=== PATIENT | male | born 1980 | race Caucasian/White ===

== ENCOUNTER 2021-10-29 09:48 | Inpatient (IN) | payer MEDICAID, SELFPAY ==
[2021-10-29] VITALS (22 sets, daily range): BP systolic 93–129; BP diastolic 68–90; PULSE 103–137; RESP 13–20; TEMP 36.4–36.8; O2SAT 97–100; BMI 23.1; BMI 21.7
--- NOTE | 2021-10-29 10:05 | EKG12_ITS ---
Test Reason : Blood Pressure : / mmHG Vent. Rate : 130 BPM Atrial Rate : 130 BPM P-R Int : 142 ms QRS Dur : 074 ms QT Int : 272 ms P-R-T Axes : 099 047 076 degrees QTc Int : 400 ms Sinus tachycardia Nonspecific ST and T wave abnormality Abnormal ECG Confirmed by TAM JANSEN, ABIODUN ([id number]), editor newspaper JARAD COLUNGA ([id number]) on 11/02/2021 12:31:12 PM Referred By: CARYL Confirmed By:ABIODUN TURCIOS MD
--- NOTE | 2021-10-29 10:09 | EX.ED.DYSGE1 ---
HPI History of Present Illness Chief Complaint: Nausea/Vomiting Narrative Narrative: 40-year-old male with history of diabetes as well as chronic foot wound presenting with nausea and vomiting. Patient went to [facility] clinic this week because he was having a decreased appetite and worsening ulceration/concern for infection on the base of his right foot. At the clinic his A1c was 13.7. Patient was started on Jardiance as well as Levaquin for his foot. Has not been able to keep any of his medications down because he has been having vomiting since yesterday. Patient notes he has had an unintentional 30 pound weight loss over the past few months and attributes it to his diabetes. He notes at one point he weighed 450 pounds but he now weighs 171 pounds. He has had swelling as well of his right lower extremity. He denies any difficulty breathing or shortness of breath. He states his mouth feels very dry his throat is on fire. Denies any history of any abdominal surgeries. Denies any abdominal pain just with nausea and vomiting. Is not had a bowel movement a couple days attributes that to decreased oral intake. [facility] Medical History (Updated 10/29/21 @ 11:[address] Luci Judd DO) Diabetes Diabetes mellitus, type 2 Home Medications empagliflozin [Jardiance] 10 mg PO DAILY 10/29/21 [History Last Taken Unknown] levofloxacin 500 mg PO DAILY 10/29/21 [History Last Taken Unknown] Allergy/AdvReac Type Severity Reaction Status Date / Time Penicillins [PCN] Allergy Other Verified 10/29/21 09:56 Surgical History History of ankle surgery Social History (Updated 10/29/21 @ 11:[address] Willard Abel DO) Smoking Status: Never smoker substance use type: marijuana ROS ROS ED Constitutional Constitutional ED: Denies chills or fever(s) Eyes Eyes: Denies blurry vision or change in vision ENT ENT ED: Reports sore throat; Denies rhinorrhea Cardiovascular Cardiovascular: Denies chest pain Respiratory/Chest Respiratory/Chest: Denies cough or dyspnea Gastrointestinal Gastrointestinal: Reports nausea and vomiting; Denies abdominal pain, constipation or diarrhea Genitourinary Genitourinary ED: Denies dysuria or hematuria Musculoskeletal Musculoskeletal: Reports other Details: right leg swelling ; Denies myalgias Integumentary Reports other Details: chronic wound - right foot with drainage Neurologic Neurologic: Reports weakness; Denies headache(s) Psychiatric Psychiatric: Denies depression EXAM Physical Exam Const Vital Signs: 10/29/21 09:50 10/29/21 09:53 10/29/21 10:45 Temperature 98.1 F 98.1 F 98 F Temperature Source Oral Oral Temporal Pulse Rate 132 H 132 H 137 H Respiratory Rate 18 18 17 Blood Pressure 129/81 H 129/81 H 119/90 H Blood Pressure Mean 97 97 99 Pulse Ox 100 100 99 Oxygen Delivery Method Room Air Room Air Room Air 10/29/21 10:51 Temperature 98 F Temperature Source Temporal Pulse Rate 137 H Respiratory Rate 17 Blood Pressure 119/90 H Blood Pressure Mean 99 Pulse Ox 99 Oxygen Delivery Method Room Air Positive well developed and cachectic General Appearance ED: well developed and cachectic Nutritional Appearance: cachectic HEENT Reports dry mucous membranes Negative for trauma Mouth ED: Yes dry mucous membranes Mouth: dry mucous membranes Eyes PERRL and EOMs intact bilaterally Neck supple Neck Narrative: normal ROM Chest Wall inspection of chest normal Resp clear to auscultation bilaterally Resp Narrative: Increased respiratory rate Cardio regular rhythm and no murmurs Rate: tachycardic and other Other Details: Intact radial and DP pulses GI normal to inspection, nondistended, normoactive bowel sounds and non-tender Palpation: soft Back/Spine no CVA tenderness Extremity Extremity Narrative: Mild nonpitting edema of the right lower extremity. No obvious deformity. Neuro oriented x3 and no sensory deficits noted Sensorium / Orientation: alert Motor Exam: general weakness Psych mental status grossly normal Skin Skin Narrative: 1 cm circumferential wound at the base of the right foot near the fifth MTP. There is odorous and purulent discharge coming from it. No surrounding erythema or induration of the skin. MDM MDM MDM Narrative Medical decision making narrative: Patient evaluated for nausea and vomiting as well as hyperglycemia. He has a history of diabetes mellitus and just got put back on medicines. In addition he was just diagnosed with a foot wound. Patient is tachycardic with tachypnea (borderline [place]maul respirations) upon arrival. He appears dehydrated and cachectic. Work-up remarkable for leukocytosis, hyperglycemia, elevated anion gap acidosis, elevated CPK, elevated acetone and elevated creatinine 1.53. Do not have baseline labs to compare to. I suspect patient is in DKA and will be treated accordingly. He is given 2 L of normal saline and started on an insulin drip. I am concerned that his diabetic foot wound as well as his medication noncompliance with past 2 years are the cause of his DKA. He is started on broad-spectrum antibiotics as he does meet criteria for severe sepsis. Patient be admitted to the ICU. Patient is agreeable this plan of care. He is given Zofran in the ER for his nausea. Lab Data Attestation: I reviewed the patient's lab results. Labs: Laboratory Results - last 24 hr 10/29/21 10/29/21 10/29/21 09:55 09:55 09:55 WBC 26.0 H RBC 5.11 Hgb 16.2 Hct 48.7 MCV 95.3 H MCH 31.7 MCHC 33.3 RDW Std Deviation 44.5 H RDW Coeff of Vanessa 12.6 Plt Count 352 MPV 9.4 Immature Gran % (Auto) 0.800 Neut % (Auto) 83.7 H Lymph % (Auto) 3.9 L [place] % (Auto) 11.1 H Eos % (Auto) 0.0 Baso % (Auto) 0.5 Absolute Neuts (auto) 21.7 H Absolute Lymphs (auto) 1.01 Nucleated RBC % 0 Differential Comment COMMENT Diff Path Review May foll Sodium 131 L Potassium 4.5 Chloride 96 L Carbon Dioxide 7.0 L* Anion Gap 28 H BUN 23 H Creatinine 1.53 H Estim Creat Clear Calc 69.00 Est GFR (MDRD) Af Amer 64 Est GFR (MDRD) Non-Af 53 L BUN/Creatinine Ratio 15.0 Glucose 390 H Lactic Acid Calcium 10.1 Phosphorus 5.2 H Magnesium 2.6 Total Bilirubin 0.80 Direct Bilirubin 0.29 AST 10 L ALT 13 L Alkaline Phosphatase 110 Troponin I High Sens < 3 L C-React Prot Ext Range 400.00 H Total Protein 8.9 H Albumin 3.8 Globulin 5.1 H Lipase 28 L Acetone Level 10/29/21 10/29/21 09:55 10:50 WBC RBC Hgb Hct MCV MCH MCHC RDW Std Deviation RDW Coeff of Vanessa Plt Count MPV Immature Gran % (Auto) Neut % (Auto) Lymph % (Auto) [place] % (Auto) Eos % (Auto) Baso % (Auto) Absolute Neuts (auto) Absolute Lymphs (auto) Nucleated RBC % Differential Comment Diff Path Review Sodium Potassium Chloride Carbon Dioxide Anion Gap BUN Creatinine Estim Creat Clear Calc Est GFR (MDRD) Af Amer Est GFR (MDRD) Non-Af BUN/Creatinine Ratio Glucose Lactic Acid 2.8 H* Calcium Phosphorus Magnesium Total Bilirubin Direct Bilirubin AST ALT Alkaline Phosphatase Troponin I High Sens C-React Prot Ext Range Total Protein Albumin Globulin Lipase Acetone Level LARGE H ABG Data ABG results: ABG 10/29/21 10:29 Specimen Type RUDDY VBG pH 7.06 L* VBG pO2 42 H VBG HCO3 6 L VBG Total CO2 7 L VBG O2 Sat (Calc) 58 VBG Base Excess -24 L POC Mix VBG pCO2 Pt Tmp 22.0 L Crit Call To/Read Back Yes Radiography Chest X-Ray - ED: 1 View, Read by ED Physician, Read by Radiologist and No Acute Disease Diagnostic Testing: Clinical Impression(s) from Imaging Studies Chest X-Ray 10/29/21 10:10 IMPRESSION: Normal x-ray examination of the chest. Electronically Signed: Valentino Buchanan MD at 10:27 EST , Foot X-Ray 10/29/21 10:10 IMPRESSION: Soft tissue swelling and ulceration overlying the fifth metatarsophalangeal joint with findings suggestive of erosive changes in the medial aspect of the head of the fifth metatarsal. Osteomyelitis should be ruled out. Electronically Signed: Valentino Buchanan MD at 10:29 EST , Rhythm Strip Rhythm Strip: Sinus Tach Rate: 130 Ectopy: None EKG Initial EKG: Attestation: I personally reviewed and interpreted this EKG as follows: Interpretation: Sinus Tachycardia Comments: Sinus tachycardia rate of 130 Normal axis Normal intervals Possible strain pattern noted with nonspecific ST/T wave abnormalities No prior available for comparison Critical Care Time Critical Care Time: Yes Critical care time (excluding procedures): 30-74 minutes (34), Discussing w/Patient &/or Family/Visual Merchandising Specialist and Arranging Admission or Transfer Discharge Plan Triage Chief Complaint: Nausea/Vomiting ED Provider: Luci Judd Dx/Rx/DC Orders Clinical Impression: DKA (diabetic ketoacidoses), Cellulitis of right foot, Sepsis Primary Care Provider: Care Physician,No Primary Disposition Disposition: Acute Care [facility]
--- NOTE | 2021-10-29 10:10 | RAD_ITS ---
STUDY: X-RAY CHEST REASON FOR EXAM: Male, 40 years old. Vomiting TECHNIQUE: Single AP portable view of the chest. COMPARISON: None. FINDINGS: EKG electrodes are seen. The lungs are clear and expanded. There is no demonstrated pleural abnormality. Normal size heart. Normal mediastinum and bo. Normal visualized pulmonary arteries. Normal visualized aortic arch and descending thoracic aorta. Normal visualized thoracic spine. Normal visualized ribs, clavicles, and shoulders. There is no demonstrated abnormality of the visualized soft tissue structures of the upper abdomen. RAD/Chest 1 View (Portable) IMPRESSION: Normal x-ray examination of the chest. Electronically Signed: Valentino Buchanan MD at 10:27 EST ,
--- NOTE | 2021-10-29 10:10 | RAD_ITS ---
STUDY: X-RAY - RIGHT FOOT CLINICAL: Male, 40 years old. Wound, diabetic TECHNIQUE: 3 view(s) of the foot. COMPARISON: None. FINDINGS: There is an enthesophyte involving the posterior superior calcaneus at the site of insertion of the Achilles tendon. Small plantar spur. Normal visualized subtalar, talonavicular, calcaneocuboid, tarsal and tarsometatarsal articulations. Focal erosive changes seen along the medial aspect of the head of the fifth metatarsal bone suggestive of possible osteomyelitis. Normal metatarsophalangeal joint of the great toe. Normal tibial and fibular sesamoid bones. Normal interphalangeal joint of the great toe. Normal phalanges of the great toe. Normal second through fifth metatarsophalangeal joints. Normal interphalangeal joints and phalanges of the lesser toes. Diffuse soft tissue swelling. Soft tissue ulceration is seen overlying the fifth metatarsophalangeal joint. Small amount of air is seen at the fifth metatarsal phalangeal joint Soft tissue swelling with a small amount of air is also seen overlying the proximal portion of the fifth metatarsal. RAD/Foot min 3 Views IMPRESSION: Soft tissue swelling and ulceration overlying the fifth metatarsophalangeal joint with findings suggestive of erosive changes in the medial aspect of the head of the fifth metatarsal. Osteomyelitis should be ruled out. Electronically Signed: Valentino Buchanan MD at 10:29 EST ,
[2021-10-29 10:14] LABS: Absolute Lymphocyte Count 1.01 X10^3/uL (0.83-4.51); Absolute Neutrophil Count 21.7 X10^3/uL (2.0-7.7); Basophil# 0.14 X10^3/uL; Basophil% 0.5 % (0-1); Eosinophil# 0.01 X10^3/uL; Hematocrit 48.7 % (40-54); Hemoglobin 16.2 g/dL (13.0-16.5); Lymphocyte # 1.01 X10^3/ul (0.83-4.51); Lymphocyte % 3.9 % (19-41); Mean Corp Hgb Conc 33.3 g/dL (32-36); Mean Corpuscular Hgb 31.7 pg (27.0-32.0); Mean Corpuscular Volume 95.3 fL (80-94); Mean Platelet Vol. 9.4 fl (6.2-12.0); Monocyte# 2.88 X10^3/uL; Monocyte% 11.1 % (0-10); NRBC Flagged by Analyzer 0 % (0-5); Neutrophil # 21.69 X10^3/uL (2.7-7.7); Neutrophil % 83.7 % (47-70); POSITIVE DIFFERENTIAL YES; Platelet Count 352 K/mm3 (150-450); RBC Distribution Width CV 12.6 % (11.6-14.6); RBC Distribution Width SD 44.5 fl (35.1-43.9); Red Blood Count 5.11 M/mm3 (4.6-6.2)
[2021-10-29 10:15] LABS: Differential Indicated SCAN CRITERIA MET
[2021-10-29] MEDS: Ondansetron 4 MG/2 ML Vial IV (10:17)
[2021-10-29] MEDS: 0.9% Normal Saline 1,000 ML 999 ML IV ×2 (10:20→10:33)
[2021-10-29 10:28] LABS: AST(SGOT) 10 U/L (15-37); Alanine Aminotransfer ALT/SGPT 13 U/L (16-61); Albumin, Serum 3.8 g/dL (3.2-5.0); Alkaline Phosphatase 110 U/L (45-117); Bilirubin, Direct 0.29 mg/dL (0.00-0.30); Globulin 5.1 g/dL (2.2-4.2); Protein, Total 8.9 g/dL (6.4-8.2)
--- NOTE | 2021-10-29 10:32 | CPS ---
Critical VBG results handed to Dr. Judd
[2021-10-29 10:34] LABS: Anion Gap 28 (5-15); BUN 23 mg/dL (7-18); Calcium,Total 10.1 mg/dL (8.5-10.1); Chloride 96 mmol/L (98-107); Creatinine, Serum 1.53 mg/dL (0.70-1.30); EST Glomerular Filtration Rate 53 mL/min (>60); Est Glom Filt Rate - Afr Amer 64 mL/min (>60); Glucose 390 mg/dL (74-106); Lipase 28 U/L (73-393); Magnesium 2.6 mg/dL (1.6-2.6); Phosphorus 5.2 mg/dL (2.5-4.9); Potassium 4.5 mmol/L (3.5-5.1); Sodium Level 131 mmol/L (136-145); Troponin-I HS < 3 pg/mL (3.0-78.0)
[2021-10-29 10:36] LABS: Blood Gas Specimen Type VEN; VBG BASE EXCESS -24 mmol/L (-1.0-3.5); VBG Bicarbonate 6 mmol/L (22-26); VBG PO2 42 mmHg (25-40); VBG SO2 58 % (50-70); VBG TCO2 7 mmol/L (23-33); VBG pH 7.06 (7.32-7.42)
--- NOTE | 2021-10-29 10:41 | ED.RN ---
mom called in to notify that patient has depression and pt would not mention that. She did not want it made known that she called.
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
[2021-10-29 11:20] LABS: Bedside Glucose 376 mg/dL (70-110)
[2021-10-29 11:28] LABS: Lactic Acid 2.8 mmol/L (0.4-1.9)
[2021-10-29] MEDS: 0.9% Normal Saline 1,000 ML 500 ML IV (12:24)
[2021-10-29 12:57] LABS: Hemoglobin A1c 11.1 % (3.8-5.6)
[2021-10-29 13:02] LABS: Anion Gap 25 (5-15); BUN 23 mg/dL (7-18); BUN/Creat Ratio 17.2 RATIO (10-20); Calcium,Total 8.8 mg/dL (8.5-10.1); Chloride 104 mmol/L (98-107); Creatinine, Serum 1.34 mg/dL (0.70-1.30); EST Glomerular Filtration Rate 62 mL/min (>60); Est Glom Filt Rate - Afr Amer 75 mL/min (>60); Estimated Creatinine Clearance 73.64 ml/min; Glucose 333 mg/dL (74-106); Potassium 4.2 mmol/L (3.5-5.1); Sodium Level 137 mmol/L (136-145)
[2021-10-29 13:16] LABS: Bedside Glucose 305 mg/dL (70-110)
--- NOTE | 2021-10-29 13:19 | PCM.RX.CS ---
Consult Type of Consult: New start Suspected Infection: Skin/Soft tissue Labs: Sodium 137 mmol/L (136-145) 10/29/21 12:35 Potassium 4.2 mmol/L (3.5-5.1) 10/29/21 12:35 Chloride 104 mmol/L (98-107) 10/29/21 12:35 Carbon Dioxide 8.0 mmol/L (21.0-32.0) L* 10/29/21 12:35 Anion Gap 25 (5-15) H 10/29/21 12:35 BUN 23 mg/dL (7-18) H 10/29/21 12:35 Creatinine 1.34 mg/dL (0.70-1.30) H 10/29/21 12:35 Est GFR (MDRD) Af Amer 75 mL/min (>60) 10/29/21 12:35 Est GFR (MDRD) Non-Af 62 mL/min (>60) 10/29/21 12:35 BUN/Creatinine Ratio 17.2 RATIO (10-20) 10/29/21 12:35 Glucose 333 mg/dL (74-106) H 10/29/21 12:35 Microbiology: Microbiology 10/29/21 10:53 Nasal Secretion SARS-CoV-2 Antigen (Rapid) - Final Goal Trough: 10-15 mcg/mL Pharmacy Plan for Drug Dosing: NEW START IV VANCOMYCIN Consulting Physician: Dr. Bhavani Abel Indication: Cellulitis Right Foot Goal Trough: 10-15 (Moderate) SrCr: 1.34 mg/dL CrCl:73.64 mL/min Comments: 2000mg given x1 dose in ER @ 1225 10/29/21 Vancomcyin Dose: 750mg Q12H to start @ 0000 10/30/21 Pending Level: Vancomycin Trough @ 232910/30/21 Pharmacy Service will continue to monitor and adjust dosing as required. Labs to be done on [date and time ordered]: Vancomycin Trough @ 232910/30/21
[2021-10-29 13:56] LABS: Bedside Glucose 356 mg/dL (70-110)
[2021-10-29 14:16] LABS: Bedside Glucose 225 mg/dL (70-110)
[2021-10-29] MEDS: Dext 5%-0.45% NS 1,000 ML 150 ML IV ×2 (14:38→21:08)
[2021-10-29 14:51] LABS: Reflex Lactate? Y
[2021-10-29 15:11] LABS: Bedside Glucose 204 mg/dL (70-110)
[2021-10-29 16:16] LABS: Anion Gap 16 (5-15); BUN 22 mg/dL (7-18); BUN/Creat Ratio 17.7 RATIO (10-20); Calcium,Total 8.2 mg/dL (8.5-10.1); Chloride 111 mmol/L (98-107); Creatinine, Serum 1.24 mg/dL (0.70-1.30); EST Glomerular Filtration Rate 68 mL/min (>60); Est Glom Filt Rate - Afr Amer 82 mL/min (>60); Estimated Creatinine Clearance 79.58 ml/min; Glucose 248 mg/dL (74-106); Potassium 4.1 mmol/L (3.5-5.1); Sodium Level 139 mmol/L (136-145)
[2021-10-29 16:19] LABS: Lactic Acid 1.2 mmol/L (0.4-1.9)
[2021-10-29 16:20] LABS: Bedside Glucose 236 mg/dL (70-110)
[2021-10-29 17:10] LABS: Bedside Glucose 236 mg/dL (70-110)
[2021-10-29 18:11] LABS: Bedside Glucose 216 mg/dL (70-110)
[2021-10-29 19:06] LABS: Bedside Glucose 222 mg/dL (70-110)
[2021-10-29 20:41] LABS: Anion Gap 10 (5-15); BUN 19 mg/dL (7-18); BUN/Creat Ratio 14.7 RATIO (10-20); Calcium,Total 8.9 mg/dL (8.5-10.1); Chloride 110 mmol/L (98-107); Creatinine, Serum 1.29 mg/dL (0.70-1.30); EST Glomerular Filtration Rate 65 mL/min (>60); Est Glom Filt Rate - Afr Amer 78 mL/min (>60); Glucose 212 mg/dL (74-106); Potassium 3.6 mmol/L (3.5-5.1); Sodium Level 139 mmol/L (136-145)
[2021-10-29 21:11] LABS: Bedside Glucose 192 mg/dL (70-110)
[2021-10-29 21:11] LABS: Bedside Glucose 185 mg/dL (70-110)
[2021-10-29 23:15] LABS: Bedside Glucose 157 mg/dL (70-110)
[2021-10-29 23:35] LABS: Bedside Glucose 177 mg/dL (70-110)
[2021-10-30] VITALS (18 sets, daily range): BP systolic 95–119; BP diastolic 63–84; PULSE 90–115; RESP 15–99; TEMP 36.3–37.2; O2SAT 97–100; BMI 23.0
[2021-10-30 00:06] LABS: Bedside Glucose 141 mg/dL (70-110)
[2021-10-30 00:23] LABS: Anion Gap 8 (5-15); BUN 18 mg/dL (7-18); BUN/Creat Ratio 15.5 RATIO (10-20); Calcium,Total 8.8 mg/dL (8.5-10.1); Chloride 111 mmol/L (98-107); Creatinine, Serum 1.16 mg/dL (0.70-1.30); EST Glomerular Filtration Rate 73 mL/min (>60); Est Glom Filt Rate - Afr Amer 88 mL/min (>60); Estimated Creatinine Clearance 85.07 ml/min; Glucose 156 mg/dL (74-106); Potassium 3.4 mmol/L (3.5-5.1); Sodium Level 140 mmol/L (136-145)
[2021-10-30] MEDS: Potassium Chloride Oral Tablet 20 MEQ 40 MEQ PO (01:04)
[2021-10-30 02:21] LABS: Bedside Glucose 123 mg/dL (70-110)
[2021-10-30 02:21] LABS: Bedside Glucose 146 mg/dL (70-110)
[2021-10-30 04:05] LABS: Bedside Glucose 142 mg/dL (70-110)
[2021-10-30 05:06] LABS: Bedside Glucose 98 mg/dL (70-110)
[2021-10-30 05:35] LABS: Anion Gap 6 (5-15); BUN 14 mg/dL (7-18); BUN/Creat Ratio 14.7 RATIO (10-20); Calcium,Total 8.8 mg/dL (8.5-10.1); Chloride 109 mmol/L (98-107); Creatinine, Serum 0.95 mg/dL (0.70-1.30); EST Glomerular Filtration Rate 92 mL/min (>60); Est Glom Filt Rate - Afr Amer 111 mL/min (>60); Estimated Creatinine Clearance 110.46 ml/min; Glucose 92 mg/dL (74-106); Potassium 3.2 mmol/L (3.5-5.1); Sodium Level 137 mmol/L (136-145)
[2021-10-30] MEDS: 0.9% Saline Lock 10 ML Syringe IV (06:33)
[2021-10-30] MEDS: Insulin Lispro 100 UNIT/ML INSULN.PEN SC ×3 (08:08→23:06)
[2021-10-30] MEDS: Insulin Lispro 100 UNIT/ML INSULN.PEN 6 UNIT SC ×4 (08:08→16:45)
[2021-10-30 08:15] LABS: Bedside Glucose 158 mg/dL (70-110)
--- NOTE | 2021-10-30 09:27 | NURSING ---
pt to MRI at this time via wheelchair
--- NOTE | 2021-10-30 09:30 | MRI_ITS ---
STUDY: MRI RIGHT FOREFOOT WITHOUT CONTRAST REASON FOR EXAM: Right foot infection in a diabetic with chronic ulcer at the lateral plantar aspect of the forefoot. TECHNIQUE: Standardized fat and water weighted pulse sequences were obtained in all 3 orthogonal planes. COMPARISON: Radiographs 10/29/2021. FINDINGS: Normal metatarsophalangeal joint of the hallux. Normal tibial and fibular sesamoids, with normal sesamoids-first metatarsal articulations. Normal interphalangeal joint of the hallux. Normal proximal and distal phalanges of the great toe. Normal medial and lateral heads of the flexor hallucis brevis tendons. Normal flexor and extensor hallucis longus tendons. Normal second through fifth metatarsophalangeal (MTP) joints. Normal interphalangeal joints of the second through fifth toes. Normal proximal, middle and distal phalanges of the second through fourth toes. There is bone edema of the base of the fifth proximal phalanx (inversion recovery sagittal image 25) with corresponding decreased T1 bone marrow signal (T1 sagittal image 25) suggestive of osteomyelitis. There is bone edema of the head of the fifth metatarsal (inversion recovery short axis image 22) with mild decreased T1 bone marrow signal (T1 short axis series 22), suggestive of osteomyelitis. There is mild intermetatarsal bursitis of the third webspace (inversion recovery short axis image 17). Normal flexor and extensor tendons of the second through fifth toes. There is partial fat replacement of the intrinsic muscles of the forefoot (T1 sagittal images 8-17) suggestive of peripheral neuropathy. There is edema in the subcutis adipose space with a fluid collection in the dorsal lateral aspect of the proximal forefoot containing pockets of gas (T2 short axis images 22-30) consistent with abscess measuring approximately 0.6 x 3.1 x 3.9 cm (AP x transverse x length). There is an ulcer at the plantar aspect of the fifth metatarsophalangeal joint and edema in the adjacent subcutis adipose space. 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 MRI/Lower Ext/No Jt/w/o IMPRESSION: Signal alterations of the fifth metatarsal head and fifth proximal phalangeal base, suggestive of osteomyelitis. Fluid collection in the dorsal lateral aspect of the forefoot with pockets of gas consistent with abscess. Partial fat replacement of the intrinsic muscles of the forefoot suggestive of peripheral neuropathy. Mild intermetatarsal bursitis of the third webspace. Electronically Signed: Kingston Fajardo MD at 10:53 EST ,
--- NOTE | 2021-10-30 10:26 | NURSING ---
pt returns from MRI
[2021-10-30] MEDS: Enoxaparin 40 MG/0.4 ML Syringe SC (10:39)
[2021-10-30 11:25] LABS: Bedside Glucose 230 mg/dL (70-110)
--- NOTE | 2021-10-30 12:02 | PN.HOSP_ITS ---
Subjective Subjective Developed blisters on the dorsum of his right foot that were not present initially. Otherwise feels well. Notes that he does have diminished sensation in his feet. Objective Data Objective Data Vital Signs: Vital Signs Temp Pulse Resp BP Pulse Ox 36.4 C L 100 18 119/84 H 98 10/30/21 08:00 10/30/21 08:00 10/30/21 08:00 10/30/21 08:00 10/30/21 08:00 Oxygen Delivery Method Room Air Weight: 77.1 kg Body Mass Index (BMI) 21.7 Intake & Output: Intake and Output for Last 24 Hours 10/28/21 10/29/21 10/30/21 23:59 23:59 23:59 Intake Total 4086.83 / 4086.83 1390.12 / 1390.12 Output Total 1600 / 1600 550 / 550 Balance 2486.83 / 2486.83 840.12 / 840.12 Lab / Micro Data Result Diagrams: 10/29/21 09:55 10/30/21 04:45 Labs: Laboratory Results - last 24 hr 10/29/21 09:55: Hemoglobin A1c 11.1 H 10/29/21 12:06: POC Glucose 356 H 10/29/21 12:35: Sodium 137, Potassium 4.2, Chloride 104, Carbon Dioxide 8.0 L*, Anion Gap 25 H, BUN 23 H, Creatinine 1.34 H, Estim Creat Clear Calc 73.64, Est GFR (MDRD) Af Amer 75, Est GFR (MDRD) Non-Af 62, BUN/Creatinine Ratio 17.2, Glucose 333 H, Calcium 8.8 10/29/21 13:07: POC Glucose 305 H 10/29/21 14:08: POC Glucose 225 H 10/29/21 15:05: POC Glucose 204 H 10/29/21 15:45: Sodium 139, Potassium 4.1, Chloride 111 H, Carbon Dioxide 12.0 L , Anion Gap 16 H, BUN 22 H, Creatinine 1.24, Estim Creat Clear Calc 79.58, Est GFR (MDRD) Af Amer 82, Est GFR (MDRD) Non-Af 68, BUN/Creatinine Ratio 17.7, Glucose 248 H, Calcium 8.2 L 10/29/21 15:45: Lactic Acid 1.2 10/29/21 16:11: POC Glucose 236 H 10/29/21 17:04: POC Glucose 236 H 10/29/21 18:07: POC Glucose 216 H 10/29/21 19:00: POC Glucose 222 H 10/29/21 20:08: POC Glucose 192 H 10/29/21 20:15: Sodium 139, Potassium 3.6, Chloride 110 H, Carbon Dioxide 19.0 L , Anion Gap 10, BUN 19 H, Creatinine 1.29, Estim Creat Clear Calc 76.50, Est GFR (MDRD) Af Amer 78, Est GFR (MDRD) Non-Af 65, BUN/Creatinine Ratio 14.7, Glucose 212 H, Calcium 8.9 10/29/21 21:04: POC Glucose 185 H 10/29/21 22:07: POC Glucose 177 H 10/29/21 23:12: POC Glucose 157 H 10/29/21 23:57: Sodium 140, Potassium 3.4 L, Chloride 111 H, Carbon Dioxide 21.0, Anion Gap 8, BUN 18, Creatinine 1.16, Estim Creat Clear Calc 85.07, Est GFR (MDRD) Af Amer 88, Est GFR (MDRD) Non-Af 73, BUN/Creatinine Ratio 15.5, Glucose 156 H, Calcium 8.8 10/30/21 00:02: POC Glucose 141 H 10/30/21 01:18: POC Glucose 123 H 10/30/21 02:13: POC Glucose 146 H 10/30/21 03:18: POC Glucose 142 H 10/30/21 04:26: POC Glucose 98 10/30/21 04:45: Sodium 137, Potassium 3.2 L, Chloride 109 H, Carbon Dioxide 22.0, Anion Gap 6, BUN 14, Creatinine 0.95, Estim Creat Clear Calc 110.46, Est GFR (MDRD) Af Amer 111, Est GFR (MDRD) Non-Af 92, BUN/Creatinine Ratio 14.7, Glucose 92, Calcium 8.8 10/30/21 08:04: POC Glucose 158 H 10/30/21 11:22: POC Glucose 230 H Micro: Microbiology 10/29/21 10:53 Nasal Secretion SARS-CoV-2 Antigen (Rapid) - Final Radiography Diagnostic Testing: Radiology Impression Lower Extremity MRI 10/30/21 09:30 IMPRESSION: Signal alterations of the fifth metatarsal head and fifth proximal phalangeal base, suggestive of osteomyelitis. Fluid collection in the dorsal lateral aspect of the forefoot with pockets of gas consistent with abscess. Partial fat replacement of the intrinsic muscles of the forefoot suggestive of peripheral neuropathy. Mild intermetatarsal bursitis of the third webspace. Electronically Signed: Kingston Fajardo MD at 10:53 EST , Rhythm Strip Rhythm Strip: Sinus Tach Rate: 130 Ectopy: None Physical Exam Const alert and no apparent distress Neck no lymphadenopathy Resp normal respiratory effort, no retractions, no use of accessory muscles and clear to auscultation bilaterally Cardio regular rate, regular rhythm, S1 normal heart sound and S2 normal heart sound GI normal to inspection, nondistended, normoactive bowel sounds, soft to palpation, non-tender and non-distended Skin Skin Narrative: Still with the defect on the right lateral foot. Also development of a blister appears to be filled with blood between his fourth and fifth toe. This was not present on the third. Neuro Sensorium / Orientation: awake and alert Assessment & Plan Assessment/Plan (1) DKA (diabetic ketoacidoses): QUALIFIERS: Diabetes mellitus type: type 2 Diabetes mellitus c omplication detail: without coma Qualified Code(s): E11.10 - Type 2 diabetes mellitus with ketoacidosis without coma (2) Cellulitis of right foot: (3) Osteomyelitis of right foot: QUALIFIERS: Osteomyelitis type: unspecified type Qualified Code(s): M86.9 - Osteomyelitis, unspecified PLAN: 1. Diabetic ketoacidosis Resolved On basal and prandial insulin May been exacerbated due to a right lower extremity cellulitis A1c 11.1 2. Right foot cellulitis, osteomyelitis and abscess MRI of the foot shows evidence of osteomyelitis in the fifth metatarsal head as well as the fifth proximal phalangeal base, fluid collection in the dorsal later al aspect of the forefoot with pockets of gas consistent with abscess. Vancomycin and aztreonam for now Consult podiatry Did discuss with the patient the likelihood of surgery Patient medically optimized to proceed with surgery. 3 VTE prophylaxis with enoxaparin 4. COVID-19: Patient has been vaccinated and boosted. He thinks he may have contracted it about a month ago but was sick for about 2 days and has since resolved. Rapid COVID-19 ordered in the emergency room and performed. Results pending. Charges/Coding Visit Charges Inpatient E&M: 45074 Subs Hosp L2
--- NOTE | 2021-10-30 12:08 | ART_ITS ---
Reason For Study: Rt Foot Osteomyelitis Procedure A bilateral lower extremity continuous wave Doppler with analog waveform analysis and ankle brachial indexes. Left Segmental Pressures Left posterior tibial artery = 105mmHg. Left dorsalis pedis artery = 103mmHg. Left digit = 85 mmHg. Right Segmental Pressures Right brachial= 100mmHg. Right posterior tibial artery = 113mmHg. Right dorsalis pedis artery = 102mmHg. Right digit = 63 mmHg. Indices The right ankle brachial index by the posterior tibial artery is 1.13. The right ankle brachial index by the dorsalis pedis is 1.02. The right digital-brachial index is 0.63. The left ankle brachial index by the posterior tibial artery is 1.05. The left ankle brachial index by the dorsalis pedis is 1.03. The left digital-brachial index is 0.85. VL/Ankle Brachial Index Interpretation Summary Normal bilateral lower extremity resting ankle brachial indices and triphasic d oppler waveforms Abnormal right digital brachial index of 0.63 suspicous for distal small vessel disease Normal left digital brachial index of 0.85 Ordering Physician: Willard Abel Performed By: Chelsie Lane RDCS/RVT
[2021-10-30 12:30] LABS: Pathologist Review Reviewed
--- NOTE | 2021-10-30 13:44 | CON.PCM_ITS ---
Assessment & Plan Assessment/Plan (1) Osteomyelitis of right foot: QUALIFIERS: Osteomyelitis type: unspecified type Qualified Code(s): M86.9 - Osteomyelitis, unspecified (2) Cellulitis of right foot: (3) Sepsis: (4) DKA (diabetic ketoacidoses): QUALIFIERS: Diabetes mellitus type: type 2 Diabetes mellitus complication detail: without coma Qualified Code(s): E11.10 - Type 2 diabetes mellitus with ketoacidosis without coma PLAN: I reviewed and discussed his case today including his diagnostic data. He has a limb and life-threatening infection and his case is complicated with his uncontrolled diabetes (A1c 11.1%). He had diabetic ketoacidosis upon admission and had a white blood cell count of 26. His x-rays demonstrate soft tissue emphysema adjacent to the ulcer site on the dorsal aspect of the foot and this is consistent with a cast infection. Further MRI demonstrates abscess formation with air and gas collection. Osteomyelitis is also suspected to the fifth metatarsal head and proximal phalanx base of the fifth toe of the right foot. He is currently on IV antibiotics including aztreonam and vancomycin. Verbal consent was obtained to perform small incision and drainage and ulcer debridement to immediately decompress this infection site. At this time deep wound cultures were obtained including aerobic, anaerobic, and MRSA PCR. This was packed with Betadine wet-to-dry gauze. I recommend timely surgery today to further decompress his infection site and save as much of his limb as possible. He is preoperatively optimized and is under hospitalist medical management. The preoperative indications, planned procedure, benefits, risk, anticipated healing time and management were reviewed. The patient understands and elects proceed with surgery at this time. No guarantees were made. The patient understands risk and complications include but are not limited to following: pain, swelling, scarring, need for further surgery, tendon contracture, transfer lesion, arthritis, need for further surgery, delayed or nonhealing, infection, blood clot, allergic reaction, loss of limb, function, or life. He understands a staged procedure is also possible and he is at significant risk for limb loss due to this condition. The informed surgical limb will need to be signed, and consent were signed for right lower extremity debridement of nonviable soft tissue involving a fifth ray resection. He elects to proceed. I also reviewed the case with anesthesiologist and this procedure will occur today. Enoxaparin held. Medical management per hospitalist is appreciated. I answered all the patient's questions. Thank you for the consultation. Please do not hesitate to contact me if you have further questions. Mary Tyson DPM, [facility] [phone] HPI Consult Data Date of Consult: 10/30/21 HPI Narrative Reason for Consultation: right foot infection HPI Narrative: BETI LONG, is a 40 M who was admited for Diabetic ketoacidosis and right foot infection was seen bedside this afternoon. He does have a history of chronic ulceration which she has been treating this on his own for approximately 9 months. He reported he developed severe nausea and vomiting this past Tuesday with increased foot swelling. He then noticed some redness to the he reports he has had odor on and off for the past couple of months. He denies pain because he is neuropathic. He is a known diabetic and denies checking his glucose levels at home. He lost his health insurance and has not been seeking medical care. [facility] Medical History Diabetes Diabetes mellitus, type 2 Home Medications empagliflozin [Jardiance] 10 mg PO DAILY 10/29/21 [History Last Taken Unknown] levofloxacin 500 mg PO DAILY 10/29/21 [History Last Taken Unknown] Allergy/AdvReac Type Severity Reaction Status Date / Time Penicillins [PCN] Allergy Other Verified 10/29/21 09:56 Surgical History History of ankle surgery Social History (Updated 10/29/21 @ 11:[address] Willard Abel, ) Smoking Status: Never smoker substance use type: marijuana Physical Exam Const alert and oriented x3 General Appearance: cooperative HEENT normocephalic Extremity Extremity Narrative: No calf tenderness Edema right foot and leg Compartments remain soft and there is no skin tenting 2/4 PT and DP pulses bilateral Muscle wasting noted; intrinsic minus foot General Extremity: edema and no tenderness to palpation of joints or extremities; Negative for cyanosis Skin Skin Narrative: Skin discontinuity subfifth metatarsal head with necrotic base with positive probe to fifth metatarsal head bone and odor and dishwater mares seropurulent drainage. Plantar predebridement measurement 1.1 x 1.1 x 1.1 cm and post debridement 1.3 x 1.3 x 1.6 cm. There is also dorsal foot lateral erythema and hematogenous bulla to the fourth dorsal distal interspace. Upon drainage there is significant malodor in the plantar lateral forefoot is boggy and fluctuant on palpation. There is no streaking into the leg. There is also ecchymosis to the dorsal lateral forefoot of the right lower extremity. There is healed ankle fracture repair cicatrix to the lateral and anterior medial ankle which does not appear to be involved. The left lower extremity was evaluated without any open lesions or infections. General Skin Exam: Negative for erythema Neuro Neuro Narrative: lack of normal epicritic sensation via light touch is consistent with neuropathy status Psych cooperative and affect normal Lab / Micro Data Result Diagrams: 10/29/21 09:55 10/30/21 04:45 Labs: Laboratory Results - last 24 hr 10/29/21 09:55: Diff Path Review Reviewed 10/29/21 12:06: POC Glucose 356 H 10/29/21 14:08: POC Glucose 225 H 10/29/21 15:05: POC Glucose 204 H 10/29/21 15:45: Sodium 139, Potassium 4.1, Chloride 111 H, Carbon Dioxide 12.0 L , Anion Gap 16 H, BUN 22 H, Creatinine 1.24, Estim Creat Clear Calc 79.58, Est GFR (MDRD) Af Amer 82, Est GFR (MDRD) Non-Af 68, BUN/Creatinine Ratio 17.7, Glucose 248 H, Calcium 8.2 L 10/29/21 15:45: Lactic Acid 1.2 10/29/21 16:11: POC Glucose 236 H 10/29/21 17:04: POC Glucose 236 H 10/29/21 18:07: POC Glucose 216 H 10/29/21 19:00: POC Glucose 222 H 10/29/21 20:08: POC Glucose 192 H 10/29/21 20:15: Sodium 139, Potassium 3.6, Chloride 110 H, Carbon Dioxide 19.0 L , Anion Gap 10, BUN 19 H, Creatinine 1.29, Estim Creat Clear Calc 76.50, Est GFR (MDRD) Af Amer 78, Est GFR (MDRD) Non-Af 65, BUN/Creatinine Ratio 14.7, Glucose 212 H, Calcium 8.9 10/29/21 21:04: POC Glucose 185 H 10/29/21 22:07: POC Glucose 177 H 10/29/21 23:12: POC Glucose 157 H 10/29/21 23:57: Sodium 140, Potassium 3.4 L, Chloride 111 H, Carbon Dioxide 21.0, Anion Gap 8, BUN 18, Creatinine 1.16, Estim Creat Clear Calc 85.07, Est GFR (MDRD) Af Amer 88, Est GFR (MDRD) Non-Af 73, BUN/Creatinine Ratio 15.5, Glucose 156 H, Calcium 8.8 10/30/21 00:02: POC Glucose 141 H 10/30/21 01:18: POC Glucose 123 H 10/30/21 02:13: POC Glucose 146 H 10/30/21 03:18: POC Glucose 142 H 10/30/21 04:26: POC Glucose 98 10/30/21 04:45: Sodium 137, Potassium 3.2 L, Chloride 109 H, Carbon Dioxide 22.0, Anion Gap 6, BUN 14, Creatinine 0.95, Estim Creat Clear Calc 110.46, Est GFR (MDRD) Af Amer 111, Est GFR (MDRD) Non-Af 92, BUN/Creatinine Ratio 14.7, Glucose 92, Calcium 8.8 10/30/21 08:04: POC Glucose 158 H 10/30/21 11:22: POC Glucose 230 H Micro: Microbiology 10/29/21 10:53 Nasal Secretion SARS-CoV-2 Antigen (Rapid) - Final Rhythm Strip Rhythm Strip: Sinus Tach Rate: 130 Ectopy: None Radiology Impression Lower Extremity MRI 10/30/21 09:30 IMPRESSION: Signal alterations of the fifth metatarsal head and fifth proximal phalangeal base, suggestive of osteomyelitis. Fluid collection in the dorsal lateral aspect of the forefoot with pockets of gas consistent with abscess. Partial fat replacement of the intrinsic muscles of the forefoot suggestive of peripheral neuropathy. Mild intermetatarsal bursitis of the third webspace. Electronically Signed: Kingston Fajardo MD at 10:53 EST ,
--- NOTE | 2021-10-30 14:25 | CASEMGMT ---
Addendum entered by Meredith Saez 10/30/21 14:47: STEFANO GARCIA back into room. Provided pt with 's card and patient was provided a list of C providers including quality and resource use data and consistent with the patient?s preferred geographic region, medical needs, and insurance network. STEFANO GARCIA to follow. Original Note: STEFANO GARCIA Assessment: Face to Face with pt for initial transition planning/care coordination assessment. RN RADHA introduced self and role at [facility], pt voices understanding and consents to assessment. Pt is A/O x4 and answers all questions appropriately at this time. Pt sitting up in bed with mother at bedside. Pt in no distress on RA. Care providers, pharmacy, and demographics verified/updated. Admitting Dx: DKA, Diabetic Foot Wound PCP:Trena Magallon Specialists:Pt denies. Preferred [facility]acy: [facility] Insurance: [employer] Prescription Benefit: yes LW/HPOA: Pt denies having a LW/DPOA and denies need for info regarding AD. LNOK: Syl Murphy, mother Living Arrangements: Pt lives in a single story condo with 1 step to enter. Pt reports he is I in ADL's and denies concerns at home. Transportation: Pt drives self and denies concerns with transportation. DME/HHC/SNF: Pt has access to a w/c and walker but does not use AD to ambulate. Pt does not have a BGM. STEFANO GARCIA to obtain script for this. Pt states he does not take insulin at home. He has lost a significant amount of weight and reports he does not check his blood sugars anymore. Pt has a wound to the R foot, states he has had it for about 9 mos. He reports he dresses it himself with silver. Pt denies hx of HHC or SNF stays. Pt states no concerns with going home at time of dc. He is open to having SN to assist with wound care. His mother states she is also willing to learn. Pt is also open to nursing giving DM education in the home. Will provide pt with pamphlet for mine promotor. Pt states no further concerns/needs. CM to follow. Advised pt to ask CM if any further question/concerns/needs arise, voices understanding. Pt Goal: Home with HHC Plan: Home with C
[2021-10-30 16:35] LABS: Bedside Glucose 199 mg/dL (70-110)
--- NOTE | 2021-10-30 17:00 | FOOT_PTH ---
PATIENT: BETI LONG LOC: [facility]3 U#:[id number] AGE/SX: 40/M ROOM: [facility]322 RE10/29/[address]: Dr. Xavi Gordon MD : 1980 BED: 1 DIS: 11/04/2021 SPEC #: [id number] RECD: 11/02/21 07:21 STATUS: FUNMI REQ #: [id number] MARIAJOSE: 10/30/21 17:[address]: Mary Tyson DEPT: SURGICAL PATHOLOGY RECD BY: Purnima Braun ENTERED: 11/02/21 07:56 SP TYPE: FOOT OTHR DR: DO Dr. Wood Contreras, DPM MD Dr. Demetri Knox MD No Primary Care Phys Tissues: A - Foot, NOS B - Foot, NOS Procedures: Decalcification bone/plaque Surgery Specimen Level III Comments: @ Ordering doctor for DEC edited from to DR.JFASCI Moyer by TANO at 11/02/21 1344 @ Ordering doctor for SUIV edited from to DR.JFASCI Moyer by TANO at 11/02/21 1344 @ Ordering doctor for SUV edited from to DR.JFASCI Moyer by TANO at 11/02/21 1344 @ Submitting doctor edited from to DR.JFASCI Comfort FREEDMAN at 11/02/21 1344 HEADER OPERATION: Open fifth ray resection, right foot PRE-OP DIAGNOSIS: Osteomyelitis of right foot, cellulitis, sepsis, DKA TISSUE SUBMITTED: A ? Right foot soft tissue and bone, B ? Right foot clearance fragment MICROSCOPIC DIAGNOSIS A. Right foot soft tissue and bone: Acute inflammation and extensive abscess formation. Bone with acute osteomyelitis. B. Right foot clearance fragment: A piece of bone, negative for acute osteomyelitis. SJ:kelsey 11/05/2021 MICROSCOPIC DESCRIPTION Slides are reviewed. GROSS DESCRIPTION A - Received in fixative is one container labeled with the patient's name and designated right foot soft tissue and bone. The specimen consists of multiple pieces of skin with underlying tissue that in aggregate measure 8 x 7 x 3 cm. The soft tissue shows grayish-white discoloration. The soft tissue underlying the skin shows grayish discoloration. Also present in the container is a piece of bone measuring 4.5 x 2 x 1.5 cm. Lead Refiner sections are submitted in four cassettes as follows: 1 & 2 ? soft tissue, 3 & 4 ? bone after decalcification. B - Received in fixative is one container labeled with the patient's name and designated right foot clearance fragment. The specimen consists of a piece of bone measuring 1.7 x 0.5 x 0.2 cm. The entire specimen is submitted in one cassette after decalcification. / SJ:rg 11/02/2021 TC:2 CPT: 60324 x2, 73214 x2
--- NOTE | 2021-10-30 18:30 | RAD_ITS ---
STUDY: INTRAOPERATIVE FLUOROSCOPY TECHNIQUE: The examination was performed with referring physician in attendance. Under fluoroscopic observation, fluoroscopic images were obtained. Radiologist was not present for the study. Radiologist did not perform the procedure. This dictation is for documentation of the radiation dosage only. There is no interpretation of the images. TOTAL NUMBER OF IMAGES: 1 COMPARISON: None RADIATION DOSE: 0.0819 mGy FLUOROSCOPY TIME: .02 seconds REASON FOR EXAM: OPEN 5TH RAY RESECTION Male, 40 years old. FINDINGS: Images of the foot. Resection and amputation of the fifth digit. RAD/Foot 2 Views IMPRESSION: Fluoroscopic assistance images were obtained. Dictation for documentation purposes only. Electronically Signed: John Caldwell MD at 20:16 EST ,
[2021-10-30] MEDS: Bupivacaine Mpf 0.5% 30 ML VIAL (18:58)
[2021-10-30] MEDS: Lidocaine 1% (30 ml sdv) 30 ML Vial (18:58)
--- NOTE | 2021-10-30 19:35 | OP.PCM_ITS ---
Problems Associated Problem List Diagnoses (1) Osteomyelitis of right foot: (2) Cellulitis of right foot: Report of Operation Date of Procedure: 10/30/21 Pre-Operative Diagnosis: osteomyelitis right fifth toe and metatarsal abscess / infection right foot Post-Operative Diagnosis: osteomyelitis right fifth toe and metatarsal abscess / infection right foot Surgery/Procedure Performed:: open fifth ray resection right foot with widespread debridement and drainage Description of Surgical Findings:: Hemostasis: Well-padded pneumatic high right ankle tourniquet, 250 mmHg, 20 minutes Materials: Gelfoam Specimen sent Complications: None The patient tolerated the procedure and anesthesia well. The patient was transported to the PACU with vital signs stable and vascular status intact to the surgical limb. To ice and elevate for pain and inflammation management. Postoperative x-rays were reviewed prior to leaving the operating room. This demonstrated adequate fifth ray resection without remaining soft tissue emphysema or foreign body. Postoperative orders were entered electronically. Surgeon: Jah,Mary respiratory care technician: None Type of Anesthesia: Local (Preop: 1:1 mix 1% lidocaine plain and 0.5% Marcaine plain typical right ankle block fashion, 20 cc) and MAC Specimen's removed: 1. Right foot soft tissue and bone sent to microbiology for aerobic, anaerobic, acid-fast, fungal 2. Right foot soft tissue and bone sent to pathology 3. Right foot fifth metatarsal bone clearance fragment sent to microbiology for aerobic, anaerobic, acid-fast, fungal 4. Right foot fifth metatarsal bone clearance fragment sent to pathology Drains: None Estimated Blood Loss (mL): < 70 mL Description of Procedure: Indications: This 40-year-old male with uncontrolled diabetes was admitted for diabetic ketoacidosis, sepsis, and right foot infection. The onset of his ulcer to the right foot was approximately 9 months ago and he recently developed some erythema and systemic illness reported earlier this week. He was admitted and placed on IV antibiotics and had some advanced imaging studies performed. He has palpable pulses and normal lower extremity arterial studies. He does have a necrotic devitalized ulcer to the plantar fifth metatarsal head area that has a very strong malodor with adjacent blisters with purulence and hematogenous drainage encompassing the entire dorsal lateral forefoot. X-ray demonstrates some destruction of the fifth metatarsal head and adjacent toe and this is also supported by the MRI findings which suggest osteomyelitis. There is also gas a nd abscess formation around the fifth metatarsal head. Preoperative H&P were reviewed including his diagnostic data. Preoperative indications, planned procedure, benefits, risk, anticipated healing time and management were reviewed. The patient understands and elects proceed with surgery at this time. No guarantees were made. The patient understands risk and complications include but are not limited to following: pain, swelling, scarring, need for further surgery, tendon contracture, transfer lesion,arthritis, need for further surgery, delayed or nonhealing, infection, blood clot, allergic reaction, loss of limb, function, or life. The informed surgical limb and consent were signed. He is at significant risk for continued limb loss and even life loss with this condition. I answered all the patient's questions. Procedure in detail: The patient was transported to the operating room via cart and placed on the operating room table in supine position. Final verification the patient, surgery, limb designation was performed via the timeout procedure. MAC anesthesia was initially by the anesthesia physician. I administered a local anesthetic. He is already on broad spectrum IV antibiotics. The right lower extremity was bumped to allow adequate exposure. The right lower extremity was prepped and draped in the usual aseptic manner. [place] exsanguination was performed and the tourniquet was inflated at this time. Attention was next directed to the infectious abscess and ulcer site of the right foot in which a 15 blade was used to excise the ulcer which preoperatively measured about 1.3 x 1.3 x 1.6 cm. The fifth metatarsal head was soft, huston, and discolored and there was also necrotic devitalized soft tissue that extended to the lateral margins of the fourth ray plantar foot and even extending onto the dorsal midfoot leaving the deeper tendon sheaths and compartments intact. A sagittal saw was used to resect the fifth metatarsal head and diaphysis proximal to the infectious zone. This was sent to microbiology and pathology. An additional MRSA swab was obtained at this time also. Copious saline irrigation was performed. Clean gloves, instruments and drapes were applied at this time. A clearance fragment was obtained from the fifth metatarsal bone. This was additionally sent to microbiology and pathology. The tissue was further curetted and the post debridement measurement was 12 cm x 7 cm x 3.5 cm. The tourniquet was deflated at this time and pressure was applied to maintain hemostasis. Additional electrocauterization was performed to maintain hemostasis. Betadine soaked gauze were applied as a dressing with Gelfoam at the distal most aspect. There was no pulsatile bleeding. There is no additional purulence or odor noted on expression after the saline irrigation and debridement was performed. Additional dressing consisting of 4 x 4 gauze, Kerlix, ABD pad, and Luis wrap were applied. After procedure: The patient tolerated the procedure and anesthesia well. The patient was transported to the PACU with vital signs stable and vascular status intact to the surgical limb. To ice and elevate for pain and inflammation management. Postoperative x-rays were reviewed prior to leaving the operating room. Postoperative orders were entered electronically. To continue with IV antibiotics. I recommend nutritional supplementation and improved glucose management to optimize healing and to prevent further limb loss and diabetic related complications. Medical management per hospitalist is appreciated. The podiatry team will continue to follow this patient closely while in house. Mary Tyson DPM, [facility] Grafts/Implants Used: none Complications none Admit VTE Documentation VTE Present on Admission: No VTE Mechan Device Prophylaxis: SCD's VTE Pharm Prophylaxis ordered?: Yes
[2021-10-30 19:51] LABS: Bedside Glucose 147 mg/dL (70-110)
[2021-10-30 20:50] LABS: Bedside Glucose 158 mg/dL (70-110)
[2021-10-30 21:02] LABS: M R Staph aureus DNA By PCR Negative (Negative); Probe Check PASS; Specimen Processing Control PASS; Staph aureus DNA By PCR NEGATIVE (Negative)
--- NOTE | 2021-10-30 21:25 | RAD_ITS ---
HISTORY: s/p 5th ray resection COMPARISON: None FINDINGS: # of images incl. paperwork: 3 XR Foot Min 3 Views: SOFT TISSUES: Diffuse forefoot edema with left lateral foot surgical soft tissue wound. No radiodense soft tissue foreign body. No abnormal soft tissue mineralization. OSSEOUS: Amputation at the fifth metatarsal proximal metaphysis. Fibular fixation hardware partially seen. No erosion or periostitis. No dislocation. No significant osseous proliferation. Joint spacing is preserved. BONE MINERALIZATION: Unremarkable. RAD/Foot min 3 Views IMPRESSION: Fifth digit amputation at the proximal metatarsal level with diffuse forefoot edema. Cannot exclude underlying soft tissue infection. Correlate with timing of surgery. No other acute osseous finding. at 2350 Reported and signed by: Handy Vicente MD Electronically Signed: Handy Vicente MD at 23:48 EST Reading Location ID and State: [facility] / [place] Tel , Service support ,
[2021-10-30 23:16] LABS: Bedside Glucose 265 mg/dL (70-110)
[2021-10-31 00:07] LABS: Vancomycin, Trough Level 5.1 ug/mL (5.0-15.0)
--- NOTE | 2021-10-31 00:31 | PCM.RX.CS ---
Consult Pharmacy has been consulted to manage selected antiobiotic: Vancomycin Type of Consult: Follow-up Suspected Infection: Skin/Soft tissue Prior Doses of Antibiotics Received/Current Regimen: Medications Vancomycin HCl 1,250 mg/ (Sodium Chloride) 275 mls @ 167 mls/hr IV Q12H DEVON Vancomycin HCl 750 mg/ Sodium (Chloride) 265 mls @ 250 mls/hr IV Q12H DEVON Stop: 10/31/21 01:30 Last Admin: 10/31/21 00:12 Dose: 250 mls/hr Labs: Sodium 137 mmol/L (136-145) 10/30/21 04:45 Potassium 3.2 mmol/L (3.5-5.1) L 10/30/21 04:45 Chloride 109 mmol/L (98-107) H 10/30/21 04:45 Carbon Dioxide 22.0 mmol/L (21.0-32.0) 10/30/21 04:45 Anion Gap 6 (5-15) 10/30/21 04:45 BUN 14 mg/dL (7-18) 10/30/21 04:45 Creatinine 0.95 mg/dL (0.70-1.30) 10/30/21 04:45 Est GFR (MDRD) Af Amer 111 mL/min (>60) 10/30/21 04:45 Est GFR (MDRD) Non-Af 92 mL/min (>60) 10/30/21 04:45 BUN/Creatinine Ratio 14.7 RATIO (10-20) 10/30/21 04:45 Glucose 92 mg/dL (74-106) 10/30/21 04:45 Vancomycin Trough 5.1 ug/mL (5.0-15.0) 10/30/21 23:30 Microbiology: Microbiology 10/29/21 10:53 Nasal Secretion SARS-CoV-2 Antigen (Rapid) - Final Weight used for dosin.1 kg Estimated Creatinine Clearance: 110 Goal Trough: 10-15 mcg/mL Pharmacy Plan for Drug Dosing: Vancomycin trough level was low at 5.1. It was drawn appropriately 11.5hrs post dose. Pt's weight increased, and CrCl also increased from 73 to 110, helping to explain the lower level. The vancomycin dose will be increased to 1250mg q12h, and the next dose will be given 2 hours earlier than previous schedule in an attempt to get to the target range of 10-15mg/L. Another trough will be drawn prior to the 4th dose of new regimen. Pharmacy Service will continue to monitor and adjust dosing as required. Follow-Up Labs: Trough Vancomycin Labs to be done on [date and time ordered]: 11/01/21 @6970
[2021-10-31 02:47] VITALS: BP 101/68; PULSE 91; RESP 16; TEMP 37.6; O2SAT 99
[2021-10-31 05:45] LABS: Absolute Neutrophil Count 5.8 X10^3/uL (2.0-7.7); Basophil# 0.01 X10^3/uL; Basophil% 0.1 % (0-1); Hematocrit 34.1 % (40-54); Hemoglobin 12.3 g/dL (13.0-16.5); Lymphocyte % 5.9 % (19-41); Mean Corp Hgb Conc 36.1 g/dL (32-36); Mean Corpuscular Hgb 33.1 pg (27.0-32.0); Mean Corpuscular Volume 91.7 fL (80-94); Mean Platelet Vol. 9.3 fl (6.2-12.0); Monocyte# 0.57 X10^3/uL; Monocyte% 8.4 % (0-10); NRBC Flagged by Analyzer 0 % (0-5); Neutrophil % 85.2 % (47-70); POSITIVE DIFFERENTIAL YES; Platelet Count 171 K/mm3 (150-450); RBC Distribution Width CV 12.3 % (11.6-14.6); RBC Distribution Width SD 41.3 fl (35.1-43.9); Red Blood Count 3.72 M/mm3 (4.6-6.2); White Blood Count 6.8 K/mm3 (4.4-11.0)
[2021-10-31 05:49] LABS: Differential Indicated SCAN CRITERIA MET
[2021-10-31 06:04] LABS: Anion Gap 10 (5-15); BUN 15 mg/dL (7-18); BUN/Creat Ratio 24.2 RATIO (10-20); Calcium,Total 8.6 mg/dL (8.5-10.1); Chloride 104 mmol/L (98-107); Creatinine, Serum 0.62 mg/dL (0.70-1.30); EST Glomerular Filtration Rate 151 mL/min (>60); Est Glom Filt Rate - Afr Amer 183 mL/min (>60); Estimated Creatinine Clearance 170.36 ml/min; Glucose 286 mg/dL (74-106); Potassium 3.9 mmol/L (3.5-5.1); Sodium Level 133 mmol/L (136-145)
[2021-10-31 06:25] LABS: Differential Comment SCANNED
[2021-10-31 07:40] LABS: Bedside Glucose 264 mg/dL (70-110)
[2021-10-31 08:04] VITALS: BP 102/79; PULSE 73; RESP 16; TEMP 36.6; O2SAT 98
[2021-10-31] MEDS: Insulin Lispro 100 UNIT/ML INSULN.PEN SC ×4 (08:15→21:49)
[2021-10-31] MEDS: Insulin Lispro 100 UNIT/ML INSULN.PEN 6 UNIT SC ×2 (08:15→11:06)
[2021-10-31] MEDS: Juven (unflavored) Packet 1 PACKET PO ×2 (08:18→16:03)
--- NOTE | 2021-10-31 11:04 | PN.HOSP_ITS ---
Subjective Subjective Feels well. Notes that he uses a nicotine powder (doesn't tape nor chew) Objective Data Objective Data Vital Signs: Vital Signs Temp Pulse Resp BP Pulse Ox 36.6 C 73 16 102/79 98 10/31/21 08:04 10/31/21 08:04 10/31/21 08:04 10/31/21 08:04 10/31/21 08:04 Oxygen Delivery Method Room Air Weight: 78.7 kg Body Mass Index (BMI) 23.0 Intake & Output: Intake and Output for Last 24 Hours 10/29/21 10/30/21 10/31/21 23:59 23:59 23:59 Intake Total 4086.83 / 4086.83 1975.12 / 1974.12 1165 / 1165 Output Total 1600 / 1600 550 / 550 Balance 2486.83 / 2486.83 1425.12 / 1425.12 1165 / 1165 Lab / Micro Data Result Diagrams: 10/31/21 05:24 10/31/21 05:24 Labs: Laboratory Results - last 24 hr 10/29/21 09:55: Diff Path Review Reviewed 10/30/21 11:22: POC Glucose 230 H 10/30/21 16:31: POC Glucose 199 H 10/30/21 19:15: S.aureus Protein A PCR NEGATIVE, MRSA (PCR) Negative 10/30/21 19:44: POC Glucose 147 H 10/30/21 20:44: POC Glucose 158 H 10/30/21 23:06: POC Glucose 265 H 10/30/21 23:30: Vancomycin Trough 5.1 10/31/21 05:24: WBC 6.8, RBC 3.72 L, Hgb 12.3 L, Hct 34.1 L, MCV 91.7, MCH 33.1 H, MCHC 36.1 H D, RDW Std Deviation 41.3, RDW Coeff of Vanessa 12.3, Plt Count 171, MPV 9.3, Immature Gran % (Auto) 0.400, Neut % (Auto) 85.2 H, Lymph % (Auto) 5.9 L, [place] % (Auto) 8.4, Eos % (Auto) 0.0, Baso % (Auto) 0.1, Absolute Neuts (auto) 5.8, Absolute Lymphs (auto) 0.40 L, Nucleated RBC % 0, Differential Comment SCANNED 10/31/21 05:24: Sodium 133 L, Potassium 3.9, Chloride 104, Carbon Dioxide 19.0 L , Anion Gap 10, BUN 15, Creatinine 0.62 L, Estim Creat Clear Calc 170.36, Est GFR (MDRD) Af Amer 183, Est GFR (MDRD) Non-Af 151, BUN/Creatinine Ratio 24.2 H, Glucose 286 H, Calcium 8.6 10/31/21 07:35: POC Glucose 264 H Micro: Microbiology 10/30/21 19:17 Wound - Right Foot Gram Stain - Final 10/30/21 19:17 Wound - Right Foot Wound Culture - Preliminary Streptococcus agalactiae (B) Gram positive organism 10/30/21 19:16 Wound - Right Foot Gram Stain - Final 10/30/21 19:16 Wound - Right Foot Wound Culture - Preliminary Streptococcus agalactiae (B) 10/30/21 14:10 Wound Abcess - Aerobic & Anaerobic Swabs Gram Stain - Final 10/30/21 14:10 Wound Abcess - Aerobic & Anaerobic Swabs Wound Culture - Preliminary Streptococcus agalactiae (B) Gram positive organism 10/29/21 10:53 Nasal Secretion SARS-CoV-2 Antigen (Rapid) - Final Radiography Diagnostic Testing: Radiology Impression Ankle Brachial Index 10/30/21 12:08 Interpretation Summary Normal bilateral lower extremity resting ankle brachial indices and triphasic doppler waveforms Abnormal right digital brachial index of 0.63 suspicous for distal small vessel disease Normal left digital brachial index of 0.85 Ordering Physician: Willard Abel Performed By: Chelsie Lane RDNI/RVT Foot X-Ray 10/30/21 18:30 IMPRESSION: Fluoroscopic assistance images were obtained. Dictation for documentation purposes only. Electronically Signed: John Caldwell MD at 20:16 EST , Foot X-Ray 10/30/21 21:25 IMPRESSION: Fifth digit amputation at the proximal metatarsal level with diffuse forefoot edema. Cannot exclude underlying soft tissue infection. Correlate with timing of surgery. No other acute osseous finding. at 2350 Reported and signed by: Handy Vicente MD Electronically Signed: Handy Vicente MD at 23:48 EST , Rhythm Strip Rhythm Strip: Sinus Tach Rate: 130 Ectopy: None Physical Exam Const alert Resp normal respiratory effort, no retractions and no use of accessory muscles Cardio regular rate, regular rhythm, S1 normal heart sound and S2 normal heart sound GI normal to inspection, nondistended, normoactive bowel sounds, soft to palpation and non-tender Extremity Extremity Narrative: right foot casted. Assessment & Plan Assessment/Plan (1) DKA (diabetic ketoacidoses): QUALIFIERS: Diabetes mellitus type: type 2 Diabetes mellitus complication detail: without coma Qualified Code(s): E11.10 - Type 2 diabetes mellitus with ketoacidosis without coma (2) Cellulitis of right foot: (3) Osteomyelitis of right foot: QUALIFIERS: Osteomyelitis type: unspecified type Qualified Code(s): M86.9 - Osteomyelitis, unspecified PLAN: 1. Diabetic ketoacidosis Resolved On basal and prandial insulin May been exacerbated due to a right lower extremity cellulitis A1c 11.1 2. Right foot cellulitis, osteomyelitis and abscess MRI of the foot shows evidence of osteomyelitis in the fifth metatarsal head as well as the fifth proximal phalangeal base, fluid collection in the dorsal lateral aspect of the forefoot with pockets of gas consistent with abscess. Vancomycin and aztreonam for now /: open fifth ray resection right foot with widespread debridement and draina ge consult ID for long-term abx. Cx growing Group B strep and GPO 3 VTE prophylaxis with enoxaparin 4. COVID-19: Patient has been vaccinated and boosted. He thinks he may have contracted it about a month ago but was sick for about 2 days and has since resolved. Rapid COVID-19 ordered in the emergency room and performed. Results pending. 5. Disposition: Waiting on final culture results come infectious disease consultation as well as long-term antibiotics. Dissipate discharge being the [facility] or [facility]. Charges/Coding Visit Charges Inpatient E&M: 03577 Subs Hosp L2
[2021-10-31 11:16] LABS: Bedside Glucose 363 mg/dL (70-110)
[2021-10-31 14:19] VITALS: BP 92/59; PULSE 76; RESP 16; TEMP 36.7; O2SAT 96
[2021-10-31 16:11] LABS: Bedside Glucose 259 mg/dL (70-110)
--- NOTE | 2021-10-31 17:47 | PCM.PROGNOTE ---
Subjective Subjective This 40-year-old diabetic male was seen postoperative day #1 right foot fifth ray resection with widespread debridement for treatment of limb threatening infection. He denies fever, chill, nausea, vomiting. He reports he is starting to get more of his appetite back. He denies foot pain. Objective Data Objective Data Vital Signs: Vital Signs Temp Pulse Resp BP Pulse Ox 98.1 F 76 16 92/59 L 96 10/31/21 14:19 10/31/21 14:19 10/31/21 14:19 10/31/21 14:19 10/31/21 14:19 Oxygen Delivery Method Room Air Weight: 78.7 kg Body Mass Index (BMI) 23.0 Intake & Output: Intake and Output for Last 24 Hours 10/29/21 10/30/21 10/31/21 23:59 23:59 23:59 Intake Total 4086.83 / 4086.83 1975.12 / 1974.12 2390 / 2390 Output Total 1600 / 1600 550 / 550 Balance 2486.83 / 2486.83 1425.12 / 1425.12 2390 / 2390 Lab / Micro Data Result Diagrams: 10/31/21 05:24 10/31/21 05:24 Labs: Laboratory Results - last 24 hr 10/30/21 19:15: S.aureus Protein A PCR NEGATIVE, MRSA (PCR) Negative 10/30/21 19:44: POC Glucose 147 H 10/30/21 20:44: POC Glucose 158 H 10/30/21 23:06: POC Glucose 265 H 10/30/21 23:30: Vancomycin Trough 5.1 10/31/21 05:24: WBC 6.8, RBC 3.72 L, Hgb 12.3 L, Hct 34.1 L, MCV 91.7, MCH 33.1 H, MCHC 36.1 H D, RDW Std Deviation 41.3, RDW Coeff of Vanessa 12.3, Plt Count 171, MPV 9.3, Immature Gran % (Auto) 0.400, Neut % (Auto) 85.2 H, Lymph % (Auto) 5.9 L, [place] % (Auto) 8.4, Eos % (Auto) 0.0, Baso % (Auto) 0.1, Absolute Neuts (auto) 5.8, Absolute Lymphs (auto) 0.40 L, Nucleated RBC % 0, Differential Comment SCANNED 10/31/21 05:24: Sodium 133 L, Potassium 3.9, Chloride 104, Carbon Dioxide 19.0 L, Anion Gap 10, BUN 15, Creatinine 0.62 L, Estim Creat Clear Calc 170.36, Est GFR (MDRD) Af Amer 183, Est GFR (MDRD) Non-Af 151, BUN/Creatinine Ratio 24.2 H, Glucose 286 H, Calcium 8.6 10/31/21 07:35: POC Glucose 264 H 10/31/21 11:05: POC Glucose 363 H 10/31/21 16:01: POC Glucose 259 H Micro: Microbiology 10/29/21 10:15 Blood Culture (Wb) - Anticubital Left Blood Culture - Preliminary No growth in 48 hours. 10/29/21 10:30 Blood Culture (Wb) - Anticubital Right Blood Culture - Preliminary No growth in 48 hours. 10/30/21 19:17 Wound - Right Foot Gram Stain - Final 10/30/21 19:17 Wound - Right Foot Wound Culture - Preliminary Streptococcus agalactiae (B) Gram positive organism 10/30/21 19:16 Wound - Right Foot Gram Stain - Final 10/30/21 19:16 Wound - Right Foot Wound Culture - Preliminary Streptococcus agalactiae (B) 10/30/21 14:10 Wound Abcess - Aerobic & Anaerobic Swabs Gram Stain - Final 10/30/21 14:10 Wound Abcess - Aerobic & Anaerobic Swabs Wound Culture - Preliminary Streptococcus agalactiae (B) Gram positive organism 10/29/21 10:53 Nasal Secretion SARS-CoV-2 Antigen (Rapid) - Final Radiography Diagnostic Testing: Radiology Impression Foot X-Ray 10/30/21 18:30 IMPRESSION: Fluoroscopic assistance images were obtained. Dictation for documentation purposes only. Electronically Signed: John Caldwell MD at 20:16 EST , Foot X-Ray 10/30/21 21:25 IMPRESSION: Fifth digit amputation at the proximal metatarsal level with diffuse forefoot edema. Cannot exclude underlying soft tissue infection. Correlate with timing of surgery. No other acute osseous finding. at 2350 Reported and signed by: Handy Vicente MD Electronically Signed: Handy Vicente MD at 23:48 EST Reading Location ID and State: [facility] / [place] Tel , Service support , Rhythm Strip Rhythm Strip: Sinus Tach Rate: 130 Ectopy: None Physical Exam Const alert and oriented x3 General Appearance: cooperative HEENT normocephalic Extremity Extremity Narrative: No calf tenderness Edema right foot and leg significantly reduced compared to yesterday Compartments remain soft and there is no skin tenting 2/4 PT and DP pulses right Open fifth ray resection without bogginess or fluctuance General Extremity: edema and no tenderness to palpation of joints or extremities; Negative for cyanosis Skin Skin Narrative: Open ray resection right foot with no purulence, necrosis, odor. Erythema has completely resolved. He has exposed muscle tissue and the remaining fifth metatarsal is covered with soft tissue. There is no purulence on expression of the adjacent tissue either. General Skin Exam: Negative for erythema Neuro Neuro Narrative: lack of normal epicritic sensation via light touch is consistent with neuropathy status Psych cooperative and affect normal Assessment & Plan Assessment/Plan (1) Osteomyelitis of right foot: QUALIFIERS: Osteomyelitis type: unspecified type Qualified Code(s): M86.9 - Osteomyelitis, unspecified (2) Cellulitis of right foot: PLAN: I reviewed and discussed his case today including his diagnostic data. His white blood cell count has decreased from 26-6.8. His vital signs are stable and he remains afebrile. Postoperative x-rays were reviewed with adequate fifth ray resection without remaining soft tissue emphysema or foreign body. His dressing was changed today with Betadine and saline wet-to-dry dressing. I recommend considering a wound VAC to be placed on Tuesday; 150 mmHg continuous. To elevate limb. To keep pressure off of his foot by avoiding limb external rotation. This was demonstrated. Strep and gram-positive organisms already identified from the intraoperative microbiology specimen including the clearance fragment. All pathological specimen findings are still pending from surgery. To continue on broad-spectrum antibiotics including vancomycin and aztreonam. Medical management per hospitalist is appreciated. He is uncontrolled diabetes and this was discussed today. He understands his healing prognosis is guarded with elevated glucose levels of this nature. His A1c was 11.1%. To continue with nutritional supplementation, Soren to optimize healing. He is also interested in meeting with a incident response engineer and this consult be ordered for Tuesday. His noninvasive vascular studies were reviewed and it appears that he has adequate perfusion to the limb. I answered all the patient's questions. Please do not hesitate to contact me if you have further questions. Upon medical stabilization likely early next week, discharge will be considered and I recommend he follows up with the wound healing center. Mary Tyson DPM, [facility] [phone]
--- NOTE | 2021-10-31 18:40 | PCM.RX.CS ---
Consult Pharmacy has been consulted to manage selected antiobiotic: Vancomycin Type of Consult: Follow-up Suspected Infection: Skin/Soft tissue Labs: Sodium 133 mmol/L (136-145) L 10/31/21 05:24 Potassium 3.9 mmol/L (3.5-5.1) 10/31/21 05:24 Chloride 104 mmol/L (98-107) 10/31/21 05:24 Carbon Dioxide 19.0 mmol/L (21.0-32.0) L 10/31/21 05:24 Anion Gap 10 (5-15) 10/31/21 05:24 BUN 15 mg/dL (7-18) 10/31/21 05:24 Creatinine 0.62 mg/dL (0.70-1.30) L 10/31/21 05:24 Est GFR (MDRD) Af Amer 183 mL/min (>60) 10/31/21 05:24 Est GFR (MDRD) Non-Af 151 mL/min (>60) 10/31/21 05:24 BUN/Creatinine Ratio 24.2 RATIO (10-20) H 10/31/21 05:24 Glucose 286 mg/dL (74-106) H 10/31/21 05:24 Vancomycin Trough 5.1 ug/mL (5.0-15.0) 10/30/21 23:30 Microbiology: Microbiology 10/29/21 10:15 Blood Culture (Wb) - Anticubital Left Blood Culture - Preliminary No growth in 48 hours. 10/29/21 10:30 Blood Culture (Wb) - Anticubital Right Blood Culture - Preliminary No growth in 48 hours. 10/30/21 19:17 Wound - Right Foot Gram Stain - Final 10/30/21 19:17 Wound - Right Foot Wound Culture - Preliminary Streptococcus agalactiae (B) Gram positive organism 10/30/21 19:16 Wound - Right Foot Gram Stain - Final 10/30/21 19:16 Wound - Right Foot Wound Culture - Preliminary Streptococcus agalactiae (B) 10/30/21 14:10 Wound Abcess - Aerobic & Anaerobic Swabs Gram Stain - Final 10/30/21 14:10 Wound Abcess - Aerobic & Anaerobic Swabs Wound Culture - Preliminary Streptococcus agalactiae (B) Gram positive organism 10/29/21 10:53 Nasal Secretion SARS-CoV-2 Antigen (Rapid) - Final Goal Trough: 10-15 mcg/mL Pharmacy Plan for Drug Dosing: DAILY ASSESSMENT Current Vancomcyin Dose: 1250mg q12h () Number of Doses Received: x1 of current dose Current Renal Function: SrCr 0.62 Renal Function Trend: SrCr improved from 0.95 on 10/30/21 Lab/Micro: Any Change in Vanc Plan: recommend changing from 1250mg q12h to 1250mg q8h due to improved renal function Pending Level: 11/01/21 at 0930 Pharmacy Service will continue to monitor and adjust dosing as required. Follow-Up Labs: Trough Vancomycin - 11/01/21 at 0930
[2021-10-31 21:55] VITALS: BP 105/79; PULSE 88; RESP 16; TEMP 36.6; O2SAT 99
[2021-10-31 22:26] LABS: Bedside Glucose 401 mg/dL (70-110)
[2021-11-01 02:19] VITALS: BP 101/72; PULSE 93; RESP 16; TEMP 36.9; O2SAT 99
[2021-11-01 06:44] LABS: Absolute Lymphocyte Count 1.53 X10^3/uL (0.83-4.51); Absolute Neutrophil Count 2.9 X10^3/uL (2.0-7.7); Basophil# 0.04 X10^3/uL; Basophil% 0.7 % (0-1); Eosinophil# 0.03 X10^3/uL; Eosinophils% 0.5 % (0-5); Hematocrit 32.8 % (40-54); Hemoglobin 11.4 g/dL (13.0-16.5); Lymphocyte # 1.53 X10^3/ul (0.83-4.51); Lymphocyte % 27.9 % (19-41); Mean Corp Hgb Conc 34.8 g/dL (32-36); Mean Corpuscular Hgb 31.8 pg (27.0-32.0); Mean Corpuscular Volume 91.4 fL (80-94); Mean Platelet Vol. 9.2 fl (6.2-12.0); Monocyte# 0.92 X10^3/uL; Monocyte% 16.8 % (0-10); NRBC Flagged by Analyzer 0 % (0-5); Neutrophil # 2.93 X10^3/uL (2.7-7.7); Neutrophil % 53.6 % (47-70); Platelet Count 163 K/mm3 (150-450); RBC Distribution Width CV 12.3 % (11.6-14.6); RBC Distribution Width SD 41.2 fl (35.1-43.9); Red Blood Count 3.59 M/mm3 (4.6-6.2); White Blood Count 5.5 K/mm3 (4.4-11.0)
[2021-11-01 07:15] LABS: ALB/GLOB Ratio 0.7 RATIO (0.9-2.4); AST(SGOT) 7 U/L (15-37); Alanine Aminotransfer ALT/SGPT 10 U/L (16-61); Albumin, Serum 2.2 g/dL (3.2-5.0); Alkaline Phosphatase 59 U/L (45-117); Anion Gap 6 (5-15); BUN 20 mg/dL (7-18); BUN/Creat Ratio 38.2 RATIO (10-20); Chloride 104 mmol/L (98-107); Creatinine, Serum 0.52 mg/dL (0.70-1.30); EST Glomerular Filtration Rate 183 mL/min (>60); Est Glom Filt Rate - Afr Amer 222 mL/min (>60); Estimated Creatinine Clearance 203.12 ml/min; Globulin 3.3 g/dL (2.2-4.2); Glucose 327 mg/dL (74-106); Potassium 3.4 mmol/L (3.5-5.1); Protein, Total 5.5 g/dL (6.4-8.2); Sodium Level 135 mmol/L (136-145)
[2021-11-01 07:36] LABS: Bedside Glucose 323 mg/dL (70-110)
[2021-11-01 08:02] VITALS: BP 94/66; PULSE 82; RESP 16; TEMP 36.4; O2SAT 100
[2021-11-01] MEDS: Enoxaparin 40 MG/0.4 ML Syringe SC (09:00)
[2021-11-01] MEDS: Insulin Lispro 100 UNIT/ML INSULN.PEN SC ×4 (09:00→22:52)
[2021-11-01] MEDS: Insulin Lispro 100 UNIT/ML INSULN.PEN 6 UNIT SC ×3 (09:00→16:39)
[2021-11-01] MEDS: Juven (unflavored) Packet 1 PACKET PO ×2 (09:00→16:40)
[2021-11-01 10:01] LABS: Vancomycin, Trough Level 15.5 ug/mL (5.0-15.0)
--- NOTE | 2021-11-01 10:01 | PCM.PROGNOTE ---
Subjective Subjective This 40-year-old diabetic male was seen postoperative day #2 right foot fifth ray resection with widespread debridement for treatment of limb threatening infection. He denies fever, chill, nausea, vomiting. Objective Data Objective Data Vital Signs: Vital Signs Temp Pulse Resp BP Pulse Ox 97.6 F L 82 16 94/66 100 11/01/21 08:02 11/01/21 08:02 11/01/21 08:02 11/01/21 08:02 11/01/21 08:02 Oxygen Delivery Method Room Air Weight: 80.4 kg Body Mass Index (BMI) 23.0 Intake & Output: Intake and Output for Last 24 Hours 10/30/21 10/31/21 11/01/21 23:59 23:59 23:59 Intake Total 1974. / 2665 / 2665 475 / 475 Output Total 550 / 550 Balance 1425.12 / 142.12 2665 / 2665 475 / 475 Lab / Micro Data Result Diagrams: 11/01/21 06:24 11/01/21 06:24 Labs: Laboratory Results - last 24 hr 10/31/21 11:05: POC Glucose 363 H 10/31/21 16:01: POC Glucose 259 H 10/31/21 21:46: POC Glucose 401 H 11/01/21 06:24: WBC 5.5, RBC 3.59 L, Hgb 11.4 L, Hct 32.8 L, MCV 91.4, MCH 31.8, MCHC 34.8, RDW Std Deviation 41.2, RDW Coeff of Vanessa 12.3, Plt Count 163, MPV 9.2, Immature Gran % (Auto) 0.500, Neut % (Auto) 53.6, Lymph % (Auto) 27.9, Jay % (Auto) 16.8 H, Eos % (Auto) 0.5, Baso % (Auto) 0.7, Absolute Neuts (auto) 2.9, Absolute Lymphs (auto) 1.53, Nucleated RBC % 0 11/01/21 06:24: Sodium 135 L, Potassium 3.4 L, Chloride 104, Carbon Dioxide 25.0, Anion Gap 6, BUN 20 H, Creatinine 0.52 L, Estim Creat Clear Calc 203.12, Est GFR (MDRD) Af Amer 222, Est GFR (MDRD) Non-Af 183, BUN/Creatinine Ratio 38.2 H, Glucose 327 H, Calcium 8.0 L, Total Bilirubin 0.40, AST 7 L, ALT 10 L, Alkaline Phosphatase 59, Total Protein 5.5 L, Albumin 2.2 L, Globulin 3.3, Albumin/Globulin Ratio 0.7 L 11/01/21 07:28: POC Glucose 323 H 11/01/21 09:20: Vancomycin Trough 15.5 H Micro: Microbiology 10/30/21 19:17 Wound - Right Foot Gram Stain - Final 10/30/21 19:17 Wound - Right Foot Wound Culture - Preliminary Streptococcus agalactiae (B) Staphylococcus aureus Gram positive organism 10/30/21 19:16 Wound - Right Foot Gram Stain - Final 10/30/21 19:16 Wound - Right Foot Wound Culture - Preliminary Streptococcus agalactiae (B) 10/30/21 14:10 Wound Abcess - Aerobic & Anaerobic Swabs Gram Stain - Final 10/30/21 14:10 Wound Abcess - Aerobic & Anaerobic Swabs Wound Culture - Preliminary Streptococcus agalactiae (B) Gram positive organism 10/29/21 10:15 Blood Culture (Wb) - Anticubital Left Blood Culture - Preliminary No growth in 48 hours. 10/29/21 10:30 Blood Culture (Wb) - Anticubital Right Blood Culture - Preliminary No growth in 48 hours. 10/29/21 10:53 Nasal Secretion SARS-CoV-2 Antigen (Rapid) - Final Rhythm Strip Rhythm Strip: Sinus Tach Rate: 130 Ectopy: None Physical Exam Const alert and oriented x3 General Appearance: cooperative HEENT normocephalic Extremity Extremity Narrative: No calf tenderness Edema right foot and leg significantly reduced compared to yesterday Compartments remain soft and there is no skin tenting 2/4 PT and DP pulses right Open fifth ray resection without bogginess or fluctuance General Extremity: edema and no tenderness to palpation of joints or extremities; Negative for cyanosis Skin Skin Narrative: Open ray resection right foot with no purulence, necrosis, odor. Erythema has completely resolved. He has exposed muscle tissue and the remaining fifth metatarsal is covered with soft tissue. There is no purulence on expression of the adjacent tissue either. General Skin Exam: Negative for erythema Neuro Neuro Narrative: lack of normal epicritic sensation via light touch is consistent with neuropathy status Psych cooperative and affect normal Assessment & Plan Assessment/Plan (1) Osteomyelitis of right foot: QUALIFIERS: Osteomyelitis type: unspecified type Qualified Code(s): M86.9 - Osteomyelitis, unspecified (2) Cellulitis of right foot: PLAN: I reviewed and discussed his case today including his diagnostic data. His white blood cell count has decreased from 26 - 5.5. His vital signs are stable and he remains afebrile. His dressing was changed today with Betadine and saline wet-to-dry dressing. I recommend considering a wound VAC to be placed on Tuesday; 150 mmHg continuous. To elevate limb. To keep pressure off of his foot surgical site. Strep, staph aureus, and gram-positive organisms already identified from the intraoperative microbiology specimen including the clearance fragment. All pathological specimen findings are still pending from surgery. To continue on broad-spectrum antibiotics including vancomycin and aztreonam. Infectious disease consult placed and recs will be appreciated. Medical management per hospitalist is appreciated. He is uncontrolled diabetes and this was discussed today. He understands his healing prognosis is guarded with elevated glucose levels of this nature. His A1c was 11.1%. To continue with nutritional supplementation, Soren to optimize healing. Nutrition consult pending. I answered all the patient's questions. Please do not hesitate to contact me if you have further questions. Upon medical stabilization likely early next week, discharge will be considered and I recommend he follows up with the wound healing center. Mary Tyson DPM, [facility] [phone]
[2021-11-01 11:10] LABS: Bedside Glucose 362 mg/dL (70-110)
--- NOTE | 2021-11-01 11:15 | PCM.PN.HOSP ---
Subjective Subjective some oozing from foot. otherwise no new complaints. Objective Data Objective Data Vital Signs: Vital Signs Temp Pulse Resp BP Pulse Ox 36.4 C L 82 16 94/66 100 11/01/21 08:02 11/01/21 08:02 11/01/21 08:02 11/01/21 08:02 11/01/21 08:02 Oxygen Delivery Method Room Air Weight: 80.4 kg Body Mass Index (BMI) 23.0 Intake & Output: Intake and Output for Last 24 Hours 10/30/21 10/31/21 11/01/21 23:59 23:59 23:59 Intake Total 1974. / 2665 / 2665 475 / 475 Output Total 550 / 550 Balance 1425. / 142.12 2665 / 2665 475 / 475 Lab / Micro Data Result Diagrams: 11/01/21 06:24 11/01/21 06:24 Labs: Laboratory Results - last 24 hr 10/31/21 11:05: POC Glucose 363 H 10/31/21 16:01: POC Glucose 259 H 10/31/21 21:46: POC Glucose 401 H 11/01/21 06:24: WBC 5.5, RBC 3.59 L, Hgb 11.4 L, Hct 32.8 L, MCV 91.4, MCH 31.8, MCHC 34.8, RDW Std Deviation 41.2, RDW Coeff of Vanessa 12.3, Plt Count 163, MPV 9.2, Immature Gran % (Auto) 0.500, Neut % (Auto) 53.6, Lymph % (Auto) 27.9, [place] % (Auto) 16.8 H, Eos % (Auto) 0.5, Baso % (Auto) 0.7, Absolute Neuts (auto) 2.9, Absolute Lymphs (auto) 1.53, Nucleated RBC % 0 11/01/21 06:24: Sodium 135 L, Potassium 3.4 L, Chloride 104, Carbon Dioxide 25.0, Anion Gap 6, BUN 20 H, Creatinine 0.52 L, Estim Creat Clear Calc 203.12, Est GFR (MDRD) Af Amer 222, Est GFR (MDRD) Non-Af 183, BUN/Creatinine Ratio 38.2 H, Glucose 327 H, Calcium 8.0 L, Total Bilirubin 0.40, AST 7 L, ALT 10 L, Alkaline Phosphatase 59, Total Protein 5.5 L, Albumin 2.2 L, Globulin 3.3, Albumin/Globulin Ratio 0.7 L 11/01/21 07:28: POC Glucose 323 H 11/01/21 09:20: Vancomycin Trough 15.5 H 11/01/21 10:59: POC Glucose 362 H Micro: Microbiology 10/30/21 19:17 Wound - Right Foot Gram Stain - Final 10/30/21 19:17 Wound - Right Foot Wound Culture - Preliminary Streptococcus agalactiae (B) Staphylococcus aureus Gram positive organism 10/30/21 19:16 Wound - Right Foot Gram Stain - Final 10/30/21 19:16 Wound - Right Foot Wound Culture - Preliminary Streptococcus agalactiae (B) 10/30/21 14:10 Wound Abcess - Aerobic & Anaerobic Swabs Gram Stain - Final 10/30/21 14:10 Wound Abcess - Aerobic & Anaerobic Swabs Wound Culture - Preliminary Streptococcus agalactiae (B) Gram positive organism 10/29/21 10:15 Blood Culture (Wb) - Anticubital Left Blood Culture - Preliminary No growth in 48 hours. 10/29/21 10:30 Blood Culture (Wb) - Anticubital Right Blood Culture - Preliminary No growth in 48 hours. 10/29/21 10:53 Nasal Secretion SARS-CoV-2 Antigen (Rapid) - Final Rhythm Strip Rhythm Strip: Sinus Tach Rate: 130 Ectopy: None Physical Exam Const alert and no apparent distress Resp normal respiratory effort, no retractions, no use of accessory muscles and clear to auscultation bilaterally Cardio regular rate, regular rhythm, S1 normal heart sound and S2 normal heart sound GI normal to inspection, nondistended, normoactive bowel sounds, soft to palpation and non-tender Extremity Extremity Narrative: Right foot casted Psych affect normal Assessment & Plan Assessment/Plan (1) DKA (diabetic ketoacidoses): QUALIFIERS: Diabetes mellitus type: type 2 Diabetes mellitus complication detail: without coma Qualified Code(s): E11.10 - Type 2 diabetes mellitus with ketoacidosis without coma (2) Cellulitis of right foot: (3) Osteomyelitis of right foot: QUALIFIERS: Osteomyelitis type: unspecified type Qualified Code(s): M86.9 - Osteomyelitis, unspecified PLAN: 1. Diabetic ketoacidosis Resolved On basal and prandial insulin May been exacerbated due to a right lower extremity cellulitis A1c 11.1 2/: Blood sugars becoming more elevated, probably as patient is consuming more calories. We will increase his glargine from 24-36. 2. Right foot cellulitis, osteomyelitis and abscess MRI of the foot shows evidence of osteomyelitis in the fifth metatarsal head as well as the fifth proximal phalangeal base, fluid collection in the dorsal lateral aspect of the forefoot with pockets of gas consistent with abscess. Vancomycin and aztreonam for now 10/30: open fifth ray resection right foot with widespread debridement and drainage consult ID for long-term abx. Cx growing Group B strep, S. aureas and GPO 3 VTE prophylaxis with enoxaparin 4. COVID-19: Patient has been vaccinated and boosted. He thinks he may have contracted it about a month ago but was sick for about 2 days and has since resolved. Rapid COVID-19 ordered in the emergency room and performed. Results pending. 5. Disposition: Waiting on final culture results come infectious disease consultation as well as long-term antibiotics. Dissipate discharge being the seventh or eighth. Charges/Coding Visit Charges Inpatient E&M: 39377 Subs Hosp L2
--- NOTE | 2021-11-01 11:25 | PCM.RX.CS ---
Consult Pharmacy has been consulted to manage selected antiobiotic: Vancomycin Type of Consult: Follow-up Suspected Infection: Skin/Soft tissue Labs: Sodium 135 mmol/L (136-145) L 11/01/21 06:24 Potassium 3.4 mmol/L (3.5-5.1) L 11/01/21 06:24 Chloride 104 mmol/L (98-107) 11/01/21 06:24 Carbon Dioxide 25.0 mmol/L (21.0-32.0) 11/01/21 06:24 Anion Gap 6 (5-15) 11/01/21 06:24 BUN 20 mg/dL (7-18) H 11/01/21 06:24 Creatinine 0.52 mg/dL (0.70-1.30) L 11/01/21 06:24 Est GFR (MDRD) Af Amer 222 mL/min (>60) 11/01/21 06:24 Est GFR (MDRD) Non-Af 183 mL/min (>60) 11/01/21 06:24 BUN/Creatinine Ratio 38.2 RATIO (10-20) H 11/01/21 06:24 Glucose 327 mg/dL (74-106) H 11/01/21 06:24 Vancomycin Trough 15.5 ug/mL (5.0-15.0) H 11/01/21 09:20 Microbiology: Microbiology 10/30/21 19:17 Wound - Right Foot Gram Stain - Final 10/30/21 19:17 Wound - Right Foot Wound Culture - Preliminary Streptococcus agalactiae (B) Staphylococcus aureus Gram positive organism 10/30/21 19:16 Wound - Right Foot Gram Stain - Final 10/30/21 19:16 Wound - Right Foot Wound Culture - Preliminary Streptococcus agalactiae (B) 10/30/21 14:10 Wound Abcess - Aerobic & Anaerobic Swabs Gram Stain - Final 10/30/21 14:10 Wound Abcess - Aerobic & Anaerobic Swabs Wound Culture - Preliminary Streptococcus agalactiae (B) Gram positive organism 10/29/21 10:15 Blood Culture (Wb) - Anticubital Left Blood Culture - Preliminary No growth in 48 hours. 10/29/21 10:30 Blood Culture (Wb) - Anticubital Right Blood Culture - Preliminary No growth in 48 hours. 10/29/21 10:53 Nasal Secretion SARS-CoV-2 Antigen (Rapid) - Final Goal Trough: 10-15 mcg/mL Pharmacy Plan for Drug Dosing: VANCOMYCIN LEVEL RECEIVED Current Vancomycin Dose: 1250mg q8h (02,10,18) Number of Doses Received: x3 of current dose Vancomycin Level: 15.5 Hours Since Last Dose: 7 hours Renal Function: SrCr 0.52 Renal Function Trend: Renal function improving Lab/Micro: Vancomycin Plan/Comments: recommend continuing current dose of 1250mg q8h. reported trough of 15.5 is at the upper limits of the of the ordered goal trough of 10-15, however pts renal function is continuing to improve. Pending Level: 11/01/21 at 0930 Pharmacy Service will continue to monitor and adjust dosing as required. Follow-Up Labs: Trough Vancomycin - 11/01/21 at 0930
[2021-11-01 11:37] VITALS: BP 101/65; PULSE 100; RESP 16; TEMP 37.1; O2SAT 97
[2021-11-01 15:49] VITALS: BP 91/59; PULSE 94; RESP 16; TEMP 37; O2SAT 99
[2021-11-01 16:46] LABS: Bedside Glucose 393 mg/dL (70-110)
[2021-11-01 20:55] VITALS: BP 90/60; PULSE 90; RESP 16; TEMP 36.6; O2SAT 100
[2021-11-01] MEDS: 0.9% Saline Lock 10 ML Syringe IV (22:53)
[2021-11-01 23:11] LABS: Bedside Glucose 377 mg/dL (70-110)
[2021-11-02 01:56] VITALS: BP 100/71; PULSE 95; RESP 16; TEMP 36.9; O2SAT 100
--- NOTE | 2021-11-02 07:33 | PCM.PROGNOTE ---
Subjective Subjective This 40-year-old male was seen bedside status post right foot incision and drainage with fifth ray resection. Patient notes resolution of any fever chills nausea vomiting chest pain calf pain shortness of breath fatigue malaise. Patient knows minimal pain at this time. Patient voiding and passing gas. No new complaints overnight. Objective Data Objective Data Vital Signs: Vital Signs Temp Pulse Resp BP Pulse Ox 98.5 F 95 16 100/71 100 11/02/21 01:56 11/02/21 01:56 11/02/21 01:56 11/02/21 01:56 11/02/21 01:56 Oxygen Delivery Method Room Air Weight: 80.4 kg Body Mass Index (BMI) 23.0 Intake & Output: Intake and Output for Last 24 Hours 10/31/21 11/01/21 11/02/21 23:59 23:59 23:59 Intake Total 2665 / 2665 2325 / 2325 1175 / 1175 Balance 2665 / 2665 2325 / 2325 1175 / 1175 Lab / Micro Data Result Diagrams: 11/01/21 06:24 11/01/21 06:24 Labs: Laboratory Results - last 24 hr 11/01/21 07:28: POC Glucose 323 H 11/01/21 09:20: Vancomycin Trough 15.5 H 11/01/21 10:59: POC Glucose 362 H 11/01/21 16:38: POC Glucose 393 H 11/01/21 22:51: POC Glucose 377 H Micro: Microbiology 10/30/21 19:17 Wound - Right Foot Gram Stain - Final 10/30/21 19:17 Wound - Right Foot Wound Culture - Preliminary Streptococcus agalactiae (B) Staphylococcus aureus Gram positive organism 10/30/21 19:16 Wound - Right Foot Gram Stain - Final 10/30/21 19:16 Wound - Right Foot Wound Culture - Preliminary Streptococcus agalactiae (B) 10/30/21 14:10 Wound Abcess - Aerobic & Anaerobic Swabs Gram Stain - Final 10/30/21 14:10 Wound Abcess - Aerobic & Anaerobic Swabs Wound Culture - Preliminary Streptococcus agalactiae (B) Gram positive organism 10/29/21 10:15 Blood Culture (Wb) - Anticubital Left Blood Culture - Preliminary No growth in 48 hours. 10/29/21 10:30 Blood Culture (Wb) - Anticubital Right Blood Culture - Preliminary No growth in 48 hours. 10/29/21 10:53 Nasal Secretion SARS-CoV-2 Antigen (Rapid) - Final Rhythm Strip Rhythm Strip: Sinus Tach Rate: 130 Ectopy: None Physical Exam Const alert and oriented x3 General Appearance: cooperative HEENT normocephalic Extremity Extremity Narrative: No calf tenderness Edema right foot and leg significantly reduced compared to yesterday Compartments remain soft and there is no skin tenting 2/4 PT and DP pulses right Open fifth ray resection without bogginess or fluctuance General Extremity: edema and no tenderness to palpation of joints or extremities; Negative for cyanosis Skin Skin Narrative: Open ray resection right foot with no purulence, necrosis, odor. Erythema has completely resolved. He has exposed muscle tissue and the remaining fifth metatarsal is covered with soft tissue. There is no purulence on expression of the adjacent tissue either. There is some evidence of proximal skin breakdown likely related to trauma of infection and surgical intervention. General Skin Exam: Negative for erythema Neuro Neuro Narrative: lack of normal epicritic sensation via light touch is consistent with neuropathy status Psych cooperative and affect normal Assessment & Plan Assessment/Plan (1) Osteomyelitis of right foot: QUALIFIERS: Osteomyelitis type: unspecified type Qualified Code(s): M86.9 - Osteomyelitis, unspecified (2) Cellulitis of right foot: PLAN: I reviewed and discussed his case today including his diagnostic data. Vital signs and inflammatory labs have stabilized. His dressing was changed today with a saline wet-to-dry dressing. We will apply wound VAC later today or tomorrow. We will continue to observe the periwound skin. Strep, staph aureus, and gram-positive organisms already identified from the intraoperative microbiology specimen including the clearance fragment. All pathological specimen findings are still pending from surgery. To continue on broad-spectrum antibiotics including vancomycin and aztreonam. Infectious disease consult placed and recs will be appreciated. Medical management per hospitalist is appreciated. He is uncontrolled diabetes and this was discussed today. He understands his healing prognosis is guarded with elevated glucose levels of this nature. His A1c was 11.1%. To continue with nutritional supplementation, Soren to optimize healing. Nutrition consult pending. Short-term plan includes application of wound VAC to perform negative pressure wound therapy to fill in defect followed by application of skin graft as an outpatient once wound has granulated in. Patient's systemic response to infection has resolved. Patient likely stabilized for DC; however, will likely require home health care versus SNF. I answered all the patient's questions. Please do not hesitate to contact me if you have further questions. Upon medical stabilization likely early next week, discharge will be considered and I recommend he follows up with the wound healing center. Rafat Rondon DPM [facility] [phone]
[2021-11-02 07:43] VITALS: BP 107/75; PULSE 90; RESP 18; TEMP 36.7; O2SAT 99
[2021-11-02 07:56] LABS: Bedside Glucose 134 mg/dL (70-110)
--- NOTE | 2021-11-02 08:24 | PCM.PN.HOSP ---
Subjective Subjective Patient has diabetes mellitus type 2. Admitted with chronic left foot ulcer complicated osteomyelitis ongoing for more than 9 months Objective Data Objective Data Vital Signs: Vital Signs Temp Pulse Resp BP Pulse Ox 98.0 F 90 18 107/75 99 11/02/21 07:43 11/02/21 07:43 11/02/21 07:43 11/02/21 07:43 11/02/21 07:43 Oxygen Delivery Method Room Air Weight: 180 lb Body Mass Index (BMI) 23.0 Intake & Output: Intake and Output for Last 24 Hours 10/31/21 11/01/21 11/02/21 23:59 23:59 23:59 Intake Total 2665 / 2665 2325 / 2325 1275 / 1275 Balance 2665 / 2665 2325 / 2325 1275 / 1275 Lab / Micro Data Result Diagrams: 11/01/21 06:24 11/02/21 09:39 Labs: Laboratory Results - last 24 hr 11/01/21 09:20: Vancomycin Trough 15.5 H 11/01/21 10:59: POC Glucose 362 H 11/01/21 16:38: POC Glucose 393 H 11/01/21 22:51: POC Glucose 377 H 11/02/21 07:39: POC Glucose 134 H Micro: Microbiology 10/30/21 19:17 Wound - Right Foot Gram Stain - Final 10/30/21 19:17 Wound - Right Foot Wound Culture - Preliminary Streptococcus agalactiae (B) Staphylococcus aureus Gram positive organism 10/30/21 19:16 Wound - Right Foot Gram Stain - Final 10/30/21 19:16 Wound - Right Foot Wound Culture - Preliminary Streptococcus agalactiae (B) 10/30/21 14:10 Wound Abcess - Aerobic & Anaerobic Swabs Gram Stain - Final 10/30/21 14:10 Wound Abcess - Aerobic & Anaerobic Swabs Wound Culture - Preliminary Streptococcus agalactiae (B) Gram positive organism 10/29/21 10:15 Blood Culture (Wb) - Anticubital Left Blood Culture - Preliminary No growth in 48 hours. 10/29/21 10:30 Blood Culture (Wb) - Anticubital Right Blood Culture - Preliminary No growth in 48 hours. 10/29/21 10:53 Nasal Secretion SARS-CoV-2 Antigen (Rapid) - Final Rhythm Strip Rhythm Strip: Sinus Tach Rate: 130 Ectopy: None Physical Exam Narrative General: Alert, Oriented x3, Cooperative HEENT: Atraumatic, PERRLA, EOMI, Normocephalic Oral: No Gingival or Mucosal Lesions/ Ulcerations Neck: Supple, No JVD, Negative Carotid Bruits Lungs: Air entry equal in bilateral lung bases. No crepitation/rhonchi Cardiovascular: Regular rate, Regular Rhythm, Normal S1, Normal S2, No murmurs Abdomen: Bowel Sounds Present, Soft, Non Tender, Non-Distended : No renal angle tenderness. No suprapubic tenderness. Extremities: No edema, Capillary Refill Less than 3 Seconds Skin: Left foot chronic ulcer with osteomyelitis Musculoskeletal: Left foot Luis wrap bandage. Open fifth ray resection of right foot with widespread debridement and drainage. Granulation tissue present Neurological: Cranial nerves II-XII grossly intact, DTR 2+/4 and Symmetrical, Neuro grossly intact Psych/Mental Status: Normal Affect, Appropriate. Assessment & Plan Assessment/Plan (1) DKA (diabetic ketoacidoses): QUALIFIERS: Diabetes mellitus complication detail: without coma Diabetes mellitus type: type 2 Qualified Code(s): E11.10 - Type 2 diabetes mellitus with ketoacidosis without coma (2) Cellulitis of right foot: (3) Osteomyelitis of right foot: QUALIFIERS: Osteomyelitis type: unspecified type Qualified Code(s): M86.9 - Osteomyelitis, unspecified PLAN: 1. Diabetic ketoacidosis Resolved On basal and prandial insulin. A1c 11.1%. Glucose is controlled in daytime but high in the evening and night. 2. Right foot cellulitis, chronic diabetic ulcer osteomyelitis and abscess MRI of the foot shows evidence of osteomyelitis in the fifth metatarsal head as well as the fifth proximal phalangeal base, fluid collection in the dorsal lateral aspect of the forefoot with pockets of gas consistent with abscess. Vancomycin and aztreonam for now. CRP high.Lower extremity arterial Doppler shows normal bilateral resting MARKO with triphasic Doppler waveform. Abnormal right digital brachial index suspicion for distal small vessel disease. Normal left distal index. On 10/30: open fifth ray resection right foot with widespread debridement and drainage. Tissue culture from 10/30 growing group B strep 3+, strep and MSSE. ID is consulted for antibiotic. 3 VTE prophylaxis with enoxaparin 4. History of COVID-19: Patient has been vaccinated and boosted. He thinks he may have contracted it about a month ago but was sick for about 2 days and has since resolved. Rapid COVID-19 antigen negative Charges/Coding Visit Charges Inpatient E&M: 36843 Subs Hosp L2
[2021-11-02] MEDS: Insulin Lispro 100 UNIT/ML INSULN.PEN 6 UNIT SC ×2 (08:45→12:57)
[2021-11-02] MEDS: Acetaminophen 325 MG Tablet 650 MG PO (08:49)
[2021-11-02] MEDS: Juven (unflavored) Packet 1 PACKET PO ×2 (10:07→16:13)
[2021-11-02] MEDS: Potassium Chloride Oral Tablet 20 MEQ 40 MEQ PO ×2 (10:07→13:02)
[2021-11-02] MEDS: Enoxaparin 40 MG/0.4 ML Syringe SC (10:08)
[2021-11-02 10:23] LABS: Anion Gap 4 (5-15); BUN 17 mg/dL (7-18); BUN/Creat Ratio 29.2 RATIO (10-20); Calcium,Total 8.5 mg/dL (8.5-10.1); Chloride 106 mmol/L (98-107); Creatinine, Serum 0.58 mg/dL (0.70-1.30); EST Glomerular Filtration Rate 162 mL/min (>60); Est Glom Filt Rate - Afr Amer 196 mL/min (>60); Estimated Creatinine Clearance 182.11 ml/min; Glucose 124 mg/dL (74-106); Potassium 3.4 mmol/L (3.5-5.1); Sodium Level 139 mmol/L (136-145)
[2021-11-02 10:26] LABS: Vancomycin, Trough Level 15.8 ug/mL (5.0-15.0)
[2021-11-02 11:31] LABS: Bedside Glucose 124 mg/dL (70-110)
--- NOTE | 2021-11-02 12:16 | PHA.PHARE_ITS ---
Consult Pharmacy has been consulted to manage selected antiobiotic: Vancomycin Type of Consult: Follow-up Suspected Infection: Skin/Soft tissue, Osteomyelitis Prior Doses of Antibiotics Received/Current Regimen: 1250MG IV Q8H Labs: Sodium 139 mmol/L (136-145) 11/02/21 09:39 Potassium 3.4 mmol/L (3.5-5.1) L 11/02/21 09:39 Chloride 106 mmol/L (98-107) 11/02/21 09:39 Carbon Dioxide 29.0 mmol/L (21.0-32.0) 11/02/21 09:39 Anion Gap 4 (5-15) L 11/02/21 09:39 BUN 17 mg/dL (7-18) 11/02/21 09:39 Creatinine 0.58 mg/dL (0.70-1.30) L 11/02/21 09:39 Est GFR (MDRD) Af Amer 196 mL/min (>60) 11/02/21 09:39 Est GFR (MDRD) Non-Af 162 mL/min (>60) 11/02/21 09:39 BUN/Creatinine Ratio 29.2 RATIO (10-20) H 11/02/21 09:39 Glucose 124 mg/dL (74-106) H 11/02/21 09:39 Vancomycin Trough 15.8 ug/mL (5.0-15.0) H 11/02/21 09:39 Microbiology: Microbiology 10/30/21 19:16 Wound - Right Foot Gram Stain - Final 10/30/21 19:16 Wound - Right Foot Wound Culture - Preliminary Streptococcus agalactiae (B) Beta hemolytic organism Gram positive organism 10/30/21 19:16 Wound - Right Foot Anaerobic Culture - Preliminary 10/30/21 14:10 Wound Abcess - Aerobic & Anaerobic Swabs Gram Stain - Final 10/30/21 14:10 Wound Abcess - Aerobic & Anaerobic Swabs Wound Culture - Preliminary Streptococcus agalactiae (B) Strep anginosus Staphylococcus epidermidis 10/30/21 14:10 Wound Abcess - Aerobic & Anaerobic Swabs Anaerobic Culture - Preliminary Checking for anaerobes, further studies to follow. 10/30/21 19:17 Wound - Right Foot Gram Stain - Final 10/30/21 19:17 Wound - Right Foot Wound Culture - Preliminary Streptococcus agalactiae (B) Staphylococcus aureus Coag Negative Staph Alpha hemolytic organism 10/29/21 10:15 Blood Culture (Wb) - Anticubital Left Blood Culture - P reliminary No growth in 48 hours. 10/29/21 10:30 Blood Culture (Wb) - Anticubital Right Blood Culture - Preliminary No growth in 48 hours. 10/29/21 10:53 Nasal Secretion SARS-CoV-2 Antigen (Rapid) - Final Weight used for dosin.6 kg Estimated Creatinine Clearance: >100ML/MIN Goal Trough: 10-15 mcg/mL Pharmacy Plan for Drug Dosing: Today's trough 15.8. Renal function about same. Patient with osteomyelitis. Will continue same dose. New trough ordered in 2 days. Pharmacy Service will continue to monitor and adjust dosing as required. Follow-Up Labs: Trough Vancomycin - 2.9.22 @0130 before 0200 dose
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
[2021-11-02 14:21] VITALS: BP 106/66; PULSE 97; RESP 18; TEMP 36.8; O2SAT 100
--- NOTE | 2021-11-02 14:23 | PCM.CONS.GEN ---
Assessment & Plan Assessment/Plan (1) Osteomyelitis of right foot: QUALIFIERS: Osteomyelitis type: unspecified type Qualified Code(s): M86.9 - Osteomyelitis, unspecified PLAN: Wound cx with strep x2 and MSSE. Taken to OR 10/30/[address] Tyson for 5th toe amp and distal 5th met resection. Clearance cx with MSSA, CoNS, strep x2 so far. Pt on vanc/aztreo. Reports hives with PCN age 4. Has taken amox without issue. Will cont vanc for now, add flagyl, narrow aztreo to ceftriaxone. Will order picc and plan on d/c home with short course po flagyl and 6 weeks ceftriaxone, stop date 12/11 with weekly labs. ID followup in 2-3 weeks. Is fully covid vaccinated. Will follow, thank you, d/w director of casework services. (2) Sepsis: (3) DKA (diabetic ketoacidoses): QUALIFIERS: Diabetes mellitus type: type 2 Diabetes mellitus complication detail: without coma Qualified Code(s): E11.10 - Type 2 diabetes mellitus with ketoacidosis without coma HPI Consult Data Date of Consult: 11/02/21 HPI Narrative HPI Narrative: BETI LONG, is a 40 M with DM neuropathy, c/o worsening R foot ulcer over past year. Over past month, progressive bloody drainage. Over past 2 weeks, worsening redness/pain/swelling. Some fever/chills. Came to ED with several days n/v, not feeling well. Has had covid vaccine x3. Admitted here on vanc/aztreonam, taken to OR 10/[address] yTson for toe and distal 5th met resection. Feeling much better. Full ROS performed and neg except as noted above. [facility] Medical History Diabetes Diabetes mellitus, type 2 Home Medications empagliflozin [Jardiance] 10 mg PO DAILY 10/29/21 [History Last Taken Unknown] ceftriaxone 2 g IV DAILY #38 ea 11/02/21 [Rx Last Taken Unknown] metronidazole 500 mg PO TID #40 tab 11/02/21 [Rx Last Taken Unknown] Allergy/AdvReac Type Severity Reaction Status Date / Time Penicillins [PCN] Allergy Mild Other Verified 11/02/21 14:17 Surgical History History of ankle surgery Social History (Updated 10/29/21 @ 11:[address] Willard Abel, DO) Smoking Status: Never smoker substance use type: marijuana Physical Exam Const alert, oriented x3 and no apparent distress General Appearance: cooperative Exam Limitations: no limitations HEENT normocephalic and head/scalp atraumatic Eyes PERRL and EOMs intact bilaterally Neck supple and No nodes Resp normal air movement and clear to auscultation bilaterally Cardio regular rate and regular rhythm GI soft to palpation, non-tender and non-distended Extremity no clubbing, cyanosis or edema Skin Skin Narrative: R foot wrapped Neuro CN's II-XII intact bilaterally Lab / Micro Data Result Diagrams: 11/01/21 06:24 11/02/21 09:39 Labs: Laboratory Results - last 24 hr 11/01/21 16:38: POC Glucose 393 H 11/01/21 22:51: POC Glucose 377 H 11/02/21 07:39: POC Glucose 134 H 11/02/21 09:39: Sodium 139, Potassium 3.4 L, Chloride 106, Carbon Dioxide 29.0, Anion Gap 4 L, BUN 17, Creatinine 0.58 L, Estim Creat Clear Calc 182.11, Est GFR (MDRD) Af Amer 196, Est GFR (MDRD) Non-Af 162, BUN/Creatinine Ratio 29.2 H, Glucose 124 H, Calcium 8.5 11/02/21 09:39: Vancomycin Trough 15.8 H 11/02/21 11:26: POC Glucose 124 H Micro: Microbiology 10/30/21 19:16 Wound - Right Foot Gram Stain - Final 10/30/21 19:16 Wound - Right Foot Wound Culture - Preliminary Streptococcus agalactiae (B) Beta hemolytic organism Gram positive organism 10/30/21 19:16 Wound - Right Foot Anaerobic Culture - Preliminary 10/30/21 14:10 Wound Abcess - Aerobic & Anaerobic Swabs Gram Stain - Final 10/30/21 14:10 Wound Abcess - Aerobic & Anaerobic Swabs Wound Culture - Preliminary Streptococcus agalactiae (B) Strep anginosus Staphylococcus epidermidis 10/30/21 14:10 Wound Abcess - Aerobic & Anaerobic Swabs Anaerobic Culture - Preliminary Checking for anaerobes, further studies to follow. 10/30/21 19:17 Wound - Right Foot Gram Stain - Final 10/30/21 19:17 Wound - Right Foot Wound Culture - Preliminary Streptococcus agalactiae (B) Staphylococcus aureus Coag Negative Staph Alpha hemolytic organism Rhythm Strip Rhythm Strip: Sinus Tach Rate: 130 Ectopy: None
--- NOTE | 2021-11-02 15:38 | CASEMGMT ---
RN CM in to pt room to discuss dc planning. Rx for IV atb obtained for daily IV's. Pt to have a wound vac. Discussed with patient how the wound vac works and who changes the wound vac, etc. Also discussed the IV and what HHC does vs what pt/cg will do. Pt verbalized understanding and took notes. Patient was provided a list of HHC/Infusion Companies providers including quality and resource use data and consistent with the patient?s preferred geographic region, medical needs, and insurance network as pt has misplaced the previous list. The patient?s preferred provider [facility] followed by Tanya. Pt has no preference on infusion company. TC to [facility] who states they do not have staffing for pt. TC to Alessio at [facility], left vm and faxed referral. Also [facility]
[2021-11-02] MEDS: Insulin Lispro 100 UNIT/ML INSULN.PEN SC ×2 (16:11→22:49)
[2021-11-02] MEDS: Insulin Lispro 100 UNIT/ML INSULN.PEN 10 UNIT SC (16:11)
[2021-11-02 16:20] LABS: Bedside Glucose 233 mg/dL (70-110)
[2021-11-02] MEDS: metroNIDAZOLE 500 MG Tablet PO ×2 (16:40→22:49)
[2021-11-02 20:41] VITALS: BP 112/72; PULSE 99; RESP 18; TEMP 37.3; O2SAT 99
[2021-11-02 23:06] LABS: Bedside Glucose 303 mg/dL (70-110)
[2021-11-03] MEDS: 0.9% Saline Lock 10 ML Syringe IV (02:22)
[2021-11-03 02:25] VITALS: BP 114/80; PULSE 88; RESP 18; TEMP 37.2; O2SAT 99
[2021-11-03] MEDS: metroNIDAZOLE 500 MG Tablet PO ×3 (05:49→21:39)
[2021-11-03 08:38] VITALS: BP 113/79; PULSE 84; RESP 18; TEMP 36.6; O2SAT 100
[2021-11-03] MEDS: Insulin Lispro 100 UNIT/ML INSULN.PEN SC ×4 (08:44→21:37)
[2021-11-03] MEDS: Insulin Lispro 100 UNIT/ML INSULN.PEN 6 UNIT SC (08:45)
[2021-11-03] MEDS: Enoxaparin 40 MG/0.4 ML Syringe SC (08:46)
[2021-11-03] MEDS: Juven (unflavored) Packet 1 PACKET PO ×2 (08:46→16:39)
--- NOTE | 2021-11-03 08:54 | CASEMGMT ---
Addendum entered by Meredith Saez 11/03/21 13:19: Faxed [employer] signed vac referral form. Addendum entered by Meredith Saez 11/03/21 11:24: TC to 's office to check on wound vac order. is out this week. Requested sign wound vac order. Refaxed at this time. Addendum entered by Meredith Saez 11/03/21 09:57: STEFANO CM in to pt room to make aware of dc arrangements. Addendum entered by Meredith Saez 11/03/21 09:49: TC to [facility]. Pt is covered 100%. Gin is aware pt will dc today with SOC tomorrow at 9am with [facility]. Picc info and dc instructions faxed. TC to [facility], she is also aware pt will dc today and SOC for tomorrow at 9am. She is aware pt will need DM education as well. Script obtained for [facility]. TC to Retail pharmacy and verified they are available. Script tubed down. Original Note: TC from Alessio at [facility], they are able to accept pt.
--- NOTE | 2021-11-03 09:20 | PCM.DC ---
Discharge Instructions Diet Discharge Diet: 1800 Calorie Control Diet and 2000 mg Sodium Diet Activity Discharge Activity: May Not Drive Weight Bearing Status: No weight bearing (No weightbearing on right leg) Keep extremity elevated above heart level: Right Leg Dressing / Incision Call your doctor if your incision/area has: Continuous Slow Oozing, Sudden Increased Bleeding, Increased Pain/ Swelling, Increased Redness, Foul Smelling Discharge and Swelling at the incision site Call your doctor if you observe: Fever of 101 or Higher, Coldness, Increased Pain, Numbness or Tingling, Change in Color, Inability to urinate, Inability to have a bowel movement, Shortness of breath, Dizziness, Fainting spells, Swelling in the ankles, Chest pain, Prolonged hiccupping, Increased palpitations (irregular heartbeat) and Calf discomfort Additional Dressing/Incision Instructions:: Right foot wound VAC Follow Up Care Test Results: Test results from this visit will be discussed in further detail at your follow-up appointment, if applicable. Discharge Plan Admission Admit Date/Time: 10/29/21 10:58 Primary Reason for Your Visit: Right foot osteomyelitis with cellulitis Attending Provider: Xavi Gordon Primary Care Provider: Care Physician,No Primary Consulting Providers: Wood Campa ; Demetri Calderon Instructions Additional Instructions / Restrictions: Nonweightbearing right lower extremity with surgical shoe. It is okay to heel weight-bear for transfers occasionally. Elevate right lower extremity. Avoid direct pressure over open wound site. Right foot wound VAC 150 mmHg continuous, change 3 times a week. Continue nutritional supplementation to optimize healing and improved glucose management. Discharge Orders/Prescriptions Prescriptions: New ceftriaxone 2 gram recon soln 2 g IV DAILY Qty: 38 RF: 0 metronidazole 500 mg tablet 500 mg PO TID Qty: 40 RF: 0 nicotine 14 mg/24 hr Patch 24 Hour 14 mg transdermal DAILY Qty: 30 RF: 0 insulin lispro [Humalog KwikPen Insulin] 100 unit/mL Insulin Pen See Protocol unit subcut 4X/DAYCM Qty: 0 RF: 0 insulin lispro [Humalog KwikPen Insulin] 100 unit/mL Insulin Pen 10 unit subcut BREAKFAST Qty: 3 RF: 0 insulin lispro [Humalog KwikPen Insulin] 100 unit/mL Insulin Pen 15 unit subcut DINNER Qty: 0 RF: 0 insulin lispro [Humalog KwikPen Insulin] 100 unit/mL Insulin Pen 15 unit subcut LUNCH Qty: 0 RF: 0 Lantus Solostar U-100 Insulin 100 unit/mL (3 mL) Insulin Pen 36 units subcut QHS Qty: 3 RF: 0 Soren (with collagen) 7-7-1.5 gram Powder In Packet 1 packet PO BIDCM Qty: 0 RF: 0 Continued Jardiance 10 mg Tablet 10 mg PO DAILY RF: 0 Discontinued levofloxacin 500 mg Tablet 500 mg PO DAILY RF: 0 Other Ambulatory Orders: Glucometer (Routine) Location: None Selected Ordered By: Dr. Xavi Gordon Glucometer (Routine) Location: None Selected Ordered By: Dr. Xavi Gordon Glucometer (Routine) Location: None Selected Ordered By: Dr. Xavi Gordon Referrals / Follow Up: Mary Tyson DPM [STAFF PHYSICIAN] - In 1 Week ([facility]; call to schedule at [phone].) Care Physician,No Primary [Primary Care Provider] - Demetri Calderon MD [STAFF PHYSICIAN] - Within 2 Weeks (Right foot osteomyeltis) Disposition Disposition (needs filled in before D/C Order can be placed): Home Health Service
--- NOTE | 2021-11-03 10:24 | PCM.PN.ID ---
Physical Exam Narrative Feeling fine, no fever, no n/v/d, no rash Const alert and no apparent distress General Appearance: cooperative Resp normal air movement and clear to auscultation bilaterally Cardio regular rate and regular rhythm GI soft to palpation, non-tender and non-distended Skin Skin Narrative: picc in place, foot wrapped ID ID: Route of nutrition/ use of supplements: [] Nutritional Intake: [] IV Site: [] Davis Catheter: [] Assessment & Plan Assessment/Plan (1) Osteomyelitis of right foot: QUALIFIERS: Osteomyelitis type: unspecified type Qualified Code(s): M86.9 - Osteomyelitis, unspecified PLAN: Wound cx with strep x2 and MSSE. Taken to OR 10/30/[address] Tyson for 5th toe amp and distal 5th met resection. Clearance cx with MSSA, MSSES, strep x2 so far. Reports hives with PCN age 4. Has taken amox without issue. Now on flagyl and ceftriaxone. Ok for d/c home with short course po flagyl and 6 weeks ceftriaxone, stop date 12/11 with weekly labs. ID followup in 2-3 weeks. Is fully covid vaccinated. Will follow (2) Sepsis: (3) DKA (diabetic ketoacidoses): QUALIFIERS: Diabetes mellitus type: type 2 Diabetes mellitus complication detail: without coma Qualified Code(s): E11.10 - Type 2 diabetes mellitus with ketoacidosis without coma
[2021-11-03 10:55] LABS: Bedside Glucose 164 mg/dL (70-110)
[2021-11-03] MEDS: Insulin Lispro 100 UNIT/ML INSULN.PEN 15 UNIT SC ×2 (12:58→16:40)
[2021-11-03 13:10] LABS: Bedside Glucose 220 mg/dL (70-110)
[2021-11-03 15:00] VITALS: BP 102/71; PULSE 100; RESP 16; TEMP 36.6; O2SAT 100
--- NOTE | 2021-11-03 16:15 | PCM.PN.HOSP ---
Subjective Subjective Patient supposed to go home today. Wound VAC is not approved yet. Discussed with the nursing staff. Hyperglycemia and Humalog and Lantus insulin increased. Objective Data Objective Data Vital Signs: Vital Signs Temp Pulse Resp BP Pulse Ox 97.9 F 100 16 102/71 100 11/03/21 15:00 11/03/21 15:00 11/03/21 15:00 11/03/21 15:00 11/03/21 15:00 Oxygen Delivery Method Room Air Weight: 182 lb 15.739 oz Body Mass Index (BMI) 23.0 Intake & Output: Intake and Output for Last 24 Hours 11/01/21 11/02/21 11/03/21 23:59 23:59 23:59 Intake Total 2325 / 2325 2658.75 / 2658.75 1300 / 1300 Output Total 2100 / 2100 Balance 2325 / 2325 2658.75 / 2658.75 -800 / -800 Lab / Micro Data Result Diagrams: 11/01/21 06:24 11/02/21 09:39 Labs: Laboratory Results - last 24 hr 11/02/21 16:07: POC Glucose 233 H 11/02/21 22:48: POC Glucose 303 H 11/03/21 08:37: POC Glucose 164 H 11/03/21 12:55: POC Glucose 220 H Micro: Microbiology 10/29/21 10:15 Blood Culture (Wb) - Anticubital Left Blood Culture - Final No growth in 5 days. 10/29/21 10:30 Blood Culture (Wb) - Anticubital Right Blood Culture - Final No growth in 5 days. 10/30/21 19:16 Wound - Right Foot Gram Stain - Final 10/30/21 19:16 Wound - Right Foot Wound Culture - Final Streptococcus agalactiae (B) Streptococcus group F Strep anginosus 10/30/21 19:17 Wound - Right Foot Gram Stain - Final 10/30/21 19:17 Wound - Right Foot Wound Culture - Final Streptococcus agalactiae (B) Staphylococcus aureus Staphylococcus epidermidis Streptococcus group F 10/30/21 14:10 Wound Abcess - Aerobic & Anaerobic Swabs Gram Stain - Final 10/30/21 14:10 Wound Abcess - Aerobic & Anaerobic Swabs Wound Culture - Preliminary Streptococcus agalactiae (B) Strep anginosus Staphylococcus epidermidis Staphylococcus aureus 10/30/21 14:10 Wound Abcess - Aerobic & Anaerobic Swabs Anaerobic Culture - Preliminary Checking for anaerobes, further studies to follow. 10/29/21 10:53 Nasal Secretion SARS-CoV-2 Antigen (Rapid) - Final Rhythm Strip Rhythm Strip: Sinus Tach Rate: 130 Ectopy: None Physical Exam Narrative General: Alert, Oriented x3, Cooperative HEENT: Atraumatic, PERRLA, EOMI, Normocephalic Oral: No Gingival or Mucosal Lesions/ Ulcerations Neck: Supple, No JVD, Negative Carotid Bruits Lungs: Air entry equal in bilateral lung bases. No crepitation/rhonchi Cardiovascular: Regular rate, Regular Rhythm, Normal S1, Normal S2, No murmurs Abdomen: Bowel Sounds Present, Soft, Non Tender, Non-Distended : No renal angle tenderness. No suprapubic tenderness. Extremities: No edema, Capillary Refill Less than 3 Seconds Skin: Left foot chronic ulcer with osteomyelitis Musculoskeletal: Left foot Luis wrap bandage. Granulation tissue present Neurological: Cranial nerves II-XII grossly intact, DTR 2+/4 and Symmetrical, Neuro grossly intact Psych/Mental Status: Normal Affect, Appropriate. Assessment & Plan Assessment/Plan (1) Osteomyelitis of right foot: QUALIFIERS: Osteomyelitis type: unspecified type Qualified Code(s): M86.9 - Osteomyelitis, unspecified (2) Sepsis: (3) DKA (diabetic ketoacidoses): QUALIFIERS: Diabetes mellitus type: type 2 Diabetes mellitus complication detail: without coma Qualified Code(s): E11.10 - Type 2 diabetes mellitus with ketoacidosis without coma PLAN: 1. 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 Her mother and grandmother has history of diabetes mellitus Resolved On basal and prandial insulin. A1c 11.1%. Glucose is controlled in daytime but high in the evening and night. 11/03: Accu-Cheks are high. Humalog and Lantus increased accordingly. Prescriptions given for Humalog and Lantus insulin along with glucometer and Gluc[place]ck supplies. 2. Right foot cellulitis, chronic diabetic ulcer osteomyelitis and abscess MRI of the foot shows evidence of osteomyelitis in the fifth metatarsal head as well as the fifth proximal phalangeal base, fluid collection in the dorsal lateral aspect of the forefoot with pockets of gas consistent with abscess. Vancomycin and aztreonam for now. CRP high.Lower extremity arterial Doppler shows normal bilateral resting MARKO with triphasic Doppler waveform. Abnormal right digital brachial index suspicion for distal small vessel disease. Normal left distal index. On 10/30: open fifth ray resection right foot with widespread debridement and drainage. Tissue culture from 10/30 growing group B strep 3+, strep and MSSE. ID is consulted for antibiotic. 11/03: Antibiotic given by ID. Patient has single port PICC line. 3 VTE prophylaxis with enoxaparin 4. History of COVID-19: Patient has been vaccinated and boosted. He thinks he may have contracted it about a month ago but was sick for about 2 days and has since resolved. Rapid COVID-19 antigen negative Discharge planning: Patient is to have wound VAC and then discharged home with home health plant health care technician. Discussed with the outpatient case manager and pharmacist. Prescription sent to retail pharmacy Charges/Coding Visit Charges Inpatient E&M: 41692 Subs Hosp L2
[2021-11-03 16:51] LABS: Bedside Glucose 222 mg/dL (70-110)
[2021-11-03 20:17] VITALS: BP 105/71; PULSE 97; RESP 16; TEMP 36.8; O2SAT 99
[2021-11-03 21:56] LABS: Bedside Glucose 199 mg/dL (70-110)
[2021-11-04 02:53] VITALS: BP 112/81; PULSE 82; RESP 18; TEMP 36.6; O2SAT 97
[2021-11-04] MEDS: oxyCODONE 5 MG Tablet PO (05:23)
[2021-11-04] MEDS: metroNIDAZOLE 500 MG Tablet PO (05:23)
[2021-11-04 07:41] LABS: Bedside Glucose 162 mg/dL (70-110)
[2021-11-04] MEDS: Juven (unflavored) Packet 1 PACKET PO (08:08)
[2021-11-04] MEDS: Insulin Lispro 100 UNIT/ML INSULN.PEN 10 UNIT SC (08:10)
[2021-11-04] MEDS: Insulin Lispro 100 UNIT/ML INSULN.PEN SC (08:11)
--- NOTE | 2021-11-04 08:30 | CASEMGMT ---
RN CM in to pt room, pt has wound vac on and nurse reviewing dc instructions. Pt to obtain rx through drive through and [facility]. Pt to dc and be home for [facility] visit this am for administration of IV atb. TC to [facility] and [facility], left vm of the above.
[2021-11-04 08:40] VITALS: BP 115/89; PULSE 104; RESP 18; TEMP 36.9; O2SAT 100
--- NOTE | 2021-11-04 08:41 | CASEMGMT ---
Late Entry for 1630 on 11/03/2021- Pt wound vac not approved at this time. Current plan is to obtain approval by morning, wound nurse to apply wound vac and pt to still dc in the morning for 9am visit with [facility]. Pt is aware and agreeable to plan. KADEN Mccallum at [facility] to make aware.
--- NOTE | 2021-11-04 08:50 | WOUNDNOTE ---
wound photo: right foot
--- NOTE | 2021-11-04 10:04 | DS.PCM_ITS ---
Providers Date of Admission: 10/29/21 Date of Discharge: 11/04/21 Primary Care Physician: Jannet Primary Care Phys Consultations 10/30/21 10:47 Consult: Onc/Wound/mail processing clerk Routine Comment: Reason for Consult:: diabetic foot ulcer 10/30/21 12:07 Consult: Podiatry Routine Consulting Provider: Wood Campa Reason for Consult: right foot abscess and osteomyelitis EMERGENT Consult: No MD Notified: Yes Date Notified: 10/30/21 Time Notified: 12:30 Method of Notification: paged via bookbinding machine operator 10/31/21 11:08 Consult: Infectious Disease Routine Consulting Provider: Demetri Calderon Reason for Consult: right foot osteomyelitis EMERGENT Consult: No MD Notified: Yes Date Notified: 10/31/21 Time Notified: 11:08 Method of Notification: Answering Service Reason For Visit: DKA, DIABETIC FOOT WOUND Diagnosis Discharge Diagnosis (1) Osteomyelitis of right foot: Status: Acute Code(s): M86.9 - Osteomyelitis, unspecified Qualifiers: Osteomyelitis type: unspecified type Qualified Code(s): M86.9 - Osteomyelitis, unspecified (2) Sepsis: Status: Acute Code(s): A41.9 - Sepsis, unspecified organism (3) DKA (diabetic ketoacidoses): Status: Acute Code(s): E11.10 - Type 2 diabetes mellitus with ketoacidosis without coma Qualifiers: Diabetes mellitus complication detail: without coma Diabetes mellitus type: type 2 Qualified Code(s): E11.10 - Type 2 diabetes mellitus with ketoacidosis without coma Medications at Discharge Home Medications Jardiance 10 mg PO DAILY 10/29/21 ceftriaxone 2 g IV DAILY #38 ea 11/02/21 metronidazole 500 mg PO TID #40 tab 11/02/21 [id number] [Soren (with collagen)] 1 packet PO BIDCM #0 ea 11/03/21 insulin glargine [Lantus Solostar U-100 Insulin] 36 units SUBCUT QHS #3 ml 11/03/21 insulin lispro [Humalog KwikPen Insulin] 10 unit SUBCUT BREAKFAST #3 ml 11/03/21 insulin lispro [Humalog KwikPen Insulin] 15 unit SUBCUT DINNER #0 ml 11/03/21 insulin lispro [Humalog KwikPen Insulin] 15 unit SUBCUT LUNCH #0 ml 11/03/21 insulin lispro [Humalog KwikPen Insulin] See Protocol SUBCUT 4X/DAYCM #0 ml 11/03/21 nicotine 14 mg TRANSDERMAL DAILY #30 ea 11/03/21 Hospital Course Summary of Care Provided Hospital Course: This 40-year-old gentleman with history of diabetes mellitus type 2 was admitted with intractable nausea, vomiting, not taking insulin as he lost insurance. Patient also has chronic right foot ulcer from slowly progressive for more than 9 months. 1. 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 Her mother and grandmother has history of diabetes mellitus Resolved On basal and prandial insulin. A1c 11.1%. Glucose was high mainly during afternoon, evening and nighttime. Lantus insulin and Humalog dose were increased accordingly. Patient was seen by kennel staff member and online affiliate marketing manager and I myself went over the dosages of insulin and Accu-Cheks before meals and at bedtime. 2. Right foot cellulitis, chronic diabetic ulcer osteomyelitis and abscess MRI of the foot shows evidence of osteomyelitis in the fifth metatarsal head as well as the fifth proximal phalangeal base, fluid collection in the dorsal lateral aspect of the forefoot with pockets of gas consistent with abscess. Vancomycin and aztreonam for now. CRP high.Lower extremity arterial Doppler shows normal bilateral resting MARKO with triphasic Doppler waveform. Abnormal right digital brachial index suspicion for distal small vessel disease. Normal left distal index. On 10/30: open fifth ray resection right foot with widespread debridement and drainage. Tissue culture from 10/30 growing group B strep 3+, strep and MSSE. ID is consulted for antibiotic. 11/03: Antibiotic prescriptions were given by ID. Patient has single port PICC line. 3 VTE prophylaxis with enoxaparin 4. History of COVID-19: Patient has been vaccinated and boosted. He thinks he may have contracted it about a month ago but was sick for about 2 days and has since resolved. Rapid COVID-19 antigen negative Discharge medication reconciliation done. Discharge follow-up instructions completed. Discharge process discussed with the patient and all questions were answered to patient's satisfaction. Patient had wound VAC and then discharged home with home health home care specialist. Discussed with the case loader operator and pharmacis t. Prescription sent to retail pharmacy. Total time spent, exact 35 minutes on discharge meds reconciliation, examination, coordination of care with nurses and ancillary staff, review of imaging and blood test and discussion with the patient on follow-up instructions Physical Exam Narrative Seen and examined. Dressing is dry with Luis wrap bandage on. General: Alert, Oriented x3, Cooperative HEENT: Atraumatic, PERRLA, EOMI, Normocephalic Oral: No Gingival or Mucosal Lesions/ Ulcerations Neck: Supple, No JVD, Negative Carotid Bruits Lungs: Air entry equal in bilateral lung bases. No crepitation/rhonchi Cardiovascular: Regular rate, Regular Rhythm, Normal S1, Normal S2, No murmurs Abdomen: Bowel Sounds Present, Soft, Non Tender, Non-Distended : No renal angle tenderness. No suprapubic tenderness. Extremities: No edema, Capillary Refill Less than 3 Seconds Skin: Left foot chronic ulcer with osteomyelitis Musculoskeletal: Left foot Luis wrap bandage. Granulation tissue present Neurological: Cranial nerves II-XII grossly intact, DTR 2+/4. Gross general sensation decreased in left foot Psych/Mental Status: Normal Affect, Appropriate. Weight / BMI Weight Weight: 182 lb 15.739 oz Body Mass Index (BMI) 23.0 ABG / Lab / Microbiology Data Result Diagrams: 11/01/21 06:24 11/02/21 09:39 Laboratory: Laboratory Results - last 24 hr 11/02/21 09:39: Sodium 139, Potassium 3.4 L, Chloride 106, Carbon Dioxide 29.0, Anion Gap 4 L, BUN 17, Creatinine 0.58 L, Estim Creat Clear Calc 182.11, Est GFR (MDRD) Af Amer 196, Est GFR (MDRD) Non-Af 162, BUN/Creatinine Ratio 29.2 H, Glucose 124 H, Calcium 8.5 11/02/21 09:39: Vancomycin Trough 15.8 H 11/02/21 11:26: POC Glucose 124 H 11/02/21 16:07: POC Glucose 233 H 11/02/21 22:48: POC Glucose 303 H Microbiology: Microbiology 10/30/21 19:16 Wound - Right Foot Gram Stain - Final 10/30/21 19:16 Wound - Right Foot Wound Culture - Final Streptococcus agalactiae (B) Streptococcus group F Strep anginosus 10/30/21 19:17 Wound - Right Foot Gram Stain - Final 10/30/21 19:17 Wound - Right Foot Wound Culture - Final Streptococcus agalactiae (B) Staphylococcus aureus Staphylococcus epidermidis Streptococcus group F 10/30/21 14:10 Wound Abcess - Aerobic & Anaerobic Swabs Gram Stain - Final 10/30/21 14:10 Wound Abcess - Aerobic & Anaerobic Swabs Wound Culture - Preliminary Streptococcus agalactiae (B) Strep anginosus Staphylococcus epidermidis Staphylococcus aureus 10/30/21 14:10 Wound Abcess - Aerobic & Anaerobic Swabs Anaerobic Culture - Preliminary Checking for anaerobes, further studies to follow. 10/29/21 10:15 Blood Culture (Wb) - Anticubital Left Blood Culture - Preliminary No growth in 48 hours. 10/29/21 10:30 Blood Culture (Wb) - Anticubital Right Blood Culture - Preliminary No growth in 48 hours. 10/29/21 10:53 Nasal Secretion SARS-CoV-2 Antigen (Rapid) - Final D/C Instructions Discharge Diet: 1800 Calorie Control Diet and 2000 mg Sodium Diet Weight Bearing Status: No weight bearing (No weightbearing on right leg) Keep extremity elevated above heart level: Right Leg Call your doctor if your incision/area has: Continuous Slow Oozing, Sudden Increased Bleeding, Increased Pain/ Swelling, Increased Redness, Foul Smelling Discharge and Swelling at the incision site Call your doctor if you observe: Fever of 101 or Higher, Coldness, Increased Pain, Numbness or Tingling, Change in Color, Inability to urinate, Inability to have a bowel movement, Shortness of breath, Dizziness, Fainting spells, Swelling in the ankles, Chest pain, Prolonged hiccupping, Increased palpitations (irregular heartbeat) and Calf discomfort Additional Dressing/Incision Instructions: Right foot wound VAC Meaningful Use Info Meaningful Use Diagnoses (Choose all that apply): None applicable Discharge Plan Admission Admit Date/Time: 10/29/21 10:58 Primary Reason for Your Visit: Right foot osteomyelitis with cellulitis Attending Provider: Xavi Gordon Primary Care Provider: Care Physician,No Primary Consulting Providers: Wood Campa ; Demetri Calderon Instructions Additional Instructions / Restrictions: Nonweightbearing right lower extremity with surgical shoe. It is okay to heel weight-bear for transfers occasionally. Elevate right lower extremity. Avoid direct pressure over open wound site. Right foot wound VAC 150 mmHg continuous, change 3 times a week. Continue nutritional supplementation to optimize healing and improved glucose management. Discharge Orders/Prescriptions Prescriptions: New ceftriaxone 2 gram recon soln 2 g IV DAILY Qty: 38 RF: 0 metronidazole 500 mg tablet 500 mg PO TID Qty: 40 RF: 0 nicotine 14 mg/24 hr Patch 24 Hour 14 mg transdermal DAILY Qty: 30 RF: 0 insulin lispro [Humalog KwikPen Insulin] 100 unit/mL Insulin Pen See Protocol unit subcut 4X/DAYCM Qty: 0 RF: 0 insulin lispro [Humalog KwikPen Insulin] 100 unit/mL Insulin Pen 10 unit subcut BREAKFAST Qty: 3 RF: 0 insulin lispro [Humalog KwikPen Insulin] 100 unit/mL Insulin Pen 15 unit subcut DINNER Qty: 0 RF: 0 insulin lispro [Humalog KwikPen Insulin] 100 unit/mL Insulin Pen 15 unit subcut LUNCH Qty: 0 RF: 0 Lantus Solostar U-100 Insulin 100 unit/mL (3 mL) Insulin Pen 36 units subcut QHS Qty: 3 RF: 0 Soren (with collagen) 7-7-1.5 gram Powder In Packet 1 packet PO BIDCM Qty: 0 RF: 0 Continued Jardiance 10 mg Tablet 10 mg PO DAILY RF: 0 Discontinued levofloxacin 500 mg Tablet 500 mg PO DAILY RF: 0 Other Ambulatory Orders: Glucometer (Routine) Location: None Selected Ordered By: Dr. Xavi Gordon Glucometer (Routine) Location: None Selected Ordered By: Dr. Xavi Gordon Glucometer (Routine) Location: None Selected Ordered By: Dr. Xavi Gordon Referrals / Follow Up: Mary Tyson DPM [STAFF PHYSICIAN] - In 1 Week (Follow up at [facility] healing center; call to schedule at [phone].) Demetri Calderon MD [STAFF PHYSICIAN] - Within 2 Weeks (Right foot osteomyeltis) Care Physician,No Primary [Primary Care Provider] - Disposition Disposition (needs filled in before D/C Order can be placed): Home Health Service Charges/Coding Visit Charges Inpatient E&M: 77066 Disch Hosp
--- NOTE | 2021-11-04 12:11 | WOUNDNOTE ---
Got a return call from [facility] stating there was a mix up with the insurance. someone thought pt was straight Medicaid and pt actually has [employer]. VAC is not approved now. discussed with Dr Rondon. Order received for NS wet to dry dressings with compression daily. will discuss with RADHA Harper. also talked with Pati to see if NPWT could be approved through them for the wound center follow up.
--- NOTE | 2021-11-04 15:56 | CASEMGMT ---
Notified by Dionna this morning after pt dc'd that the wound vac was not approved d/t pt having [employer] insurance. TC to Alessio at [facility], she states they have traditional [employer] as payer as well. TC to TOBY, insurance checked in [facility], pt does have [employer]. Dionna working with [facility] to obtain vac. New orders obtained in the meantime. TC to Alessio to make aware of this and faxed them. Wound nurse to notify pt.
--- NOTE | 2021-11-05 14:46 | CASEMGMT ---
1243- Emailed wound vac order to Emily at [facility] [place] per request of Breanne via . Faxed F2F and KCI order to [facility] [place] C Programmer per request.
== END 2021-11-04 08:50 | disposition home health service (06) | DRG 405 ==
LOC: ED 10:49 → ICU 11:36 → MS3 10-30 11:48
PROVIDERS: Hospitalist; Podiatrist; Emergency Provider Emergency Medicine; Visit Provider Internal Medicine
PROC: 0QTQ0ZZ Resection of Right Toe Phalanx, Open Approach (ICD-10-PCS; principal; 2021-10-30 16:45)
DX: E11.10 Type 2 diabetes mellitus with ketoacidosis without coma (principal); L03.115 Cellulitis of right lower limb; L97.519 Non-pressure chronic ulcer of other part of right foot with unspecified severity; E11.621 Type 2 diabetes mellitus with foot ulcer; E11.40 Type 2 diabetes mellitus with diabetic neuropathy, unspecified; L97.529 Non-pressure chronic ulcer of other part of left foot with unspecified severity; M86.9 Osteomyelitis, unspecified; F12.90 Cannabis use, unspecified, uncomplicated; B95.7 Other staphylococcus as the cause of diseases classified elsewhere; L02.611 Cutaneous abscess of right foot; Z79.84 Long term (current) use of oral hypoglycemic drugs; Z86.16 Personal history of COVID-19
CPT/HCPCS: 36415; 36569; 71045; 73620; 73630; 73718; 76000; 80048; 80053; 80076; 80202; 82009; 82803; 82962; 83036; 83605; 83690; 83735; 84100; 84484; 85025; 86140; 87040; 87070; 87075; 87077; 87176; 87186; 87205; 87426; 87640; 88304; 88305; 88307; 88311; 93005; 93922; 94762; 97803; 99251; 99285; J7030; J7040; J7050; A4216; G0463; J0696; J2405; J7799

== ENCOUNTER 2021-11-18 12:55 | Outpatient (RCR) | payer MEDICAID, SELFPAY ==
--- NOTE | 2021-11-18 14:47 | PCM.WC.PN ---
History of Present Illness Date of Service: 11/18/21 Chief Complaint: right foot ulcer and infection follow up History of Wound: This 40-year-old male with uncontrolled diabetes is here for hospital follow-up now that he has an open amputation including a fifth ray resection of the right foot for treatment of necrotizing fasciitis and bone infection. His surgery was performed on 10-30-21. He is completing a course of IV antibiotics under the management of infectious disease. He also has a wound VAC to the right foot and home health has been helping him changes. He is trying to keep weight off of his foot. His last hemoglobin A1c level was 11.1%. He is in the process of getting scheduled with a tenderizer tender to better improve his long-term glucose levels. Progress of Wound: Improving Physical Exam Const alert and oriented x3 General Appearance: cooperative HEENT normocephalic Extremity Extremity Narrative: No calf tenderness Edema right foot and leg significantly reduced compared to yesterday Compartments remain soft and there is no skin tenting 2/4 PT and DP pulses right Open fifth ray resection without bogginess or fluctuance General Extremity: edema and no tenderness to palpation of joints or extremities; Negative for cyanosis Skin Skin Narrative: Open ray resection right foot with no purulence, necrosis, odor. Erythema has completely resolved. He has exposed muscle tissue and the remaining fifth metatarsal is covered with soft tissue. There is no purulence on expression of the adjacent tissue either. General Skin Exam: Negative for erythema Neuro Neuro Narrative: lack of normal epicritic sensation via light touch is consistent with neuropathy status Psych cooperative and affect normal Debridement Note Debridement Note Wound debrided: Right foot Wound Grade/Stage: 3 Type of Debridement: Excisional debridement Anesthesia Used: 4% Lidocaine Solution Depth: in the subcutaneous layer Percentage of wound debrided: 100 Instrument Used: #15 blade Tissue Removed: fibrous, devitalized subcutaneous, biofilm, slough Severity: Fat Layer Exposed Amount of bleeding with debridement: Mild Bleeding Controlled with: Pressure Patient tolerated procedure: Patient tolerated procedure well Assessment/Plan Assessment/Plan (1) Osteomyelitis of right foot: CODE(S): M86.9 - Osteomyelitis, unspecified QUALIFIERS: Osteomyelitis type: unspecified type Qualified Code(s): M86.9 - Osteomyelitis, unspecified (2) Cellulitis of right foot: CODE(S): L03.115 - Cellulitis of right lower limb (3) Type 2 diabetes mellitus with diabetic polyneuropathy: CODE(S): E11.42 - Type 2 diabetes mellitus with diabetic polyneuropathy (4) Ulcer of right foot with necrosis of muscle: CODE(S): L97.513 - Non-pressure 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 Debridement was performed today as noted in the clinical panel to the ulcer site. The following work up and care recommendations were made: Dressing: Wound VAC continuous 150 mmHg Wash: Antibacterial soap and water with each wound VAC change Tissue growth optimization: I recommend application of advanced wound healing product such as Epicord or epi fix. The indications benefits anticipated management and healing expectations were reviewed. This is medically necessary for limb salvage. Prior authorization will be initiated. Offload: To maintain a nonweightbearing status to right lower extremity. He has a surgical shoe and will heel touch for transfers only. Vascular: Recent noninvasive vascular studies were obtained he has good waveforms and ABIs. He does have a digital brachial index of 0.63 on the right which corresponds to small vessel disease however adequate perfusion to this site is possible. Edema: Tubigrip. Elevation. Reduce salt in diet Infection: Clearance surgical fragment cx with MSSA, MSSES, strep x2. To continue po flagyl and 6 weeks ceftriaxone under the management of infectious disease with stop date 12/11. Pain: Controlled due to neuropathic status Host factors: I recommend nutritional supplementation optimize healing. It is noted he has uncontrolled glucose levels and I recommend follow-up with his primary care physician. This is imperative for wound healing and limb salvage. I answered all the patient's questions. To return to the wound healing center in 1 week or call sooner if the patient has any questions or concerns. Note: [employer] speech recognition logistics coordinator software was used to create portions of this document. Sound-alike and misspelled words, as well as other logistics coordinator errors may be contained in the documentation.
== END 2021-11-23 23:59 | disposition home or self-care (01) ==
LOC: DC 12:55
PROVIDERS: Referring Provider Podiatrist; Visit Provider Podiatrist
DX: E11.9 Type 2 diabetes mellitus without complications (principal)
CPT/HCPCS: 97802; G0108

== ENCOUNTER 2021-11-18 13:45 | Outpatient (RCR) | payer MEDICAID, SELFPAY ==
[2021-11-09 13:38] LABS: Erythrocyte Sedimentation Rate 34 mm/hr (0-20)
[2021-11-09 13:39] LABS: Hematocrit 32.2 % (40-54); Hemoglobin 11.3 g/dL (13.0-16.5); Mean Corp Hgb Conc 35.1 g/dL (32-36); Mean Corpuscular Hgb 32.9 pg (27.0-32.0); Mean Corpuscular Volume 93.9 fL (80-94); Mean Platelet Vol. 9.8 fl (6.2-12.0); Platelet Count 297 K/mm3 (150-450); RBC Distribution Width CV 12.7 % (11.6-14.6); RBC Distribution Width SD 42.9 fl (35.1-43.9); Red Blood Count 3.43 M/mm3 (4.6-6.2); White Blood Count 7.2 K/mm3 (4.4-11.0)
[2021-11-09 13:43] LABS: Anion Gap 6 (5-15); BUN 20 mg/dL (7-18); BUN/Creat Ratio 25.1 RATIO (10-20); Calcium,Total 8.5 mg/dL (8.5-10.1); Chloride 102 mmol/L (98-107); EST Glomerular Filtration Rate 113 mL/min (>60); Est Glom Filt Rate - Afr Amer 137 mL/min (>60); Glucose 172 mg/dL (74-106); Potassium 4.7 mmol/L (3.5-5.1); Sodium Level 136 mmol/L (136-145)
[2021-11-11 13:28] VITALS: BP 122/78; PULSE 107; RESP 18; TEMP 36.9; BMI 23.8
--- NOTE | 2021-11-11 16:26 | PN.PCM_ITS ---
History of Present Illness Date of Service: 11/11/21 Chief Complaint: right foot ulcer and infection follow up History of Wound: This 40-year-old male with uncontrolled diabetes is here for hospital follow-up now that he has an open amputation including a fifth ray resection of the right foot for treatment of necrotizing fasciitis and bone infection. His surgery was performed on 10-30-21. He is completing a course of IV antibiotics under the management of infectious disease. He also has a wound VAC to the right foot and home health has been helping him changes. He is trying to keep weight off of his foot. His last hemoglobin A1c level was 11.1%. Progress of Wound: improving Objective Data Objective Data Vital Signs: Vital Signs Temp Pulse Resp BP 98.4 F 107 H 18 122/78 H 11/11/21 13:28 11/11/21 13:28 11/11/21 13:28 11/11/21 13:28 Oxygen Delivery Method Room Air Weight: 77.564 kg Body Mass Index (BMI) 23.8 Lab / Micro Data Result Diagrams: 11/09/21 10:15 11/09/21 10:15 Physical Exam Const alert and oriented x3 General Appearance: cooperative HEENT normocephalic Extremity Extremity Narrative: No calf tenderness Edema right foot and leg significantly reduced compared to yesterday Compartments remain soft and there is no skin tenting 2/4 PT and DP pulses right Open fifth ray resection without bogginess or fluctuance General Extremity: edema and no tenderness to palpation of joints or extrem ities; Negative for cyanosis Skin Skin Narrative: Open ray resection right foot with no purulence, necrosis, odor. Erythema has completely resolved. He has exposed muscle tissue and the remaining fifth metatarsal is covered with soft tissue. There is no purulence on expression of the adjacent tissue either. General Skin Exam: Negative for erythema Neuro Neuro Narrative: lack of normal epicritic sensation via light touch is consistent with neuropathy status Psych cooperative and affect normal Debridement Note Debridement Note Wound debrided: right foot (lateral) -open amputation site Wound Grade/Stage: 2 Type of Debridement: Excisional debridement Anesthesia Used: 4% Lidocaine Solution Depth: in the subcutaneous layer Percentage of wound debrided: 100 Instrument Used: #15 blade Tissue Removed: fibrous, devitalized subcutaneous, biofilm, slough Severity: Fat Layer Exposed Amount of bleeding with debridement: Mild Bleeding Controlled with: Pressure Patient tolerated procedure: Patient tolerated procedure well Post-Debridement Measurements and Additional Note: Post-Debridement Measurements/Treatment WC - Nurse 1 - General Ulcer Assessment Start: 11/11/21 13:27 Freq: Status: Active Protocol: DAVID Activity Type Activity Date Activity User E-Sign Co-Sign Detail Recorded Client Recorded Date Recorded By Document 11/11/21 13:28 [facility] [id number] 11/11/21 13:44 [facility] 11/11/21 13:28 - Today's Visit Information Type of service Initial Visit Arrival Mode Ambulatory, Walker Transfer Assistance None Patient Identification Verified (Name & Yes ) Patient Requires Transmission-Based No Precautions Finger Stick Blood Sugar(mg/dl) (if 90 indicated): Blood Sugar Stated by Patient Height and Weight Height 5 ft 11 in Weight 77.564 kg Weight in Pounds 171.0 lbs Weight Measurement Method Estimated by Patient Body Mass Index (BMI) 23.8 BMI Classification Normal BSA - Bela 1.97 Vital Signs Temperature (97.8 F-99.1 F) 98.4 F Temperature Source Temporal Pulse Rate (60-100) 107 H Pulse Location Monitor Respiratory Rate (12-18) 18 Respiratory rate source Observation Oxygen Delivery Method Room Air Blood Pressure (90/60-120/80) 122/78 H Blood Pressure Mean (mm Hg) 92 Source Monitor Position Sitting Blood Pressure Location Left Arm History Since Last Visit- (Skip if this is Patient's initial visit) Left Footwear Regular Shoe Right Footwear Surgical Shoe with pressure relief insole Pain Scale: 0-10 Numeric Is Patient Pain Free? Yes Communication Assessment Preferred language Micronesian Edge Glue Machine Tender Required No Able to Read Yes Able to Write Yes Communication Tools None Right Hearing Abillity Normal Left Hearing Abillity Normal Visual Assistive Devices Glasses Teaching Assessment Preferences Verbal,Written, Audio/Visual, Demonstration Barriers to Learning None Readiness To Learn Excellent Willingness to Engage in Self Management High Activies Readiness to Engage in Self Management High Activities Anxiety Level Calm Cooperation Cooperative Perception Coherent Interest in Health Problem Asks Questions Education Importance Acknowledges Need Does Patient Smoke tobacco or other No substances Smoking Status Never smoker Is Patient Diabetic Yes Functional Assessment Recent Decline in Ability to Perform Ambulation, Transferring Assistive Device With Patient Yes List Device(s) with Patient ROLLATOR Culture/Christianity/Physical Therapy Professor Cultural/Christianity Needs that may affect No Treatment Plan Teaching: Wound Center *Welcome to the Wound Center -Person Taught Patient -Teaching Method Discussion -Response to teaching Verbalize understanding Welcome to the Wound Care Center Micronesian PHILL - Nurse 1 - General Ulcer Measurement Start: 11/11/21 13:27 Freq: Status: Active Protocol: Activity Type Activity Date Activity User E-Sign Co-Sign Detail Recorded Client Recorded Date Recorded By Document 11/11/21 13:28 [facility] [id number] 11/11/21 13:44 [facility] 11/11/21 13:28 Wound Center Nurse 1 #1- R LAT FOOT POST OP -Combined with other wound No -Current Size (cm) - Length 10.5 -Current Size (cm) - Width 6 -Current Size (cm) - Depth 1.1 -Total Square Cm 63.0 -Date of Last Picture (Recall this 11/11/21 field) -Photo Taken Yes -Epithelialization None Present -Tunneling No -Undermining/Tunneling No -Circular Undermining No -Exudate Amt Large -Exudate Type Serosanguineous -Wound Margin Distinct, Outline Attached -Granulation Amt Large (67-100%) -Granulation Quality Red -Slough/Fibrin Yes -Necrosis Amt Small (1-33%) -Necrotic Tissue Type Adherent Slough -Texture (Tamika-wound Skin Appearance) Assessed, Scarring -Moisture (Tamika-wound Skin Appearance) Assessed -Color (Tamika-wound Skin Appearance) Assessed -Temperature (Tamika-wound Skin No Abnormality Appearance) (Pt Warm) -Tenderness on Palpation (Tamika-wound No Skin Appearance) -Ulcer Cleansing Soap and Water -Foul Odor after Cleansing No -Anesthetic Used 4% Lidocaine Solution Lower Limb Edema Present Yes Right Calf (cm) 37.5 Right Ankle (cm) 24.5 Left Calf (cm) 37.3 Left Ankle (cm) 21.5 PHILL - Nurse 2 - General Ulcer CM Notes Start: 11/11/21 13:27 Freq: Status: Active Protocol: Activity Type Activity Date Activity User E-Sign Co-Sign Detail Recorded Client Recorded Date Recorded By Document 11/11/21 14:00 [id number] 11/11/21 14:05 11/11/21 14:00 Wound Center Nurse 2 #1- R LAT FOOT POST OP -Time 14:02 -Correct Patient Yes -Correct Side, Site, Position Yes -Correct Procedure Yes -Procedure Performed Yes -Type of Procedure Debridement -Clinical Debridement Muscle / Fascia -Tissue Removed Tendon -Post Debridement (cm) - Length 10.5 -Post Debridement (cm) - Width 6.1 -Post Debridement (cm) - Depth 1.1 -Total Square (Post) (cm) 64.05 -Area of Debridement (cm) - Length 10.5 -Area of Debridement (cm) - Width 6.1 -Total Square (Area) (cm) 64.05 -Tunneling No -Undermining/Tunneling No -Circular Undermining No -Wound/Ulcer Outcome Not Healed -Ulcer Cleansing Rinsed/ Irrigated with Saline -Foul Odor after Cleansing No -Bioengineered Tissue No -Bleeding Controlled with Pressure -Offloading Yes -Type of Offloading Camwalker -Treatment Response Procedure Tolerated Well -Debridement - Muscle / Fascia, 1st Yes 20sq cm -Debridement, Muscle/Fascia, ea addt'l 3 20sq cm or part thereof Pain Scale: 0-10 Numeric Is Patient Pain Free? Yes - Nurse 3 - General Ulcer D/C NN Start: 11/11/21 13:27 Freq: Status: Active Protocol: Activity Type Activity Date Activity User E-Sign Co-Sign Detail Recorded Client Recorded Date Recorded By Document 11/11/21 14:26 [facility] [id number] 11/11/21 14:26 [facility] 11/11/21 14:26 Wound Care Nurse 3 #1- R LAT FOOT POST OP -Ulcer Cleansing Rinsed/ Irrigated with Saline -Foul Odor after Cleansing No -Primary Dressing Applied Other -Other Dressing MOIST TO DRY -Primary Dressing Covered/Secured with Dry Gauze & Roll Gauze, Secured with Tape,Other -Other Covering ABD Right -Tubular Bandage Single Layer -Size of Tubigrip Used Size E -Size E ($) 1 Treatment Response Procedure Tolerated Well Pain Scale: 0-10 Numeric Is Patient Pain Free? Yes - Visit Discharge Discharge Condition Stable Ambulatory Status Ambulatory, Walker Transportation Private Auto Facility Type Home Health Assessment/Plan Assessment/Plan (1) Osteomyelitis of right foot: CODE(S): M86.9 - Osteomyelitis, unspecified QUALIFIERS: Osteomyelitis type: unspecified type Qualified Code(s): M86.9 - Osteomyelitis, unspecified (2) Cellulitis of right foot: CODE(S): L03.115 - Cellulitis of right lower limb (3) Chronic ulcer of great toe of right foot with necrosis of muscle: CODE(S): L97.513 - Non-pressure chronic ulcer of other part of right foot with necrosis of muscle (4) Type 2 diabetes mellitus with diabetic polyneuropathy: CODE(S): E11.42 - Type 2 diabetes mellitus with diabetic polyneuropathy PLAN: I reviewed and discussed his case today. Debridement was performed today as noted in the clinical panel to the ulcer site. The following work up and care recommendations were made: Dressing: Wound VAC continuous 150 mmHg Wash: Antibacterial soap and water with each wound VAC change Tissue growth optimization: I recommend application of advanced wound healing product such as Epicord or epi fix. The indications benefits anticipated management and healing expectations were reviewed. This is medically necessary for limb salvage. Prior authorization will be initiated Offload: To maintain a nonweightbearing status to right lower extremity. He has a surgical shoe and will heel touch for transfers only. Vascular: Recent noninvasive vascular studies were obtained he has good waveforms and ABIs. He does have a digital brachial index of 0.63 on the right which corresponds to small vessel disease however adequate perfusion to this site is possible. Edema: Tubigrip. Elevation. Reduce salt in diet Infection: Clearance surgical fragment cx with MSSA, MSSES, strep x2. To continue po flagyl and 6 weeks ceftriaxone under the management of infectious disease with stop date 12/11. Pain: Controlled due to neuropathic status Host factors: I recommend nutritional supplementation optimize healing. It is noted he has uncontrolled glucose levels and I recommend follow-up with his primary care physician. This is imperative for wound healing and limb salvage. I answered all the patient's questions. To return to the wound healing center in 1 week or call sooner if the patient has any questions or concerns. The medical decision making level is moderate. There is noted moderate risk of morbidity after considering this treatment plan and diagnostic data. Considerations were given to prescription management, decisions regarding surgical options, or social determinants of health. The problems addressed require a moderate decision making level which includes one or more chronic illnesses (w/ exacerbation, progression, or side effects), two or more stable chronic illnesses, one undiagnosed new problem w/ uncertain prognosis, one acute illness with systemic symptoms, or one acute complicated injury. Note: QFPay speech recognition drawbench operator helper software was used to create portions of this document. Sound-alike and misspelled words, as well as other drawbench operator helper errors may be contained in the documentation.
[2021-11-18 14:00] VITALS: BP 120/72; PULSE 108; RESP 20; TEMP 36.4; BMI 23.8
== END 2021-11-23 23:59 | disposition home or self-care (01) ==
LOC: WC 13:45
PROVIDERS: Visit Provider Podiatrist
DX: L03.115 Cellulitis of right lower limb (principal); E11.621 Type 2 diabetes mellitus with foot ulcer; L97.513 Non-pressure chronic ulcer of other part of right foot with necrosis of muscle; M86.9 Osteomyelitis, unspecified; E11.42 Type 2 diabetes mellitus with diabetic polyneuropathy
CPT/HCPCS: 97802; 11042; 11043; 11045; 11046; 80048; 85027; 85652; 99213; G0108; G0463

== ENCOUNTER 2021-11-23 11:49 | Outpatient (RCR) | payer MEDICAID, SELFPAY ==
[2021-11-04 14:03] LABS: Hemoglobin 10.3 g/dL (13.0-16.5); Mean Corp Hgb Conc 35.5 g/dL (32-36); Mean Corpuscular Hgb 32.9 pg (27.0-32.0); Mean Corpuscular Volume 92.7 fL (80-94); Mean Platelet Vol. 10.5 fl (6.2-12.0); POSITIVE COUNT YES; RBC Distribution Width CV 12.2 % (11.6-14.6); RBC Distribution Width SD 41.2 fl (35.1-43.9); Red Blood Count 3.13 M/mm3 (4.6-6.2); White Blood Count 4.5 K/mm3 (4.4-11.0)
[2021-11-04 14:08] LABS: Erythrocyte Sedimentation Rate 17 mm/hr (0-20)
[2021-11-04 14:21] LABS: Anion Gap 8 (5-15); BUN 18 mg/dL (7-18); Calcium,Total 8.5 mg/dL (8.5-10.1); Chloride 99 mmol/L (98-107); Creatinine, Serum 0.46 mg/dL (0.70-1.30); EST Glomerular Filtration Rate 212 mL/min (>60); Est Glom Filt Rate - Afr Amer 256 mL/min (>60); Glucose 82 mg/dL (74-106); Potassium 4.1 mmol/L (3.5-5.1); Sodium Level 138 mmol/L (136-145)
[2021-11-04 14:31] LABS: Scan Indicated on CBC? Y/N YES- FLAGS NOTED
[2021-11-16 13:28] LABS: Hematocrit 38.9 % (40-54); Hemoglobin 13.3 g/dL (13.0-16.5); Mean Corp Hgb Conc 34.2 g/dL (32-36); Mean Corpuscular Hgb 32.9 pg (27.0-32.0); Mean Corpuscular Volume 96.3 fL (80-94); Mean Platelet Vol. 9.4 fl (6.2-12.0); Platelet Count 304 K/mm3 (150-450); RBC Distribution Width CV 13.2 % (11.6-14.6); Red Blood Count 4.04 M/mm3 (4.6-6.2); White Blood Count 5.4 K/mm3 (4.4-11.0)
[2021-11-16 13:41] LABS: Anion Gap 6 (5-15); BUN 25 mg/dL (7-18); BUN/Creat Ratio 41.9 RATIO (10-20); Calcium,Total 8.8 mg/dL (8.5-10.1); Chloride 105 mmol/L (98-107); EST Glomerular Filtration Rate 157 mL/min (>60); Est Glom Filt Rate - Afr Amer 190 mL/min (>60); Glucose 75 mg/dL (74-106); Potassium 4.2 mmol/L (3.5-5.1); Sodium Level 140 mmol/L (136-145)
[2021-11-16 14:21] LABS: Erythrocyte Sedimentation Rate 16 mm/hr (0-20)
[2021-11-23 12:25] LABS: Hematocrit 35.7 % (40-54); Hemoglobin 12.6 g/dL (13.0-16.5); Mean Corp Hgb Conc 35.3 g/dL (32-36); Mean Corpuscular Hgb 33.4 pg (27.0-32.0); Mean Corpuscular Volume 94.7 fL (80-94); Mean Platelet Vol. 9.6 fl (6.2-12.0); Platelet Count 219 K/mm3 (150-450); RBC Distribution Width CV 13.2 % (11.6-14.6); RBC Distribution Width SD 46.1 fl (35.1-43.9); Red Blood Count 3.77 M/mm3 (4.6-6.2); White Blood Count 5.1 K/mm3 (4.4-11.0)
[2021-11-23 12:31] LABS: Erythrocyte Sedimentation Rate 22 mm/hr (0-20)
[2021-11-23 12:48] LABS: Anion Gap 4 (5-15); BUN 29 mg/dL (7-18); BUN/Creat Ratio 46.5 RATIO (10-20); Calcium,Total 8.9 mg/dL (8.5-10.1); Chloride 105 mmol/L (98-107); Creatinine, Serum 0.62 mg/dL (0.70-1.30); EST Glomerular Filtration Rate 149 mL/min (>60); Est Glom Filt Rate - Afr Amer 181 mL/min (>60); Glucose 194 mg/dL (74-106); Potassium 4.3 mmol/L (3.5-5.1); Sodium Level 137 mmol/L (136-145)
== END 2021-11-23 23:59 | disposition home or self-care (01) ==
LOC: LABSPEC 11:49
PROVIDERS: Visit Provider Internal Medicine Infectious Disease
DX: M86.171 Other acute osteomyelitis, right ankle and foot (principal)
CPT/HCPCS: 80048; 85027; 85652

== ENCOUNTER 2021-11-30 10:33 | Outpatient (RCR) | payer MEDICAID, SELFPAY ==
[2021-11-30 11:34] LABS: Erythrocyte Sedimentation Rate 24 mm/hr (0-20)
[2021-11-30 11:36] LABS: BUN 33 mg/dL (7-18); BUN/Creat Ratio 43.9 RATIO (10-20); Calcium,Total 9.1 mg/dL (8.5-10.1); Creatinine, Serum 0.75 mg/dL (0.70-1.30); EST Glomerular Filtration Rate 121 mL/min (>60); Est Glom Filt Rate - Afr Amer 146 mL/min (>60); Glucose 213 mg/dL (74-106); Sodium Level 137 mmol/L (136-145)
[2021-11-30 11:37] LABS: Anion Gap 7 (5-15); Chloride 103 mmol/L (98-107); Potassium 4.4 mmol/L (3.5-5.1)
[2021-11-30 11:48] LABS: Hematocrit 42.1 % (40-54); Hemoglobin 14.5 g/dL (13.0-16.5); Mean Corp Hgb Conc 34.4 g/dL (32-36); Mean Corpuscular Hgb 32.6 pg (27.0-32.0); Mean Corpuscular Volume 94.6 fL (80-94); Mean Platelet Vol. 9.8 fl (6.2-12.0); Platelet Count 270 K/mm3 (150-450); RBC Distribution Width CV 12.7 % (11.6-14.6); RBC Distribution Width SD 44.6 fl (35.1-43.9); Red Blood Count 4.45 M/mm3 (4.6-6.2); White Blood Count 6.1 K/mm3 (4.4-11.0)
== END 2021-12-24 23:59 | disposition home or self-care (01) ==
LOC: LABSPEC 10:33
PROVIDERS: Visit Provider Internal Medicine Infectious Disease
DX: M86.171 Other acute osteomyelitis, right ankle and foot (principal)
CPT/HCPCS: 80048; 85027; 85652

== ENCOUNTER 2021-12-07 12:44 | Outpatient (RCR) | payer MEDICAID, SELFPAY ==
[2021-12-07 12:58] LABS: Erythrocyte Sedimentation Rate 12 mm/hr (0-20)
[2021-12-07 12:59] LABS: Hematocrit 38.3 % (40-54); Hemoglobin 13.3 g/dL (13.0-16.5); Mean Corp Hgb Conc 34.7 g/dL (32-36); Mean Corpuscular Hgb 31.7 pg (27.0-32.0); Mean Corpuscular Volume 91.4 fL (80-94); Mean Platelet Vol. 10.1 fl (6.2-12.0); Platelet Count 232 K/mm3 (150-450); RBC Distribution Width CV 12.6 % (11.6-14.6); RBC Distribution Width SD 41.8 fl (35.1-43.9); Red Blood Count 4.19 M/mm3 (4.6-6.2); White Blood Count 4.9 K/mm3 (4.4-11.0)
[2021-12-07 13:06] LABS: Anion Gap 7 (5-15); BUN 23 mg/dL (7-18); BUN/Creat Ratio 33.5 RATIO (10-20); Calcium,Total 9.1 mg/dL (8.5-10.1); Chloride 105 mmol/L (98-107); Creatinine, Serum 0.69 mg/dL (0.70-1.30); EST Glomerular Filtration Rate 134 mL/min (>60); Est Glom Filt Rate - Afr Amer 162 mL/min (>60); Glucose 126 mg/dL (74-106); Potassium 3.9 mmol/L (3.5-5.1); Sodium Level 139 mmol/L (136-145)
== END 2021-12-24 23:59 | disposition home or self-care (01) ==
LOC: LABSPEC 12:44
PROVIDERS: Referring Provider Internal Medicine Infectious Disease; Visit Provider Internal Medicine Infectious Disease
DX: M86.171 Other acute osteomyelitis, right ankle and foot (principal)
CPT/HCPCS: 80048; 85027; 85652

== ENCOUNTER 2021-12-11 11:16 | Outpatient (CLI) | payer MEDICAID, SELFPAY ==
[2021-12-11 11:53] LABS: Iron 62 ug/dL (65-175); Iron Binding Capacity,Total 221 ug/dL (250-450); PERCENT IRON SATURATION 28.1 % (15.0-55.0); T4 Total, Thyroxin 10.7 ug/dL (4.5-12.1)
[2021-12-11 12:30] LABS: Vitamin B12 302 pg/mL (211-911)
[2021-12-13 15:38] LABS: Vitamin D 1,25-Dihydroxy 15.2 pg/mL (19.9-79.3)
== END 2021-12-11 23:59 | disposition home or self-care (01) ==
LOC: LABSPEC 11:17
PROVIDERS: Visit Provider Nurse Practitioner Adult Health
DX: R53.83 Other fatigue (principal)
CPT/HCPCS: 82607; 82652; 82746; 83540; 83550; 84436; 84443

== ENCOUNTER 2021-12-12 11:39 | Outpatient (CLI) | payer MEDICAID, SELFPAY | END 2021-12-12 23:59 | disposition home or self-care (01) | PROVIDERS: Referring Provider Internal Medicine Infectious Disease; Visit Provider Internal Medicine Infectious Disease | DX: R19.7 Diarrhea, unspecified (principal) | CPT/HCPCS: 87493 ==

== ENCOUNTER 2021-12-23 10:30 | Outpatient (RCR) | payer MEDICAID, SELFPAY | END 2021-12-24 23:59 | disposition home or self-care (01) | LOC: DC 10:30 | PROVIDERS: Referring Provider Podiatrist; Visit Provider Podiatrist | DX: E11.9 Type 2 diabetes mellitus without complications (principal) | CPT/HCPCS: 97803 ×3; 97802; G0108 ==

== ENCOUNTER 2021-12-23 15:30 | Outpatient (RCR) | payer MEDICAID, SELFPAY ==
[2021-11-24 00:42] VITALS: BP 120/72; PULSE 108; RESP 20; TEMP 36.4; BMI 23.8
[2021-11-25 15:07] VITALS: BP 98/68; PULSE 108; RESP 18; TEMP 36.3; BMI 23.8
--- NOTE | 2021-11-25 15:52 | PCM.WC.PN ---
History of Present Illness Date of Service: 11/25/21 Chief Complaint: right foot ulcer and infection follow up History of Wound: This 40-year-old male with uncontrolled diabetes is here for hospital follow-up now that he has an open amputation including a fifth ray resection of the right foot for treatment of necrotizing fasciitis and bone infection. His surgery was performed on 10-30-21. He is completing a course of IV antibiotics under the management of infectious disease. He also has a wound VAC to the right foot and home health has been helping him changes. He is trying to keep weight off of his foot. His last hemoglobin A1c level was 11.1%. He is currently going through an adjustment process for better glucose management with his primary care physician. He has been experiencing very low glucose levels in the mornings and is no longer taking Lantus. He also recently met with a it software engineer and made some dietary adjustments. He takes Soren nutritional supplementation also. He relates that his wound VAC did not leak this past week and it has been going much better. Progress of Wound: Improving Objective Data Objective Data Vital Signs: Vital Signs Temp Pulse Resp BP 97.3 F L 108 H 18 98/68 11/25/21 15:07 11/25/21 15:07 11/25/21 15:07 11/25/21 15:07 Weight: 77.564 kg Body Mass Index (BMI) 23.8 Physical Exam Const alert and oriented x3 General Appearance: cooperative HEENT normocephalic Extremity Extremity Narrative: No calf tenderness Edema right foot and leg significantly reduced compared to yesterday Compartments remain soft and there is no skin tenting 2/4 PT and DP pulses right Open fifth ray resection without bogginess or fluctuance General Extremity: edema and no tenderness to palpation of joints or extremities; Negative for cyanosis Skin Skin Narrative: Open ray resection right foot with no purulence, necrosis, odor. Erythema has completely resolved. He has exposed muscle /tendon tissue and the remaining fifth metatarsal is covered with soft tissue. There is no purulence on expression of the adjacent tissue either. General Skin Exam: Negative for erythema Neuro Neuro Narrative: lack of normal epicritic sensation via light touch is consistent with neuropathy status Psych cooperative and affect normal Debridement Note Debridement Note Wound debrided: right foot Wound Grade/Stage: 3 Type of Debridement: Excisional debridement Anesthesia Used: 4% Lidocaine Solution Depth: to muscle Percentage of wound debrided: 100 Instrument Used: #15 blade Tissue Removed: fibrous, devitalized subcutaneous, biofilm, slough Severity: Fat Layer Exposed Amount of bleeding with debridement: Mild Bleeding Controlled with: Pressure Patient tolerated procedure: Patient tolerated procedure well Post-Debridement Measurements and Additional Note: Post-Debridement Measurements/Treatment - Nurse 1 - General Ulcer Assessment Start: 11/25/21 15:07 Freq: Status: Active Protocol: DAVID Activity Type Activity Date Activity User E-Sign Co-Sign Detail Recorded Client Recorded Date Recorded By Document 11/25/21 15:07 RB [id number] 11/25/21 15:09 RB 11/25/21 15:07 WC - Today's Visit Information Type of service Follow-up Visit (Physician/BEN DAY ARTIST ) Arrival Mode Ambulatory, Walker Transfer Assistance None Patient Identification Verified (Name & Yes ) Finger Stick Blood Sugar(mg/dl) (if 228 indicated): Blood Sugar Stated by Patient Height and Weight Body Mass Index (BMI) 23.8 BMI Classification Normal Vital Signs Temperature (97.8 F-99.1 F) 97.3 F L Temperature Source Temporal Pulse Rate (60-100) 108 H Pulse Location Monitor Respiratory Rate (12-18) 18 Respiratory rate source Observation Blood Pressure (90/60-120/80) 98/68 Blood Pressure Mean (mm Hg) 78 Source Monitor Position Semi-Fowlers Blood Pressure Location Left Arm History Since Last Visit- (Skip if this is Patient's initial visit) Have you changed medications since your No last visit? Any new allergies or adverse reactions No Had a fall/change in ADL's that may No increase risk of falls Signs or symptoms of abuse and/or No neglect since last visit Have you been in the hospital since your No last visit? Has dressing in place as prescribed Yes Has compression in place as prescribed Yes Has offloadiing in place as prescribed No Experienced any changes in pain level or No management Pain Scale: 0-10 Numeric Is Patient Pain Free? Yes - Nurse 1 - General Ulcer Measurement Start: 11/25/21 15:07 Freq: Status: Active Protocol: Activity Type Activity Date Activity User E-Sign Co-Sign Detail Recorded Client Recorded Date Recorded By Document 11/25/21 15:07 OVIDIO [id number] 11/25/21 15:09 RB 11/25/21 15:07 Wound Center Nurse 1 #1- R LAT FOOT POST OP -Combined with other wound No -Current Size (cm) - Length 9.5 -Current Size (cm) - Width 7 -Current Size (cm) - Depth 0.5 -Total Square Cm 66.5 -Tunneling No -Undermining/Tunneling No -Circular Undermining No -Exudate Amt Large -Exudate Type Serosanguineous -Wound Margin Thickened & Rolled Under -Granulation Amt Large (67-100%) -Granulation Quality [place],Red -Slough/Fibrin Yes -Necrosis Amt Small (1-33%) -Necrotic Tissue Type Adherent Slough -Structure Exposed N/A -Texture ([place]ika-wound Skin Appearance) Assessed -Moisture (Tamika-wound Skin Appearance) Assessed -Color ([place]ika-wound Skin Appearance) Assessed -Temperature ([place]ika-wound Skin No Abnormality Appearance) (Pt Warm) -Tenderness on Palpation ([place]ika-wound No Skin Appearance) -Ulcer Cleansing Wound Cleanser -Foul Odor after Cleansing No -Anesthetic Used 4% Lidocaine Solution WC - Nurse 2 - General Ulcer CM Notes Start: 11/25/21 15:07 Freq: Status: Active Protocol: Activity Type Activity Date Activity User E-Sign Co-Sign Detail Recorded Client Recorded Date Recorded By Document 11/25/21 15:15 BLANCO [id number] 11/25/21 15:20 BLANCO 11/25/21 15:15 Wound Center Nurse 2 -Time 15:16 -Correct Patient Yes -Correct Side, Site, Position Yes -Correct Procedure Yes -Procedure Performed Yes -Type of Procedure Debridement -Clinical Debridement Muscle / Fascia -Tissue Removed Tendon -Post Debridement (cm) - Length 9.0 -Post Debridement (cm) - Width 7.6 -Post Debridement (cm) - Depth 0.5 -Total Square (Post) (cm) 68.40 -Area of Debridement (cm) - Length 9.0 -Area of Debridement (cm) - Width 7.6 -Total Square (Area) (cm) 68.40 -Tunneling No -Undermining/Tunneling No -Circular Undermining No -Wound/Ulcer Outcome Not Healed -Bioengineered Tissue No -Bleeding Controlled with Pressure -Offloading Yes -Type of Offloading Surgical Shoe -Treatment Response Procedure Not Tolerated Well -Debridement - Muscle / Fascia, 1st Yes 20sq cm Pain Scale: 0-10 Numeric Is Patient Pain Free? Yes - Nurse 3 - General Ulcer D/C NN Start: 11/25/21 15:07 Freq: Status: Active Protocol: Activity Type Activity Date Activity User E-Sign Co-Sign Detail Recorded Client Recorded Date Recorded By Document 11/25/21 15:32 DL [id number] 11/25/21 15:34 DL 11/25/21 15:32 Wound Care Nurse 3 #1- R LAT FOOT POST OP -Ulcer Cleansing Soap and Water -Foul Odor after Cleansing No -Negative Pressure Wound Therapy Continue -Setting (mmHg) 150 -Negative Pressure is Continuous -Other Dressing Duoderm to 4th toe -NPWT Application Charge NPWT </= 50 sq cm ($) Right -Tubular Bandage Single Layer -Size of Tubigrip Used Size E -Size E ($) 1 Treatment Response Procedure Tolerated Well Pain Scale: 0-10 Numeric Is Patient Pain Free? Yes WC - Visit Discharge Discharge Condition Stable Ambulatory Status Ambulatory, Walker Transportation Private Auto Facility Type Home Health Orders Sent Yes Assessment/Plan Assessment/Plan (1) Osteomyelitis of right foot: CODE(S): M86.9 - Osteomyelitis, unspecified QUALIFIERS: Osteomyelitis type: unspecified type Qualified Code(s): M86.9 - Osteomyelitis, unspecified (2) Cellulitis of right foot: CODE(S): L03.115 - Cellulitis of right lower limb (3) Type 2 diabetes mellitus with diabetic polyneuropathy: CODE(S): E11.42 - Type 2 diabetes mellitus with diabetic polyneuropathy (4) Ulcer of right foot with necrosis of muscle: CODE(S): L97.513 - Non-pressure chronic ulcer of other part of right foot with necrosis of muscle (5) Malnutrition: CODE(S): E46 - Unspecified protein-calorie malnutrition PLAN: I reviewed and discussed his case today. Debridement was performed today as noted in the clinical panel to the ulcer site. The following work up and care recommendations were made: Dressing: Wound VAC continuous 150 mmHg Wash: Antibacterial soap and water with each wound VAC change Tissue growth optimization: I recommend application of advanced wound healing product such as Epicord or epi fix. The indications benefits anticipated management and healing expectations were reviewed. This is medically necessary for limb salvage. Prior authorization will be initiated and this is still pending. Offload: To maintain a nonweightbearing status to right lower extremity. He has a surgical shoe and will heel touch for transfers only. Vascular: Recent noninvasive vascular studies were obtained he has good waveforms and ABIs. He does have a digital brachial index of 0.63 on the right which corresponds to small vessel disease however adequate perfusion to this site is possible. Edema: Tubigrip. Elevation. Reduce salt in diet Infection: Clearance surgical fragment cx with MSSA, MSSES, strep x2. To continue po flagyl and 6 weeks ceftriaxone under the management of infectious disease with stop date 12/11. Pain: Controlled due to neuropathic status Host factors: I recommend nutritional supplementation optimize healing. It is noted he has uncontrolled glucose levels and I recommend follow-up with his primary care physician. This is imperative for wound healing and limb salvage. He is currently under the management of a it software engineer and is taking Soren nutritional supplementation also. I answered all the patient's questions. To return to the wound healing center in 1 week or call sooner if the patient has any questions or concerns. Note: [employer] speech recognition economic developer software was used to create portions of this document. Sound-alike and misspelled words, as well as other economic developer errors may be contained in the documentation.
[2021-12-02 09:02] VITALS: BP 118/79; PULSE 112; RESP 22; TEMP 36.6; BMI 23.8
--- NOTE | 2021-12-02 10:23 | PN.PCM_ITS ---
History of Present Illness Date of Service: 12/02/21 Chief Complaint: right foot ulcer and infection follow up History of Wound: This 40-year-old male with uncontrolled diabetes is here for hospital follow-up now that he has an open amputation including a fifth ray resection of the right foot for treatment of necrotizing fasciitis and bone infection. His surgery was performed on 10-30-21. He is completing a course of IV antibiotics under the management of infectious disease. He also has a wound VAC to the right foot and home health has been helping him changes. He is trying to keep weight off of his foot. His last hemoglobin A1c level was 11.1%. He is currently going through an adjustment process for better glucose management with his primary care physician. He also recently met with a bull float finisher and made some dietary adjustments. He takes Soren nutritional supplementation also. He relates that his wound VAC did not leak this past week and it has been going much better. He was not approved for advanced wound healing product due to his A1c level elevation. Progress of Wound: Improving Objective Data Objective Data Vital Signs: Vital Signs Temp Pulse Resp BP 97.8 F 112 H 22 H 118/79 12/02/21 09:02 12/02/21 09:02 12/02/21 09:02 12/02/21 09:02 Weight: 77.564 kg Body Mass Index (BMI) 23.8 Physical Exam Const alert and oriented x3 General Appearance: cooperative HEENT normocephalic Extremity Extremity Narrative: No calf tenderness Edema right foot and leg significantly reduced compared to yesterday Compartments remain soft and there is no skin tenting 2/4 PT and DP pulses right Open fifth ray resection without bogginess or fluctuance General Extremity: edema and no tenderness to palpation of joints or extremities; Negative for cyanosis Skin Skin Narrative: Open ray resection right foot with no purulence, necrosis, odor. Erythema has completely resolved. He has exposed muscle /tendon tissue (stable and healthy today) and the remaining fifth metatarsal is covered with soft tissue. There is no purulence on expression of the adjacent tissue either. General Skin Exam: Negative for erythema Neuro Neuro Narrative: lack of normal epicritic sensation via light touch is consistent with neuropathy status Psych cooperative and affect normal Debridement Note Debridement Note Wound debrided: Right foot Wound Grade/Stage: 3 Type of Debridement: Excisional debridement Anesthesia Used: 4% Lidocaine Solution Depth: in the subcutaneous layer Percentage of wound debrided: 100 Instrument Used: #15 blade Tissue Removed: fibrous, devitalized subcutaneous, biofilm, slough Severity: Fat Layer Exposed Amount of bleeding with debridement: Mild Bleeding Controlled with: Pressure Patient tolerated procedure: Patient tolerated procedure well Post-Debridement Measurements and Additional Note: Post-Debridement Measurements/Treatment WC - Nurse 1 - General Ulcer Assessment Start: 11/25/21 15:07 Freq: Status: Active Protocol: DAVID Activity Type Activity Date Activity User E-Sign Co-Sign Detail Recorded Client Recorded Date Recorded By Document 11/25/21 15:07 RB [id number] 11/25/21 15:09 RB Document 12/02/21 09:02 DL [id number] 12/02/21 09:11 DL 11/25/21 12/02/21 15:07 09:02 WC - Today's Visit Information Type of service Follow-up Visit Follow-up Visit (Physician/SCHOOL BUS MECHANIC (Physician/SCHOOL BUS MECHANIC ) ) Arrival Mode Ambulatory, Ambulatory Walker Transfer Assistance None None Patient Identification Verified (Name & Yes Yes ) Patient Requires Transmission-Based No Precautions Finger Stick Blood Sugar(mg/dl) (if 228 176 indicated): Blood Sugar Stated by Stated by Patient Patient Height and Weight Body Mass Index (BMI) 23.8 23.8 BMI Classification Normal Normal Vital Signs Temperature (97.8 F-99.1 F) 97.3 F L 97.8 F Temperature Source Temporal Temporal Pulse Rate (60-100) 108 H 112 H Pulse Location Monitor Monitor Respiratory Rate (12-18) 18 22 H Respiratory rate source Observation Observation Blood Pressure (90/60-120/80) 98/68 118/79 Blood Pressure Mean (mm Hg) 78 92 Source Monitor Monitor Position Semi-Fowlers Blood Pressure Location Left Arm History Since Last Visit- (Skip if this is Patient's initial visit) Have you changed medications since your No No last visit? Any new allergies or adverse reactions No No Had a fall/change in ADL's that may No No increase risk of falls Signs or symptoms of abuse and/or No No neglect since last visit Have you been in the hospital since your No No last visit? Has dressing in place as prescribed Yes Yes Has compression in place as prescribed Yes Yes Has offloadiing in place as prescribed No Yes Experienced any changes in pain level or No No management Right Footwear Surgical Shoe with pressure relief insole Pain Scale: 0-10 Numeric Is Patient Pain Free? Yes Yes WC - Nurse 1 - General Ulcer Measurement Start: 11/25/21 15:07 Freq: Status: Active Protocol: Activity Type Activity Date Activity User E-Sign Co-Sign Detail Recorded Client Recorded Date Recorded By Document 11/25/21 15:07 RB [id number] 11/25/21 15:09 RB Document 12/02/21 09:02 DL [id number] 12/02/21 09:11 DL 11/25/21 12/02/21 15:07 09:02 Wound Center Nurse 1 #1- R LAT FOOT POST OP -Combined with other wound No -Current Size (cm) - Length 9.5 8.5 -Current Size (cm) - Width 7 4.8 -Current Size (cm) - Depth 0.5 0.5 -Total Square Cm 66.5 40.80 -Photo Taken No -Tunneling No -Undermining/Tunneling No -Circular Undermining No -Exudate Amt Large Medium -Exudate Type Serosanguineous Serosanguineous -Wound Margin Thickened & Distinct, Rolled Under Outline Attached -Granulation Amt Large (67-100%) -Granulation Quality Millard,Red Pale,Red -Slough/Fibrin Yes -Necrosis Amt Small (1-33%) Small (1-33%) -Necrotic Tissue Type Adherent Slough Adherent Slough -Structure Exposed N/A N/A -Texture (Tamika-wound Skin Appearance) Assessed Scarring -Moisture (Tamika-wound Skin Appearance) Assessed Maceration -Color (Tamika-wound Skin Appearance) Assessed No Abnormality -Temperature (Tamika-wound Skin No Abnormality No Abnormality Appearance) (Pt Warm) (Pt Warm) -Tenderness on Palpation (Tamika-wound No No Skin Appearance) -Ulcer Cleansing Wound Cleanser Soap and Water -Foul Odor after Cleansing No No -Anesthetic Used 4% Lidocaine Solution Right Calf (cm) 34.5 Right Ankle (cm) 25 WC - Nurse 2 - General Ulcer CM Notes Start: 11/25/21 15:07 Freq: Status: Active Protocol: Activity Type Activity Date Activity User E-Sign Co-Sign Detail Recorded Client Recorded Date Recorded By Document 11/25/21 15:15 [id number] 11/25/21 15:20 Document 12/02/21 09:31 [id number] 12/02/21 09:35 11/25/21 12/02/21 15:15 09:31 Wound Center Nurse 2 #1- R LAT FOOT POST OP -Time 15:16 09:31 -Correct Patient Yes Yes -Correct Side, Site, Position Yes Yes -Correct Procedure Yes Yes -Procedure Performed Yes Yes -Type of Procedure Debridement Debridement -Clinical Debridement Muscle / Fascia Subcutaneous -Tissue Removed Tendon Subcutaneous -Post Debridement (cm) - Length 9.0 8.5 -Post Debridement (cm) - Width 7.6 5 -Post Debridement (cm) - Depth 0.5 0.5 -Total Square (Post) (cm) 68.40 42.5 -Area of Debridement (cm) - Length 9.0 8.5 -Area of Debridement (cm) - Width 7.6 5 -Total Square (Area) (cm) 68.40 42.5 -Tunneling No No -Undermining/Tunneling No No -Circular Undermining No No -Wound/Ulcer Outcome Not Healed Not Healed -Ulcer Cleansing Rinsed/ Irrigated with Saline -Foul Odor after Cleansing No -Bioengineered Tissue No No -Bleeding Controlled with Pressure Pressure -Offloading Yes Yes -Type of Offloading Surgical Shoe Knee Walker -Treatment Response Procedure Not Procedure Tolerated Well Tolerated Well -Debridement - Subq, 1st 20sq cm Yes -Debridement, SubQ, ea addt'l 20sq cm 2 or part thereof -Debridement - Muscle / Fascia, 1st Yes 20sq cm Pain Scale: 0-10 Numeric Is Patient Pain Free? Yes Yes - Nurse 3 - General Ulcer D/C NN Start: 11/25/21 15:07 Freq: Status: Active Protocol: Activity Type Activity Date Activity User E-Sign Co-Sign Detail Recorded Client Recorded Date Recorded By Document 11/25/21 15:32 DL [id number] 11/25/21 15:34 DL Edit Result 11/25/21 15:32 DL (1) [id number] 11/26/21 18:40 PL Document 12/02/21 09:52 DL [id number] 12/02/21 09:55 DL (1) #1- R LAT FOOT POST OP - NPWT Application Charge NPWT </= 50 sq cm => NPWT & Debridement ($) => (nc) 11/25/21 12/02/21 15:32 09:52 Wound Care Nurse 3 #1- R LAT FOOT POST OP -Ulcer Cleansing Soap and Water Soap and Water -Foul Odor after Cleansing No No -Negative Pressure Wound Therapy Continue Continue -Setting (mmHg) 150 150 -Negative Pressure is Continuous Continuous -Other Dressing Duoderm to 4th toe -Primary Dressing Covered/Secured with Dry Gauze & Roll Gauze, Secured with Tape -NPWT Application Charge NPWT & NPWT </= 50 sq Debridement (nc cm ($) ) Right -Tubular Bandage Single Layer Single Layer -Size of Tubigrip Used Size E Size E -Size E ($) 1 1 -Stockings Yes Treatment Response Procedure Procedure Tolerated Well Tolerated Well Pain Scale: 0-10 Numeric Is Patient Pain Free? Yes Yes WC - Visit Discharge Discharge Condition Stable Stable Ambulatory Status Ambulatory, Ambulatory, Walker Walker Transportation Private Auto Private Auto Facility Type Home Health Home Health Orders Sent Yes Yes Assessment/Plan Assessment/Plan (1) Osteomyelitis of right foot: CODE(S): M86.9 - Osteomyelitis, unspecified QUALIFIERS: Osteomyelitis type: unspecified type Qualified Code(s): M86.9 - Osteomyelitis, unspecified (2) Cellulitis of right foot: CODE(S): L03.115 - Cellulitis of right lower limb (3) Type 2 diabetes mellitus with diabetic polyneuropathy: CODE(S): E11.42 - Type 2 diabetes mellitus with diabetic polyneuropathy (4) Ulcer of right foot with necrosis of muscle: CODE(S): L97.513 - Non-pressure chronic ulcer of other part of right foot with necrosis of muscle (5) Malnutrition: CODE(S): E46 - Unspecified protein-calorie malnutrition PLAN: I reviewed and discussed his case today. Debridement was performed today as noted in the clinical panel to the ulcer site. The following work up and care recommendations were made: Dressing: Wound VAC continuous 150 mmHg Wash: Antibacterial soap and water with each wound VAC change Tissue growth optimization: I recommend application of advanced wound healing product such as Epicord or epi fix. The indications benefits anticipated management and healing expectations were reviewed. This is medically necessary for limb salvage. Prior authorization was tried and he was not approved. This will be considered again once his A1c is decreased to 8% or lower. Offload: To maintain a nonweightbearing status to right lower extremity. He has a surgical shoe and will heel touch for transfers only. Vascular: Recent noninvasive vascular studies were obtained he has good waveforms and ABIs. He does have a digital brachial index of 0.63 on the right which corresponds to small vessel disease however adequate perfusion to this site is possible. Edema: Tubigrip. Elevation. Reduce salt in diet Infection: Clearance surgical fragment cx with MSSA, MSSES, strep x2. To continue po flagyl and 6 weeks ceftriaxone under the management of infectious disease with stop date 12/11. Pain: Controlled due to neuropathic status Host factors: I recommend nutritional supplementation optimize healing. It is noted he has uncontrolled glucose levels and I recommend follow-up with his primary care physician. This is imperative for wound healing and limb salvage. He is currently under the management of a bull float finisher and is taking Soren nutritional supplementation also. I answered all the patient's questions. To return to the wound healing center in 1 week or call sooner if the patient has any questions or concerns. Note: [employer] speech recognition fuller brush worker software was used to create portions of this document. Sound-alike and misspelled words, as well as other fuller brush worker errors may be contained in the documentation.
[2021-12-09 14:56] VITALS: BP 126/81; PULSE 114; RESP 20; TEMP 36.4; BMI 23.8
--- NOTE | 2021-12-09 15:50 | PCM.WC.PN ---
History of Present Illness Date of Service: 12/09/21 Chief Complaint: right foot ulcer and infection follow up History of Wound: This 40-year-old male with uncontrolled diabetes is here for hospital follow-up now that he has an open amputation including a fifth ray resection of the right foot for treatment of necrotizing fasciitis and bone infection. His surgery was performed on 10-30-21. He is completing a course of IV antibiotics under the management of infectious disease. He also has a wound VAC to the right foot and home health has been helping him changes. He is trying to keep weight off of his foot. His last hemoglobin A1c level was 11.1%. He is currently going through an adjustment process for better glucose management with his primary care physician. He also recently met with a aircraft mechanic and made some dietary adjustments. He takes Soren nutritional supplementation also. The [facility] wound VAC better and reports they are less treatment disruptions. He is trying to appeal as we can improve. He also has had diarrhea and saw infectious disease specialist today. He will go for C. difficile test. Progress of Wound: Improving Objective Data Objective Data Vital Signs: Vital Signs Temp Pulse Resp BP 97.6 F L 114 H 20 H 126/81 H 12/09/21 14:56 12/09/21 14:56 12/09/21 14:56 12/09/21 14:56 Weight: 77.564 kg Body Mass Index (BMI) 23.8 Physical Exam Extremity Extremity Narrative: No calf tenderness Edema right foot and leg significantly reduced compared to yesterday Compartments remain soft and there is no skin tenting 2/4 PT and DP pulses right Open fifth ray resection without bogginess or fluctuance Skin Skin Narrative: Open ray resection right foot with no purulence, necrosis, odor. Erythema has completely resolved. He has exposed muscle /tendon tissue (stable and healthy today) and the remaining fifth metatarsal is covered with soft tissue. There is no purulence on expression of the adjacent tissue either. Neuro Neuro Narrative: lack of normal epicritic sensation via light touch is consistent with neuropathy status Debridement Note Debridement Note Wound debrided: right foot Wound Grade/Stage: 3 Type of Debridement: Excisional debridement Anesthesia Used: 4% Lidocaine Solution Depth: to muscle Percentage of wound debrided: 100 Instrument Used: #15 blade and Forceps Tissue Removed: fibrous, devitalized subcutaneous, biofilm, slough Severity: Fat Layer Exposed Amount of bleeding with debridement: Mild Bleeding Controlled with: Pressure Patient tolerated procedure: Patient tolerated procedure well Post-Debridement Measurements and Additional Note: Post-Debridement Measurements/Treatment WC - Nurse 1 - General Ulcer Assessment Start: 11/25/21 15:07 Freq: Status: Active Protocol: DAVID Activity Type Activity Date Activity User E-Sign Co-Sign Detail Recorded Client Recorded Date Recorded By Document 11/25/21 15:07 RB [id number] 11/25/21 15:09 RB Document 12/02/21 09:02 DL [id number] 12/02/21 09:11 DL Document 12/09/21 14:56 DL [id number] 12/09/21 15:12 DL 11/25/21 12/02/21 12/09/21 15:07 09:02 14:56 WC - Today's Visit Information Type of service Follow-up Visit Follow-up Visit Follow-up Visit (Physician/NEUROLOGY TECHNICIAN (Physician/NEUROLOGY TECHNICIAN (Physician/NEUROLOGY TECHNICIAN ) ) ) Arrival Mode Ambulatory, Ambulatory Ambulatory, Walker Walker Transfer Assistance None None None Patient Identification Verified (Name & Yes Yes Yes ) Patient Requires Transmission-Based No Precautions Finger Stick Blood Sugar(mg/dl) (if 228 176 pt unsure indicated): Blood Sugar Stated by Stated by Stated by Patient Patient Patient Height and Weight Body Mass Index (BMI) 23.8 23.8 23.8 BMI Classification Normal Normal Normal Vital Signs Temperature (97.8 F-99.1 F) 97.3 F L 97.8 F 97.6 F L Temperature Source Temporal Temporal Temporal Pulse Rate (60-100) 108 H 112 H 114 H Pulse Location Monitor Monitor Monitor Respiratory Rate (12-18) 18 22 H 20 H Respiratory rate source Observation Observation Observation Blood Pressure (90/60-120/80) 98/68 118/79 126/81 H Blood Pressure Mean (mm Hg) 78 92 96 Source Monitor Monitor Monitor Position Semi-Fowlers Blood Pressure Location Left Arm History Since Last Visit- (Skip if this is Patient's initial visit) Have you changed medications since your No No No last visit? Any new allergies or adverse reactions No No No Had a fall/change in ADL's that may No No No increase risk of falls Signs or symptoms of abuse and/or No No No neglect since last visit Have you been in the hospital since your No No No last visit? Has dressing in place as prescribed Yes Yes Yes Has compression in place as prescribed Yes Yes Yes Has offloadiing in place as prescribed No Yes Yes Experienced any changes in pain level or No No No management Right Footwear Surgical Shoe Surgical Shoe with pressure with pressure relief insole relief insole Pain Scale: 0-10 Numeric Is Patient Pain Free? Yes Yes Yes WC - Nurse 1 - General Ulcer Measurement Start: 11/25/21 15:07 Freq: Status: Active Protocol: Activity Type Activity Date Activity User E-Sign Co-Sign Detail Recorded Client Recorded Date Recorded By Document 11/25/21 15:07 RB [id number] 11/25/21 15:09 RB Document 12/02/21 09:02 DL [id number] 12/02/21 09:11 DL Document 12/09/21 14:56 DL [id number] 12/09/21 15:12 DL 11/25/21 12/02/21 12/09/21 15:07 09:02 14:56 Wound Center Nurse 1 #1- R LAT FOOT POST OP -Combined with other wound No -Current Size (cm) - Length 9.5 8.5 8.5 -Current Size (cm) - Width 7 4.8 4.3 -Current Size (cm) - Depth 0.5 0.5 0.2 -Total Square Cm 66.5 40.80 36.55 -Photo Taken No No -Tunneling No -Undermining/Tunneling No -Circular Undermining No -Exudate Amt Large Medium Medium -Exudate Type Serosanguineous Serosanguineous Serosanguineous -Wound Margin Thickened & Distinct, Distinct, Rolled Under Outline Outline Attached Attached -Granulation Amt Large (67-100%) Large (67-100%) -Granulation Quality [place],Red Pale,Red Red -Slough/Fibrin Yes -Necrosis Amt Small (1-33%) Small (1-33%) Small (1-33%) -Necrotic Tissue Type Adherent Slough Adherent Slough Adherent Slough -Structure Exposed N/A N/A N/A -Texture (Tamika-wound Skin Appearance) Assessed Scarring Localized Edema ,Scarring -Moisture (Tamika-wound Skin Appearance) Assessed Maceration No Abnormality -Color (Tamika-wound Skin Appearance) Assessed No Abnormality No Abnormality -Temperature ([place]-wound Skin No Abnormality No Abnormality No Abnormality Appearance) (Pt Warm) (Pt Warm) (Pt Warm) -Tenderness on Palpation ([place]-wound No No No Skin Appearance) -Ulcer Cleansing Wound Cleanser Soap and Water Soap and Water -Foul Odor after Cleansing No No No -Anesthetic Used 4% Lidocaine 4% Lidocaine Solution Solution Right Calf (cm) 34.5 Right Ankle (cm) 25 WC - Nurse 2 - General Ulcer CM Notes Start: 11/25/21 15:07 Freq: Status: Active Protocol: Activity Type Activity Date Activity User E-Sign Co-Sign Detail Recorded Client Recorded Date Recorded By Document 11/25/21 15:15 [id number] 11/25/21 15:20 Document 12/02/21 09:31 [id number] 12/02/21 09:35 Document 12/09/21 15:27 [id number] 12/09/21 15:31 11/25/21 12/02/21 12/09/21 15:15 09:31 15:27 Wound Center Nurse 2 #1- R LAT FOOT POST OP -Time 15:16 09:31 15:28 -Correct Patient Yes Yes Yes -Correct Side, Site, Position Yes Yes Yes -Correct Procedure Yes Yes Yes -Procedure Performed Yes Yes Yes -Type of Procedure Debridement Debridement Debridement -Clinical Debridement Muscle / Fascia Subcutaneous Subcutaneous -Tissue Removed Tendon Subcutaneous Subcutaneous -Post Debridement (cm) - Length 9.0 8.5 8.5 -Post Debridement (cm) - Width 7.6 5 4.4 -Post Debridement (cm) - Depth 0.5 0.5 0.2 -Total Square (Post) (cm) 68.40 42.5 37.40 -Area of Debridement (cm) - Length 9.0 8.5 8.5 -Area of Debridement (cm) - Width 7.6 5 4.4 -Total Square (Area) (cm) 68.40 42.5 37.40 -Tunneling No No No -Undermining/Tunneling No No No -Circular Undermining No No No -Wound/Ulcer Outcome Not Healed Not Healed Not Healed -Ulcer Cleansing Rinsed/ Rinsed/ Irrigated with Irrigated with Saline Saline -Foul Odor after Cleansing No No -Bioengineered Tissue No No No -Bleeding Controlled with Pressure Pressure Pressure -Offloading Yes Yes Yes -Type of Offloading Surgical Shoe Knee Walker Surgical Shoe -Treatment Response Procedure Not Procedure Procedure Tolerated Well Tolerated Well Tolerated Well -Debridement - Subq, 1st 20sq cm Yes No -Debridement, SubQ, ea addt'l 20sq cm 2 or part thereof -Debridement - Muscle / Fascia, 1st Yes Yes 20sq cm Pain Scale: 0-10 Numeric Is Patient Pain Free? Yes Yes Yes WC - Nurse 3 - General Ulcer D/C NN Start: 11/25/21 15:07 Freq: Status: Active Protocol: Activity Type Activity Date Activity User E-Sign Co-Sign Detail Recorded Client Recorded Date Recorded By Document 11/25/21 15:32 DL [id number] 11/25/21 15:34 DL Edit Result 11/25/21 15:32 DL (1) [id number] 11/26/21 18:40 PL Document 12/02/21 09:52 DL [id number] 12/02/21 09:55 DL Edit Result 12/02/21 09:52 DL (2) [id number] 12/03/21 06:52 PL Document 12/09/21 15:47 DL [id number] 12/09/21 15:48 DL (1) #1- R LAT FOOT POST OP - NPWT Application Charge NPWT </= 50 sq cm => NPWT & Debridement ($) => (nc) (2) #1- R LAT FOOT POST OP - NPWT Application Charge NPWT </= 50 sq cm => NPWT & Debridement ($) => (nc) 11/25/21 12/02/21 12/09/21 15:32 09:52 15:47 Wound Care Nurse 3 #1- R LAT FOOT POST OP -Ulcer Cleansing Soap and Water Soap and Water Rinsed/ Irrigated with Saline -Foul Odor after Cleansing No No No -Negative Pressure Wound Therapy Continue Continue Continue -Setting (mmHg) 150 150 150 -Negative Pressure is Continuous Continuous Continuous -Other Dressing Duoderm to 4th toe -Primary Dressing Covered/Secured with Dry Gauze & Roll Gauze, Secured with Tape -NPWT Application Charge NPWT & NPWT & NPWT & Debridement (nc Debridement (nc Debridement (nc ) ) ) Right -Tubular Bandage Single Layer Single Layer Single Layer -Size of Tubigrip Used Size E Size E Size E -Size E ($) 1 1 1 -Stockings Yes Treatment Response Procedure Procedure Procedure Tolerated Well Tolerated Well Tolerated Well Pain Scale: 0-10 Numeric Is Patient Pain Free? Yes Yes Yes WC - Visit Discharge Discharge Condition Stable Stable Stable Ambulatory Status Ambulatory, Ambulatory, Wheelchair Walker Walker Transportation Private Auto Private Auto Facility Type Home Health Home Health Home Health Orders Sent Yes Yes Assessment/Plan Assessment/Plan (1) Osteomyelitis of right foot: CODE(S): M86.9 - Osteomyelitis, unspecified QUALIFIERS: Osteomyelitis type: unspecified type Qualified Code(s): M86.9 - Osteomyelitis, unspecified (2) Cellulitis of right foot: CODE(S): L03.115 - Cellulitis of right lower limb (3) Type 2 diabetes mellitus with diabetic polyneuropathy: CODE(S): E11.42 - Type 2 diabetes mellitus with diabetic polyneuropathy (4) Ulcer of right foot with necrosis of muscle: CODE(S): L97.513 - Non-pressure chronic ulcer of other part of right foot with necrosis of muscle (5) Malnutrition: CODE(S): E46 - Unspecified protein-calorie malnutrition PLAN: I reviewed and discussed his case today. Debridement was performed today as noted in the clinical panel to the ulcer site. The following work up and care recommendations were made: Dressing: Wound VAC continuous 150 mmHg Wash: Antibacterial soap and water with each wound VAC change Tissue growth optimization: I recommend application of advanced wound healing product such as Epicord or epi fix. The indications benefits anticipated management and healing expectations were reviewed. This is medically necessary for limb salvage. Prior authorization was tried and he was not approved. This will be considered again once his A1c is decreased to 8% or lower. Offload: To maintain a nonweightbearing status to right lower extremity. He has a surgical shoe and will heel touch for transfers only. Vascular: Recent noninvasive vascular studies were obtained he has good waveforms and ABIs. He does have a digital brachial index of 0.63 on the right which corresponds to small vessel disease however adequate perfusion to this site is possible. Edema: Tubigrip. Elevation. Reduce salt in diet Infection: Clearance surgical fragment cx with MSSA, MSSES, strep x2. To continue po flagyl and 6 weeks ceftriaxone under the management of infectious disease with stop date 12/11. It is noted he saw infectious disease specialist today and will proceed with completing the antibiotics. A C. difficile test was ordered and he will follow-up with Dr. Calderon accordingly; briefly discussed. Pain: Controlled due to neuropathic status Host factors: I recommend nutritional supplementation optimize healing. It is noted he has uncontrolled glucose levels and I recommend follow-up with his primary care physician. This is imperative for wound healing and limb salvage. He is currently under the management of a aircraft mechanic and is taking Soren nutritional supplementation also. I answered all the patient's questions. To return to the wound healing center in 1 week or call sooner if the patient has any questions or concerns. Note: [employer] speech recognition fire fighter crash fire and rescue software was used to create portions of this document. Sound-alike and misspelled words, as well as other fire fighter crash fire and rescue errors may be contained in the documentation.
[2021-12-16 15:04] VITALS: BP 103/70; PULSE 108; RESP 20; TEMP 36.4; BMI 23.8
--- NOTE | 2021-12-16 15:37 | PCM.WC.PN ---
History of Present Illness Date of Service: 12/16/21 Chief Complaint: right foot ulcer and infection follow up History of Wound: This 40-year-old male with uncontrolled diabetes is here for hospital follow-up now that he has an open amputation including a fifth ray resection of the right foot for treatment of necrotizing fasciitis and bone infection. His surgery was performed on 10-30-21. He is completing a course of IV antibiotics under the management of infectious disease. He also has a wound VAC to the right foot and home health has been helping him changes. Recently, he is just done wet-to-dry dressing since this past Tuesday and he thinks the wound looks okay. He is trying to keep weight off of his foot. His last hemoglobin A1c level was 11.1%. He is currently going through an adjustment process for better glucose management with his primary care physician. He also recently met with a powdered sugar supervisor and made some dietary adjustments. He takes Soren nutritional supplementation also. He has been trying to get approved for a Galaxy wound VAC and request an order placed today. He has been trying to coordinate this with his insurance company. He was also diagnosed with C. difficile and Dr. Calderon, infectious disease physician, sent a prescription in for him for an antibiotic. Progress of Wound: Improving Objective Data Objective Data Vital Signs: Vital Signs Temp Pulse Resp BP 97.5 F L 108 H 20 H 103/70 12/16/21 15:04 12/16/21 15:04 12/16/21 15:04 12/16/21 15:04 Weight: 77.564 kg Body Mass Index (BMI) 23.8 Physical Exam Extremity Extremity Narrative: No calf tenderness Edema right foot and leg significantly reduced compared to yesterday Compartments remain soft and there is no skin tenting 2/4 PT and DP pulses right Open fifth ray resection without bogginess or fluctuance Skin Skin Narrative: Open ray resection right foot with no purulence, necrosis, odor. Erythema has completely resolved. He has exposed muscle /tendon tissue (stable and healthy today) and the remaining fifth metatarsal is covered with soft tissue. There is no purulence on expression of the adjacent tissue either. Neuro Neuro Narrative: lack of normal epicritic sensation via light touch is consistent with neuropathy status Debridement Note Debridement Note Wound debrided: right foot Wound Grade/Stage: 3 Type of Debridement: Excisional debridement Anesthesia Used: 4% Lidocaine Solution Depth: in the subcutaneous layer Percentage of wound debrided: 100 Instrument Used: #15 blade Tissue Removed: fibrous, devitalized subcutaneous, biofilm, slough Severity: Fat Layer Exposed Amount of bleeding with debridement: Mild Bleeding Controlled with: Pressure Patient tolerated procedure: Patient tolerated procedure well Post-Debridement Measurements and Additional Note: Post-Debridement Measurements/Treatment - Nurse 1 - General Ulcer Assessment Start: 11/25/21 15:07 Freq: Status: Active Protocol: DAVID Activity Type Activity Date Activity User E-Sign Co-Sign Detail Recorded Client Recorded Date Recorded By Document 11/25/21 15:07 RB [id number] 11/25/21 15:09 RB Document 12/02/21 09:02 DL [id number] 12/02/21 09:11 DL Document 12/09/21 14:56 DL [id number] 12/09/21 15:12 DL Document 12/16/21 15:04 DL [id number] 12/16/21 15:10 DL 11/25/21 12/02/21 12/09/21 15:07 09:02 14:56 - Today's Visit Information Type of service Follow-up Visit Follow-up Visit Follow-up Visit (Physician/GERIATRIC SOCIAL WORK PROFESSOR (Physician/GERIATRIC SOCIAL WORK PROFESSOR (Physician/GERIATRIC SOCIAL WORK PROFESSOR ) ) ) Arrival Mode Ambulatory, Ambulatory Ambulatory, Walker Walker Transfer Assistance None None None Patient Identification Verified (Name & Yes Yes Yes ) Patient Requires Transmission-Based No Precautions Finger Stick Blood Sugar(mg/dl) (if 228 176 pt unsure indicated): Blood Sugar Stated by Stated by Stated by Patient Patient Patient Height and Weight Body Mass Index (BMI) 23.8 23.8 23.8 BMI Classification Normal Normal Normal Vital Signs Temperature (97.8 F-99.1 F) 97.3 F L 97.8 F 97.6 F L Temperature Source Temporal Temporal Temporal Pulse Rate (60-100) 108 H 112 H 114 H Pulse Location Monitor Monitor Monitor Respiratory Rate (12-18) 18 22 H 20 H Respiratory rate source Observation Observation Observation Blood Pressure (90/60-120/80) 98/68 118/79 126/81 H Blood Pressure Mean (mm Hg) 78 92 96 Source Monitor Monitor Monitor Position Semi-Fowlers Blood Pressure Location Left Arm History Since Last Visit- (Skip if this is Patient's initial visit) Have you changed medications since your No No No last visit? Any new allergies or adverse reactions No No No Had a fall/change in ADL's that may No No No increase risk of falls Signs or symptoms of abuse and/or No No No neglect since last visit Have you been in the hospital since your No No No last visit? Has dressing in place as prescribed Yes Yes Yes Has compression in place as prescribed Yes Yes Yes Has offloadiing in place as prescribed No Yes Yes Experienced any changes in pain level or No No No management Right Footwear Surgical Shoe Surgical Shoe with pressure with pressure relief insole relief insole Pain Scale: 0-10 Numeric Is Patient Pain Free? Yes Yes Yes 12/16/21 15:04 WC - Today's Visit Information Type of service Follow-up Visit (Physician/GERIATRIC SOCIAL WORK PROFESSOR ) Arrival Mode Wheelchair Transfer Assistance None Patient Identification Verified (Name & Yes ) Patient Requires Transmission-Based No Precautions Finger Stick Blood Sugar(mg/dl) (if 133 indicated): Blood Sugar Stated by Patient Height and Weight Body Mass Index (BMI) 23.8 BMI Classification Normal Vital Signs Temperature (97.8 F-99.1 F) 97.5 F L Temperature Source Temporal Pulse Rate (60-100) 108 H Pulse Location Monitor Respiratory Rate (12-18) 20 H Respiratory rate source Observation Blood Pressure (90/60-120/80) 103/70 Blood Pressure Mean (mm Hg) 81 Source Monitor Position Blood Pressure Location History Since Last Visit- (Skip if this is Patient's initial visit) Have you changed medications since your No last visit? Any new allergies or adverse reactions No Had a fall/change in ADL's that may increase risk of falls Signs or symptoms of abuse and/or No neglect since last visit Have you been in the hospital since your No last visit? Has dressing in place as prescribed Yes Has compression in place as prescribed No Has offloadiing in place as prescribed Yes Experienced any changes in pain level or No management Right Footwear Pain Scale: 0-10 Numeric Is Patient Pain Free? Yes - Nurse 1 - General Ulcer Measurement Start: 11/25/21 15:07 Freq: Status: Active Protocol: Activity Type Activity Date Activity User E-Sign Co-Sign Detail Recorded Client Recorded Date Recorded By Document 11/25/21 15:07 RB [id number] 11/25/21 15:09 RB Document 12/02/21 09:02 DL [id number] 12/02/21 09:11 DL Document 12/09/21 14:56 DL [id number] 12/09/21 15:12 DL Document 12/16/21 15:04 DL [id number] 12/16/21 15:10 DL 11/25/21 12/02/21 12/09/21 15:07 09:02 14:56 Wound Center Nurse 1 #1- R LAT FOOT POST OP -Combined with other wound No -Current Size (cm) - Length 9.5 8.5 8.5 -Current Size (cm) - Width 7 4.8 4.3 -Current Size (cm) - Depth 0.5 0.5 0.2 -Total Square Cm 66.5 40.80 36.55 -Photo Taken No No -Tunneling No -Undermining/Tunneling No -Circular Undermining No -Exudate Amt Large Medium Medium -Exudate Type Serosanguineous Serosanguineous Serosanguineous -Wound Margin Thickened & Distinct, Distinct, Rolled Under Outline Outline Attached Attached -Granulation Amt Large (67-100%) Large (67-100%) -Granulation Quality [place],Red Pale,Red Red -Slough/Fibrin Yes -Necrosis Amt Small (1-33%) Small (1-33%) Small (1-33%) -Necrotic Tissue Type Adherent Slough Adherent Slough Adherent Slough -Structure Exposed N/A N/A N/A -Texture (Tamika-wound Skin Appearance) Assessed Scarring Localized Edema ,Scarring -Moisture (Tamika-wound Skin Appearance) Assessed Maceration No Abnormality -Color (Tamika-wound Skin Appearance) Assessed No Abnormality No Abnormality -Temperature (Tamika-wound Skin No Abnormality No Abnormality No Abnormality Appearance) (Pt Warm) (Pt Warm) (Pt Warm) -Tenderness on Palpation (Tamika-wound No No No Skin Appearance) -Ulcer Cleansing Wound Cleanser Soap and Water Soap and Water -Foul Odor after Cleansing No No No -Anesthetic Used 4% Lidocaine 4% Lidocaine Solution Solution Right Calf (cm) 34.5 Right Ankle (cm) 25 12/16/21 15:04 Wound Center Nurse 1 #1- R LAT FOOT POST OP -Combined with other wound -Current Size (cm) - Length 7.2 -Current Size (cm) - Width 4.6 -Current Size (cm) - Depth 0.1 -Total Square Cm 33.12 -Photo Taken No -Tunneling -Undermining/Tunneling -Circular Undermining -Exudate Amt Medium -Exudate Type Serosanguineous -Wound Margin Distinct, Outline Attached -Granulation Amt Large (67-100%) -Granulation Quality Red -Slough/Fibrin -Necrosis Amt None Present (0 %) -Necrotic Tissue Type -Structure Exposed N/A -Texture (Tamika-wound Skin Appearance) Scarring -Moisture (Tamika-wound Skin Appearance) No Abnormality -Color (Tamika-wound Skin Appearance) No Abnormality -Temperature (Tamika-wound Skin No Abnormality Appearance) (Pt Warm) -Tenderness on Palpation (Tamika-wound Skin Appearance) -Ulcer Cleansing Soap and Water -Foul Odor after Cleansing No -Anesthetic Used 4% Lidocaine Solution Right Calf (cm) Right Ankle (cm) WC - Nurse 2 - General Ulcer CM Notes Start: 11/25/21 15:07 Freq: Status: Active Protocol: Activity Type Activity Date Activity User E-Sign Co-Sign Detail Recorded Client Recorded Date Recorded By Document 11/25/21 15:15 [id number] 11/25/21 15:20 Document 12/02/21 09:31 [id number] 12/02/21 09:35 Document 12/09/21 15:27 [id number] 12/09/21 15:31 Document 12/16/21 15:21 [id number] 12/16/21 15:25 11/25/21 12/02/21 12/09/21 15:15 09:31 15:27 Wound Center Nurse 2 #1- R LAT FOOT POST OP -Time 15:16 09:31 15:28 -Correct Patient Yes Yes Yes -Correct Side, Site, Position Yes Yes Yes -Correct Procedure Yes Yes Yes -Procedure Performed Yes Yes Yes -Type of Procedure Debridement Debridement Debridement -Clinical Debridement Muscle / Fascia Subcutaneous Subcutaneous -Tissue Removed Tendon Subcutaneous Subcutaneous -Post Debridement (cm) - Length 9.0 8.5 8.5 -Post Debridement (cm) - Width 7.6 5 4.4 -Post Debridement (cm) - Depth 0.5 0.5 0.2 -Total Square (Post) (cm) 68.40 42.5 37.40 -Area of Debridement (cm) - Length 9.0 8.5 8.5 -Area of Debridement (cm) - Width 7.6 5 4.4 -Total Square (Area) (cm) 68.40 42.5 37.40 -Tunneling No No No -Undermining/Tunneling No No No -Circular Undermining No No No -Wound/Ulcer Outcome Not Healed Not Healed Not Healed -Ulcer Cleansing Rinsed/ Rinsed/ Irrigated with Irrigated with Saline Saline -Foul Odor after Cleansing No No -Bioengineered Tissue No No No -Bleeding Controlled with Pressure Pressure Pressure -Treatment Response Procedure Not Procedure Procedure Tolerated Well Tolerated Well Tolerated Well -Offloading Yes Yes Yes -Type of Offloading Surgical Shoe Knee Walker Surgical Shoe -Debridement - Subq, 1st 20sq cm Yes No -Debridement, SubQ, ea addt'l 20sq cm 2 or part thereof -Debridement - Muscle / Fascia, 1st Yes Yes 20sq cm Pain Scale: 0-10 Numeric Is Patient Pain Free? Yes Yes Yes 12/16/21 15:21 Wound Center Nurse 2 #1- R LAT FOOT POST OP -Time 15:21 -Correct Patient Yes -Correct Side, Site, Position Yes -Correct Procedure Yes -Procedure Performed Yes -Type of Procedure Debridement -Clinical Debridement Subcutaneous -Tissue Removed Subcutaneous -Post Debridement (cm) - Length 7.2 -Post Debridement (cm) - Width 4.8 -Post Debridement (cm) - Depth 0.1 -Total Square (Post) (cm) 34.56 -Area of Debridement (cm) - Length 7.2 -Area of Debridement (cm) - Width 4.8 -Total Square (Area) (cm) 34.56 -Tunneling No -Undermining/Tunneling No -Circular Undermining No -Wound/Ulcer Outcome Not Healed -Ulcer Cleansing Rinsed/ Irrigated with Saline -Foul Odor after Cleansing No -Bioengineered Tissue No -Bleeding Controlled with Pressure -Treatment Response Procedure Tolerated Well -Offloading Yes -Type of Offloading Surgical Shoe -Debridement - Subq, 1st 20sq cm Yes -Debridement, SubQ, ea addt'l 20sq cm 1 or part thereof -Debridement - Muscle / Fascia, 1st 20sq cm Pain Scale: 0-10 Numeric Is Patient Pain Free? Yes WC - Nurse 3 - General Ulcer D/C NN Start: 11/25/21 15:07 Freq: Status: Active Protocol: Activity Type Activity Date Activity User E-Sign Co-Sign Detail Recorded Client Recorded Date Recorded By Document 11/25/21 15:32 DL [id number] 11/25/21 15:34 DL Edit Result 11/25/21 15:32 DL (1) [id number] 11/26/21 18:40 PL Document 12/02/21 09:52 DL [id number] 12/02/21 09:55 DL Edit Result 12/02/21 09:52 DL (2) [id number] 12/03/21 06:52 PL Document 12/09/21 15:47 DL [id number] 12/09/21 15:48 DL (1) #1- R LAT FOOT POST OP - NPWT Application Charge NPWT </= 50 sq cm => NPWT & Debridement ($) => (nc) (2) #1- R LAT FOOT POST OP - NPWT Application Charge NPWT </= 50 sq cm => NPWT & Debridement ($) => (nc) 11/25/21 12/02/21 12/09/21 15:32 09:52 15:47 Wound Care Nurse 3 #1- R LAT FOOT POST OP -Ulcer Cleansing Soap and Water Soap and Water Rinsed/ Irrigated with Saline -Foul Odor after Cleansing No No No -Negative Pressure Wound Therapy Continue Continue Continue -Setting (mmHg) 150 150 150 -Negative Pressure is Continuous Continuous Continuous -Other Dressing Duoderm to 4th toe -Primary Dressing Covered/Secured with Dry Gauze & Roll Gauze, Secured with Tape -NPWT Application Charge NPWT & NPWT & NPWT & Debridement (nc Debridement (nc Debridement (nc ) ) ) Right -Tubular Bandage Single Layer Single Layer Single Layer -Size of Tubigrip Used Size E Size E Size E -Size E ($) 1 1 1 -Stockings Yes Treatment Response Procedure Procedure Procedure Tolerated Well Tolerated Well Tolerated Well Pain Scale: 0-10 Numeric Is Patient Pain Free? Yes Yes Yes WC - Visit Discharge Discharge Condition Stable Stable Stable Ambulatory Status Ambulatory, Ambulatory, Wheelchair Walker Walker Transportation Private Auto Private Auto Facility Type Home Health Home Health Home Health Orders Sent Yes Yes Assessment/Plan Assessment/Plan (1) Osteomyelitis of right foot: CODE(S): M86.9 - Osteomyelitis, unspecified QUALIFIERS: Osteomyelitis type: unspecified type Qualified Code(s): M86.9 - Osteomyelitis, unspecified (2) Cellulitis of right foot: CODE(S): L03.115 - Cellulitis of right lower limb (3) Type 2 diabetes mellitus with diabetic polyneuropathy: CODE(S): E11.42 - Type 2 diabetes mellitus with diabetic polyneuropathy (4) Ulcer of right foot with necrosis of muscle: CODE(S): L97.513 - Non-pressure chronic ulcer of other part of right foot with necrosis of muscle (5) Malnutrition: CODE(S): E46 - Unspecified protein-calorie malnutrition PLAN: I reviewed and discussed his case today. Debridement was performed today as noted in the clinical panel to the ulcer site. The following work up and care recommendations were made: Dressing: Wound VAC continuous 150 mmHg. application for galaxy vac to reduce reported misfunction will be further submitted. Wash: Antibacterial soap and water with each wound VAC change Tissue growth optimization: I recommend application of advanced wound healing product such as Epicord or epi fix. The indications benefits anticipated management and healing expectations were reviewed. This is medically necessary for limb salvage. Prior authorization was tried and he was not approved. This will be considered again once his A1c is decreased to 8% or lower. Offload: To maintain a nonweightbearing status to right lower extremity. He has a surgical shoe and will heel touch for transfers only. Vascular: Recent noninvasive vascular studies were obtained he has good waveforms and ABIs. He does have a digital brachial index of 0.63 on the right which corresponds to small vessel disease however adequate perfusion to this site is possible. Edema: Tubigrip. Elevation. Reduce salt in diet Infection: Clearance surgical fragment cx with MSSA, MSSES, strep x2. To continue po flagyl and 6 weeks ceftriaxone under the management of infectious disease with stop date 12/11. It is noted he saw infectious disease specialist today and will proceed with completing the antibiotics. A C. difficile test was ordered and he will follow-up with Dr. Calderon accordingly; briefly discussed. Pain: Controlled due to neuropathic status Host factors: I recommend nutritional supplementation optimize healing. It is noted he has uncontrolled glucose levels and I recommend follow-up with his primary care physician. This is imperative for wound healing and limb salvage. He is currently under the management of a powdered sugar supervisor and is taking Soren nutritional supplementation also. I answered all the patient's questions. To return to the wound healing center in 1 week or call sooner if the patient has any questions or concerns. Note: [employer] speech recognition sawmill manager software was used to create portions of this document. Sound-alike and misspelled words, as well as other sawmill manager errors may be contained in the documentation.
[2021-12-23 15:41] VITALS: BP 102/74; PULSE 116; RESP 18; TEMP 36.2; BMI 23.8
--- NOTE | 2021-12-23 16:02 | PN.PCM_ITS ---
History of Present Illness Date of Service: 12/23/21 Chief Complaint: right foot ulcer and infection follow up History of Wound: This 40-year-old male with uncontrolled diabetes is here for hospital follow-up now that he has an open amputation including a fifth ray resection of the right foot for treatment of necrotizing fasciitis and bone infection. His surgery was performed on 10-30-21. He is completing a course of IV antibiotics under the management of infectious disease. He also has a wound VAC to the right foot. His last hemoglobin A1c level was 11.1%. He was also diagnosed with C. difficile and Dr. Calderon, infectious disease physician, sent a prescription in for him for an antibiotic; Now improving. Progress of Wound: Improving Objective Data Objective Data Vital Signs: Vital Signs Temp Pulse Resp BP 97.1 F L 116 H 18 102/74 12/23/21 15:41 12/23/21 15:41 12/23/21 15:41 12/23/21 15:41 Weight: 77.564 kg Body Mass Index (BMI) 23.8 Physical Exam Extremity Extremity Narrative: No calf tenderness Edema right foot and leg significantly reduced compared to yesterday Compartments remain soft and there is no skin tenting 2/4 PT and DP pulses right Open fifth ray resection without bogginess or fluctuance Skin Skin Narrative: Open ray resection right foot with no purulence, necrosis, odor. Erythema has completely resolved. He has exposed muscle /tendon tissue (stable and healthy today) and the remaining fifth metatarsal is covered with soft tis martha. There is no purulence on expression of the adjacent tissue either. Neuro Neuro Narrative: lack of normal epicritic sensation via light touch is consistent with neuropathy status Debridement Note Debridement Note Wound debrided: right foot Wound Grade/Stage: 2 Type of Debridement: Excisional debridement Anesthesia Used: 4% Lidocaine Solution Depth: in the subcutaneous layer Percentage of wound debrided: 100 Instrument Used: #15 blade Tissue Removed: fibrous, devitalized subcutaneous, biofilm, slough Severity: Fat Layer Exposed Amount of bleeding with debridement: Mild Bleeding Controlled with: Pressure Patient tolerated procedure: Patient tolerated procedure well Post-Debridement Measurements and Additional Note: Post-Debridement Measurements/Treatment PHILL - Nurse 1 - General Ulcer Assessment Start: 11/25/21 15:07 Freq: Status: Active Protocol: DAVID Activity Type Activity Date Activity User E-Sign Co-Sign Detail Recorded Client Recorded Date Recorded By Document 11/25/21 15:07 RB [id number] 11/25/21 15:09 RB Document 12/02/21 09:02 DL [id number] 12/02/21 09:11 DL Document 12/09/21 14:56 DL [id number] 12/09/21 15:12 DL Document 12/16/21 15:04 DL [id number] 12/16/21 15:10 DL Document 12/23/21 15:41 JF [id number] 12/23/21 15:47 JF 11/25/21 12/02/21 12/09/21 15:07 09:02 14:56 WC - Today's Visit Information Type of service Follow-up Visit Follow-up Visit Follow-up Visit (Physician/PARKING ENFORCEMENT TECHNICIAN (Physician/PARKING ENFORCEMENT TECHNICIAN (Physician/PARKING ENFORCEMENT TECHNICIAN ) ) ) Arrival Mode Ambulatory, Ambulatory Ambulatory, Walker Walker Transfer Assistance None None None Patient Identification Verified (Name & Yes Yes Yes ) Patient Requires Transmission-Based No Precautions Finger Stick Blood Sugar(mg/dl) (if 228 176 pt unsure indicated): Blood Sugar Stated by Stated by Stated by Patient Patient Patient Height and Weight Body Mass Index (BMI) 23.8 23.8 23.8 BMI Classification Normal Normal Normal Vital Signs Temperature (97.8 F-99.1 F) 97.3 F L 97.8 F 97.6 F L Temperature Source Temporal Temporal Temporal Pulse Rate (60-100) 108 H 112 H 114 H Pulse Location Monitor Monitor Monitor Respiratory Rate (12-18) 18 22 H 20 H Respiratory rate source Observation Observation Observation Blood Pressure (90/60-120/80) 98/68 118/79 126/81 H Blood Pressure Mean (mm Hg) 78 92 96 Source Monitor Monitor Monitor Position Semi-Fowlers Blood Pressure Location Left Arm History Since Last Visit- (Skip if this is Patient's initial visit) Have you changed medications since your No No No last visit? Any new allergies or adverse reactions No No No Had a fall/change in ADL's that may No No No increase risk of falls Signs or symptoms of abuse and/or No No No neglect since last visit Have you been in the hospital since your No No No last visit? Has dressing in place as prescribed Yes Yes Yes Has compression in place as prescribed Yes Yes Yes Has offloadiing in place as prescribed No Yes Yes Experienced any changes in pain level or No No No management Right Footwear Surgical Shoe Surgical Shoe with pressure with pressure relief insole relief insole Pain Scale: 0-10 Numeric Is Patient Pain Free? Yes Yes Yes 12/16/21 12/23/21 15:04 15:41 - Today's Visit Information Type of service Follow-up Visit Initial Visit (Physician/PARKING ENFORCEMENT TECHNICIAN ) Arrival Mode Wheelchair Wheelchair Transfer Assistance None None Patient Identification Verified (Name & Yes Yes ) Patient Requires Transmission-Based No No Precautions Finger Stick Blood Sugar(mg/dl) (if 133 169 indicated): Blood Sugar Stated by Stated by Patient Patient Height and Weight Body Mass Index (BMI) 23.8 23.8 BMI Classification Normal Normal Vital Signs Temperature (97.8 F-99.1 F) 97.5 F L 97.1 F L Temperature Source Temporal Temporal Pulse Rate (60-100) 108 H 116 H Pulse Location Monitor Monitor Respiratory Rate (12-18) 20 H 18 Respiratory rate source Observation Observation Blood Pressure (90/60-120/80) 103/70 102/74 Blood Pressure Mean (mm Hg) 81 83 Source Monitor Manual Position Sitting Blood Pressure Location Right Arm History Since Last Visit- (Skip if this is Patient's initial visit) Have you changed medications since your No No last visit? Any new allergies or adverse reactions No No Had a fall/change in ADL's that may No increase risk of falls Signs or symptoms of abuse and/or No No neglect since last visit Have you been in the hospital since your No No last visit? Has dressing in place as prescribed Yes Yes Has compression in place as prescribed No Yes Has offloadiing in place as prescribed Yes No Experienced any changes in pain level or No No management Right Footwear Pain Scale: 0-10 Numeric Is Patient Pain Free? Yes Yes - Nurse 1 - General Ulcer Measurement Start: 11/25/21 15:07 Freq: Status: Active Protocol: Activity Type Activity Date Activity User E-Sign Co-Sign Detail Recorded Client Recorded Date Recorded By Document 11/25/21 15:07 RB [id number] 11/25/21 15:09 RB Document 12/02/21 09:02 DL [id number] 12/02/21 09:11 DL Document 12/09/21 14:56 [id number] 12/09/21 15:12 DL Document 12/16/21 15:04 [id number] 12/16/21 15:10 DL Document 12/23/21 15:41 [id number] 12/23/21 15:47 11/25/21 12/02/21 12/09/21 15:07 09:02 14:56 Wound Center Nurse 1 #1- R LAT FOOT POST OP -Combined with other wound No -Current Size (cm) - Length 9.5 8.5 8.5 -Current Size (cm) - Width 7 4.8 4.3 -Current Size (cm) - Depth 0.5 0.5 0.2 -Total Square Cm 66.5 40.80 36.55 -Photo Taken No No -Tunneling No -Undermining/Tunneling No -Circular Undermining No -Exudate Amt Large Medium Medium -Exudate Type Serosanguineous Serosanguineous Serosanguineous -Wound Margin Thickened & Distinct, Distinct, Rolled Under Outline Outline Attached Attached -Granulation Amt Large (67-100%) Large (67-100%) -Granulation Quality [place],Red Pale,Red Red -Slough/Fibrin Yes -Necrosis Amt Small (1-33%) Small (1-33%) Small (1-33%) -Necrotic Tissue Type Adherent Slough Adherent Slough Adherent Slough -Structure Exposed N/A N/A N/A -Texture (Tamika-wound Skin Appearance) Assessed Scarring Localized Edema ,Scarring -Moisture (Tamika-wound Skin Appearance) Assessed Maceration No Abnormality -Color (Tamika-wound Skin Appearance) Assessed No Abnormality No Abnormality -Temperature (Tamika-wound Skin No Abnormality No Abnormality No Abnormality Appearance) (Pt Warm) (Pt Warm) (Pt Warm) -Tenderness on Palpation (Atmika-wound No No No Skin Appearance) -Ulcer Cleansing Wound Cleanser Soap and Water Soap and Water -Foul Odor after Cleansing No No No -Anesthetic Used 4% Lidocaine 4% Lidocaine Solution Solution Lower Limb Edema Present Right Calf (cm) 34.5 Right Ankle (cm) 25 12/16/21 12/23/21 15:04 15:41 Wound Center Nurse 1 #1- R LAT FOOT POST OP -Combined with other wound -Current Size (cm) - Length 7.2 6.5 -Current Size (cm) - Width 4.6 4.6 -Current Size (cm) - Depth 0.1 0.1 -Total Square Cm 33.12 29.90 -Photo Taken No -Tunneling No -Undermining/Tunneling No -Circular Undermining No -Exudate Amt Medium Large -Exudate Type Serosanguineous Serosanguineous -Wound Margin Distinct, Distinct, Outline Outline Attached Attached -Granulation Amt Large (67-100%) Medium (34-66%) -Granulation Quality Red [place],Red -Slough/Fibrin Yes -Necrosis Amt None Present (0 Small (1-33%) %) -Necrotic Tissue Type Adherent Slough -Structure Exposed N/A N/A -Texture (Tamika-wound Skin Appearance) Scarring Assessed, Scarring -Moisture (Tamika-wound Skin Appearance) No Abnormality Assessed -Color (Tamika-wound Skin Appearance) No Abnormality Assessed -Temperature (Tamika-wound Skin No Abnormality No Abnormality Appearance) (Pt Warm) (Pt Warm) -Tenderness on Palpation (Tamika-wound No Skin Appearance) -Ulcer Cleansing Soap and Water Wound Cleanser -Foul Odor after Cleansing No No -Anesthetic Used 4% Lidocaine 4% Lidocaine Solution Solution Lower Limb Edema Present Yes Right Calf (cm) 35.5 Right Ankle (cm) 25 WC - Nurse 2 - General Ulcer CM Notes Start: 11/25/21 15:07 Freq: Status: Active Protocol: Activity Type Activity Date Activity User E-Sign Co-Sign Detail Recorded Client Recorded Date Recorded By Document 11/25/21 15:15 [id number] 11/25/21 15:20 Document 12/02/21 09:31 [id number] 12/02/21 09:35 Document 12/09/21 15:27 [id number] 12/09/21 15:31 Document 12/16/21 15:21 [id number] 12/16/21 15:25 Document 12/23/21 15:52 [id number] 12/23/21 15:53 11/25/21 12/02/21 12/09/21 15:15 09:31 15:27 Wound Center Nurse 2 #1- R LAT FOOT POST OP -Time 15:16 09:31 15:28 -Correct Patient Yes Yes Yes -Correct Side, Site, Position Yes Yes Yes -Correct Procedure Yes Yes Yes -Procedure Performed Yes Yes Yes -Type of Procedure Debridement Debridement Debridement -Clinical Debridement Muscle / Fascia Subcutaneous Subcutaneous -Tissue Removed Tendon Subcutaneous Subcutaneous -Post Debridement (cm) - Length 9.0 8.5 8.5 -Post Debridement (cm) - Width 7.6 5 4.4 -Post Debridement (cm) - Depth 0.5 0.5 0.2 -Total Square (Post) (cm) 68.40 42.5 37.40 -Area of Debridement (cm) - Length 9.0 8.5 8.5 -Area of Debridement (cm) - Width 7.6 5 4.4 -Total Square (Area) (cm) 68.40 42.5 37.40 -Tunneling No No No -Undermining/Tunneling No No No -Circular Undermining No No No -Wound/Ulcer Outcome Not Healed Not Healed Not Healed -Ulcer Cleansing Rinsed/ Rinsed/ Irrigated with Irrigated with Saline Saline -Foul Odor after Cleansing No No -Bioengineered Tissue No No No -Bleeding Controlled with Pressure Pressure Pressure -Treatment Response Procedure Not Procedure Procedure Tolerated Well Tolerated Well Tolerated Well -Offloading Yes Yes Yes -Type of Offloading Surgical Shoe Knee Walker Surgical Shoe -Pressure Reduction -Debridement - Subq, 1st 20sq cm Yes No -Debridement, SubQ, ea addt'l 20sq cm 2 or part thereof -Debridement - Muscle / Fascia, 1st Yes Yes 20sq cm Pain Scale: 0-10 Numeric Is Patient Pain Free? Yes Yes Yes 22 12/23/21 15:21 15:52 Wound Center Nurse 2 #1- R LAT FOOT POST OP -Time 15:21 15:53 -Correct Patient Yes Yes -Correct Side, Site, Position Yes Yes -Correct Procedure Yes Yes -Procedure Performed Yes Yes -Type of Procedure Debridement Debridement -Clinical Debridement Subcutaneous Subcutaneous -Tissue Removed Subcutaneous Subcutaneous -Post Debridement (cm) - Length 7.2 6.5 -Post Debridement (cm) - Width 4.8 4.7 -Post Debridement (cm) - Depth 0.1 0.1 -Total Square (Post) (cm) 34.56 30.55 -Area of Debridement (cm) - Length 7.2 6.5 -Area of Debridement (cm) - Width 4.8 4.7 -Total Square (Area) (cm) 34.56 30.55 -Tunneling No No -Undermining/Tunneling No No -Circular Undermining No No -Wound/Ulcer Outcome Not Healed Not Healed -Ulcer Cleansing Rinsed/ Rinsed/ Irrigated with Irrigated with Saline Saline -Foul Odor after Cleansing No No -Bioengineered Tissue No No -Bleeding Controlled with Pressure Pressure -Treatment Response Procedure Procedure Tolerated Well Tolerated Well -Offloading Yes Yes -Type of Offloading Surgical Shoe Camwalker -Pressure Reduction Wheelchair cushion -Debridement - Subq, 1st 20sq cm Yes Yes -Debridement, SubQ, ea addt'l 20sq cm 1 1 or part thereof -Debridement - Muscle / Fascia, 1st 20sq cm Pain Scale: 0-10 Numeric Is Patient Pain Free? Yes Yes WC - Nurse 3 - General Ulcer D/C NN Start: 11/25/21 15:07 Freq: Status: Active Protocol: Activity Type Activity Date Activity User E-Sign Co-Sign Detail Recorded Client Recorded Date Recorded By Document 11/25/21 15:32 DL [id number] 11/25/21 15:34 DL Edit Result 11/25/21 15:32 DL (1) [id number] 11/26/21 18:40 PL Document 12/02/21 09:52 DL [id number] 12/02/21 09:55 DL Edit Result 12/02/21 09:52 DL (2) [id number] 12/03/21 06:52 PL Document 12/09/21 15:47 DL [id number] 12/09/21 15:48 DL Document 12/16/21 15:41 DL [id number] 12/16/21 15:43 DL Edit Result 12/16/21 15:41 DL (3) [id number] 12/17/21 07:03 PL (1) #1- R LAT FOOT POST OP - NPWT Application Charge NPWT </= 50 sq cm => NPWT & Debridement ($) => (nc) (2) #1- R LAT FOOT POST OP - NPWT Application Charge NPWT </= 50 sq cm => NPWT & Debridement ($) => (nc) (3) #1- R LAT FOOT POST OP - NPWT Application Charge NPWT </= 50 sq cm => NPWT & Debridement ($) => (nc) 11/25/21 12/02/21 12/09/21 15:32 09:52 15:47 Wound Care Nurse 3 #1- R LAT FOOT POST OP -Ulcer Cleansing Soap and Water Soap and Water Rinsed/ Irrigated with Saline -Foul Odor after Cleansing No No No -Negative Pressure Wound Therapy Continue Continue Continue -Setting (mmHg) 150 150 150 -Negative Pressure is Continuous Continuous Continuous -Other Dressing Duoderm to 4th toe -Primary Dressing Covered/Secured with Dry Gauze & Roll Gauze, Secured with Tape -NPWT Application Charge NPWT & NPWT & NPWT & Debridement (nc Debridement (nc Debridement (nc ) ) ) Right -Tubular Bandage Single Layer Single Layer Single Layer -Size of Tubigrip Used Size E Size E Size E -Size E ($) 1 1 1 -Stockings Yes Treatment Response Procedure Procedure Procedure Tolerated Well Tolerated Well Tolerated Well Pain Scale: 0-10 Numeric Is Patient Pain Free? Yes Yes Yes WC - Visit Discharge Discharge Condition Stable Stable Stable Ambulatory Status Ambulatory, Ambulatory, Wheelchair Walker Walker Transportation Private Auto Private [facility] Facility Type Home Health Home Health Home Health Orders Sent Yes Yes 12/16/21 15:41 Wound Care Nurse 3 #1- R LAT FOOT POST OP -Ulcer Cleansing Soap and Water -Foul Odor after Cleansing No -Negative Pressure Wound Therapy Continue -Setting (mmHg) 150 -Negative Pressure is Continuous -Other Dressing -Primary Dressing Covered/Secured with Dry Gauze & Roll Gauze, Secured with Tape -NPWT Application Charge NPWT & Debridement (nc ) Right -Tubular Bandage Single Layer -Size of Tubigrip Used Size E -Size E ($) 1 -Stockings Treatment Response Procedure Tolerated Well Pain Scale: 0-10 Numeric Is Patient Pain Free? Yes WC - Visit Discharge Discharge Condition Stable Ambulatory Status Walker, Wheelchair Transportation Facility Type Home Health Orders Sent Yes Assessment/Plan Assessment/Plan (1) Osteomyelitis of right foot: CODE(S): M86.9 - Osteomyelitis, unspecified QUALIFIERS: Osteomyelitis type: unspecified type Qualified Code(s): M86.9 - Osteomyelitis, unspecified (2) Cellulitis of right foot: CODE(S): L03.115 - Cellulitis of right lower limb (3) Type 2 diabetes mellitus with diabetic polyneuropathy: CODE(S): E11.42 - Type 2 diabetes mellitus with diabetic polyneuropathy (4) Ulcer of right foot with necrosis of muscle: CODE(S): L97.513 - Non-pressure chronic ulcer of other part of right foot with necrosis of muscle (5) Malnutrition: CODE(S): E46 - Unspecified protein-calorie malnutrition PLAN: I reviewed and discussed his case today. Debridement was performed today as noted in the clinical panel to the ulcer site. The following work up and care recommendations were made: Dressing: Wound VAC continuous 150 mmHg. Wash: Antibacterial soap and water with each wound VAC change Tissue growth optimization: I recommend application of advanced wound healing product such as Epicord or epi fix. The indications benefits anticipated management and healing expectations were reviewed. This is medically necessary for limb salvage. Prior authorization was tried and he was not approved. This will be considered again once his A1c is decreased to 8% or lower. Offload: To maintain a nonweightbearing status to right lower extremity. He has a surgical shoe and will heel touch for transfers only. Vascular: Recent noninvasive vascular studies were obtained he has good waveforms and ABIs. He does have a digital brachial index of 0.63 on the right which corresponds to small vessel disease however adequate perfusion to this site is possible. Edema: Tubigrip. Elevation. Reduce salt in diet Infection: Clearance surgical fragment cx with MSSA, MSSES, strep x2. To continue po flagyl and 6 weeks ceftriaxone under the management of infectious disease with stop date 12/11. It is noted he saw infectious disease specialist today and will proceed with completing the antibiotics. A C. difficile treatment per infectious disease specialist Pain: Controlled due to neuropathic status Host factors: I recommend nutritional supplementation optimize healing. It is noted he has uncontrolled glucose levels and I recommend follow-up with his primary care physician. This is imperative for wound healing and limb salvage. He is currently under the management of a marzipan molder and is taking Soren nutritional supplementation also. I answered all the patient's questions. To return to the wound healing center in 1 week or call sooner if the patient has any questions or concerns. Note: [employer] speech recognition biological sciences instructor software was used to create portions of this document. Sound-alike and misspelled words, as well as other biological sciences instructor errors may be contained in the documentation.
== END 2021-12-24 23:59 | disposition home or self-care (01) ==
LOC: WC 15:30
PROVIDERS: Visit Provider Podiatrist
DX: E11.621 Type 2 diabetes mellitus with foot ulcer (principal); L97.513 Non-pressure chronic ulcer of other part of right foot with necrosis of muscle; E46 Unspecified protein-calorie malnutrition; M86.9 Osteomyelitis, unspecified; E11.42 Type 2 diabetes mellitus with diabetic polyneuropathy; L03.115 Cellulitis of right lower limb
CPT/HCPCS: 97605 ×4; 11042; 11043; 11045; 97803; G0108

== ENCOUNTER 2022-01-05 15:33 | Outpatient (RCR) | payer MEDICAID, SELFPAY | END 2022-01-23 23:59 | LOC: DC 15:33 | PROVIDERS: PCP Nurse Practitioner Adult Health; Referring Provider Podiatrist; Visit Provider Podiatrist | DX: E11.9 Type 2 diabetes mellitus without complications (principal) | CPT/HCPCS: 97803 ==

== ENCOUNTER → 2022-01-13 | Outpatient (CLI) | payer MEDICAID, SELFPAY ==
[2022-01-13 12:21] LABS: Hemoglobin A1c 5.5 % (3.8-5.6)
== END | disposition home or self-care (01) ==
LOC: LAB 11:37
PROVIDERS: PCP Nurse Practitioner Adult Health; Visit Provider Podiatrist
CPT/HCPCS: 36415; 83036

== ENCOUNTER 2022-01-20 15:00 | Outpatient (RCR) | payer MEDICAID, SELFPAY ==
[2021-12-25 00:41] VITALS: BP 102/74; PULSE 116; RESP 18; TEMP 36.2; BMI 23.8
[2021-12-30 13:38] VITALS: BP 158/118; PULSE 105; RESP 16; TEMP 36.8; BMI 23.8
--- NOTE | 2021-12-30 14:13 | PCM.WC.PN ---
History of Present Illness Date of Service: 12/30/21 Chief Complaint: right foot ulcer and infection follow up History of Wound: This 41-year-old male with uncontrolled diabetes is here for hospital follow-up now that he has an open amputation including a fifth ray resection of the right foot for treatment of necrotizing fasciitis and bone infection. His surgery was performed on 10-30-21. He is completing a course of IV antibiotics under the management of infectious disease. He also has a wound VAC to the right foot. His last hemoglobin A1c level was 11.1%. He was also diagnosed with C. difficile and Dr. Calderon, infectious disease physician and has completed the antibiotic course. He reports loose stool but not confirmed diarrhea. He is doing well with his updated wound VAC. He has another complaint today of worsening rest burning and numbness. This is consistent with neuropathy and is painful. It is affecting his right foot including his arch great toe and even wound site. He tries to check his foot daily but does not. He is interested in discussing treatment options. Progress of Wound: Improving Objective Data Objective Data Vital Signs: Vital Signs Temp Pulse Resp BP 98.2 F 105 H 16 158/118 H 12/30/21 13:38 12/30/21 13:38 12/30/21 13:38 12/30/21 13:38 Oxygen Delivery Method Room Air Weight: 77.564 kg Body Mass Index (BMI) 23.8 Physical Exam Extremity Extremity Narrative: No calf tenderness Edema right foot and leg significantly reduced compared to yesterday Compartments remain soft and there is no skin tenting 2/4 PT and DP pulses right Open fifth ray resection without bogginess or fluctuance No pain on palpation to first metatarsophalangeal joint or hallux or midfoot No pain, laxity or crepitus with manipulation of the midfoot, first metatarsophalangeal joint or hallux interphalangeal joint No pain on palpation to the sesamoid apparatus right foot Skin Skin Narrative: Open ray resection right foot with no purulence, necrosis, odor. Erythema has completely resolved. He has exposed muscle /tendon tissue (stable and healthy today) and the remaining fifth metatarsal is covered with soft tissue. There is no purulence on expression of the adjacent tissue either. Neuro Neuro Narrative: lack of normal epicritic sensation via light touch is consistent with neuropathy status Debridement Note Debridement Note Wound debrided: right foot Wound Grade/Stage: 2 Type of Debridement: Excisional debridement Anesthesia Used: 4% Lidocaine Solution Depth: in the subcutaneous layer Percentage of wound debrided: 100 Instrument Used: #15 blade Tissue Removed: fibrous, devitalized subcutaneous, biofilm, slough Severity: Fat Layer Exposed Amount of bleeding with debridement: Mild Bleeding Controlled with: Pressure Patient tolerated procedure: Patient tolerated procedure well Post-Debridement Measurements and Additional Note: Post-Debridement Measurements/Treatment - Nurse 1 - General Ulcer Assessment Start: 12/30/21 13:38 Freq: Status: Active Protocol: DAVID Activity Type Activity Date Activity User E-Sign Co-Sign Detail Recorded Client Recorded Date Recorded By Document 12/30/21 13:38 [facility] [id number] 12/30/21 13:45 [facility] 12/30/21 13:38 WC - Today's Visit Information Type of service Follow-up Visit (Physician/SIGNAL PERSON ) Arrival Mode Wheelchair Transfer Assistance Other Transfer Assist (Other) STAND BY Patient Identification Verified (Name & Yes ) Patient Requires Transmission-Based No Precautions Finger Stick Blood Sugar(mg/dl) (if 167 indicated): Blood Sugar Stated by Patient Height and Weight Body Mass Index (BMI) 23.8 BMI Classification Normal Vital Signs Temperature (97.8 F-99.1 F) 98.2 F Temperature Source Temporal Pulse Rate (60-100) 105 H Pulse Location Monitor Respiratory Rate (12-18) 16 Respiratory rate source Observation Oxygen Delivery Method Room Air Blood Pressure (90/60-120/80) 158/118 H Blood Pressure Mean (mm Hg) 131 Source Monitor Position Sitting Blood Pressure Location Left Arm Comment PT NERVOUS History Since Last Visit- (Skip if this is Patient's initial visit) Have you changed medications since your No last visit? Any new allergies or adverse reactions No Had a fall/change in ADL's that may No increase risk of falls Signs or symptoms of abuse and/or No neglect since last visit Have you been in the hospital since your No last visit? Has dressing in place as prescribed Yes Has compression in place as prescribed N/A Has offloadiing in place as prescribed Yes Experienced any changes in pain level or No management Pain Scale: 0-10 Numeric Is Patient Pain Free? Yes - Nurse 1 - General Ulcer Measurement Start: 12/30/21 13:38 Freq: Status: Active Protocol: Activity Type Activity Date Activity User E-Sign Co-Sign Detail Recorded Client Recorded Date Recorded By Document 12/30/21 13:38 [facility] [id number] 12/30/21 13:45 [facility] 12/30/21 13:38 Wound Center Nurse 1 #1- R LAT FOOT POST OP -Combined with other wound No -Current Size (cm) - Length 6.5 -Current Size (cm) - Width 4 -Current Size (cm) - Depth 0.1 -Total Square Cm 26.0 -Date of Last Picture (Recall this 12/30/21 field) -Photo Taken Yes -Epithelialization Small 1-33% -Tunneling No -Undermining/Tunneling No -Circular Undermining No -Exudate Amt Medium -Exudate Type Serosanguineous -Wound Margin Distinct, Outline Attached -Granulation Amt Large (67-100%) -Granulation Quality Red -Slough/Fibrin Yes -Necrosis Amt Small (1-33%) -Necrotic Tissue Type Adherent Slough -Texture (Tamika-wound Skin Appearance) Assessed, Scarring -Moisture (Tamika-wound Skin Appearance) Assessed, Maceration -Color (Tamika-wound Skin Appearance) Assessed,Palor -Temperature (Tamika-wound Skin No Abnormality Appearance) (Pt Warm) -Tenderness on Palpation (Tamika-wound No Skin Appearance) -Ulcer Cleansing Soap and Water -Foul Odor after Cleansing No -Anesthetic Used 4% Lidocaine Solution WC - Nurse 2 - General Ulcer CM Notes Start: 12/30/21 13:38 Freq: Status: Active Protocol: Activity Type Activity Date Activity User E-Sign Co-Sign Detail Recorded Client Recorded Date Recorded By Document 12/30/21 13:53 [id number] 12/30/21 13:56 12/30/21 13:53 Wound Center Nurse 2 -Time 13:54 -Correct Patient Yes -Correct Side, Site, Position Yes -Correct Procedure Yes -Procedure Performed Yes -Type of Procedure Debridement -Clinical Debridement Subcutaneous -Tissue Removed Subcutaneous -Post Debridement (cm) - Length 6.5 -Post Debridement (cm) - Width 4.1 -Post Debridement (cm) - Depth 0.1 -Total Square (Post) (cm) 26.65 -Area of Debridement (cm) - Length 6.5 -Area of Debridement (cm) - Width 4.1 -Total Square (Area) (cm) 26.65 -Tunneling No -Undermining/Tunneling No -Circular Undermining No -Wound/Ulcer Outcome Not Healed -Ulcer Cleansing Rinsed/ Irrigated with Saline -Foul Odor after Cleansing No -Bioengineered Tissue No -Bleeding Controlled with Pressure -Treatment Response Procedure Tolerated Well -Offloading Yes -Type of Offloading Surgical Shoe -Debridement - Subq, 1st 20sq cm Yes -Debridement, SubQ, ea addt'l 20sq cm 1 or part thereof Pain Scale: 0-10 Numeric Is Patient Pain Free? Yes Assessment/Plan Assessment/Plan (1) Other hereditary and idiopathic neuropathies: CODE(S): G60.8 - Other hereditary and idiopathic neuropathies (2) Osteomyelitis of right foot: CODE(S): M86.9 - Osteomyelitis, unspecified QUALIFIERS: Osteomyelitis type: unspecified type Qualified Code(s): M86.9 - Osteomyelitis, unspecified (3) Cellulitis of right foot: CODE(S): L03.115 - Cellulitis of right lower limb (4) Type 2 diabetes mellitus with diabetic polyneuropathy: CODE(S): E11.42 - Type 2 diabetes mellitus with diabetic polyneuropathy (5) Ulcer of right foot with necrosis of muscle: CODE(S): L97.513 - Non-pressure chronic ulcer of other part of right foot with necrosis of muscle (6) Malnutrition: CODE(S): E46 - Unspecified protein-calorie malnutrition PLAN: I reviewed and discussed his case today. Debridement was performed today as noted in the clinical panel to the ulcer site. The following work up and care recommendations were made: We discussed the etiology of neuropathy and his current clinical complaints. Per the patient, he is not able to take gabapentin and has previously discussed this with his primary care provider. I recommend food supplement, Metanx, to help repair the small nerve fiber sheath. The benefits and indications were reviewed. Prior authorization and prescription will be initiated through [employer]. Dressing: Wound VAC continuous 150 mmHg. Wash: Antibacterial soap and water with each wound VAC change Tissue growth optimization: I recommend application of advanced wound healing product such as Epicord or epi fix. The indications benefits anticipated management and healing expectations were reviewed. This is medically necessary for limb salvage. Prior authorization was tried and he was not approved. This will be considered again once his A1c is decreased to 8% or lower. Offload: To maintain a nonweightbearing status to right lower extremity. He has a surgical shoe and will heel touch for transfers only. Vascular: Recent noninvasive vascular studies were obtained he has good waveforms and ABIs. He does have a digital brachial index of 0.63 on the right which corresponds to small vessel disease however adequate perfusion to this site is possible. Edema: Tubigrip. Elevation. Reduce salt in diet Infection: Clearance surgical fragment cx with MSSA, MSSES, strep x2. To continue po flagyl and 6 weeks ceftriaxone under the management of infectious disease with stop date 12/11. It is noted he saw infectious disease specialist today and will proceed with completing the antibiotics. A C. difficile treatment per infectious disease specialist. This was completed. To reach out to ID office if this returns. Pain: Controlled due to neuropathic status Host factors: I recommend nutritional supplementation optimize healing. It is noted he has uncontrolled glucose levels and I recommend follow-up with his primary care physician. This is imperative for wound healing and limb salvage. He is currently under the management of a clinic office manager and is taking Soren nutritional supplementation also. I answered all the patient's questions. To return to the wound healing center in 1 week or call sooner if the patient has any questions or concerns. Note: [employer] speech recognition cytology manager software was used to create portions of this document. Sound-alike and misspelled words, as well as other cytology manager errors may be contained in the documentation.
[2022-01-08 14:16] VITALS: BP 124/85; PULSE 110; RESP 20; TEMP 36.9; BMI 23.8
--- NOTE | 2022-01-08 15:46 | PN.PCM_ITS ---
History of Present Illness Date of Service: 01/08/22 Chief Complaint: right foot ulcer and infection follow up History of Wound: This 41-year-old male with uncontrolled diabetes is here for hospital follow-up now that he has an open amputation including a fifth ray resection of the right foot for treatment of necrotizing fasciitis and bone infection. His surgery was performed on 10-30-21. He is completing a course of IV antibiotics under the management of infectious disease. He also has a wound VAC to the right foot. His last hemoglobin A1c level was 11.1%. He is doing well with his updated wound VAC. He was prescribed nerve nutritional food prescription supplement, metanx, however did not start the medication yet. He did also talk to his primary care physician about this concern and was started on gabapentin. He has been extra sleepy. Progress of Wound: Improving Objective Data Objective Data Vital Signs: Vital Signs Temp Pulse Resp BP 98.5 F 110 H 20 H 124/85 H 01/08/22 14:16 01/08/22 14:16 01/08/22 14:16 01/08/22 14:16 Oxygen Delivery Method Room Air Weight: 77.564 kg Body Mass Index (BMI) 23.8 Physical Exam Extremity Extremity Narrative: No calf tenderness Edema right foot and leg significantly reduced compared to yesterday Compartments remain soft and there is no skin tenting 2/4 PT and DP pulses right Open fifth ray resection without bogginess or fluctuance No pain on palpation to first metatarsophalangeal joint or hallux or midfoot No pain, laxity or crepitus with manipulation of the midfoot, first metatarsophalangeal joint or hallux interphalangeal joint No pain on palpation to the sesamoid apparatus right foot Skin Skin Narrative: Open ray resection right foot with no purulence, necrosis, odor. Erythema has completely resolved. no exposed tendon or bone noted today. There is no purulence on expression of the adjacent tissue either. Neuro Neuro Narrative: lack of normal epicritic sensation via light touch is consistent with neuropathy status Debridement Note Debridement Note Wound debrided: right foot Wound Grade/Stage: 2 Type of Debridement: Excisional debridement Anesthesia Used: 4% Lidocaine Solution Depth: in the subcutaneous layer Percentage of wound debrided: 100 Instrument Used: #15 blade Tissue Removed: fibrous, devitalized subcutaneous, biofilm, slough Severity: Fat Layer Exposed Amount of bleeding with debridement: Mild Bleeding Controlled with: Pressure Patient tolerated procedure: Patient tolerated procedure well Post-Debridement Measurements and Additional Note: Post-Debridement Measurements/Treatment WC - Nurse 1 - General Ulcer Assessment Start: 12/30/21 13:38 Freq: Status: Active Protocol: DAVID Activity Type Activity Date Activity User E-Sign Co-Sign Detail Recorded Client Recorded Date Recorded By Document 12/30/21 13:38 BM [id number] 12/30/21 13:45 BMF Document 01/08/22 14:16 DL [id number] 01/08/22 14:23 DL 12/30/21 01/08/22 13:38 14:16 WC - Today's Visit Information Type of service Follow-up Visit Follow-up Visit (Physician/FISHING LURE ASSEMBLER (Physician/FISHING LURE ASSEMBLER ) ) Arrival Mode Wheelchair Wheelchair Transfer Assistance Other None Transfer Assist (Other) STAND BY Patient Identification Verified (Name & Yes Yes ) Patient Requires Transmission-Based No No Precautions Finger Stick Blood Sugar(mg/dl) (if 167 113 indicated): Blood Sugar Stated by Stated by Patient Patient Height and Weight Body Mass Index (BMI) 23.8 23.8 BMI Classification Normal Normal Vital Signs Temperature (97.8 F-99.1 F) 98.2 F 98.5 F Temperature Source Temporal Temporal Pulse Rate (60-100) 105 H 110 H Pulse Location Monitor Monitor Respiratory Rate (12-18) 16 20 H Respiratory rate source Observation Observation Oxygen Delivery Method Room Air Blood Pressure (90/60-120/80) 158/118 H 124/85 H Blood Pressure Mean (mm Hg) 131 98 Source Monitor Monitor Position Sitting Blood Pressure Location Left Arm Comment PT NERVOUS History Since Last Visit- (Skip if this is Patient's initial visit) Have you changed medications since your No No last visit? Any new allergies or adverse reactions No No Had a fall/change in ADL's that may No No increase risk of falls Signs or symptoms of abuse and/or No No neglect since last visit Have you been in the hospital since your No No last visit? Has dressing in place as prescribed Yes Yes Has compression in place as prescribed N/A N/A Has offloadiing in place as prescribed Yes Yes Experienced any changes in pain level or No No management Right Footwear Surgical Shoe with pressure relief insole Pain Scale: 0-10 Numeric Is Patient Pain Free? Yes Yes WC - Nurse 1 - General Ulcer Measurement Start: 12/30/21 13:38 Freq: Status: Active Protocol: Activity Type Activity Date Activity User E-Sign Co-Sign Detail Recorded Client Recorded Date Recorded By Document 12/30/21 13:38 [facility] [id number] 12/30/21 13:45 BM Document 01/08/22 14:16 DL [id number] 01/08/22 14:23 DL 12/30/21 01/08/22 13:38 14:16 Wound Center Nurse 1 #1- R LAT FOOT POST OP -Combined with other wound No -Current Size (cm) - Length 6.5 6 -Current Size (cm) - Width 4 3.1 -Current Size (cm) - Depth 0.1 0.1 -Total Square Cm 26.0 18.6 -Date of Last Picture (Recall this 12/30/21 field) -Photo Taken Yes No -Epithelialization Small 1-33% -Tunneling No -Undermining/Tunneling No -Circular Undermining No -Exudate Amt Medium Medium -Exudate Type Serosanguineous Serosanguineous -Wound Margin Distinct, Distinct, Outline Outline Attached Attached -Granulation Amt Large (67-100%) Large (67-100%) -Granulation Quality Red Red -Slough/Fibrin Yes -Necrosis Amt Small (1-33%) None Present (0 %) -Necrotic Tissue Type Adherent Slough -Structure Exposed N/A -Texture (Tamika-wound Skin Appearance) Assessed, Scarring Scarring -Moisture (Tamika-wound Skin Appearance) Assessed, Maceration Maceration -Color (Tamika-wound Skin Appearance) Assessed,Palor No Abnormality -Temperature (Tamika-wound Skin No Abnormality No Abnormality Appearance) (Pt Warm) (Pt Warm) -Tenderness on Palpation (Tamika-wound No No Skin Appearance) -Ulcer Cleansing Soap and Water Soap and Water -Foul Odor after Cleansing No No -Anesthetic Used 4% Lidocaine 4% Lidocaine Solution Solution Right Calf (cm) 35 Right Ankle (cm) 25.2 WC - Nurse 2 - General Ulcer CM Notes Start: 12/30/21 13:38 Freq: Status: Active Protocol: Activity Type Activity Date Activity User E-Sign Co-Sign Detail Recorded Client Recorded Date Recorded By Document 12/30/21 13:53 JF [id number] 12/30/21 13:56 JF Document 01/08/22 14:36 PL [id number] 01/08/22 14:37 PL 12/30/21 01/08/22 13:53 14:36 Wound Center Nurse 2 #1- R LAT FOOT POST OP -Time 13:54 14:32 -Correct Patient Yes Yes -Correct Side, Site, Position Yes Yes -Correct Procedure Yes Yes -Procedure Performed Yes Yes -Type of Procedure Debridement Debridement -Clinical Debridement Subcutaneous Subcutaneous -Tissue Removed Subcutaneous Subcutaneous -Post Debridement (cm) - Length 6.5 6 -Post Debridement (cm) - Width 4.1 3.1 -Post Debridement (cm) - Depth 0.1 0.1 -Total Square (Post) (cm) 26.65 18.6 -Area of Debridement (cm) - Length 6.5 6 -Area of Debridement (cm) - Width 4.1 3.1 -Total Square (Area) (cm) 26.65 18.6 -Tunneling No No -Undermining/Tunneling No No -Circular Undermining No No -Wound/Ulcer Outcome Not Healed Not Healed -Ulcer Cleansing Rinsed/ Rinsed/ Irrigated with Irrigated with Saline Saline -Foul Odor after Cleansing No No -Bioengineered Tissue No No -Bleeding Controlled with Pressure Pressure -Treatment Response Procedure Procedure Tolerated Well Tolerated Well -Offloading Yes -Type of Offloading Surgical Shoe -Debridement - Subq, 1st 20sq cm Yes Yes -Debridement, SubQ, ea addt'l 20sq cm 1 or part thereof Pain Scale: 0-10 Numeric Is Patient Pain Free? Yes Yes - Nurse 3 - General Ulcer D/C NN Start: 12/30/21 13:38 Freq: Status: Active Protocol: Activity Type Activity Date Activity User E-Sign Co-Sign Detail Recorded Client Recorded Date Recorded By Document 12/30/21 14:19 BMF [id number] 12/30/21 14:20 BM Document 01/08/22 14:58 DL [id number] 01/08/22 15:02 DL Edit Result 01/08/22 14:58 DL (1) [id number] 01/08/22 15:42 PL (1) #1- R LAT FOOT POST OP - NPWT Application Charge NPWT </= 50 sq cm => NPWT & Debridement ($) => (nc) 12/30/21 01/08/22 14:19 14:58 Wound Care Nurse 3 #1- R LAT FOOT POST OP -Ulcer Cleansing Soap and Water Soap and Water -Foul Odor after Cleansing No No -Negative Pressure Wound Therapy Continue Continue -Setting (mmHg) 150 150 -Negative Pressure is Continuous Continuous -NPWT Application Charge NPWT & NPWT & Debridement (nc Debridement (nc ) ) Right -Other PTS OWN SINGLE LAYER TUBI APPLIED Treatment Response Procedure Procedure Tolerated Well Tolerated Well Pain Scale: 0-10 Numeric Is Patient Pain Free? Yes Yes WC - Visit Discharge Discharge Condition Stable Stable Ambulatory Status Wheelchair Wheelchair Transportation Private [facility] Facility Type Home Health Home Health Orders Sent Yes Assessment/Plan Assessment/Plan (1) Other hereditary and idiopathic neuropathies: CODE(S): G60.8 - Other hereditary and idiopathic neuropathies (2) Osteomyelitis of right foot: CODE(S): M86.9 - Osteomyelitis, unspecified QUALIFIERS: Osteomyelitis type: unspecified type Qualified Code(s): M86.9 - Osteomyelitis, unspecified (3) Cellulitis of right foot: CODE(S): L03.115 - Cellulitis of right lower limb (4) Type 2 diabetes mellitus with diabetic polyneuropathy: CODE(S): E11.42 - Type 2 diabetes mellitus with diabetic polyneuropathy (5) Ulcer of right foot with necrosis of muscle: CODE(S): L97.513 - Non-pressure chronic ulcer of other part of right foot with necrosis of muscle (6) Malnutrition: CODE(S): E46 - Unspecified protein-calorie malnutrition PLAN: I reviewed and discussed his case today. Debridement was performed today as noted in the clinical panel to the ulcer site. The following work up and care recommendations were made: We discussed the etiology of neuropathy and his current clinical complaints. To continue gabapentin. I also recommend he proceed forward with nerve food prescription supplements (Metanx) and samples were provided today. Anticipated benefits indications and use were discussed again today. Dressing: Wound VAC continuous 150 mmHg. Wash: Antibacterial soap and water with each wound VAC change Tissue growth optimization: I recommend application of advanced wound healing product such as Epicord or epi fix. The indications benefits anticipated management and healing expectations were reviewed. This is medically necessary for limb salvage. Prior authorization was tried and he was not approved. This will be considered again once his A1c is decreased to 8% or lower. Offload: To maintain a nonweightbearing status to right lower extremity. He has a surgical shoe and will heel touch for transfers only. Vascular: Recent noninvasive vascular studies were obtained he has good waveforms and ABIs. He does have a digital brachial index of 0.63 on the right which corresponds to small vessel disease however adequate perfusion to this site is possible. Edema: Tubigrip. Elevation. Reduce salt in diet Infection: Clearance surgical fragment cx with MSSA, MSSES, strep x2. To continue po flagyl and 6 weeks ceftriaxone under the management of infectious disease with stop date 12/11. It is noted he saw infectious disease specialist today and will proceed with completing the antibiotics. A C. difficile treatment per infectious disease specialist. This was completed. To reach out to ID office if this returns. Pain: Controlled due to neuropathic status Host factors: I recommend nutritional supplementation optimize healing. It is noted he has uncontrolled glucose levels and I recommend follow-up with his primary care physician. This is imperative for wound healing and limb salvage. He is currently under the management of a project asst and is taking Soren nutritional supplementation also. I answered all the patient's questions. To return to the wound healing center in 1 week or call sooner if the patient has any questions or concerns. Note: [employer] speech recognition magnetic resonance technologist software was used to create portions of this document. Sound-alike and misspelled words, as well as other magnetic resonance technologist errors may be contained in the documentation.
[2022-01-13 13:19] VITALS: BP 125/82; PULSE 102; RESP 18; TEMP 36.3; BMI 23.8
--- NOTE | 2022-01-13 14:24 | PN.PCM_ITS ---
History of Present Illness Date of Service: 01/13/22 Chief Complaint: right foot ulcer and infection follow up History of Wound: This 41-year-old male with uncontrolled diabetes is here for hospital follow-up now that he has an open amputation including a fifth ray resection of the right foot for treatment of necrotizing fasciitis and bone infection. His surgery was performed on 10-30-21. He is completing a course of IV antibiotics under the management of infectious disease. He also has a wound VAC to the right foot. His last hemoglobin A1c level was 11.1%. He is doing well with his updated wound VAC. He was prescribed nerve nutritional food prescription supplement, metanx, however did not start the medication yet. He did also talk to his primary care physician about this concern and was started on gabapentin. He got his updated hemoglobin A1c. Progress of Wound: Improving Objective Data Objective Data Vital Signs: Vital Signs Temp Pulse Resp BP 97.3 F L 102 H 18 125/82 H 01/13/22 13:19 01/13/22 13:19 01/13/22 13:19 01/13/22 13:19 Oxygen Delivery Method Room Air Weight: 77.564 kg Body Mass Index (BMI) 23.8 Physical Exam Extremity Extremity Narrative: No calf tenderness Edema right foot and leg significantly reduced compared to yesterday Compartments remain soft and there is no skin tenting 2/4 PT and DP pulses right Open fifth ray resection without bogginess or fluctuance No pain on palpation to first metatarsophalangeal joint or hallux or midfoot No pain, laxity or crepitus with manipulation of the midfoot, first metatarsophalangeal joint or hallux interphalangeal joint No pain on palpation to the sesamoid apparatus right foot Skin Skin Narrative: Open ray resection right foot with no purulence, necrosis, odor. Erythema has completely resolved. no exposed tendon or bone noted today. There is no purulence on expression of the adjacent tissue either. Neuro Neuro Narrative: lack of normal epicritic sensation via light touch is consistent with neuropathy status Debridement Note Debridement Note Wound debrided: right foot Wound Grade/Stage: 2 Type of Debridement: Excisional debridement Anesthesia Used: 4% Lidocaine Solution Depth: in the subcutaneous layer Percentage of wound debrided: 100 Instrument Used: #15 blade Tissue Removed: fibrous, devitalized subcutaneous, biofilm, slough Severity: Fat Layer Exposed Amount of bleeding with debridement: Mild Bleeding Controlled with: Pressure Patient tolerated procedure: Patient tolerated procedure well Post-Debridement Measurements and Additional Note: Post-Debridement Measurements/Treatment WC - Nurse 1 - General Ulcer Assessment Start: 12/30/21 13:38 Freq: Status: Active Protocol: DAVID Activity Type Activity Date Activity User E-Sign Co-Sign Detail Recorded Client Recorded Date Recorded By Document 12/30/21 13:38 BM [id number] 12/30/21 13:45 BMF Document 01/08/22 14:16 DL [id number] 01/08/22 14:23 DL Document 01/13/22 13:19 RB [id number] 01/13/22 13:27 RB 12/30/21 01/08/22 01/13/22 13:38 14:16 13:19 WC - Today's Visit Information Type of service Follow-up Visit Follow-up Visit Follow-up Visit (Physician/MEDICAL PATHOLOGY TEACHER (Physician/MEDICAL PATHOLOGY TEACHER (Physician/MEDICAL PATHOLOGY TEACHER ) ) ) Arrival Mode Wheelchair Wheelchair Ambulatory, Walker Transfer Assistance Other None None Transfer Assist (Other) STAND BY Patient Identification Verified (Name & Yes Yes Yes ) Patient Requires Transmission-Based No No No Precautions Finger Stick Blood Sugar(mg/dl) (if 167 113 98 indicated): Blood Sugar Stated by Stated by Stated by Patient Patient Patient Height and Weight Body Mass Index (BMI) 23.8 23.8 23.8 BMI Classification Normal Normal Normal Vital Signs Temperature (97.8 F-99.1 F) 98.2 F 98.5 F 97.3 F L Temperature Source Temporal Temporal Temporal Pulse Rate (60-100) 105 H 110 H 102 H Pulse Location Monitor Monitor Monitor Respiratory Rate (12-18) 16 20 H 18 Respiratory rate source Observation Observation Oxygen Delivery Method Room Air Blood Pressure (90/60-120/80) 158/118 H 124/85 H 125/82 H Blood Pressure Mean (mm Hg) 131 98 96 Source Monitor Monitor Monitor Position Sitting Sitting Blood Pressure Location Left Arm Left Arm Comment PT NERVOUS History Since Last Visit- (Skip if this is Patient's initial visit) Have you changed medications since your No No No last visit? Any new allergies or adverse reactions No No No Had a fall/change in ADL's that may No No No increase risk of falls Signs or symptoms of abuse and/or No No No neglect since last visit Have you been in the hospital since your No No No last visit? Has dressing in place as prescribed Yes Yes Yes Has compression in place as prescribed N/A N/A Yes Has offloadiing in place as prescribed Yes Yes No Experienced any changes in pain level or No No No management Left Footwear Regular Shoe Right Footwear Surgical Shoe Surgical Shoe with pressure with pressure relief insole relief insole Pain Scale: 0-10 Numeric Is Patient Pain Free? Yes Yes Yes WC - Nurse 1 - General Ulcer Measurement Start: 12/30/21 13:38 Freq: Status: Active Protocol: Activity Type Activity Date Activity User E-Sign Co-Sign Detail Recorded Client Recorded Date Recorded By Document 12/30/21 13:38 [facility] [id number] 12/30/21 13:45 [facility] Document 01/08/22 14:16 DL [id number] 01/08/22 14:23 DL Document 01/13/22 13:19 RB [id number] 01/13/22 13:27 RB 12/30/21 01/08/22 01/13/22 13:38 14:16 13:19 Wound Center Nurse 1 #1- R LAT FOOT POST OP -Combined with other wound No No -Current Size (cm) - Length 6.5 6 5.7 -Current Size (cm) - Width 4 3.1 3.4 -Current Size (cm) - Depth 0.1 0.1 0.1 -Total Square Cm 26.0 18.6 19.38 -Date of Last Picture (Recall this 12/30/21 01/13/22 field) -Photo Taken Yes No Yes -Epithelialization Small 1-33% Small 1-33% -Tunneling No No -Undermining/Tunneling No No -Circular Undermining No No -Exudate Amt Medium Medium Medium -Exudate Type Serosanguineous Serosanguineous Sanguineous -Wound Margin Distinct, Distinct, Distinct, Outline Outline Outline Attached Attached Attached -Granulation Amt Large (67-100%) Large (67-100%) Large (67-100%) -Granulation Quality Red Red Red -Slough/Fibrin Yes No -Necrosis Amt Small (1-33%) None Present (0 None Present (0 %) %) -Necrotic Tissue Type Adherent Slough -Structure Exposed N/A -Texture (Tamika-wound Skin Appearance) Assessed, Scarring Assessed, Scarring Scarring -Moisture (Tamika-wound Skin Appearance) Assessed, Maceration Assessed,Not Maceration Assessed -Color (Tamika-wound Skin Appearance) Assessed,Palor No Abnormality Assessed,Palor -Temperature (Tamika-wound Skin No Abnormality No Abnormality No Abnormality Appearance) (Pt Warm) (Pt Warm) (Pt Warm) -Tenderness on Palpation (Tamika-wound No No No Skin Appearance) -Ulcer Cleansing Soap and Water Soap and Water Soap and Water -Foul Odor after Cleansing No No No -Anesthetic Used 4% Lidocaine 4% Lidocaine 4% Lidocaine Solution Solution Solution Right Calf (cm) 35 Right Ankle (cm) 25.2 WC - Nurse 2 - General Ulcer CM Notes Start: 12/30/21 13:38 Freq: Status: Active Protocol: Activity Type Activity Date Activity User E-Sign Co-Sign Detail Recorded Client Recorded Date Recorded By Document 12/30/21 13:53 [id number] 12/30/21 13:56 Document 01/08/22 14:36 PL [id number] 01/08/22 14:37 PL Document 01/13/22 13:33 [id number] 01/13/22 13:35 12/30/21 01/08/22 01/13/22 13:53 14:36 13:33 Wound Center Nurse 2 #1- R LAT FOOT POST OP -Time 13:54 14:32 13:33 -Correct Patient Yes Yes Yes -Correct Side, Site, Position Yes Yes Yes -Correct Procedure Yes Yes Yes -Procedure Performed Yes Yes Yes -Type of Procedure Debridement Debridement Debridement -Clinical Debridement Subcutaneous Subcutaneous Subcutaneous -Tissue Removed Subcutaneous Subcutaneous Subcutaneous -Post Debridement (cm) - Length 6.5 6 5.8 -Post Debridement (cm) - Width 4.1 3.1 3.5 -Post Debridement (cm) - Depth 0.1 0.1 0.1 -Total Square (Post) (cm) 26.65 18.6 20.30 -Area of Debridement (cm) - Length 6.5 6 5.8 -Area of Debridement (cm) - Width 4.1 3.1 3.5 -Total Square (Area) (cm) 26.65 18.6 20.30 -Tunneling No No No -Undermining/Tunneling No No No -Circular Undermining No No No -Wound/Ulcer Outcome Not Healed Not Healed Not Healed -Ulcer Cleansing Rinsed/ Rinsed/ Rinsed/ Irrigated with Irrigated with Irrigated with Saline Saline Saline -Foul Odor after Cleansing No No No -Bioengineered Tissue No No No -Bleeding Controlled with Pressure Pressure Pressure -Treatment Response Procedure Procedure Procedure Tolerated Well Tolerated Well Tolerated Well -Offloading Yes Yes -Type of Offloading Surgical Shoe Surgical Shoe -Assistive Device(s) Walker -Debridement - Subq, 1st 20sq cm Yes Yes Yes -Debridement, SubQ, ea addt'l 20sq cm 1 1 or part thereof Pain Scale: 0-10 Numeric Is Patient Pain Free? Yes Yes Yes WC - Nurse 3 - General Ulcer D/C NN Start: 12/30/21 13:38 Freq: Status: Active Protocol: Activity Type Activity Date Activity User E-Sign Co-Sign Detail Recorded Client Recorded Date Recorded By Document 12/30/21 14:19 BMF [id number] 12/30/21 14:20 BMF Document 01/08/22 14:58 DL [id number] 01/08/22 15:02 DL Edit Result 01/08/22 14:58 DL (1) [id number] 01/08/22 15:42 PL Document 01/13/22 14:03 BMF [id number] 01/13/22 14:05 BMF (1) #1- R LAT FOOT POST OP - NPWT Application Charge NPWT </= 50 sq cm => NPWT & Debridement ($) => (nc) 12/30/21 01/08/22 01/13/22 14:19 14:58 14:03 Wound Care Nurse 3 #1- R LAT FOOT POST OP -Ulcer Cleansing Soap and Water Soap and Water Wound Cleanser -Foul Odor after Cleansing No No -Negative Pressure Wound Therapy Continue Continue Continue -Setting (mmHg) 150 150 150 -Negative Pressure is Continuous Continuous Continuous -NPWT Application Charge NPWT & NPWT & NPWT & Debridement (nc Debridement (nc Debridement (nc ) ) ) Tamika-Wound Care Barrier Right -Tubular Bandage Single Layer -Size of Tubigrip Used Size E -Size E ($) 1 -Other PTS OWN SINGLE LAYER TUBI APPLIED Treatment Response Procedure Procedure Procedure Tolerated Well Tolerated Well Tolerated Well Pain Scale: 0-10 Numeric Is Patient Pain Free? Yes Yes Yes WC - Visit Discharge Discharge Condition Stable Stable Stable Ambulatory Status Wheelchair Wheelchair Ambulatory, Wheelchair Transportation Private Auto Private Auto Medication Reconcilliation completed & No provided to patient/care provider Clinical Summary of Care Provided Yes Facility Type Home Health Home Health Orders Sent Yes Assessment/Plan Assessment/Plan (1) Other hereditary and idiopathic neuropathies: CODE(S): G60.8 - Other hereditary and idiopathic neuropathies (2) Osteomyelitis of right foot: CODE(S): M86.9 - Osteomyelitis, unspecified QUALIFIERS: Osteomyelitis type: unspecified type Qualified Code(s): M86.9 - Osteomyelitis, unspecified (3) Cellulitis of right foot: CODE(S): L03.115 - Cellulitis of right lower limb (4) Type 2 diabetes mellitus with diabetic polyneuropathy: CODE(S): E11.42 - Type 2 diabetes mellitus with diabetic polyneuropathy (5) Ulcer of right foot with necrosis of muscle: CODE(S): L97.513 - Non-pressure chronic ulcer of other part of right foot with necrosis of muscle (6) Malnutrition: CODE(S): E46 - Unspecified protein-calorie malnutrition PLAN: I reviewed and discussed his case today. Debridement was performed today as not ed in the clinical panel to the ulcer site. The following work up and care recommendations were made: We discussed the etiology of neuropathy and his current clinical complaints. To continue gabapentin. I also recommend he proceed forward with nerve food prescription supplements (Metanx) and samples were provided today. Anticipated benefits indications and use were discussed again today. Dressing: Wound VAC continuous 150 mmHg. Wash: Antibacterial soap and water with each wound VAC change Tissue growth optimization: I recommend application of advanced wound healing product such as Epicord or epi fix. The indications benefits anticipated management and healing expectations were reviewed. This is medically necessary for limb salvage. Prior authorization will be initiated again. His hemoglobin A1c was checked and is significantly improved; 5.5%. Offloading: He has a surgical shoe and will heel touch for transfers only. Vascular: Recent noninvasive vascular studies were obtained he has good waveforms and ABIs. He does have a digital brachial index of 0.63 on the right which corresponds to small vessel disease however adequate perfusion to this site is possible. Edema: Tubigrip. Elevation. Reduce salt in diet Infection: Clearance surgical fragment cx with MSSA, MSSES, strep x2. To continue po flagyl and 6 weeks ceftriaxone under the management of infectious disease with stop date 12/11. It is noted he saw infectious disease specialist today and will proceed with completing the antibiotics. A C. difficile treatment per infectious disease specialist. This was completed. To reach out to ID office if this returns. Pain: Controlled due to neuropathic status Host factors: I recommend nutritional supplementation optimize healing. It is noted he has uncontrolled glucose levels and I recommend follow-up with his primary care physician. This is imperative for wound healing and limb salvage. 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 I answered all the patient's questions. To return to the wound healing center in 1 week or call sooner if the patient has any questions or concerns. Note: [employer] speech recognition employment specialist/program manager software was used to create portions of this document. Sound-alike and misspelled words, as well as other employment specialist/program manager errors may be contained in the documentation.
[2022-01-20 15:12] VITALS: BP 108/79; PULSE 118; RESP 18; TEMP 36.4; BMI 23.8
--- NOTE | 2022-01-20 15:46 | PN.PCM_ITS ---
History of Present Illness Date of Service: 01/20/22 Chief Complaint: right foot ulcer and infection follow up History of Wound: This 41-year-old male with uncontrolled diabetes is here for hospital follow-up now that he has an open amputation including a fifth ray resection of the right foot for treatment of necrotizing fasciitis and bone infection. His surgery was performed on 10-30-21. He is completing a course of IV antibiotics under the management of infectious disease. He also has a wound VAC to the right foot. His last hemoglobin A1c level was 11.1% now decreased to 5.5%. He is doing well with his updated wound VAC. He was prescribed nerve nutritional food prescription supplement, metanx recently. He did also talk to his primary care physician about this concern and was started on gabapentin. He also has a new complaint today of right foot skin in which he was applying Eu cerin once a week. He asked for recommendations. He denies redness itching or other new wound formation. He also has help safely trimming his toenails which she cannot perform on his own without causing wounds and bleeding. He has diabetes with neuropathy including rest paresthesias and fluctuating edema. He also has history of right foot amputation. Progress of Wound: Stable right foot wound Objective Data Objective Data Vital Signs: Vital Signs Temp Pulse Resp BP 97.6 F L 118 H 18 108/79 01/20/22 15:12 01/20/22 15:12 01/20/22 15:12 01/20/22 15:12 Oxygen Delivery Method Room Air Weight: 77.564 kg Body Mass Index (BMI) 23.8 Physical Exam Extremity Extremity Narrative: No calf tenderness Edema right foot and leg significantly reduced compared to yesterday Compartments remain soft and there is no skin tenting 2/4 PT and DP pulses right Open fifth ray resection without bogginess or fluctuance No pain on palpation to first metatarsophalangeal joint or hallux or midfoot No pain, laxity or crepitus with manipulation of the midfoot, first metatarsophalangeal joint or hallux interphalangeal joint No pain on palpation to the sesamoid apparatus right foot Skin Skin Narrative: Open ray resection right foot with no purulence, necrosis, odor. Erythema has completely resolved. no exposed tendon or bone noted today. There is no purulence on expression of the adjacent tissue either. Left plantar foot skin peeling more than plantar right foot skin peeling consistent with xerosis; no maceration or blisters. Toenails are elongated with mild thickening and subungual debris and discoloration bilateral hallux, 2, 3, 4 and left fifth toe Neuro Neuro Narrative: lack of normal epicritic sensation via light touch is consistent with neuropathy status Debridement Note Debridement Note Wound debrided: right foot Wound Grade/Stage: 2 Type of Debridement: Excisional debridement Anesthesia Used: 4% Lidocaine Solution Depth: in the subcutaneous layer Percentage of wound debrided: 100 Instrument Used: #15 blade Tissue Removed: fibrous, devitalized subcutaneous, biofilm, slough Severity: Fat Layer Exposed Amount of bleeding with debridement: Mild Bleeding Controlled with: Pressure Patient tolerated procedure: Patient tolerated procedure well Post-Debridement Measurements and Additional Note: Post-Debridement Measurements/Treatment - Nurse 1 - General Ulcer Assessment Start: 12/30/21 13:38 Freq: Status: Active Protocol: DAVID Activity Type Activity Date Activity User E-Sign Co-Sign Detail Recorded Client Recorded Date Recorded By Document 12/30/21 13:38 [facility] [id number] 12/30/21 13:45 [facility] Document 01/08/22 14:16 DL [id number] 01/08/22 14:23 DL Document 01/13/22 13:19 RB [id number] 01/13/22 13:27 RB Document 01/20/22 15:12 DL [id number] 01/20/22 15:21 DL 12/30/21 01/08/22 01/13/22 13:38 14:16 13:19 - Today's Visit Information Type of service Follow-up Visit Follow-up Visit Follow-up Visit (Physician/PRODUCTION EXPERT (Physician/PRODUCTION EXPERT (Physician/PRODUCTION EXPERT ) ) ) Arrival Mode Wheelchair Wheelchair Ambulatory, Walker Transfer Assistance Other None None Transfer Assist (Other) STAND BY Patient Identification Verified (Name & Yes Yes Yes ) Patient Requires Transmission-Based No No No Precautions Finger Stick Blood Sugar(mg/dl) (if 167 113 98 indicated): Blood Sugar Stated by Stated by Stated by Patient Patient Patient Height and Weight Body Mass Index (BMI) 23.8 23.8 23.8 BMI Classification Normal Normal Normal Vital Signs Temperature (97.8 F-99.1 F) 98.2 F 98.5 F 97.3 F L Temperature Source Temporal Temporal Temporal Pulse Rate (60-100) 105 H 110 H 102 H Pulse Location Monitor Monitor Monitor Respiratory Rate (12-18) 16 20 H 18 Respiratory rate source Observation Observation Oxygen Delivery Method Room Air Blood Pressure (90/60-120/80) 158/118 H 124/85 H 125/82 H Blood Pressure Mean (mm Hg) 131 98 96 Source Monitor Monitor Monitor Position Sitting Sitting Blood Pressure Location Left Arm Left Arm Comment PT NERVOUS History Since Last Visit- (Skip if this is Patient's initial visit) Have you changed medications since your No No No last visit? Any new allergies or adverse reactions No No No Had a fall/change in ADL's that may No No No increase risk of falls Signs or symptoms of abuse and/or No No No neglect since last visit Have you been in the hospital since your No No No last visit? Has dressing in place as prescribed Yes Yes Yes Has compression in place as prescribed N/A N/A Yes Has offloadiing in place as prescribed Yes Yes No Experienced any changes in pain level or No No No management Left Footwear Regular Shoe Right Footwear Surgical Shoe Surgical Shoe with pressure with pressure relief insole relief insole Pain Scale: 0-10 Numeric Is Patient Pain Free? Yes Yes Yes 01/20/22 15:12 WC - Today's Visit Information Type of service Follow-up Visit (Physician/PRODUCTION EXPERT ) Arrival Mode Ambulatory, Walker Transfer Assistance None Transfer Assist (Other) Patient Identification Verified (Name & Yes ) Patient Requires Transmission-Based No Precautions Finger Stick Blood Sugar(mg/dl) (if PT UNSURE indicated): Blood Sugar Stated by Patient Height and Weight Body Mass Index (BMI) 23.8 BMI Classification Normal Vital Signs Temperature (97.8 F-99.1 F) 97.6 F L Temperature Source Temporal Pulse Rate (60-100) 118 H Pulse Location Monitor Respiratory Rate (12-18) 18 Respiratory rate source Observation Oxygen Delivery Method Blood Pressure (90/60-120/80) 108/79 Blood Pressure Mean (mm Hg) 88 Source Monitor Position Blood Pressure Location Comment History Since Last Visit- (Skip if this is Patient's initial visit) Have you changed medications since your No last visit? Any new allergies or adverse reactions No Had a fall/change in ADL's that may No increase risk of falls Signs or symptoms of abuse and/or No neglect since last visit Have you been in the hospital since your No last visit? Has dressing in place as prescribed Yes Has compression in place as prescribed Yes Has offloadiing in place as prescribed Yes Experienced any changes in pain level or No management Left Footwear Right Footwear Surgical Shoe with pressure relief insole Pain Scale: 0-10 Numeric Is Patient Pain Free? Yes WC - Nurse 1 - General Ulcer Measurement Start: 12/30/21 13:38 Freq: Status: Active Protocol: Activity Type Activity Date Activity User E-Sign Co-Sign Detail Recorded Client Recorded Date Recorded By Document 12/30/21 13:38 BM [id number] 12/30/21 13:45 BMF Document 01/08/22 14:16 DL [id number] 01/08/22 14:23 DL Document 01/13/22 13:19 RB [id number] 01/13/22 13:27 RB Document 01/20/22 15:12 DL [id number] 01/20/22 15:21 DL 12/30/21 01/08/22 01/13/22 13:38 14:16 13:19 Wound Center Nurse 1 #1- R LAT FOOT POST OP -Combined with other wound No No -Current Size (cm) - Length 6.5 6 5.7 -Current Size (cm) - Width 4 3.1 3.4 -Current Size (cm) - Depth 0.1 0.1 0.1 -Total Square Cm 26.0 18.6 19.38 -Date of Last Picture (Recall this 12/30/21 01/13/22 field) -Photo Taken Yes No Yes -Epithelialization Small 1-33% Small 1-33% -Tunneling No No -Undermining/Tunneling No No -Circular Undermining No No -Exudate Amt Medium Medium Medium -Exudate Type Serosanguineous Serosanguineous Sanguineous -Wound Margin Distinct, Distinct, Distinct, Outline Outline Outline Attached Attached Attached -Granulation Amt Large (67-100%) Large (67-100%) Large (67-100%) -Granulation Quality Red Red Red -Slough/Fibrin Yes No -Necrosis Amt Small (1-33%) None Present (0 None Present (0 %) %) -Necrotic Tissue Type Adherent Slough -Structure Exposed N/A -Texture (Tamika-wound Skin Appearance) Assessed, Scarring Assessed, Scarring Scarring -Moisture (Tamika-wound Skin Appearance) Assessed, Maceration Assessed,Not Maceration Assessed -Color (Tamika-wound Skin Appearance) Assessed,Palor No Abnormality Assessed,Palor -Temperature (Tamika-wound Skin No Abnormality No Abnormality No Abnormality Appearance) (Pt Warm) (Pt Warm) (Pt Warm) -Tenderness on Palpation (Tamika-wound No No No Skin Appearance) -Ulcer Cleansing Soap and Water Soap and Water Soap and Water -Foul Odor after Cleansing No No No -Anesthetic Used 4% Lidocaine 4% Lidocaine 4% Lidocaine Solution Solution Solution Right Calf (cm) 35 Right Ankle (cm) 25.2 01/20/22 15:12 Wound Center Nurse 1 #1- R LAT FOOT POST OP -Combined with other wound -Current Size (cm) - Length 5.6 -Current Size (cm) - Width 3.5 -Current Size (cm) - Depth 0.1 -Total Square Cm 19.60 -Date of Last Picture (Recall this field) -Photo Taken No -Epithelialization -Tunneling -Undermining/Tunneling -Circular Undermining -Exudate Amt Medium -Exudate Type Serosanguineous -Wound Margin Distinct, Outline Attached -Granulation Amt Large (67-100%) -Granulation Quality Red -Slough/Fibrin Yes -Necrosis Amt Small (1-33%) -Necrotic Tissue Type -Structure Exposed N/A -Texture (Tamika-wound Skin Appearance) Scarring -Moisture (Tamika-wound Skin Appearance) Maceration -Color (Tamika-wound Skin Appearance) No Abnormality -Temperature (Tamika-wound Skin No Abnormality Appearance) (Pt Warm) -Tenderness on Palpation (Tamika-wound No Skin Appearance) -Ulcer Cleansing Soap and Water -Foul Odor after Cleansing No -Anesthetic Used 4% Lidocaine Solution Right Calf (cm) 35.4 Right Ankle (cm) 26 WC - Nurse 2 - General Ulcer CM Notes Start: 12/30/21 13:38 Freq: Status: Active Protocol: Activity Type Activity Date Activity User E-Sign Co-Sign Detail Recorded Client Recorded Date Recorded By Document 12/30/21 13:53 [facility] [id number] 12/30/21 13:56 Document 01/08/22 14:36 PL [id number] 01/08/22 14:37 PL Document 01/13/22 13:33 JF [id number] 01/13/22 13:35 Document 01/20/22 15:36 [id number] 01/20/22 15:38 12/30/21 01/08/22 01/13/22 13:53 14:36 13:33 Wound Center Nurse 2 #1- R LAT FOOT POST OP -Time 13:54 14:32 13:33 -Correct Patient Yes Yes Yes -Correct Side, Site, Position Yes Yes Yes -Correct Procedure Yes Yes Yes -Procedure Performed Yes Yes Yes -Type of Procedure Debridement Debridement Debridement -Clinical Debridement Subcutaneous Subcutaneous Subcutaneous -Tissue Removed Subcutaneous Subcutaneous Subcutaneous -Post Debridement (cm) - Length 6.5 6 5.8 -Post Debridement (cm) - Width 4.1 3.1 3.5 -Post Debridement (cm) - Depth 0.1 0.1 0.1 -Total Square (Post) (cm) 26.65 18.6 20.30 -Area of Debridement (cm) - Length 6.5 6 5.8 -Area of Debridement (cm) - Width 4.1 3.1 3.5 -Total Square (Area) (cm) 26.65 18.6 20.30 -Tunneling No No No -Undermining/Tunneling No No No -Circular Undermining No No No -Wound/Ulcer Outcome Not Healed Not Healed Not Healed -Ulcer Cleansing Rinsed/ Rinsed/ Rinsed/ Irrigated with Irrigated with Irrigated with Saline Saline Saline -Foul Odor after Cleansing No No No -Bioengineered Tissue No No No -Bleeding Controlled with Pressure Pressure Pressure -Treatment Response Procedure Procedure Procedure Tolerated Well Tolerated Well Tolerated Well -Offloading Yes Yes -Type of Offloading Surgical Shoe Surgical Shoe -Assistive Device(s) Walker -Debridement - Subq, 1st 20sq cm Yes Yes Yes -Debridement, SubQ, ea addt'l 20sq cm 1 1 or part thereof Pain Scale: 0-10 Numeric Is Patient Pain Free? Yes Yes Yes 01/20/22 15:36 Wound Center Nurse 2 #1- R LAT FOOT POST OP -Time 15:37 -Correct Patient Yes -Correct Side, Site, Position Yes -Correct Procedure Yes -Procedure Performed Yes -Type of Procedure Debridement -Clinical Debridement Subcutaneous -Tissue Removed Subcutaneous -Post Debridement (cm) - Length 5.6 -Post Debridement (cm) - Width 3.6 -Post Debridement (cm) - Depth 0.1 -Total Square (Post) (cm) 20.16 -Area of Debridement (cm) - Length 5.6 -Area of Debridement (cm) - Width 3.6 -Total Square (Area) (cm) 20.16 -Tunneling No -Undermining/Tunneling No -Circular Undermining No -Wound/Ulcer Outcome Not Healed -Ulcer Cleansing Rinsed/ Irrigated with Saline -Foul Odor after Cleansing No -Bioengineered Tissue No -Bleeding Controlled with Pressure -Treatment Response Procedure Tolerated Well -Offloading Yes -Type of Offloading Surgical Shoe -Assistive Device(s) -Debridement - Subq, 1st 20sq cm Yes -Debridement, SubQ, ea addt'l 20sq cm 1 or part thereof Pain Scale: 0-10 Numeric Is Patient Pain Free? Yes WC - Nurse 3 - General Ulcer D/C NN Start: 12/30/21 13:38 Freq: Status: Active Protocol: Activity Type Activity Date Activity User E-Sign Co-Sign Detail Recorded Client Recorded Date Recorded By Document 12/30/21 14:19 [facility] [id number] 12/30/21 14:20 BM Document 01/08/22 14:58 DL [id number] 01/08/22 15:02 DL Edit Result 01/08/22 14:58 DL (1) [id number] 01/08/22 15:42 PL Document 01/13/22 14:03 [facility] [id number] 01/13/22 14:05 BMF (1) #1- R LAT FOOT POST OP - NPWT Application Charge NPWT </= 50 sq cm => NPWT & Debridement ($) => (nc) 12/30/21 01/08/22 01/13/22 14:19 14:58 14:03 Wound Care Nurse 3 #1- R LAT FOOT POST OP -Ulcer Cleansing Soap and Water Soap and Water Wound Cleanser -Foul Odor after Cleansing No No -Negative Pressure Wound Therapy Continue Continue Continue -Setting (mmHg) 150 150 150 -Negative Pressure is Continuous Continuous Continuous -NPWT Application Charge NPWT & NPWT & NPWT & Debridement (nc Debridement (nc Debridement (nc ) ) ) Tamika-Wound Care Barrier Right -Tubular Bandage Single Layer -Size of Tubigrip Used Size E -Size E ($) 1 -Other PTS OWN SINGLE LAYER TUBI APPLIED Treatment Response Procedure Procedure Procedure Tolerated Well Tolerated Well Tolerated Well Pain Scale: 0-10 Numeric Is Patient Pain Free? Yes Yes Yes WC - Visit Discharge Discharge Condition Stable Stable Stable Ambulatory Status Wheelchair Wheelchair Ambulatory, Wheelchair Transportation Private Auto Private Auto Medication Reconcilliation completed & No provided to patient/care provider Clinical Summary of Care Provided Yes Facility Type Home Health Home Health Orders Sent Yes Assessment/Plan Assessment/Plan (1) Other hereditary and idiopathic neuropathies: CODE(S): G60.8 - Other hereditary and idiopathic neuropathies (2) Osteomyelitis of right foot: CODE(S): M86.9 - Osteomyelitis, unspecified QUALIFIERS: Osteomyelitis type: unspecified type Qualified Code(s): M86.9 - Osteomyelitis, unspecified (3) Cellulitis of right foot: CODE(S): L03.115 - Cellulitis of right lower limb (4) Type 2 diabetes mellitus with diabetic polyneuropathy: CODE(S): E11.42 - Type 2 diabetes mellitus with diabetic polyneuropathy (5) Ulcer of right foot with necrosis of muscle: CODE(S): L97.513 - Non-pressure chronic ulcer of other part of right foot with necrosis of muscle (6) Malnutrition: CODE(S): E46 - Unspecified protein-calorie malnutrition (7) Xerosis cutis: CODE(S): L85.3 - Xerosis cutis (8) Other hereditary and idiopathic neuropathies: CODE(S): G60.8 - Other hereditary and idiopathic neuropathies (9) Tinea unguium: CODE(S): B35.1 - Tinea unguium PLAN: I reviewed and discussed his case today. Debridement was performed today as noted in the clinical panel to the ulcer site. The following work up and care recommendations were made: We discussed the etiology of neuropathy and his current clinical complaints. To continue gabapentin. I also recommend he proceed forward with nerve food prescription supplements (Metanx) and samples were provided today. Anticipated benefits indications and use were discussed again today. Dressing: Wound VAC continuous 150 mmHg. Wash: Antibacterial soap and water with each wound VAC change Tissue growth optimization: I recommend application of advanced wound healing product such as Epicord or epi fix. The indications benefits anticipated management and healing expectations were reviewed. This is medically necessary for limb salvage. Prior authorization will be initiated again. His hemoglobin A1c was checked and is significantly improved; 5.5%. An appeal letter explaining his medical necessity and success of the recommended advancing healing product list resubmitted today. He is at risk for infection recurrence, further limb loss and amputation, and even . Offloading: He has a surgical shoe and will heel touch for transfers only. Vascular: Recent noninvasive vascular studies were obtained he has good waveforms and ABIs. He does have a digital brachial index of 0.63 on the right which corresponds to small vessel disease however adequate perfusion to this site is possible. Edema: Tubigrip. Elevation. Reduce salt in diet Infection: Clearance surgical fragment cx with MSSA, MSSES, strep x2. To continue po flagyl and 6 weeks ceftriaxone under the management of infectious disease with stop date 12/11. It is noted he saw infectious disease specialist today and will proceed with completing the antibiotics. A C. difficile treatment per infectious disease specialist. This was completed. To reach out to ID office if this returns. Pain: Controlled due to neuropathic status Host factors: I recommend nutritional supplementation optimize healing. It is noted he has uncontrolled glucose levels and I recommend follow-up with his primary care physician. This is imperative for wound healing and limb salvage. He is currently under the management of a service porter and is taking Soren nutritional supplementation also. Xerosis management: I recommend application of prescription strength Lac-Hydrin daily. A prescription was sent to [facility] and he was advised on safe and proper use. To avoid webspace application for wound VAC application site use. The etiology of thickened toenails was briefly reviewed including fungus or microtrauma. The nails were debrided with a nail nipper after verbal consent was obtained without incident. The nails were debrided in length and thickness to reduce pressure, potential fungal load, and to prevent wound formation. The patient tolerated this well. The patient elects proceed with palliative care only at this time with the nails and will hold off on further work-up. This is recommended to be performed by medical professional due to his neuropathic, class findings, and prior right foot amputation. To follow-up with the foot and ankle Center if needed in the future for this condition. Location: Bilateral 1, 2, 3, 4 and left fifth. I answered all the patient's questions. To return to the wound healing center in 1 week or call sooner if the patient has any questions or concerns. Note: [employer] speech recognition bi application developer software was used to create portions of this document. Sound-alike and misspelled words, as well as other bi application developer errors may be contained in the documentation. 16 minutes was spent on this encounter. This included face to face and non face to face care including preparing for the visit, reviewing the history, performing the exam, counseling and providing education to the patient, family, or caregiver, ordering medications/test/ procedures if indicated as documented, communicating with other healthcare providers, documenting information in the medical record, interpreting / sharing this information when indicated as documented, and care coordination.
== END 2022-01-23 23:59 | disposition home or self-care (01) ==
LOC: WC 15:00
PROVIDERS: Visit Provider Podiatrist
DX: L03.115 Cellulitis of right lower limb (principal); E11.621 Type 2 diabetes mellitus with foot ulcer; L97.513 Non-pressure chronic ulcer of other part of right foot with necrosis of muscle; E46 Unspecified protein-calorie malnutrition; M86.9 Osteomyelitis, unspecified; E11.42 Type 2 diabetes mellitus with diabetic polyneuropathy; B35.1 Tinea unguium; G60.8 Other hereditary and idiopathic neuropathies
CPT/HCPCS: 97605 ×2; 11042; 11045; 36415; 83036

== ENCOUNTER 2022-02-03 15:56 | Outpatient (RCR) | payer MEDICAID, SELFPAY | END 2022-02-23 23:59 | LOC: DC 15:56 | PROVIDERS: PCP Nurse Practitioner Adult Health; Referring Provider Podiatrist; Visit Provider Podiatrist | DX: E11.9 Type 2 diabetes mellitus without complications (principal) | CPT/HCPCS: 97803 ==

== ENCOUNTER 2022-02-17 14:30 | Outpatient (RCR) | payer MEDICAID, SELFPAY ==
[2022-01-24 00:36] VITALS: BP 108/79; PULSE 118; RESP 18; TEMP 36.4; BMI 23.8
[2022-01-27 15:21] VITALS: BP 118/80; PULSE 116; RESP 18; TEMP 36.6; BMI 23.8
--- NOTE | 2022-01-27 16:01 | PCM.WC.PN ---
History of Present Illness Date of Service: 01/27/22 Chief Complaint: right foot ulcer and infection follow up History of Wound: This 41-year-old male with uncontrolled diabetes is here for hospital follow-up now that he has an open amputation including a fifth ray resection of the right foot for treatment of necrotizing fasciitis and bone infection. His surgery was performed on 10-30-21. He is completing a course of IV antibiotics under the management of infectious disease. He also has a wound VAC to the right foot. His last hemoglobin A1c level was 11.1% now decreased to 5.5%. He is doing well with his updated wound VAC. He was prescribed nerve nutritional food prescription supplement, metanx recently. He did also talk to his primary care physician about this concern and was started on gabapentin. He did not start metanx due to cost. He asked about the epi fix approval appeal status. Progress of Wound: improving Objective Data Objective Data Vital Signs: Vital Signs Temp Pulse Resp BP 98 F 116 H 18 118/80 01/27/22 15:21 01/27/22 15:21 01/27/22 15:21 01/27/22 15:21 Oxygen Delivery Method Room Air Weight: 77.564 kg Body Mass Index (BMI) 23.8 Physical Exam Extremity Extremity Narrative: No calf tenderness Edema right foot and leg significantly reduced compared to yesterday Compartments remain soft and there is no skin tenting 2/4 PT and DP pulses right Open fifth ray resection without bogginess or fluctuance No pain on palpation to first metatarsophalangeal joint or hallux or midfoot No pain, laxity or crepitus with manipulation of the midfoot, first metatarsophalangeal joint or hallux interphalangeal joint No pain on palpation to the sesamoid apparatus right foot Skin Skin Narrative: Open ray resection right foot with no purulence, necrosis, odor. Erythema has completely resolved. no exposed tendon or bone noted today. There is no purulence on expression of the adjacent tissue either. Left plantar foot skin peeling more than plantar right foot skin peeling consistent with xerosis; no maceration or blisters. Neuro Neuro Narrative: lack of normal epicritic sensation via light touch is consistent with neuropathy status Debridement Note Debridement Note Wound debrided: right foot Wound Grade/Stage: 2 Type of Debridement: Excisional debridement Anesthesia Used: 4% Lidocaine Solution Depth: in the subcutaneous layer Percentage of wound debrided: 100 Instrument Used: #15 blade Tissue Removed: fibrous, devitalized subcutaneous, biofilm, slough Severity: Fat Layer Exposed Amount of bleeding with debridement: Mild Bleeding Controlled with: Pressure Patient tolerated procedure: Patient tolerated procedure well Post-Debridement Measurements and Additional Note: Post-Debridement Measurements/Treatment - Nurse 1 - General Ulcer Assessment Start: 01/27/22 15:21 Freq: Status: Active Protocol: DAVID Activity Type Activity Date Activity User E-Sign Co-Sign Detail Recorded Client Recorded Date Recorded By Document 01/27/22 15:21 [facility] [id number] 01/27/22 15:28 [facility] 01/27/22 15:21 WC - Today's Visit Information Type of service Follow-up Visit (Physician/CLAIMS COLLECTOR ) Arrival Mode Ambulatory, Walker Transfer Assistance None Patient Identification Verified (Name & Yes ) Patient Requires Transmission-Based No Precautions Height and Weight Body Mass Index (BMI) 23.8 BMI Classification Normal Vital Signs Temperature (97.8 F-99.1 F) 98 F Temperature Source Temporal Pulse Rate (60-100) 116 H Pulse Location Monitor Respiratory Rate (12-18) 18 Respiratory rate source Observation Oxygen Delivery Method Room Air Blood Pressure (90/60-120/80) 118/80 Blood Pressure Mean (mm Hg) 92 Source Monitor Position Sitting Blood Pressure Location Right Arm History Since Last Visit- (Skip if this is Patient's initial visit) Have you changed medications since your No last visit? Any new allergies or adverse reactions No Had a fall/change in ADL's that may No increase risk of falls Signs or symptoms of abuse and/or No neglect since last visit Have you been in the hospital since your No last visit? Has dressing in place as prescribed Yes Has compression in place as prescribed Yes Has offloadiing in place as prescribed Yes Experienced any changes in pain level or No management Left Footwear Regular Shoe Right Footwear Surgical Shoe with pressure relief insole Pain Scale: 0-10 Numeric Is Patient Pain Free? Yes [facility] Nurse 1 - General Ulcer Measurement Start: 01/27/22 15:21 Freq: Status: Active Protocol: Activity Type Activity Date Activity User E-Sign Co-Sign Detail Recorded Client Recorded Date Recorded By Document 01/27/22 15:21 [facility] [id number] 01/27/22 15:28 [facility] 01/27/22 15:21 Wound Center Nurse 1 #1- R LAT FOOT POST OP -Combined with other wound No -Current Size (cm) - Length 5.6 -Current Size (cm) - Width 2.6 -Current Size (cm) - Depth 0.1 -Total Square Cm 14.56 -Epithelialization Small 1-33% -Tunneling No -Undermining/Tunneling No -Circular Undermining No -Exudate Amt Medium -Exudate Type Serosanguineous -Wound Margin Distinct, Outline Attached -Granulation Amt Large (67-100%) -Granulation Quality Red -Slough/Fibrin No -Necrosis Amt None Present (0 %) -Texture (Tamika-wound Skin Appearance) Assessed, Scarring -Moisture (Tamika-wound Skin Appearance) Assessed -Color (Tamika-wound Skin Appearance) Assessed -Temperature (Tamika-wound Skin No Abnormality Appearance) (Pt Warm) -Tenderness on Palpation (Tamika-wound No Skin Appearance) -Ulcer Cleansing Soap and Water -Foul Odor after Cleansing No -Anesthetic Used 5% Lidocaine Gel Lower Limb Edema Present Yes Right Calf (cm) 34.7 Right Ankle (cm) 25.5 WC - Nurse 2 - General Ulcer CM Notes Start: 01/27/22 15:21 Freq: Status: Active Protocol: Activity Type Activity Date Activity User E-Sign Co-Sign Detail Recorded Client Recorded Date Recorded By Document 01/27/22 15:37 [id number] 01/27/22 15:43 01/27/22 15:37 Wound Center Nurse 2 #1- R LAT FOOT POST OP -Time 15:38 -Correct Patient Yes -Correct Side, Site, Position Yes -Correct Procedure Yes -Procedure Performed Yes -Type of Procedure Debridement -Clinical Debridement Subcutaneous -Tissue Removed Subcutaneous -Post Debridement (cm) - Length 5.6 -Post Debridement (cm) - Width 2.7 -Post Debridement (cm) - Depth 0.1 -Total Square (Post) (cm) 15.12 -Area of Debridement (cm) - Length 5.6 -Area of Debridement (cm) - Width 2.7 -Total Square (Area) (cm) 15.12 -Tunneling No -Undermining/Tunneling No -Circular Undermining No -Wound/Ulcer Outcome Not Healed -Ulcer Cleansing Rinsed/ Irrigated with Saline -Foul Odor after Cleansing No -Bioengineered Tissue No -Bleeding Controlled with Pressure -Treatment Response Procedure Tolerated Well -Offloading Yes -Type of Offloading Surgical Shoe -Debridement - Subq, 1st 20sq cm Yes Pain Scale: 0-10 Numeric Is Patient Pain Free? Yes - Nurse 3 - General Ulcer D/C NN Start: 01/27/22 15:21 Freq: Status: Active Protocol: Activity Type Activity Date Activity User E-Sign Co-Sign Detail Recorded Client Recorded Date Recorded By Document 01/27/22 15:52 DL [id number] 01/27/22 15:53 DL 01/27/22 15:52 Wound Care Nurse 3 #1- R LAT FOOT POST OP -Ulcer Cleansing Rinsed/ Irrigated with Saline -Foul Odor after Cleansing No -Primary Dressing Applied Promogran Doris Matter -Primary Dressing Covered/Secured with Dry Gauze & Roll Gauze, Secured with Tape -Promogran Doris Matter 2 Left -Tubular Bandage Single Layer -Size of Tubigrip Used Size E -Size E ($) 1 Treatment Response Procedure Tolerated Well Pain Scale: 0-10 Numeric Is Patient Pain Free? Yes - Visit Discharge Discharge Condition Stable Ambulatory Status Ambulatory Transportation Private Auto Assessment/Plan Assessment/Plan (1) Other hereditary and idiopathic neuropathies: CODE(S): G60.8 - Other hereditary and idiopathic neuropathies (2) Osteomyelitis of right foot: CODE(S): M86.9 - Osteomyelitis, unspecified QUALIFIERS: Osteomyelitis type: unspecified type Qualified Code(s): M86.9 - Osteomyelitis, unspecified (3) Cellulitis of right foot: CODE(S): L03.115 - Cellulitis of right lower limb (4) Type 2 diabetes mellitus with diabetic polyneuropathy: CODE(S): E11.42 - Type 2 diabetes mellitus with diabetic polyneuropathy (5) Ulcer of right foot with necrosis of muscle: CODE(S): L97.513 - Non-pressure chronic ulcer of other part of right foot with necrosis of muscle (6) Malnutrition: CODE(S): E46 - Unspecified protein-calorie malnutrition (7) Xerosis cutis: CODE(S): L85.3 - Xerosis cutis PLAN: I reviewed and discussed his case today. Debridement was performed today as noted in the clinical panel to the ulcer site. The following work up and care recommendations were made: We discussed the etiology of neuropathy and his current clinical complaints. To continue gabapentin. I also recommend he proceed forward with nerve food prescription supplements (Metanx); he was unable to obtain this due to cost. Anticipated benefits indications and use were discussed again today. Dressing: I recommend wound VAC placed on hold this week. To change daily with Doris (collagen dressing) daily. Wash: Antibacterial soap and water with each dressing change Tissue growth optimization: I recommend application of advanced wound healing product such as Epicord or epi fix. The indications benefits anticipated management and healing expectations were reviewed. This is medically necessary for limb salvage. Prior authorization will be initiated again. His hemoglobin A1c was checked and is significantly improved; 5.5%. An appeal letter explaining his medical necessity and success of the recommended advancing healing product list resubmitted recently. He is at risk for infection recurrence, further limb loss and amputation, and even . Offloading: He has a surgical shoe and will heel touch for transfers only. Vascular: Recent noninvasive vascular studies were obtained he has good waveforms and ABIs. He does have a digital brachial index of 0.63 on the right which corresponds to small vessel disease however adequate perfusion to this site is possible. Edema: Tubigrip. Elevation. Reduce salt in diet Infection: Clearance surgical fragment cx with MSSA, MSSES, strep x2. To continue po flagyl and 6 weeks ceftriaxone under the management of infectious disease with stop date 12/11. It is noted he saw infectious disease specialist today and will proceed with completing the antibiotics. A C. difficile treatment per infectious disease specialist. This was completed. To reach out to ID office if this returns. Pain: Controlled due to neuropathic status Host factors: I recommend nutritional supplementation optimize healing. It is noted he has uncontrolled glucose levels and I recommend follow-up with his primary care physician. This is imperative for wound healing and limb salvage. He is currently under the management of a senior financial reporting analyst and is taking Soren nutritional supplementation also. Xerosis management: To continue Lac-Hydrin lotion application daily. I answered all the patient's questions. To return to the wound healing center in 1 week or call sooner if the patient has any questions or concerns. Note: [employer]or [employer] speech recognition form setter metal road forms software was used to create portions of this document. Sound-alike and misspelled words, as well as other form setter metal road forms errors may be contained in the documentation.
[2022-02-03 15:03] VITALS: BP 114/67; PULSE 108; RESP 20; TEMP 37.4; BMI 23.8
--- NOTE | 2022-02-03 21:46 | PCM.WC.PN ---
History of Present Illness Date of Service: 02/03/22 Chief Complaint: right foot ulcer and infection follow up History of Wound: This 41-year-old male with uncontrolled diabetes is here for hospital follow-up now that he has an open amputation including a fifth ray resection of the right foot for treatment of necrotizing fasciitis and bone infection. His surgery was performed on 10-30-21. He is completing a course of IV antibiotics under the management of infectious disease. He also has a wound VAC to the right foot. His last hemoglobin A1c level was 11.1% now decreased to 5.5%. He is doing well with his updated wound VAC. He was prescribed nerve nutritional food prescription supplement, metanx recently. He did also talk to his primary care physician about this concern and was started on gabapentin. He did not start metanx due to cost. He asked about the epi fix approval appeal status; letter of appeal has been received. Progress of Wound: improving Objective Data Objective Data Vital Signs: Vital Signs Temp Pulse Resp BP 99.3 F H 108 H 20 H 114/67 02/03/22 15:03 02/03/22 15:03 02/03/22 15:03 02/03/22 15:03 Oxygen Delivery Method Room Air Weight: 77.564 kg Body Mass Index (BMI) 23.8 Physical Exam Extremity Extremity Narrative: No calf tenderness Edema right foot and leg significantly reduced compared to yesterday Compartments remain soft and there is no skin tenting 2/4 PT and DP pulses right Open fifth ray resection without bogginess or fluctuance No pain on palpation to first metatarsophalangeal joint or hallux or midfoot No pain, laxity or crepitus with manipulation of the midfoot, first metatarsophalangeal joint or hallux interphalangeal joint No pain on palpation to the sesamoid apparatus right foot Skin Skin Narrative: Open ray resection right foot with no purulence, necrosis, odor. Erythema has completely resolved. no exposed tendon or bone noted today. There is no purulence on expression of the adjacent tissue either. Left plantar foot skin peeling more than plantar right foot skin peeling consistent with xerosis; no maceration or blisters. Neuro Neuro Narrative: lack of normal epicritic sensation via light touch is consistent with neuropathy status Debridement Note Debridement Note Wound debrided: right foot Wound Grade/Stage: 2 Type of Debridement: Excisional debridement Anesthesia Used: 4% Lidocaine Solution Depth: in the subcutaneous layer Percentage of wound debrided: 100 Instrument Used: #15 blade Tissue Removed: fibrous, devitalized subcutaneous, biofilm, slough Severity: Fat Layer Exposed Amount of bleeding with debridement: Mild Bleeding Controlled with: Pressure Patient tolerated procedure: Patient tolerated procedure well Post-Debridement Measurements and Additional Note: Post-Debridement Measurements/Treatment PHILL - Nurse 1 - General Ulcer Assessment Start: 01/27/22 15:21 Freq: Status: Active Protocol: DAVID Activity Type Activity Date Activity User E-Sign Co-Sign Detail Recorded Client Recorded Date Recorded By Document 01/27/22 15:21 [facility] [id number] 01/27/22 15:28 BMF Document 02/03/22 15:03 DL [id number] 02/03/22 15:10 DL 01/27/22 02/03/22 15:21 15:03 - Today's Visit Information Type of service Follow-up Visit Follow-up Visit (Physician/OPERATIONS REPRESENTATIVE (Physician/OPERATIONS REPRESENTATIVE ) ) Arrival Mode Ambulatory, Ambulatory, Walker Walker Transfer Assistance None None Patient Identification Verified (Name & Yes Yes ) Patient Requires Transmission-Based No No Precautions Finger Stick Blood Sugar(mg/dl) (if 152 indicated): Blood Sugar Stated by Patient Height and Weight Body Mass Index (BMI) 23.8 23.8 BMI Classification Normal Normal Vital Signs Temperature (97.8 F-99.1 F) 98 F 99.3 F H Temperature Source Temporal Temporal Pulse Rate (60-100) 116 H 108 H Pulse Location Monitor Monitor Respiratory Rate (12-18) 18 20 H Respiratory rate source Observation Observation Oxygen Delivery Method Room Air Blood Pressure (90/60-120/80) 118/80 114/67 Blood Pressure Mean (mm Hg) 92 82 Source Monitor Monitor Position Sitting Blood Pressure Location Right Arm History Since Last Visit- (Skip if this is Patient's initial visit) Have you changed medications since your No No last visit? Any new allergies or adverse reactions No No Had a fall/change in ADL's that may No No increase risk of falls Signs or symptoms of abuse and/or No No neglect since last visit Have you been in the hospital since your No No last visit? Has dressing in place as prescribed Yes Yes Has compression in place as prescribed Yes Yes Has offloadiing in place as prescribed Yes Yes Experienced any changes in pain level or No No management Left Footwear Regular Shoe Right Footwear Surgical Shoe with pressure relief insole Pain Scale: 0-10 Numeric Is Patient Pain Free? Yes Yes WC - Nurse 1 - General Ulcer Measurement Start: 01/27/22 15:21 Freq: Status: Active Protocol: Activity Type Activity Date Activity User E-Sign Co-Sign Detail Recorded Client Recorded Date Recorded By Document 01/27/22 15:21 [facility] [id number] 01/27/22 15:28 [facility] Document 02/03/22 15:03 [id number] 02/03/22 15:10 DL 01/27/22 02/03/22 15:21 15:03 Wound Center Nurse 1 #1- R LAT FOOT POST OP -Combined with other wound No -Current Size (cm) - Length 5.6 5.4 -Current Size (cm) - Width 2.6 3 -Current Size (cm) - Depth 0.1 0.1 -Total Square Cm 14.56 16.2 -Photo Taken No -Epithelialization Small 1-33% -Tunneling No -Undermining/Tunneling No -Circular Undermining No -Exudate Amt Medium Small -Exudate Type Serosanguineous -Wound Margin Distinct, Distinct, Outline Outline Attached Attached -Granulation Amt Large (67-100%) Large (67-100%) -Granulation Quality Red Red -Slough/Fibrin No -Necrosis Amt None Present (0 None Present (0 %) %) -Structure Exposed N/A -Texture (Tamika-wound Skin Appearance) Assessed, No Abnormality Scarring -Moisture (Tamika-wound Skin Appearance) Assessed No Abnormality -Color (Tamika-wound Skin Appearance) Assessed No Abnormality -Temperature (Tamika-wound Skin No Abnormality No Abnormality Appearance) (Pt Warm) (Pt Warm) -Tenderness on Palpation (Tamika-wound No No Skin Appearance) -Ulcer Cleansing Soap and Water Rinsed/ Irrigated with Saline -Foul Odor after Cleansing No No -Anesthetic Used 5% Lidocaine 5% Lidocaine Gel Gel Lower Limb Edema Present Yes Right Calf (cm) 34.7 35 Right Ankle (cm) 25.5 24.5 WC - Nurse 2 - General Ulcer CM Notes Start: 01/27/22 15:21 Freq: Status: Active Protocol: Activity Type Activity Date Activity User E-Sign Co-Sign Detail Recorded Client Recorded Date Recorded By Document 01/27/22 15:37 [id number] 01/27/22 15:43 JF Document 02/03/22 15:18 [id number] 02/03/22 15:22 JF 01/27/22 02/03/22 15:37 15:18 Wound Center Nurse 2 #1- R LAT FOOT POST OP -Time 15:38 15:19 -Correct Patient Yes Yes -Correct Side, Site, Position Yes Yes -Correct Procedure Yes Yes -Procedure Performed Yes Yes -Type of Procedure Debridement Debridement -Clinical Debridement Subcutaneous Subcutaneous -Tissue Removed Subcutaneous Subcutaneous -Post Debridement (cm) - Length 5.6 4.0 -Post Debridement (cm) - Width 2.7 3.6 -Post Debridement (cm) - Depth 0.1 0.1 -Total Square (Post) (cm) 15.12 14.40 -Area of Debridement (cm) - Length 5.6 4.0 -Area of Debridement (cm) - Width 2.7 3.6 -Total Square (Area) (cm) 15.12 14.40 -Tunneling No No -Undermining/Tunneling No No -Circular Undermining No No -Wound/Ulcer Outcome Not Healed Not Healed -Ulcer Cleansing Rinsed/ Rinsed/ Irrigated with Irrigated with Saline Saline -Foul Odor after Cleansing No No -Bioengineered Tissue No No -Bleeding Controlled with Pressure Pressure -Treatment Response Procedure Procedure Tolerated Well Tolerated Well -Offloading Yes Yes -Type of Offloading Surgical Shoe Surgical Shoe -Debridement - Subq, 1st 20sq cm Yes Yes Pain Scale: 0-10 Numeric Is Patient Pain Free? Yes Yes - Nurse 3 - General Ulcer D/C NN Start: 01/27/22 15:21 Freq: Status: Active Protocol: Activity Type Activity Date Activity User E-Sign Co-Sign Detail Recorded Client Recorded Date Recorded By Document 01/27/22 15:52 DL [id number] 01/27/22 15:53 DL Document 02/03/22 15:33 [facility] [id number] 02/03/22 15:34 BM 01/27/22 02/03/22 15:52 15:33 Wound Care Nurse 3 #1- R LAT FOOT POST OP -Ulcer Cleansing Rinsed/ Rinsed/ Irrigated with Irrigated with Saline Saline -Foul Odor after Cleansing No No -Primary Dressing Applied Promogran Promogran Doris Matter Doris Matter -Primary Dressing Covered/Secured with Dry Gauze & Dry Gauze & Roll Gauze, Roll Gauze, Secured with Secured with Tape Tape -Promogran Doris Matter 2 1 Left -Tubular Bandage Single Layer Single Layer -Size of Tubigrip Used Size E Size E -Size E ($) 1 1 Treatment Response Procedure Procedure Tolerated Well Tolerated Well Pain Scale: 0-10 Numeric Is Patient Pain Free? Yes Yes WC - Visit Discharge Discharge Condition Stable Stable Ambulatory Status Ambulatory Ambulatory, Walker Transportation Private Auto Private Auto Assessment/Plan Assessment/Plan (1) Other hereditary and idiopathic neuropathies: CODE(S): G60.8 - Other hereditary and idiopathic neuropathies (2) Osteomyelitis of right foot: CODE(S): M86.9 - Osteomyelitis, unspecified QUALIFIERS: Osteomyelitis type: unspecified type Qualified Code(s): M86.9 - Osteomyelitis, unspecified (3) Cellulitis of right foot: CODE(S): L03.115 - Cellulitis of right lower limb (4) Type 2 diabetes mellitus with diabetic polyneuropathy: CODE(S): E11.42 - Type 2 diabetes mellitus with diabetic polyneuropathy (5) Ulcer of right foot with necrosis of muscle: CODE(S): L97.513 - Non-pressure chronic ulcer of other part of right foot with necrosis of muscle (6) Malnutrition: CODE(S): E46 - Unspecified protein-calorie malnutrition (7) Xerosis cutis: CODE(S): L85.3 - Xerosis cutis PLAN: I reviewed and discussed his case today. Debridement was performed today as noted in the clinical panel to the ulcer site. The following work up and care recommendations were made: We discussed the etiology of neuropathy and his current clinical complaints. To continue gabapentin. I also recommend he proceed forward with nerve food prescription supplements (Metanx); he was unable to obtain this due to cost. Anticipated benefits indications and use were discussed again today. Dressing: I recommend wound VAC placed on hold this week. To change daily with Doris (collagen dressing) daily. Wash: Antibacterial soap and water with each dressing change Tissue growth optimization: I recommend application of advanced wound healing product such as Epicord or epi fix. The indications benefits anticipated management and healing expectations were reviewed. This is medically necessary for limb salvage. Prior authorization will be initiated again. His hemoglobin A1c was checked and is significantly improved; 5.5%. An appeal letter explaining his medical necessity and success of the recommended advancing healing product list resubmitted recently. He is at risk for infection recurrence, further limb loss and amputation, and even . Authorization is still pending. Offloading: He has a surgical shoe and will heel touch for transfers only. Vascular: Recent noninvasive vascular studies were obtained he has good waveforms and ABIs. He does have a digital brachial index of 0.63 on the right which corresponds to small vessel disease however adequate perfusion to this site is possible. Edema: Tubigrip. Elevation. Reduce salt in diet Infection: Clearance surgical fragment cx with MSSA, MSSES, strep x2. To continue po flagyl and 6 weeks ceftriaxone under the management of infectious disease with stop date 12/11. It is noted he saw infectious disease specialist today and will proceed with completing the antibiotics. A C. difficile treatment per infectious disease specialist. This was completed. To reach out to ID office if this returns. Pain: Controlled due to neuropathic status Host factors: I recommend nutritional supplementation optimize healing. It is noted he has uncontrolled glucose levels and I recommend follow-up with his primary care physician. This is imperative for wound healing and limb salvage. 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 Xerosis management: To continue Lac-Hydrin lotion application daily. I answered all the patient's questions. To return to the wound healing center in 1 week or call sooner if the patient has any questions or concerns. Note: [employer] speech recognition reed or wind instrument repairer software was used to create portions of this document. Sound-alike and misspelled words, as well as other reed or wind instrument repairer errors may be contained in the documentation.
[2022-02-10 14:41] VITALS: BP 97/66; PULSE 117; TEMP 36.6; BMI 23.8
--- NOTE | 2022-02-10 15:41 | PCM.WC.PN ---
History of Present Illness Date of Service: 02/10/22 Chief Complaint: right foot ulcer and infection follow up History of Wound: This 41-year-old male with uncontrolled diabetes is here for hospital follow-up now that he has an open amputation including a fifth ray resection of the right foot for treatment of necrotizing fasciitis and bone infection. His surgery was performed on 10-30-21. He is completing a course of IV antibiotics under the management of infectious disease. He also has a wound VAC to the right foot. His last hemoglobin A1c level was 11.1% now decreased to 5.5%. He uses doris and no longer is using a wound vac. Progress of Wound: improving Objective Data Objective Data Vital Signs: Vital Signs Temp Pulse Resp BP 97.8 F 117 H 20 H 97/66 02/10/22 14:41 02/10/22 14:41 02/03/22 15:03 02/10/22 14:41 Oxygen Delivery Method Room Air Weight: 77.564 kg Body Mass Index (BMI) 23.8 Physical Exam Extremity Extremity Narrative: No calf tenderness Edema right foot and leg significantly reduced compared to yesterday Compartments remain soft and there is no skin tenting 2/4 PT and DP pulses right Open fifth ray resection without bogginess or fluctuance No pain on palpation to first metatarsophalangeal joint or hallux or midfoot No pain, laxity or crepitus with manipulation of the midfoot, first metatarsophalangeal joint or hallux interphalangeal joint No pain on palpation to the sesamoid apparatus right foot Skin Skin Narrative: Open ray resection right foot with no purulence, necrosis, odor. Erythema has completely resolved. no exposed tendon or bone noted today. There is no purulence on expression of the adjacent tissue either. Neuro Neuro Narrative: lack of normal epicritic sensation via light touch is consistent with neuropathy status Debridement Note Debridement Note Wound debrided: right foot Wound Grade/Stage: 2 Type of Debridement: Excisional debridement Anesthesia Used: 4% Lidocaine Solution Depth: in the subcutaneous layer Percentage of wound debrided: 100 Instrument Used: #15 blade Tissue Removed: fibrous, devitalized subcutaneous, biofilm, slough Severity: Fat Layer Exposed Amount of bleeding with debridement: Mild Bleeding Controlled with: Pressure Patient tolerated procedure: Patient tolerated procedure well Post-Debridement Measurements and Additional Note: Post-Debridement Measurements/Treatment WC - Nurse 1 - General Ulcer Assessment Start: 01/27/22 15:21 Freq: Status: Active Protocol: WC.LOWEXT Activity Type Activity Date Activity User E-Sign Co-Sign Detail Recorded Client Recorded Date Recorded By Document 01/27/22 15:21 [facility] [id number] 01/27/22 15:28 BMF Document 02/03/22 15:03 DL [id number] 02/03/22 15:10 DL Document 02/10/22 14:41 KR [id number] 02/10/22 14:47 KR 01/27/22 02/03/22 02/10/22 15:21 15:03 14:41 WC - Today's Visit Information Type of service Follow-up Visit Follow-up Visit Follow-up Visit (Physician/RISK CONTROL REPRESENTATIVE (Physician/RISK CONTROL REPRESENTATIVE (Physician/RISK CONTROL REPRESENTATIVE ) ) ) Arrival Mode Ambulatory, Ambulatory, Walker Walker Walker Transfer Assistance None None Patient Identification Verified (Name & Yes Yes Yes ) Patient Requires Transmission-Based No No Precautions Finger Stick Blood Sugar(mg/dl) (if 152 indicated): Blood Sugar Stated by Patient Height and Weight Body Mass Index (BMI) 23.8 23.8 23.8 BMI Classification Normal Normal Normal Vital Signs Temperature (97.8 F-99.1 F) 98 F 99.3 F H 97.8 F Temperature Source Temporal Temporal Temporal Pulse Rate (60-100) 116 H 108 H 117 H Pulse Location Monitor Monitor Monitor Respiratory Rate (12-18) 18 20 H Respiratory rate source Observation Observation Oxygen Delivery Method Room Air Blood Pressure (90/60-120/80) 118/80 114/67 97/66 Blood Pressure Mean (mm Hg) 92 82 76 Source Monitor Monitor Monitor Position Sitting Semi-Fowlers Blood Pressure Location Right Arm Left Arm History Since Last Visit- (Skip if this is Patient's initial visit) Have you changed medications since your No No No last visit? Any new allergies or adverse reactions No No No Had a fall/change in ADL's that may No No No increase risk of falls Signs or symptoms of abuse and/or No No No neglect since last visit Have you been in the hospital since your No No No last visit? Has dressing in place as prescribed Yes Yes Yes Has compression in place as prescribed Yes Yes Yes Has offloadiing in place as prescribed Yes Yes Yes Experienced any changes in pain level or No No No management Left Footwear Regular Shoe Regular Shoe Right Footwear Surgical Shoe Surgical Shoe with pressure with pressure relief insole relief insole Pain Scale: 0-10 Numeric Is Patient Pain Free? Yes Yes Yes WC - Nurse 1 - General Ulcer Measurement Start: 01/27/22 15:21 Freq: Status: Active Protocol: Activity Type Activity Date Activity User E-Sign Co-Sign Detail Recorded Client Recorded Date Recorded By Document 01/27/22 15:21 BM [id number] 01/27/22 15:28 BMF Document 02/03/22 15:03 DL [id number] 02/03/22 15:10 DL Document 02/10/22 14:41 KR [id number] 02/10/22 14:47 KR 01/27/22 02/03/22 02/10/22 15:21 15:03 14:41 Wound Center Nurse 1 #1- R LAT FOOT POST OP -Combined with other wound No -Current Size (cm) - Length 5.6 5.4 5.1 -Current Size (cm) - Width 2.6 3 2.1 -Current Size (cm) - Depth 0.1 0.1 0.1 -Total Square Cm 14.56 16.2 10.71 -Photo Taken No -Epithelialization Small 1-33% -Tunneling No -Undermining/Tunneling No -Circular Undermining No -Exudate Amt Medium Small Medium -Exudate Type Serosanguineous Serosanguineous -Wound Margin Distinct, Distinct, Distinct, Outline Outline Outline Attached Attached Attached -Granulation Amt Large (67-100%) Large (67-100%) Large (67-100%) -Granulation Quality Red Red Red -Slough/Fibrin No -Necrosis Amt None Present (0 None Present (0 None Present (0 %) %) %) -Structure Exposed N/A -Texture (Tamika-wound Skin Appearance) Assessed, No Abnormality Assessed, Scarring Scarring -Moisture (Tamika-wound Skin Appearance) Assessed No Abnormality No Abnormality, Assessed -Color (Tamika-wound Skin Appearance) Assessed No Abnormality No Abnormality, Assessed -Temperature (Tamika-wound Skin No Abnormality No Abnormality No Abnormality Appearance) (Pt Warm) (Pt Warm) (Pt Warm) -Tenderness on Palpation (Tamika-wound No No No Skin Appearance) -Ulcer Cleansing Soap and Water Rinsed/ Rinsed/ Irrigated with Irrigated with Saline Saline -Foul Odor after Cleansing No No No -Anesthetic Used 5% Lidocaine 5% Lidocaine 4% Lidocaine Gel Gel Solution Lower Limb Edema Present Yes Right Calf (cm) 34.7 35 36.1 Right Ankle (cm) 25.5 24.5 26.2 WC - Nurse 2 - General Ulcer CM Notes Start: 01/27/22 15:21 Freq: Status: Active Protocol: Activity Type Activity Date Activity User E-Sign Co-Sign Detail Recorded Client Recorded Date Recorded By Document 01/27/22 15:37 [id number] 01/27/22 15:43 Document 02/03/22 15:18 [id number] 02/03/22 15:22 Document 02/10/22 15:12 [id number] 02/10/22 15:14 01/27/22 02/03/22 02/10/22 15:37 15:18 15:12 Wound Center Nurse 2 #1- R LAT FOOT POST OP -Time 15:38 15:19 15:13 -Correct Patient Yes Yes Yes -Correct Side, Site, Position Yes Yes Yes -Correct Procedure Yes Yes Yes -Procedure Performed Yes Yes Yes -Type of Procedure Debridement Debridement Debridement -Clinical Debridement Subcutaneous Subcutaneous Subcutaneous -Tissue Removed Subcutaneous Subcutaneous Subcutaneous -Post Debridement (cm) - Length 5.6 4.0 3.4 -Post Debridement (cm) - Width 2.7 3.6 3.5 -Post Debridement (cm) - Depth 0.1 0.1 0.1 -Total Square (Post) (cm) 15.12 14.40 11.90 -Area of Debridement (cm) - Length 5.6 4.0 3.4 -Area of Debridement (cm) - Width 2.7 3.6 3.5 -Total Square (Area) (cm) 15.12 14.40 11.90 -Tunneling No No No -Undermining/Tunneling No No No -Circular Undermining No No No -Wound/Ulcer Outcome Not Healed Not Healed Not Healed -Ulcer Cleansing Rinsed/ Rinsed/ Rinsed/ Irrigated with Irrigated with Irrigated with Saline Saline Saline -Foul Odor after Cleansing No No No -Bioengineered Tissue No No No -Bleeding Controlled with Pressure Pressure Pressure -Treatment Response Procedure Procedure Procedure Tolerated Well Tolerated Well Tolerated Well -Offloading Yes Yes Yes -Type of Offloading Surgical Shoe Surgical Shoe Surgical Shoe -Debridement - Subq, 1st 20sq cm Yes Yes Yes Pain Scale: 0-10 Numeric Is Patient Pain Free? Yes Yes Yes - Nurse 3 - General Ulcer D/C NN Start: 01/27/22 15:21 Freq: Status: Active Protocol: Activity Type Activity Date Activity User E-Sign Co-Sign Detail Recorded Client Recorded Date Recorded By Document 01/27/22 15:52 DL [id number] 01/27/22 15:53 DL Document 02/03/22 15:33 [facility] [id number] 02/03/22 15:34 BMF Document 02/10/22 15:33 AK [id number] 02/10/22 15:33 AK 01/27/22 02/03/22 02/10/22 15:52 15:33 15:33 Wound Care Nurse 3 #1- R LAT FOOT POST OP -Ulcer Cleansing Rinsed/ Rinsed/ Rinsed/ Irrigated with Irrigated with Irrigated with Saline Saline Saline -Foul Odor after Cleansing No No No -Negative Pressure Wound Therapy N/A -Primary Dressing Applied Promogran Promogran Promogran Doris Matter Doris Matter -Other Dressing ABD -Primary Dressing Covered/Secured with Dry Gauze & Dry Gauze & Dry Gauze & Roll Gauze, Roll Gauze, Roll Gauze, Secured with Secured with Secured with Tape Tape Tape -Promogran 1 -Promogran Doris Matter 2 1 Left -Tubular Bandage Single Layer Single Layer -Size of Tubigrip Used Size E Size E -Size E ($) 1 1 Treatment Response Procedure Procedure Tolerated Well Tolerated Well Pain Scale: 0-10 Numeric Is Patient Pain Free? Yes Yes Yes - Visit Discharge Discharge Condition Stable Stable Ambulatory Status Ambulatory Ambulatory, Walker Transportation Private Auto Private Auto Assessment/Plan Assessment/Plan (1) Other hereditary and idiopathic neuropathies: CODE(S): G60.8 - Other hereditary and idiopathic neuropathies (2) Osteomyelitis of right foot: CODE(S): M86.9 - Osteomyelitis, unspecified QUALIFIERS: Osteomyelitis type: unspecified type Qualified Code(s): M86.9 - Osteomyelitis, unspecified (3) Cellulitis of right foot: CODE(S): L03.115 - Cellulitis of right lower limb (4) Type 2 diabetes mellitus with diabetic polyneuropathy: CODE(S): E11.42 - Type 2 diabetes mellitus with diabetic polyneuropathy (5) Ulcer of right foot with necrosis of muscle: CODE(S): L97.513 - Non-pressure chronic ulcer of other part of right foot with necrosis of muscle (6) Malnutrition: CODE(S): E46 - Unspecified protein-calorie malnutrition PLAN: I reviewed and discussed his case today. Debridement was performed today as noted in the clinical panel to the ulcer site. The following work up and care recommendations were made: We discussed the etiology of neuropathy and his current clinical complaints. To continue gabapentin. I also recommend he proceed forward with nerve food prescription supplements (Metanx); he was unable to obtain this due to cost. Anticipated benefits indications and use were discussed again today. Dressing: To change daily with Doris (collagen dressing) daily. Wash: Antibacterial soap and water with each dressing change Tissue growth optimization: I recommend application of advanced wound healing product such as Epicord or epi fix. The indications benefits anticipated management and healing expectations were reviewed. This is medically necessary for limb salvage. Prior authorization will be initiated again. His hemoglobin A1c was checked and is significantly improved; 5.5%. An appeal letter explaining his medical necessity and success of the recommended advancing healing product list resubmitted recently. He is at risk for infection recurrence, further limb loss and amputation, and even . Authorization is still pending. Offloading: He has a surgical shoe and will heel touch for transfers only. Vascular: Recent noninvasive vascular studies were obtained he has good waveforms and ABIs. He does have a digital brachial index of 0.63 on the right which corresponds to small vessel disease however adequate perfusion to this site is possible. Edema: Tubigrip. Elevation. Reduce salt in diet Infection: Clearance surgical fragment cx with MSSA, MSSES, strep x2. To continue po flagyl and 6 weeks ceftriaxone under the management of infectious disease with stop date 12/11. It is noted he saw infectious disease specialist today and will proceed with completing the antibiotics. A C. difficile treatment per infectious disease specialist. This was completed. To reach out to ID office if this returns. Pain: Controlled due to neuropathic status Host factors: I recommend nutritional supplementation optimize healing. It is noted he has uncontrolled glucose levels and I recommend follow-up with his primary care physician. This is imperative for wound healing and limb salvage. He is currently under the management of a rehabilitation teacher and is taking Soren nutritional supplementation also. Xerosis management: To continue Lac-Hydrin lotion application daily. I answered all the patient's questions. To return to the wound healing center in 1 week or call sooner if the patient has any questions or concerns. Note: [employer] speech recognition hog cutter software was used to create portions of this document. Sound-alike and misspelled words, as well as other hog cutter errors may be contained in the documentation.
[2022-02-17 14:42] VITALS: BP 108/64; PULSE 108; TEMP 36.4; BMI 23.8
--- NOTE | 2022-02-17 16:22 | PN.PCM_ITS ---
History of Present Illness Date of Service: 02/17/22 Chief Complaint: right foot ulcer and infection follow up History of Wound: This 41-year-old male with uncontrolled diabetes is here for hospital follow-up now that he has an open amputation including a fifth ray resection of the right foot for treatment of necrotizing fasciitis and bone infection. His surgery was performed on 10-30-21. He is completing a course of IV antibiotics under the management of infectious disease. He also has a wound VAC to the right foot. His last hemoglobin A1c level was 11.1% now decreased to 5.5%. He uses doris and no longer is using a wound vac. Progress of Wound: improving Objective Data Objective Data Vital Signs: Vital Signs Temp Pulse Resp BP 97.6 F L 108 H 20 H 108/64 02/17/22 14:42 02/17/22 14:42 02/03/22 15:03 02/17/22 14:42 Oxygen Delivery Method Room Air Weight: 77.564 kg Body Mass Index (BMI) 23.8 Physical Exam Extremity Extremity Narrative: No calf tenderness Edema right foot and leg significantly reduced compared to yesterday Compartments remain soft and there is no skin tenting 2/4 PT and DP pulses right Open fifth ray resection without bogginess or fluctuance No pain on palpation to first metatarsophalangeal joint or hallux or midfoot No pain, laxity or crepitus with manipulation of the midfoot, first metatarsophalangeal joint or hallux interphalangeal joint No pain on palpation to the sesamoid apparatus right foot Skin Skin Narrative: Open ray resection right foot with no purulence, necrosis, odor. Erythema has completely resolved. no exposed tendon or bone noted today. There is no purulence on expression of the adjacent tissue either. Neuro Neuro Narrative: lack of normal epicritic sensation via light touch is consistent with neuropathy status Debridement Note Debridement Note Wound debrided: right foot Wound Grade/Stage: 2 Type of Debridement: Excisional debridement Anesthesia Used: 4% Lidocaine Solution Depth: in the subcutaneous layer Percentage of wound debrided: 100 Instrument Used: #15 blade Tissue Removed: fibrous, devitalized subcutaneous, biofilm, slough Severity: Fat Layer Exposed Amount of bleeding with debridement: Mild Bleeding Controlled with: Pressure Patient tolerated procedure: Patient tolerated procedure well Post-Debridement Measurements and Additional Note: Post-Debridement Measurements/Treatment WC - Nurse 1 - General Ulcer Assessment Start: 01/27/22 15:21 Freq: Status: Active Protocol: WC.LOWEXT Activity Type Activity Date Activity User E-Sign Co-Sign Detail Recorded Client Recorded Date Recorded By Document 01/27/22 15:21 [facility] [id number] 01/27/22 15:28 BMF Document 02/03/22 15:03 DL [id number] 02/03/22 15:10 DL Document 02/10/22 14:41 KR [id number] 02/10/22 14:47 KR Document 02/17/22 14:42 KR [id number] 02/17/22 14:46 KR 01/27/22 02/03/22 02/10/22 15:21 15:03 14:41 WC - Today's Visit Information Type of service Follow-up Visit Follow-up Visit Follow-up Visit (Physician/COMMUNICATIONS PROJECT MANAGER (Physician/COMMUNICATIONS PROJECT MANAGER (Physician/COMMUNICATIONS PROJECT MANAGER ) ) ) Arrival Mode Ambulatory, Ambulatory, Walker Walker Walker Transfer Assistance None None Patient Identification Verified (Name & Yes Yes Yes ) Patient Requires Transmission-Based No No Precautions Finger Stick Blood Sugar(mg/dl) (if 152 indicated): Blood Sugar Stated by Patient Height and Weight Body Mass Index (BMI) 23.8 23.8 23.8 BMI Classification Normal Normal Normal Vital Signs Temperature (97.8 F-99.1 F) 98 F 99.3 F H 97.8 F Temperature Source Temporal Temporal Temporal Pulse Rate (60-100) 116 H 108 H 117 H Pulse Location Monitor Monitor Monitor Respiratory Rate (12-18) 18 20 H Respiratory rate source Observation Observation Oxygen Delivery Method Room Air Blood Pressure (90/60-120/80) 118/80 114/67 97/66 Blood Pressure Mean (mm Hg) 92 82 76 Source Monitor Monitor Monitor Position Sitting Semi-Fowlers Blood Pressure Location Right Arm Left Arm History Since Last Visit- (Skip if this is Patient's initial visit) Have you changed medications since your No No No last visit? Any new allergies or adverse reactions No No No Had a fall/change in ADL's that may No No No increase risk of falls Signs or symptoms of abuse and/or No No No neglect since last visit Have you been in the hospital since your No No No last visit? Has dressing in place as prescribed Yes Yes Yes Has compression in place as prescribed Yes Yes Yes Has offloadiing in place as prescribed Yes Yes Yes Experienced any changes in pain level or No No No management Left Footwear Regular Shoe Regular Shoe Right Footwear Surgical Shoe Surgical Shoe with pressure with pressure relief insole relief insole Pain Scale: 0-10 Numeric Is Patient Pain Free? Yes Yes Yes 02/17/22 14:42 WC - Today's Visit Information Type of service Follow-up Visit (Physician/COMMUNICATIONS PROJECT MANAGER ) Arrival Mode Walker Transfer Assistance Patient Identification Verified (Name & Yes ) Patient Requires Transmission-Based Precautions Finger Stick Blood Sugar(mg/dl) (if indicated): Blood Sugar Height and Weight Body Mass Index (BMI) 23.8 BMI Classification Normal Vital Signs Temperature (97.8 F-99.1 F) 97.6 F L Temperature Source Temporal Pulse Rate (60-100) 108 H Pulse Location Monitor Respiratory Rate (12-18) Respiratory rate source Oxygen Delivery Method Blood Pressure (90/60-120/80) 108/64 Blood Pressure Mean (mm Hg) 78 Source Monitor Position Sitting Blood Pressure Location Right Arm History Since Last Visit- (Skip if this is Patient's initial visit) Have you changed medications since your No last visit? Any new allergies or adverse reactions No Had a fall/change in ADL's that may No increase risk of falls Signs or symptoms of abuse and/or No neglect since last visit Have you been in the hospital since your No last visit? Has dressing in place as prescribed Yes Has compression in place as prescribed Yes Has offloadiing in place as prescribed N/A Experienced any changes in pain level or No management Left Footwear Surgical Shoe with pressure relief insole Right Footwear Regular Shoe Pain Scale: 0-10 Numeric Is Patient Pain Free? Yes - Nurse 1 - General Ulcer Measurement Start: 01/27/22 15:21 Freq: Status: Active Protocol: Activity Type Activity Date Activity User E-Sign Co-Sign Detail Recorded Client Recorded Date Recorded By Document 01/27/22 15:21 [facility] [id number] 01/27/22 15:28 BM Document 02/03/22 15:03 DL [id number] 02/03/22 15:10 DL Document 02/10/22 14:41 KR [id number] 02/10/22 14:47 KR Document 02/17/22 14:42 KR [id number] 02/17/22 14:46 KR 01/27/22 02/03/22 02/10/22 15:21 15:03 14:41 Wound Center Nurse 1 #1- R LAT FOOT POST OP -Combined with other wound No -Current Size (cm) - Length 5.6 5.4 5.1 -Current Size (cm) - Width 2.6 3 2.1 -Current Size (cm) - Depth 0.1 0.1 0.1 -Total Square Cm 14.56 16.2 10.71 -Photo Taken No -Epithelialization Small 1-33% -Tunneling No -Undermining/Tunneling No -Circular Undermining No -Exudate Amt Medium Small Medium -Exudate Type Serosanguineous Serosanguineous -Wound Margin Distinct, Distinct, Distinct, Outline Outline Outline Attached Attached Attached -Granulation Amt Large (67-100%) Large (67-100%) Large (67-100%) -Granulation Quality Red Red Red -Slough/Fibrin No -Necrosis Amt None Present (0 None Present (0 None Present (0 %) %) %) -Structure Exposed N/A -Texture (Tamika-wound Skin Appearance) Assessed, No Abnormality Assessed, Scarring Scarring -Moisture (Tamika-wound Skin Appearance) Assessed No Abnormality No Abnormality, Assessed -Color (Tamika-wound Skin Appearance) Assessed No Abnormality No Abnormality, Assessed -Temperature (Tamika-wound Skin No Abnormality No Abnormality No Abnormality Appearance) (Pt Warm) (Pt Warm) (Pt Warm) -Tenderness on Palpation (Tamika-wound No No No Skin Appearance) -Ulcer Cleansing Soap and Water Rinsed/ Rinsed/ Irrigated with Irrigated with Saline Saline -Foul Odor after Cleansing No No No -Anesthetic Used 5% Lidocaine 5% Lidocaine 4% Lidocaine Gel Gel Solution Lower Limb Edema Present Yes Right Calf (cm) 34.7 35 36.1 Right Ankle (cm) 25.5 24.5 26.2 02/17/22 14:42 Wound Center Nurse 1 #1- R LAT FOOT POST OP -Combined with other wound -Current Size (cm) - Length 4.4 -Current Size (cm) - Width 1.5 -Current Size (cm) - Depth 0.1 -Total Square Cm 6.60 -Photo Taken -Epithelialization -Tunneling -Undermining/Tunneling -Circular Undermining -Exudate Amt Medium -Exudate Type Serosanguineous -Wound Margin Distinct, Outline Attached -Granulation Amt Large (67-100%) -Granulation Quality Red -Slough/Fibrin -Necrosis Amt None Present (0 %) -Structure Exposed -Texture (Tamika-wound Skin Appearance) Assessed, Scarring -Moisture (Tamika-wound Skin Appearance) No Abnormality, Assessed -Color (Tamika-wound Skin Appearance) No Abnormality, Assessed -Temperature (Tamika-wound Skin No Abnormality Appearance) (Pt Warm) -Tenderness on Palpation (Tamika-wound No Skin Appearance) -Ulcer Cleansing Rinsed/ Irrigated with Saline -Foul Odor after Cleansing No -Anesthetic Used 5% Lidocaine Gel Lower Limb Edema Present Right Calf (cm) Right Ankle (cm) WC - Nurse 2 - General Ulcer CM Notes Start: 01/27/22 15:21 Freq: Status: Active Protocol: Activity Type Activity Date Activity User E-Sign Co-Sign Detail Recorded Client Recorded Date Recorded By Document 01/27/22 15:37 [id number] 01/27/22 15:43 Document 02/03/22 15:18 [id number] 02/03/22 15:22 Document 02/10/22 15:12 [id number] 02/10/22 15:14 Document 02/17/22 14:59 [id number] 02/17/22 15:09 Edit Result 02/17/22 14:59 (1) [id number] 02/17/22 15:49 (1) #1- R LAT FOOT POST OP - Bioengineered Tissue No => Yes - Type of Bioengineered Tissue => Epifix - Expiration Date => 10/27/26 - Product Lot Number => [id number] - Percent Used => 100 - Lot number of Saline Used => [id number] - Debridement - Subq, 1st 20sq cm Yes => No - Apply Skin Sub - 1st 25 sq cm - Feet => 1 - Epifix (per sq cm) => 4 01/27/22 02/03/22 02/10/22 15:37 15:18 15:12 Wound Center Nurse 2 #1- R LAT FOOT POST OP -Time 15:38 15:19 15:13 -Correct Patient Yes Yes Yes -Correct Side, Site, Position Yes Yes Yes -Correct Procedure Yes Yes Yes -Procedure Performed Yes Yes Yes -Type of Procedure Debridement Debridement Debridement -Clinical Debridement Subcutaneous Subcutaneous Subcutaneous -Tissue Removed Subcutaneous Subcutaneous Subcutaneous -Post Debridement (cm) - Length 5.6 4.0 3.4 -Post Debridement (cm) - Width 2.7 3.6 3.5 -Post Debridement (cm) - Depth 0.1 0.1 0.1 -Total Square (Post) (cm) 15.12 14.40 11.90 -Area of Debridement (cm) - Length 5.6 4.0 3.4 -Area of Debridement (cm) - Width 2.7 3.6 3.5 -Total Square (Area) (cm) 15.12 14.40 11.90 -Tunneling No No No -Undermining/Tunneling No No No -Circular Undermining No No No -Wound/Ulcer Outcome Not Healed Not Healed Not Healed -Ulcer Cleansing Rinsed/ Rinsed/ Rinsed/ Irrigated with Irrigated with Irrigated with Saline Saline Saline -Foul Odor after Cleansing No No No -Bioengineered Tissue No No No -Type of Bioengineered Tissue -Expiration Date -Product Lot Number -Percent Used -Lot number of Saline Used -Bleeding Controlled with Pressure Pressure Pressure -Treatment Response Procedure Procedure Procedure Tolerated Well Tolerated Well Tolerated Well -Offloading Yes Yes Yes -Type of Offloading Surgical Shoe Surgical Shoe Surgical Shoe -Debridement - Subq, 1st 20sq cm Yes Yes Yes -Apply Skin Sub - 1st 25 sq cm - Feet -Epifix (per sq cm) Pain Scale: 0-10 Numeric Is Patient Pain Free? Yes Yes Yes 02/17/22 14:59 Wound Center Nurse 2 #1- R LAT FOOT POST OP -Time 15:08 -Correct Patient Yes -Correct Side, Site, Position Yes -Correct Procedure Yes -Procedure Performed Yes -Type of Procedure Debridement -Clinical Debridement Subcutaneous -Tissue Removed Subcutaneous -Post Debridement (cm) - Length 3.2 -Post Debridement (cm) - Width 3.5 -Post Debridement (cm) - Depth 0.1 -Total Square (Post) (cm) 11.20 -Area of Debridement (cm) - Length 3.2 -Area of Debridement (cm) - Width 3.5 -Total Square (Area) (cm) 11.20 -Tunneling No -Undermining/Tunneling No -Circular Undermining No -Wound/Ulcer Outcome Not Healed -Ulcer Cleansing Rinsed/ Irrigated with Saline -Foul Odor after Cleansing No -Bioengineered Tissue Yes -Type of Bioengineered Tissue Epifix -Expiration Date 10/27/26 -Product Lot Number [id number] -Percent Used 100 -Lot number of Saline Used [id number] -Bleeding Controlled with Pressure -Treatment Response Procedure Tolerated Well -Offloading Yes -Type of Offloading Surgical Shoe -Debridement - Subq, 1st 20sq cm No -Apply Skin Sub - 1st 25 sq cm - Feet 1 -Epifix (per sq cm) 4 Pain Scale: 0-10 Numeric Is Patient Pain Free? Yes WC - Nurse 3 - General Ulcer D/C NN Start: 01/27/22 15:21 Freq: Status: Active Protocol: Activity Type Activity Date Activity User E-Sign Co-Sign Detail Recorded Client Recorded Date Recorded By Document 01/27/22 15:52 DL [id number] 01/27/22 15:53 DL Document 02/03/22 15:33 [facility] [id number] 02/03/22 15:34 [facility] Document 02/10/22 15:33 AK [id number] 02/10/22 15:33 [place] Document 02/17/22 15:57 DL [id number] 02/17/22 15:58 DL 01/27/22 02/03/22 02/10/22 15:52 15:33 15:33 Wound Care Nurse 3 #1- R LAT FOOT POST OP -Ulcer Cleansing Rinsed/ Rinsed/ Rinsed/ Irrigated with Irrigated with Irrigated with Saline Saline Saline -Foul Odor after Cleansing No No No -Negative Pressure Wound Therapy N/A -Primary Dressing Applied Promogran Promogran Promogran Doris Matter Doris Matter -Other Dressing ABD -Primary Dressing Covered/Secured with Dry Gauze & Dry Gauze & Dry Gauze & Roll Gauze, Roll Gauze, Roll Gauze, Secured with Secured with Secured with Tape Tape Tape -Promogran 1 -Promogran Doris Matter 2 1 Left -Tubular Bandage Single Layer Single Layer -Size of Tubigrip Used Size E Size E -Size E ($) 1 1 Treatment Response Procedure Procedure Tolerated Well Tolerated Well Pain Scale: 0-10 Numeric Is Patient Pain Free? Yes Yes Yes WC - Visit Discharge Discharge Condition Stable Stable Ambulatory Status Ambulatory Ambulatory, Walker Transportation Private Auto Private Auto Facility Type Orders Sent 02/17/22 15:57 Wound Care Nurse 3 #1- R LAT FOOT POST OP -Ulcer Cleansing -Foul Odor after Cleansing No -Negative Pressure Wound Therapy -Primary Dressing Applied -Other Dressing epifix -Primary Dressing Covered/Secured with Dry Gauze & Roll Gauze, Secured with Tape -Promogran -Promogran Doris Matter Left -Tubular Bandage Double Layer -Size of Tubigrip Used Size E -Size E ($) 2 Treatment Response Procedure Tolerated Well Pain Scale: 0-10 Numeric Is Patient Pain Free? Yes WC - Visit Discharge Discharge Condition Stable Ambulatory Status Ambulatory, Walker Transportation Private Auto Facility Type Home Health Orders Sent Yes Assessment/Plan Assessment/Plan (1) Other hereditary and idiopathic neuropathies: CODE(S): G60.8 - Other hereditary and idiopathic neuropathies (2) Osteomyelitis of right foot: CODE(S): M86.9 - Osteomyelitis, unspecified QUALIFIERS: Osteomyelitis type: unspecified type Qualified Code(s): M86.9 - Osteomyelitis, unspecified (3) Cellulitis of right foot: CODE(S): L03.115 - Cellulitis of right lower limb (4) Type 2 diabetes mellitus with diabetic polyneuropathy: CODE(S): E11.42 - Type 2 diabetes mellitus with diabetic polyneuropathy (5) Ulcer of right foot with necrosis of muscle: CODE(S): L97.513 - Non-pressure chronic ulcer of other part of right foot with necrosis of muscle (6) Malnutrition: CODE(S): E46 - Unspecified protein-calorie malnutrition PLAN: I reviewed and discussed his case today. Debridement was performed today as noted in the clinical panel to the ulcer site. The following work up and care recommendations were made: We discussed the etiology of neuropathy and his current clinical complaints. To continue gabapentin. I also recommend he proceed forward with nerve food prescription supplements (Metanx); he was unable to obtain this due to cost. Anticipated benefits indications and use were discussed again today. Dressing: To keep secondary dressing clean, dry, and intact until follow-up next week. Tissue growth optimization: I recommend application of advanced wound healing product such as Epicord or epi fix. The indications benefits anticipated management and healing expectations were reviewed. This is medically necessary for limb salvage. Prior authorization will be initiated again. His hemoglobin A1c was checked and is significantly improved; 5.5%. An appeal letter explaining his medical necessity and success of the recommended advancing healing product list resubmitted recently. He is at risk for infection recurrence, further limb loss and amputation, and even . Authorization was confirmed. Verbal consent was obtained. Epi fix was applied according standard protocol to the right foot. This was secured with a wound veil and Steri- Strips. He tolerated this well. Offloading: He has a surgical shoe and will heel touch for transfers only. Vascular: Recent noninvasive vascular studies were obtained he has good waveforms and ABIs. He does have a digital brachial index of 0.63 on the right which corresponds to small vessel disease however adequate perfusion to this site is possible. Edema: Tubigrip. Elevation. Reduce salt in diet Infection: Clearance surgical fragment cx with MSSA, MSSES, strep x2. To continue po flagyl and 6 weeks ceftriaxone under the management of infectious disease with stop date 12/11. It is noted he saw infectious disease specialist today and will proceed with completing the antibiotics. A C. difficile treatment per infectious disease specialist. This was completed. To reach out to ID office if this returns. Pain: Controlled due to neuropathic status Host factors: I recommend nutritional supplementation optimize healing. It is noted he has uncontrolled glucose levels and I recommend follow-up with his primary care physician. This is imperative for wound healing and limb salvage. He is currently under the management of a energy conservation specialist and is taking Soren nutritional supplementation also. Xerosis management: To continue Lac-Hydrin lotion application daily. I answered all the patient's questions. To return to the wound healing center in 1 week or call sooner if the patient has any questions or concerns. Note: [employer] speech recognition lining maker software was used to create portions of this document. Sound-alike and misspelled words, as well as other lining maker errors may be contained in the documentation.
== END 2022-02-23 23:59 | disposition home or self-care (01) ==
LOC: WC 14:30
PROVIDERS: PCP Nurse Practitioner Adult Health; Visit Provider Podiatrist
DX: E11.621 Type 2 diabetes mellitus with foot ulcer (principal); L97.513 Non-pressure chronic ulcer of other part of right foot with necrosis of muscle; E46 Unspecified protein-calorie malnutrition; M86.9 Osteomyelitis, unspecified; E11.42 Type 2 diabetes mellitus with diabetic polyneuropathy; L03.115 Cellulitis of right lower limb; G60.9 Hereditary and idiopathic neuropathy, unspecified; L85.3 Xerosis cutis
CPT/HCPCS: 11042; 15275; 97803; Q4186

== ENCOUNTER 2022-02-25 16:08 | Outpatient (RCR) | payer MEDICAID, SELFPAY | END 2022-03-25 23:59 | LOC: DC 16:08 | PROVIDERS: PCP Nurse Practitioner Adult Health; Referring Provider Podiatrist; Visit Provider Podiatrist | DX: E11.9 Type 2 diabetes mellitus without complications (principal) | CPT/HCPCS: G0109 ==

== ENCOUNTER 2022-03-17 13:30 | Outpatient (RCR) | payer MEDICAID, SELFPAY ==
[2022-02-24 00:52] VITALS: BP 108/64; PULSE 108; RESP 20; TEMP 36.4; BMI 23.8
[2022-02-24 13:16] VITALS: BMI 23.8
--- NOTE | 2022-02-24 13:51 | PCM.WC.PN ---
History of Present Illness Date of Service: 02/24/22 Chief Complaint: right foot ulcer and infection follow up History of Wound: This 41-year-old male with uncontrolled diabetes is here for hospital follow-up now that he has an open amputation including a fifth ray resection of the right foot for treatment of necrotizing fasciitis and bone infection. His surgery was performed on 10-30-21. He completed a course of IV antibiotics under the management of infectious disease. His last hemoglobin A1c level was 11.1% now decreased to 5.5%. He tolerated epi fix application last week and kept his dressing clean, dry, and intact. He is working on adjusting his insulin dosing. He denies fever, chill, nausea, vomiting. Progress of Wound: Improving Objective Data Objective Data Vital Signs: Vital Signs Temp Pulse Resp BP 97.6 F L 108 H 20 H 108/64 02/24/22 00:52 02/24/22 00:52 02/24/22 00:52 02/24/22 00:52 Weight: 77.564 kg Body Mass Index (BMI) 23.8 Physical Exam Extremity Extremity Narrative: No calf tenderness Edema right foot and leg significantly reduced compared to yesterday Compartments remain soft and there is no skin tenting 2/4 PT and DP pulses right Open fifth ray resection without bogginess or fluctuance No pain on palpation to first metatarsophalangeal joint or hallux or midfoot No pain, laxity or crepitus with manipulation of the midfoot, first metatarsophalangeal joint or hallux interphalangeal joint No pain on palpation to the sesamoid apparatus right foot Skin Skin Narrative: Open ray resection right foot with no purulence, necrosis, odor. Erythema has completely resolved. no exposed tendon or bone noted today. There is no purulence on expression of the adjacent tissue either. Neuro Neuro Narrative: lack of normal epicritic sensation via light touch is consistent with neuropathy status Debridement Note Debridement Note Wound debrided: right foot Wound Grade/Stage: 2 Type of Debridement: Excisional debridement Anesthesia Used: 4% Lidocaine Solution Depth: in the subcutaneous layer Percentage of wound debrided: 100 Instrument Used: #15 blade Tissue Removed: fibrous, devitalized subcutaneous, biofilm, slough Severity: Fat Layer Exposed Amount of bleeding with debridement: Mild Bleeding Controlled with: Pressure Patient tolerated procedure: Patient tolerated procedure well Post-Debridement Measurements and Additional Note: Post-Debridement Measurements/Treatment WC - Nurse 1 - General Ulcer Assessment Start: 02/24/22 13:15 Freq: Status: Active Protocol: DAVID Activity Type Activity Date Activity User E-Sign Co-Sign Detail Recorded Client Recorded Date Recorded By Document 02/24/22 13:16 JP [id number] 02/24/22 13:27 OK 02/24/22 13:16 WC - Today's Visit Information Type of service Follow-up Visit (Physician/HOT DIP PLATING SUPERVISOR ) Arrival Mode Ambulatory Patient Identification Verified (Name & Yes ) Patient Requires Transmission-Based No Precautions Height and Weight Body Mass Index (BMI) 23.8 BMI Classification Normal History Since Last Visit- (Skip if this is Patient's initial visit) Have you changed medications since your No last visit? Any new allergies or adverse reactions No Had a fall/change in ADL's that may No increase risk of falls Signs or symptoms of abuse and/or No neglect since last visit Have you been in the hospital since your No last visit? Has dressing in place as prescribed Yes Has compression in place as prescribed Yes Has offloadiing in place as prescribed N/A Experienced any changes in pain level or No management Left Footwear Surgical Shoe with pressure relief insole Right Footwear Regular Shoe Pain Scale: 0-10 Numeric Is Patient Pain Free? Yes - Nurse 1 - General Ulcer Measurement Start: 02/24/22 13:15 Freq: Status: Active Protocol: Activity Type Activity Date Activity User E-Sign Co-Sign Detail Recorded Client Recorded Date Recorded By Document 02/24/22 13:16 OK [id number] 02/24/22 13:27 OK 02/24/22 13:16 Wound Center Nurse 1 #1- R LAT FOOT POST OP -Combined with other wound No -Current Size (cm) - Length 3.6 -Current Size (cm) - Width 1 -Current Size (cm) - Depth 0.1 -Total Square Cm 3.6 -Date of Last Picture (Recall this 02/24/22 field) -Photo Taken Yes -Tunneling No -Undermining/Tunneling No -Circular Undermining No -Change in Wound Grade/Stage No -Exudate Amt Small -Exudate Type Serosanguineous -Wound Margin Distinct, Outline Attached -Granulation Amt None Present (0 %) -Granulation Quality N/A -Slough/Fibrin No -Necrosis Amt None Present (0 %) -Structure Exposed N/A -Texture (Tamika-wound Skin Appearance) Assessed, Scarring -Moisture (Tamika-wound Skin Appearance) No Abnormality, Assessed -Color (Tamika-wound Skin Appearance) No Abnormality, Assessed -Temperature (Tamika-wound Skin No Abnormality Appearance) (Pt Warm) -Tenderness on Palpation (Tamika-wound No Skin Appearance) -Ulcer Cleansing Soap and Water -Foul Odor after Cleansing No -Anesthetic Used 4% Lidocaine Solution Left Calf (cm) 35 Left Ankle (cm) 25.5 WC - Nurse 2 - General Ulcer CM Notes Start: 02/24/22 13:15 Freq: Status: Active Protocol: Activity Type Activity Date Activity User E-Sign Co-Sign Detail Recorded Client Recorded Date Recorded By Document 02/24/22 13:47 BLANCO [id number] 02/24/22 13:49 BLANCO 02/24/22 13:47 Wound Center Nurse 2 #1- R LAT FOOT POST OP -Time 13:47 -Correct Patient Yes -Correct Side, Site, Position Yes -Correct Procedure Yes -Procedure Performed Yes -Type of Procedure Debridement -Clinical Debridement Subcutaneous -Tissue Removed Subcutaneous -Post Debridement (cm) - Length 3.7 -Post Debridement (cm) - Width 1.0 -Post Debridement (cm) - Depth 0.1 -Total Square (Post) (cm) 3.70 -Area of Debridement (cm) - Length 3.7 -Area of Debridement (cm) - Width 1.0 -Total Square (Area) (cm) 3.70 -Tunneling No -Undermining/Tunneling No -Circular Undermining No -Wound/Ulcer Outcome Not Healed -Ulcer Cleansing Rinsed/ Irrigated with Saline -Foul Odor after Cleansing No -Bioengineered Tissue Yes -Type of Bioengineered Tissue Epifix -Expiration Date 11/24/26 -Product Lot Number [id number] -Percent Used 100 -Lot number of Saline Used [id number] -Bleeding Controlled with Pressure -Treatment Response Procedure Tolerated Well -Offloading Yes -Type of Offloading Surgical Shoe -Debridement - Subq, 1st 20sq cm No -Apply Skin Sub - 1st 25 sq cm - Feet 1 -Epifix (per sq cm) 4 Pain Scale: 0-10 Numeric Is Patient Pain Free? Yes Assessment/Plan Assessment/Plan (1) Other hereditary and idiopathic neuropathies: CODE(S): G60.8 - Other hereditary and idiopathic neuropathies (2) Osteomyelitis of right foot: CODE(S): M86.9 - Osteomyelitis, unspecified QUALIFIERS: Osteomyelitis type: unspecified type Qualified Code(s): M86.9 - Osteomyelitis, unspecified (3) Cellulitis of right foot: CODE(S): L03.115 - Cellulitis of right lower limb (4) Type 2 diabetes mellitus with diabetic polyneuropathy: CODE(S): E11.42 - Type 2 diabetes mellitus with diabetic polyneuropathy (5) Ulcer of right foot with necrosis of muscle: CODE(S): L97.513 - Non-pressure chronic ulcer of other part of right foot with necrosis of muscle (6) Malnutrition: CODE(S): E46 - Unspecified protein-calorie malnutrition PLAN: I reviewed and discussed his case today. Debridement was performed today as noted in the clinical panel to the ulcer site. The following work up and care recommendations were made: We discussed the etiology of neuropathy and his current clinical complaints. To continue gabapentin. I also recommend he proceed forward with nerve food prescription supplements (Metanx); he was unable to obtain this due to cost. Anticipated benefits indications and use were discussed again today. Dressing: To keep secondary dressing clean, dry, and intact until follow-up next week. Tissue growth optimization: I recommend application of advanced wound healing product such as Epicord or epi fix. The indications benefits anticipated management and healing expectations were reviewed. This is medically necessary for limb salvage. Prior authorization will be initiated again. His hemoglobin A1c was checked and is significantly improved; 5.5%. An appeal letter explaining his medical necessity and success of the recommended advancing healing product list resubmitted recently. He is at risk for infection recurrence, further limb loss and amputation, and even . Authorization was confirmed. Verbal consent was obtained. Epi fix was applied according standard protocol to the right foot. This was secured with a wound veil and Steri-Strips. He tolerated this well. Offloading: He has a surgical shoe and will heel touch for transfers only. Vascular: Recent noninvasive vascular studies were obtained he has good waveforms and ABIs. He does have a digital brachial index of 0.63 on the right which corresponds to small vessel disease however adequate perfusion to this site is possible. Edema: Tubigrip. Elevation. Reduce salt in diet Infection: Clearance surgical fragment cx with MSSA, MSSES, strep x2. To continue po flagyl and 6 weeks ceftriaxone under the management of infectious disease with stop date 12/11. It is noted he saw infectious disease specialist today and will proceed with completing the antibiotics. A C. difficile treatment per infectious disease specialist. This was completed. To reach out to ID office if this returns. Pain: Controlled due to neuropathic status Host factors: I recommend nutritional supplementation optimize healing. It is noted he has uncontrolled glucose levels and I recommend follow-up with his primary care physician. This is imperative for wound healing and limb salvage. He is currently under the management of a central processing technician and is taking Soren nutritional supplementation also. Xerosis management: To continue Lac-Hydrin lotion application daily. I answered all the patient's questions. To return to the wound healing center in 1 week or call sooner if the patient has any questions or concerns. Note: [employer] speech recognition rug cleaner hand software was used to create portions of this document. Sound-alike and misspelled words, as well as other rug cleaner hand errors may be contained in the documentation.
[2022-03-03 14:08] VITALS: BP 102/60; PULSE 112; TEMP 36.6; BMI 23.8
--- NOTE | 2022-03-03 16:26 | PCM.WC.PN ---
History of Present Illness Date of Service: 03/03/22 Chief Complaint: right foot ulcer and infection follow up History of Wound: This 41-year-old male with uncontrolled diabetes is here for hospital follow-up now that he has an open amputation including a fifth ray resection of the right foot for treatment of necrotizing fasciitis and bone infection. His surgery was performed on 10-30-21. He completed a course of IV antibiotics under the management of infectious disease. His last hemoglobin A1c level was 11.1% now decreased to 5.5%. He tolerated epi fix application last week and kept his dressing clean, dry, and intact. He is working on adjusting his insulin dosing. He denies fever, chill, nausea, vomiting. Progress of Wound: Improving Objective Data Objective Data Vital Signs: Vital Signs Temp Pulse Resp BP 97.8 F 112 H 20 H 102/60 03/03/22 14:08 03/03/22 14:08 02/24/22 00:52 03/03/22 14:08 Weight: 77.564 kg Body Mass Index (BMI) 23.8 Physical Exam Extremity Extremity Narrative: No calf tenderness Edema right foot and leg significantly reduced compared to yesterday Compartments remain soft and there is no skin tenting 2/4 PT and DP pulses right Open fifth ray resection without bogginess or fluctuance No pain on palpation to first metatarsophalangeal joint or hallux or midfoot No pain, laxity or crepitus with manipulation of the midfoot, first metatarsophalangeal joint or hallux interphalangeal joint No pain on palpation to the sesamoid apparatus right foot Skin Skin Narrative: Open ray resection right foot with no purulence, necrosis, odor. Erythema has completely resolved. no exposed tendon or bone noted today. There is no purulence on expression of the adjacent tissue either. Neuro Neuro Narrative: lack of normal epicritic sensation via light touch is consistent with neuropathy status Debridement Note Debridement Note Wound debrided: right foot Wound Grade/Stage: 2 Type of Debridement: Excisional debridement Anesthesia Used: 4% Lidocaine Solution Depth: in the subcutaneous layer Percentage of wound debrided: 100 Instrument Used: #15 blade Tissue Removed: fibrous, devitalized subcutaneous, biofilm, slough Severity: Fat Layer Exposed Amount of bleeding with debridement: Mild Bleeding Controlled with: Pressure Patient tolerated procedure: Patient tolerated procedure well Post-Debridement Measurements and Additional Note: Post-Debridement Measurements/Treatment WC - Nurse 1 - General Ulcer Assessment Start: 02/24/22 13:15 Freq: Status: Active Protocol: DAVID Activity Type Activity Date Activity User E-Sign Co-Sign Detail Recorded Client Recorded Date Recorded By Document 02/24/22 13:16 AK [id number] 02/24/22 13:27 AK Document 03/03/22 14:08 KR [id number] 03/03/22 14:09 AMAURY 02/24/22 03/03/22 13:16 14:08 WC - Today's Visit Information Type of service Follow-up Visit Follow-up Visit (Physician/ENTRY LEVEL ELECTRICIAN (Physician/ENTRY LEVEL ELECTRICIAN ) ) Arrival Mode Ambulatory Ambulatory, Walker Patient Identification Verified (Name & Yes Yes ) Patient Requires Transmission-Based No Precautions Height and Weight Body Mass Index (BMI) 23.8 23.8 BMI Classification Normal Normal Vital Signs Temperature (97.8 F-99.1 F) 97.8 F Temperature Source Temporal Pulse Rate (60-100) 112 H Pulse Location Monitor Blood Pressure (90/60-120/80) 102/60 Blood Pressure Mean (mm Hg) 74 Source Monitor Position Sitting Blood Pressure Location Left Arm History Since Last Visit- (Skip if this is Patient's initial visit) Have you changed medications since your No No last visit? Any new allergies or adverse reactions No No Had a fall/change in ADL's that may No No increase risk of falls Signs or symptoms of abuse and/or No No neglect since last visit Have you been in the hospital since your No No last visit? Has dressing in place as prescribed Yes Yes Has compression in place as prescribed Yes N/A Has offloadiing in place as prescribed N/A N/A Experienced any changes in pain level or No No management Left Footwear Surgical Shoe Regular Shoe with pressure relief insole Right Footwear Regular Shoe Surgical Shoe with pressure relief insole Pain Scale: 0-10 Numeric Is Patient Pain Free? Yes Yes - Nurse 1 - General Ulcer Measurement Start: 02/24/22 13:15 Freq: Status: Active Protocol: Activity Type Activity Date Activity User E-Sign Co-Sign Detail Recorded Client Recorded Date Recorded By Document 02/24/22 13:16 JP [id number] 02/24/22 13:27 AK Document 03/03/22 14:08 AMAURY [id number] 03/03/22 14:09 KR 02/24/22 03/03/22 13:16 14:08 Wound Center Nurse 1 #1- R LAT FOOT POST OP -Combined with other wound No -Current Size (cm) - Length 3.6 3.5 -Current Size (cm) - Width 1 1.9 -Current Size (cm) - Depth 0.1 0.1 -Total Square Cm 3.6 6.65 -Date of Last Picture (Recall this 02/24/22 field) -Photo Taken Yes -Tunneling No -Undermining/Tunneling No -Circular Undermining No -Change in Wound Grade/Stage No -Exudate Amt Small Small -Exudate Type Serosanguineous Serosanguineous -Wound Margin Distinct, Distinct, Outline Outline Attached Attached -Granulation Amt None Present (0 Medium (34-66%) %) -Granulation Quality N/A [place] -Slough/Fibrin No -Necrosis Amt None Present (0 Small (1-33%) %) -Necrotic Tissue Type Adherent Slough -Structure Exposed N/A -Texture (Tamika-wound Skin Appearance) Assessed, Assessed, Scarring Scarring -Moisture (Tamika-wound Skin Appearance) No Abnormality, No Abnormality, Assessed Assessed -Color (Tamika-wound Skin Appearance) No Abnormality, No Abnormality, Assessed Assessed -Temperature (Tamika-wound Skin No Abnormality No Abnormality Appearance) (Pt Warm) (Pt Warm) -Tenderness on Palpation (Tamika-wound No No Skin Appearance) -Ulcer Cleansing Soap and Water Rinsed/ Irrigated with Saline -Foul Odor after Cleansing No No -Anesthetic Used 4% Lidocaine 4% Lidocaine Solution Solution Left Calf (cm) 35 Left Ankle (cm) 25.5 WC - Nurse 2 - General Ulcer CM Notes Start: 02/24/22 13:15 Freq: Status: Active Protocol: Activity Type Activity Date Activity User E-Sign Co-Sign Detail Recorded Client Recorded Date Recorded By Document 02/24/22 13:47 [id number] 02/24/22 13:49 Document 03/03/22 14:27 [id number] 03/03/22 14:31 02/24/22 03/03/22 13:47 14:27 Wound Center Nurse 2 #1- R LAT FOOT POST OP -Time 13:47 14:27 -Correct Patient Yes Yes -Correct Side, Site, Position Yes Yes -Correct Procedure Yes Yes -Procedure Performed Yes Yes -Type of Procedure Debridement Debridement -Clinical Debridement Subcutaneous Subcutaneous -Tissue Removed Subcutaneous Subcutaneous -Post Debridement (cm) - Length 3.7 1.5 -Post Debridement (cm) - Width 1.0 0.7 -Post Debridement (cm) - Depth 0.1 0.1 -Total Square (Post) (cm) 3.70 1.05 -Area of Debridement (cm) - Length 3.7 1.5 -Area of Debridement (cm) - Width 1.0 0.7 -Total Square (Area) (cm) 3.70 1.05 -Tunneling No No -Undermining/Tunneling No No -Circular Undermining No No -Wound/Ulcer Outcome Not Healed Not Healed -Ulcer Cleansing Rinsed/ Rinsed/ Irrigated with Irrigated with Saline Saline -Foul Odor after Cleansing No No -Bioengineered Tissue Yes Yes -Type of Bioengineered Tissue Epifix Epifix 18mm Disc -Expiration Date 11/24/26 11/24/26 -Product Lot Number [id number] -Percent Used 100 100 -Lot number of Saline Used [id number] -Bleeding Controlled with Pressure Pressure -Treatment Response Procedure Procedure Tolerated Well Tolerated Well -Offloading Yes Yes -Type of Offloading Surgical Shoe Surgical Shoe -Debridement - Subq, 1st 20sq cm No No -Apply Skin Sub - 1st 25 sq cm - Feet 1 1 -Epifix (per sq cm) 4 -Epifix 18mm Disc 3 Pain Scale: 0-10 Numeric Is Patient Pain Free? Yes Yes - Nurse 3 - General Ulcer D/C NN Start: 02/24/22 13:15 Freq: Status: Active Protocol: Activity Type Activity Date Activity User E-Sign Co-Sign Detail Recorded Client Recorded Date Recorded By Document 02/24/22 13:51 [facility] [id number] 02/24/22 13:52 BM Document 03/03/22 14:52 AMAURY [id number] 03/03/22 14:53 KR 02/24/22 03/03/22 13:51 14:52 Wound Care Nurse 3 #1- R LAT FOOT POST OP -Ulcer Cleansing Rinsed/ Irrigated with Saline -Other Dressing EPIFIX -Primary Dressing Covered/Secured with Dry Gauze & Dry Gauze & Roll Gauze, Roll Gauze Secured with Tape,Other -Other Covering ABD, DRSG PER [place] MASS SPECTROMETRY MANAGER Right -Tubular Bandage Double Layer -Size of Tubigrip Used Size E -Size E ($) 1 Treatment Response Procedure Tolerated Well Pain Scale: 0-10 Numeric Is Patient Pain Free? Yes Yes WC - Visit Discharge Discharge Condition Stable Stable Ambulatory Status Ambulatory, Walker Walker Transportation Private Auto Private Auto Facility Type Home Health Assessment/Plan Assessment/Plan (1) Other hereditary and idiopathic neuropathies: CODE(S): G60.8 - Other hereditary and idiopathic neuropathies (2) Osteomyelitis of right foot: CODE(S): M86.9 - Osteomyelitis, unspecified QUALIFIERS: Osteomyelitis type: unspecified type Qualified Code(s): M86.9 - Osteomyelitis, unspecified (3) Cellulitis of right foot: CODE(S): L03.115 - Cellulitis of right lower limb (4) Type 2 diabetes mellitus with diabetic polyneuropathy: CODE(S): E11.42 - Type 2 diabetes mellitus with diabetic polyneuropathy (5) Ulcer of right foot with necrosis of muscle: CODE(S): L97.513 - Non-pressure chronic ulcer of other part of right foot with necrosis of muscle (6) Malnutrition: CODE(S): E46 - Unspecified protein-calorie malnutrition PLAN: I reviewed and discussed his case today. Debridement was performed today as noted in the clinical panel to the ulcer site. The following work up and care recommendations were made: We discussed the etiology of neuropathy and his current clinical complaints. To continue gabapentin. I also recommend he proceed forward with nerve food prescription supplements (Metanx); he was unable to obtain this due to cost. Anticipated benefits indications and use were discussed again today. Dressing: To keep secondary dressing clean, dry, and intact until follow-up next week. Tissue growth optimization: I recommend application of advanced wound healing product such as Epicord or epi fix. The indications benefits anticipated management and healing expectations were reviewed. This is medically necessary for limb salvage. Prior authorization will be initiated again. His hemoglobin A1c was checked and is significantly improved; 5.5%. An appeal letter explaining his medical necessity and success of the recommended advancing healing product list resubmitted recently. He is at risk for infection recurrence, further limb loss and amputation, and even . Authorization was confirmed. Verbal consent was obtained. Epi fix was applied according standard protocol to the right foot. This was secured with a wound veil and Steri-Strips. He tolerated this well. Offloading: He has a surgical shoe and will heel touch for transfers only. Vascular: Recent noninvasive vascular studies were obtained he has good waveforms and ABIs. He does have a digital brachial index of 0.63 on the right which corresponds to small vessel disease however adequate perfusion to this site is possible. Edema: Tubigrip. Elevation. Reduce salt in diet Infection: Clearance surgical fragment cx with MSSA, MSSES, strep x2. To continue po flagyl and 6 weeks ceftriaxone under the management of infectious disease with stop date 12/11. It is noted he saw infectious disease specialist today and will proceed with completing the antibiotics. A C. difficile treatment per infectious disease specialist. This was completed. To reach out to ID office if this returns. Pain: Controlled due to neuropathic status Host factors: I recommend nutritional supplementation optimize healing. It is noted he has uncontrolled glucose levels and I recommend follow-up with his primary care physician. This is imperative for wound healing and limb salvage. He is currently under the management of a traffic checker and is taking Soren nutritional supplementation also. Xerosis management: To continue Lac-Hydrin lotion application daily. I answered all the patient's questions. To return to the wound healing center in 1 week or call sooner if the patient has any questions or concerns. Note: [employer] speech recognition air conditioning installer software was used to create portions of this document. Sound-alike and misspelled words, as well as other air conditioning installer errors may be contained in the documentation.
[2022-03-10 13:30] VITALS: BP 111/70; PULSE 113; TEMP 35.9; BMI 23.8
--- NOTE | 2022-03-10 15:32 | PCM.WC.PN ---
History of Present Illness Date of Service: 03/10/22 Chief Complaint: right foot ulcer and infection follow up History of Wound: This 41-year-old male with uncontrolled diabetes is here for hospital follow-up now that he has an open amputation including a fifth ray resection of the right foot for treatment of necrotizing fasciitis and bone infection. His surgery was performed on 10-30-21. He completed a course of IV antibiotics under the management of infectious disease. His last hemoglobin A1c level was 11.1% now decreased to 5.5%. He tolerated epi fix application last week and kept his dressing clean, dry, and intact. He denies fever, chill, nausea, vomiting. He reports he is doing well. Progress of Wound: Improving Objective Data Objective Data Vital Signs: Vital Signs Temp Pulse Resp BP 96.7 F L 113 H 20 H 111/70 03/10/22 13:30 03/10/22 13:30 02/24/22 00:52 03/10/22 13:30 Weight: 77.564 kg Body Mass Index (BMI) 23.8 Physical Exam Extremity Extremity Narrative: No calf tenderness Edema right foot and leg significantly reduced compared to yesterday Compartments remain soft and there is no skin tenting 2/4 PT and DP pulses right Open fifth ray resection without bogginess or fluctuance No pain on palpation to first metatarsophalangeal joint or hallux or midfoot No pain, laxity or crepitus with manipulation of the midfoot, first metatarsophalangeal joint or hallux interphalangeal joint No pain on palpation to the sesamoid apparatus right foot Skin Skin Narrative: Open ray resection right foot with no purulence, necrosis, odor. Erythema has completely resolved. no exposed tendon or bone noted today. There is no purulence on expression of the adjacent tissue either. Neuro Neuro Narrative: lack of normal epicritic sensation via light touch is consistent with neuropathy status Debridement Note Debridement Note Wound debrided: right foot Wound Grade/Stage: 2 Type of Debridement: Excisional debridement Anesthesia Used: 4% Lidocaine Solution Depth: in the subcutaneous layer Percentage of wound debrided: 100 Instrument Used: #15 blade Tissue Removed: fibrous, devitalized subcutaneous, biofilm, slough Severity: Fat Layer Exposed Amount of bleeding with debridement: Mild Bleeding Controlled with: Pressure Patient tolerated procedure: Patient tolerated procedure well Post-Debridement Measurements and Additional Note: Post-Debridement Measurements/Treatment WC - Nurse 1 - General Ulcer Assessment Start: 02/24/22 13:15 Freq: Status: Active Protocol: WC.LOWGONZALOT Activity Type Activity Date Activity User E-sign Co-sign Detail Recorded Client Recorded Date Recorded By Document 02/24/22 13:16 AK [id number] 02/24/22 13:27 AK Document 03/03/22 14:08 KR [id number] 03/03/22 14:09 KR Document 03/10/22 13:30 KR [id number] 03/10/22 13:45 KR 02/24/22 03/03/22 03/10/22 13:16 14:08 13:30 WC - Today's Visit Information Type of service Follow-up Visit Follow-up Visit Follow-up Visit (Physician/CIRCULATING NURSE (Physician/CIRCULATING NURSE (Physician/CIRCULATING NURSE ) ) ) Arrival Mode Ambulatory Ambulatory, Ambulatory, Walker Walker Patient Identification Verified (Name & Yes Yes Yes ) Patient Requires Transmission-Based No Precautions Height and Weight Body Mass Index (BMI) 23.8 23.8 23.8 BMI Classification Normal Normal Normal Vital Signs Temperature (97.8 F-99.1 F) 97.8 F 96.7 F L Temperature Source Temporal Temporal Pulse Rate (60-100) 112 H 113 H Pulse Location Monitor Monitor Blood Pressure (90/60-120/80) 102/60 111/70 Blood Pressure Mean (mm Hg) 74 83 Source Monitor Monitor Position Sitting Sitting Blood Pressure Location Left Arm Right Arm History Since Last Visit- (Skip if this is Patient's initial visit) Have you changed medications since your No No No last visit? Any new allergies or adverse reactions No No No Had a fall/change in ADL's that may No No No increase risk of falls Signs or symptoms of abuse and/or No No No neglect since last visit Have you been in the hospital since your No No No last visit? Has dressing in place as prescribed Yes Yes Yes Has compression in place as prescribed Yes N/A Yes Has offloadiing in place as prescribed N/A N/A N/A Experienced any changes in pain level or No No No management Left Footwear Surgical Shoe Regular Shoe Regular Shoe with pressure relief insole Right Footwear Regular Shoe Surgical Shoe Regular Shoe with pressure relief insole Pain Scale: 0-10 Numeric Is Patient Pain Free? Yes Yes Yes WC - Nurse 1 - General Ulcer Measurement Start: 02/24/22 13:15 Freq: Status: Active Protocol: Activity Type Activity Date Activity User E-sign Co-sign Detail Recorded Client Recorded Date Recorded By Document 02/24/22 13:16 AK [id number] 02/24/22 13:27 AK Document 03/03/22 14:08 KR [id number] 03/03/22 14:09 KR Document 03/10/22 13:30 KR [id number] 03/10/22 13:45 KR 02/24/22 03/03/22 03/10/22 13:16 14:08 13:30 Wound Center Nurse 1 #1- R LAT FOOT POST OP -Combined with other wound No -Current Size (cm) - Length 3.6 3.5 1.5 -Current Size (cm) - Width 1 1.9 0.5 -Current Size (cm) - Depth 0.1 0.1 0.1 -Total Square Cm 3.6 6.65 0.75 -Date of Last Picture (Recall this 02/24/22 field) -Photo Taken Yes -Tunneling No -Undermining/Tunneling No -Circular Undermining No -Change in Wound Grade/Stage No -Exudate Amt Small Small None Present -Exudate Type Serosanguineous Serosanguineous -Wound Margin Distinct, Distinct, Distinct, Outline Outline Outline Attached Attached Attached -Granulation Amt None Present (0 Medium (34-66%) Large (67-100%) %) -Granulation Quality N/A Martin Martin -Slough/Fibrin No -Necrosis Amt None Present (0 Small (1-33%) None Present (0 %) %) -Necrotic Tissue Type Adherent Slough -Structure Exposed N/A -Texture (Tamika-wound Skin Appearance) Assessed, Assessed, Assessed, Scarring Scarring Scarring -Moisture (Tamika-wound Skin Appearance) No Abnormality, No Abnormality, No Abnormality, Assessed Assessed Assessed -Color (Tamika-wound Skin Appearance) No Abnormality, No Abnormality, No Abnormality, Assessed Assessed Assessed -Temperature (Tamika-wound Skin No Abnormality No Abnormality No Abnormality Appearance) (Pt Warm) (Pt Warm) (Pt Warm) -Tenderness on Palpation (Tamika-wound No No No Skin Appearance) -Ulcer Cleansing Soap and Water Rinsed/ Rinsed/ Irrigated with Irrigated with Saline Saline -Foul Odor after Cleansing No No No -Anesthetic Used 4% Lidocaine 4% Lidocaine 4% Lidocaine Solution Solution Solution Left Calf (cm) 35 Left Ankle (cm) 25.5 WC - Nurse 2 - General Ulcer CM Notes Start: 02/24/22 13:15 Freq: Status: Active Protocol: Activity Type Activity Date Activity User E-sign Co-sign Detail Recorded Client Recorded Date Recorded By Document 02/24/22 13:47 [id number] 02/24/22 13:49 Document 03/03/22 14:27 [id number] 03/03/22 14:31 Document 03/10/22 13:53 [id number] 03/10/22 13:56 02/24/22 03/03/22 03/10/22 13:47 14:27 13:53 Wound Center Nurse 2 #1- R LAT FOOT POST OP -Time 13:47 14:27 13:53 -Correct Patient Yes Yes Yes -Correct Side, Site, Position Yes Yes Yes -Correct Procedure Yes Yes Yes -Procedure Performed Yes Yes Yes -Type of Procedure Debridement Debridement Debridement -Clinical Debridement Subcutaneous Subcutaneous Subcutaneous -Tissue Removed Subcutaneous Subcutaneous Subcutaneous -Post Debridement (cm) - Length 3.7 1.5 0.5 -Post Debridement (cm) - Width 1.0 0.7 0.8 -Post Debridement (cm) - Depth 0.1 0.1 0.1 -Total Square (Post) (cm) 3.70 1.05 0.40 -Area of Debridement (cm) - Length 3.7 1.5 0.5 -Area of Debridement (cm) - Width 1.0 0.7 0.8 -Total Square (Area) (cm) 3.70 1.05 0.40 -Tunneling No No No -Undermining/Tunneling No No No -Circular Undermining No No No -Wound/Ulcer Outcome Not Healed Not Healed Not Healed -Ulcer Cleansing Rinsed/ Rinsed/ Rinsed/ Irrigated with Irrigated with Irrigated with Saline Saline Saline -Foul Odor after Cleansing No No No -Bioengineered Tissue Yes Yes Yes -Type of Bioengineered Tissue Epifix Epifix 18mm Epifix 18mm Disc Disc -Expiration Date 11/24/26 11/24/26 11/24/26 -Product Lot Number [id number] -Percent Used 100 100 100 -Lot number of Saline Used [id number] -Bleeding Controlled with Pressure Pressure Pressure -Treatment Response Procedure Procedure Procedure Tolerated Well Tolerated Well Tolerated Well -Offloading Yes Yes Yes -Type of Offloading Surgical Shoe Surgical Shoe Surgical Shoe -Debridement - Subq, 1st 20sq cm No No No -Apply Skin Sub - 1st 25 sq cm - Feet 1 1 1 -Epifix (per sq cm) 4 -Epifix 18mm Disc 3 3 Pain Scale: 0-10 Numeric Is Patient Pain Free? Yes Yes Yes - Nurse 3 - General Ulcer D/C NN Start: 02/24/22 13:15 Freq: Status: Active Protocol: Activity Type Activity Date Activity User E-sign Co-sign Detail Recorded Client Recorded Date Recorded By Document 02/24/22 13:51 [facility] [id number] 02/24/22 13:52 [facility] Document 03/03/22 14:52 KR [id number] 03/03/22 14:53 KR Document 03/10/22 14:01 KR [id number] 03/10/22 14:01 KR 02/24/22 03/03/22 03/10/22 13:51 14:52 14:01 Wound Care Nurse 3 #1- R LAT FOOT POST OP -Ulcer Cleansing Rinsed/ Irrigated with Saline -Other Dressing EPIFIX ABD pad -Primary Dressing Covered/Secured with Dry Gauze & Dry Gauze & Dry Gauze, Roll Gauze, Roll Gauze Secured with Secured with Tape Tape,Other -Other Covering ABD, DRSG PER [place] [employer] Right -Tubular Bandage Double Layer -Size of Tubigrip Used Size E -Size E ($) 1 Treatment Response Procedure Tolerated Well Pain Scale: 0-10 Numeric Is Patient Pain Free? Yes Yes Yes - Visit Discharge Discharge Condition Stable Stable Stable Ambulatory Status Ambulatory, Walker Walker Walker Transportation Private Auto Private Auto Private Auto Facility Type Home Health Assessment/Plan Assessment/Plan (1) Other hereditary and idiopathic neuropathies: CODE(S): G60.8 - Other hereditary and idiopathic neuropathies (2) Osteomyelitis of right foot: CODE(S): M86.9 - Osteomyelitis, unspecified QUALIFIERS: Osteomyelitis type: unspecified type Qualified Code(s): M86.9 - Osteomyelitis, unspecified (3) Cellulitis of right foot: CODE(S): L03.115 - Cellulitis of right lower limb (4) Type 2 diabetes mellitus with diabetic polyneuropathy: CODE(S): E11.42 - Type 2 diabetes mellitus with diabetic polyneuropathy (5) Ulcer of right foot with necrosis of muscle: CODE(S): L97.513 - Non-pressure chronic ulcer of other part of right foot with necrosis of muscle (6) Malnutrition: CODE(S): E46 - Unspecified protein-calorie malnutrition PLAN: Plan I reviewed and discussed his case today. Debridement was performed today as noted in the clinical panel to the ulcer site. The following work up and care recommendations were made: We discussed the etiology of neuropathy and his current clinical complaints. To continue gabapentin. I also recommend he proceed forward with nerve food prescription supplements (Metanx); he was unable to obtain this due to cost. Anticipated benefits indications and use were discussed again today. Dressing: To keep secondary dressing clean, dry, and intact until follow-up next week. Tissue growth optimization: I recommend application of advanced wound healing product such as Epicord or epi fix. The indications benefits anticipated management and healing expectations were reviewed. This is medically necessary for limb salvage. Prior authorization will be initiated again. His hemoglobin A1c was checked and is significantly improved; 5.5%. An appeal letter explaining his medical necessity and success of the recommended advancing healing product list resubmitted recently. He is at risk for infection recurrence, further limb loss and amputation, and even . Authorization was confirmed. Verbal consent was obtained. Epi fix was applied according standard protocol to the right foot. This was secured with a wound veil and Steri-Strips. He tolerated this well. Offloading: He has a surgical shoe and will heel touch for transfers only. Vascular: Recent noninvasive vascular studies were obtained he has good waveforms and ABIs. He does have a digital brachial index of 0.63 on the right which corresponds to small vessel disease however adequate perfusion to this site is possible. Edema: Tubigrip. Elevation. Reduce salt in diet Infection: Clearance surgical fragment cx with MSSA, MSSES, strep x2. To continue po flagyl and 6 weeks ceftriaxone under the management of infectious disease with stop date 12/11. It is noted he saw infectious disease specialist today and will proceed with completing the antibiotics. A C. difficile treatment per infectious disease specialist. This was completed. To reach out to ID office if this returns. Pain: Controlled due to neuropathic status Host factors: I recommend nutritional supplementation optimize healing. It is noted he has uncontrolled glucose levels and I recommend follow-up with his primary care physician. This is imperative for wound healing and limb salvage. He is currently under the management of a receiver and is taking Soren nutritional supplementation also. Xerosis management: To continue Lac-Hydrin lotion application daily. I answered all the patient's questions. To return to the wound healing center in 1 week or call sooner if the patient has any questions or concerns. Note: Only-apartments speech recognition senior revenue accountant software was used to create portions of this document. Sound-alike and misspelled words, as well as other senior revenue accountant errors may be contained in the documentation.
[2022-03-17 13:35] VITALS: RESP 18; TEMP 37.3; BMI 23.8
--- NOTE | 2022-03-17 15:22 | PN.PCM_ITS ---
History of Present Illness Date of Service: 03/17/22 Chief Complaint: right foot ulcer and infection follow up History of Wound: This 41-year-old male with uncontrolled diabetes is here for hospital follow-up now that he has an open amputation including a fifth ray resection of the right foot for treatment of necrotizing fasciitis and bone infection. His surgery was performed on 10-30-21. He completed a course of IV antibiotics under the management of infectious disease. His last hemoglobin A1c level was 11.1% now decreased to 5.5%. He tolerated epi fix application last week and kept his dressing clean, dry, and intact. He denies fever, chill, nausea, vomiting. He reports he is doing well. He denies drainage. His glucose level this morning was 180 mg/dL. Progress of Wound: Improving Objective Data Objective Data Vital Signs: Vital Signs Temp Pulse Resp BP 99.1 F 113 H 18 111/70 03/17/22 13:35 03/10/22 13:30 03/17/22 13:35 03/10/22 13:30 Weight: 77.564 kg Body Mass Index (BMI) 23.8 Physical Exam Extremity Extremity Narrative: No calf tenderness Edema right foot and leg significantly reduced compared to yesterday Compartments remain soft and there is no skin tenting 2/4 PT and DP pulses right Open fifth ray resection without bogginess or fluctuance No pain on palpation to first metatarsophalangeal joint or hallux or midfoot No pain, laxity or crepitus with manipulation of the midfoot, first metatarsophalangeal joint or hallux interphalangeal joint No pain on palpation to the sesamoid apparatus right foot Skin Skin Narrative: Open ray resection right foot with no purulence, necrosis, odor. Erythema has completely resolved. no exposed tendon or bone noted today. There is no purulence on expression of the adjacent tissue either. the ulcer has healed and there is full epithelialization noted (atrophic) Neuro Neuro Narrative: lack of normal epicritic sensation via light touch is consistent with neuropathy status Debridement Note Debridement Note Post-Debridement Measurements and Additional Note: Post-Debridement Measurements/Treatment PHILL - Nurse 1 - General Ulcer Assessment Start: 02/24/22 13:15 Freq: Status: Active Protocol: DAVID Activity Type Activity Date Activity User E-sign Co-sign Detail Recorded Client Recorded Date Recorded By Document 02/24/22 13:16 [place] [id number] 02/24/22 13:27 [place] Document 03/03/22 14:08 KR [id number] 03/03/22 14:09 KR Document 03/10/22 13:30 KR [id number] 03/10/22 13:45 KR Document 03/17/22 13:35 DL [id number] 03/17/22 13:46 DL 02/24/22 03/03/22 03/10/22 13:16 14:08 13:30 WC - Today's Visit Information Type of service Follow-up Visit Follow-up Visit Follow-up Visit (Physician/COMMUNITY RELATIONS REP (Physician/COMMUNITY RELATIONS REP (Physician/COMMUNITY RELATIONS REP ) ) ) Arrival Mode Ambulatory Ambulatory, Ambulatory, Walker Walker Transfer Assistance Patient Identification Verified (Name & Yes Yes Yes ) Patient Requires Transmission-Based No Precautions Finger Stick Blood Sugar(mg/dl) (if indicated): Blood Sugar Height and Weight Body Mass Index (BMI) 23.8 23.8 23.8 BMI Classification Normal Normal Normal Vital Signs Temperature (97.8 F-99.1 F) 97.8 F 96.7 F L Temperature Source Temporal Temporal Pulse Rate (60-100) 112 H 113 H Pulse Location Monitor Monitor Respiratory Rate (12-18) Respiratory rate source Blood Pressure (90/60-120/80) 102/60 111/70 Blood Pressure Mean (mm Hg) 74 83 Source Monitor Monitor Position Sitting Sitting Blood Pressure Location Left Arm Right Arm History Since Last Visit- (Skip if this is Patient's initial visit) Have you changed medications since your No No No last visit? Any new allergies or adverse reactions No No No Had a fall/change in ADL's that may No No No increase risk of falls Signs or symptoms of abuse and/or No No No neglect since last visit Have you been in the hospital since your No No No last visit? Has dressing in place as prescribed Yes Yes Yes Has compression in place as prescribed Yes N/A Yes Has offloadiing in place as prescribed N/A N/A N/A Experienced any changes in pain level or No No No management Left Footwear Surgical Shoe Regular Shoe Regular Shoe with pressure relief insole Right Footwear Regular Shoe Surgical Shoe Regular Shoe with pressure relief insole Pain Scale: 0-10 Numeric Is Patient Pain Free? Yes Yes Yes 03/17/22 13:35 WC - Today's Visit Information Type of service Follow-up Visit (Physician/COMMUNITY RELATIONS REP ) Arrival Mode Ambulatory, Walker Transfer Assistance None Patient Identification Verified (Name & Yes ) Patient Requires Transmission-Based No Precautions Finger Stick Blood Sugar(mg/dl) (if 155 indicated): Blood Sugar Stated by Patient Height and Weight Body Mass Index (BMI) 23.8 BMI Classification Normal Vital Signs Temperature (97.8 F-99.1 F) 99.1 F Temperature Source Temporal Pulse Rate (60-100) Pulse Location Respiratory Rate (12-18) 18 Respiratory rate source Observation Blood Pressure (90/60-120/80) Blood Pressure Mean (mm Hg) Source Position Blood Pressure Location History Since Last Visit- (Skip if this is Patient's initial visit) Have you changed medications since your No last visit? Any new allergies or adverse reactions No Had a fall/change in ADL's that may No increase risk of falls Signs or symptoms of abuse and/or No neglect since last visit Have you been in the hospital since your No last visit? Has dressing in place as prescribed Yes Has compression in place as prescribed Yes Has offloadiing in place as prescribed Yes Experienced any changes in pain level or No management Left Footwear Right Footwear Surgical Shoe with pressure relief insole Pain Scale: 0-10 Numeric Is Patient Pain Free? Yes - Nurse 1 - General Ulcer Measurement Start: 02/24/22 13:15 Freq: Status: Active Protocol: Activity Type Activity Date Activity User E-sign Co-sign Detail Recorded Client Recorded Date Recorded By Document 02/24/22 13:16 [place] [id number] 02/24/22 13:27 AK Document 03/03/22 14:08 KR [id number] 03/03/22 14:09 KR Document 03/10/22 13:30 KR [id number] 03/10/22 13:45 KR Document 03/17/22 13:35 DL [id number] 03/17/22 13:46 DL 02/24/22 03/03/22 03/10/22 13:16 14:08 13:30 Wound Center Nurse 1 #1- R LAT FOOT POST OP -Combined with other wound No -Current Size (cm) - Length 3.6 3.5 1.5 -Current Size (cm) - Width 1 1.9 0.5 -Current Size (cm) - Depth 0.1 0.1 0.1 -Total Square Cm 3.6 6.65 0.75 -Date of Last Picture (Recall this 02/24/22 field) -Photo Taken Yes -Tunneling No -Undermining/Tunneling No -Circular Undermining No -Change in Wound Grade/Stage No -Exudate Amt Small Small None Present -Exudate Type Serosanguineous Serosanguineous -Wound Margin Distinct, Distinct, Distinct, Outline Outline Outline Attached Attached Attached -Granulation Amt None Present (0 Medium (34-66%) Large (67-100%) %) -Granulation Quality N/A [place] -Slough/Fibrin No -Necrosis Amt None Present (0 Small (1-33%) None Present (0 %) %) -Necrotic Tissue Type Adherent Slough -Structure Exposed N/A -Texture (Tamika-wound Skin Appearance) Assessed, Assessed, Assessed, Scarring Scarring Scarring -Moisture (Tamika-wound Skin Appearance) No Abnormality, No Abnormality, No Abnormality, Assessed Assessed Assessed -Color (Tamika-wound Skin Appearance) No Abnormality, No Abnormality, No Abnormality, Assessed Assessed Assessed -Temperature (Tamika-wound Skin No Abnormality No Abnormality No Abnormality Appearance) (Pt Warm) (Pt Warm) (Pt Warm) -Tenderness on Palpation (Tamika-wound No No No Skin Appearance) -Ulcer Cleansing Soap and Water Rinsed/ Rinsed/ Irrigated with Irrigated with Saline Saline -Foul Odor after Cleansing No No No -Anesthetic Used 4% Lidocaine 4% Lidocaine 4% Lidocaine Solution Solution Solution Left Calf (cm) 35 Left Ankle (cm) 25.5 03/17/22 13:35 Wound Center Nurse 1 #1- R LAT FOOT POST OP -Combined with other wound -Current Size (cm) - Length 0.1 -Current Size (cm) - Width 0.1 -Current Size (cm) - Depth 0.1 -Total Square Cm 0.01 -Date of Last Picture (Recall this field) -Photo Taken Yes -Tunneling -Undermining/Tunneling -Circular Undermining -Change in Wound Grade/Stage -Exudate Amt None Present -Exudate Type -Wound Margin Distinct, Outline Attached -Granulation Amt None Present (0 %) -Granulation Quality -Slough/Fibrin -Necrosis Amt None Present (0 %) -Necrotic Tissue Type -Structure Exposed N/A -Texture (Tamika-wound Skin Appearance) Scarring -Moisture (Tamika-wound Skin Appearance) No Abnormality -Color (Tamika-wound Skin Appearance) Ecchymosis -Temperature (Tamika-wound Skin No Abnormality Appearance) (Pt Warm) -Tenderness on Palpation (Tamika-wound No Skin Appearance) -Ulcer Cleansing Soap and Water -Foul Odor after Cleansing No -Anesthetic Used 5% Lidocaine Gel Left Calf (cm) Left Ankle (cm) WC - Nurse 2 - General Ulcer CM Notes Start: 02/24/22 13:15 Freq: Status: Active Protocol: Activity Type Activity Date Activity User E-sign Co-sign Detail Recorded Client Recorded Date Recorded By Document 02/24/22 13:47 [id number] 02/24/22 13:49 Document 03/03/22 14:27 [id number] 03/03/22 14:31 Document 03/10/22 13:53 [id number] 03/10/22 13:56 Document 03/17/22 13:54 [id number] 03/17/22 13:56 02/24/22 03/03/22 03/10/22 13:47 14:27 13:53 Wound Center Nurse 2 #1- R LAT FOOT POST OP -Time 13:47 14:27 13:53 -Correct Patient Yes Yes Yes -Correct Side, Site, Position Yes Yes Yes -Correct Procedure Yes Yes Yes -Procedure Performed Yes Yes Yes -Type of Procedure Debridement Debridement Debridement -Clinical Debridement Subcutaneous Subcutaneous Subcutaneous -Tissue Removed Subcutaneous Subcutaneous Subcutaneous -Post Debridement (cm) - Length 3.7 1.5 0.5 -Post Debridement (cm) - Width 1.0 0.7 0.8 -Post Debridement (cm) - Depth 0.1 0.1 0.1 -Total Square (Post) (cm) 3.70 1.05 0.40 -Area of Debridement (cm) - Length 3.7 1.5 0.5 -Area of Debridement (cm) - Width 1.0 0.7 0.8 -Total Square (Area) (cm) 3.70 1.05 0.40 -Tunneling No No No -Undermining/Tunneling No No No -Circular Undermining No No No -Wound/Ulcer Outcome Not Healed Not Healed Not Healed -Ulcer Cleansing Rinsed/ Rinsed/ Rinsed/ Irrigated with Irrigated with Irrigated with Saline Saline Saline -Foul Odor after Cleansing No No No -Bioengineered Tissue Yes Yes Yes -Type of Bioengineered Tissue Epifix Epifix 18mm Epifix 18mm Disc Disc -Expiration Date 11/24/26 11/24/26 11/24/26 -Product Lot Number [id number] -Percent Used 100 100 100 -Lot number of Saline Used [id number] -Bleeding Controlled with Pressure Pressure Pressure -Treatment Response Procedure Procedure Procedure Tolerated Well Tolerated Well Tolerated Well -Offloading Yes Yes Yes -Type of Offloading Surgical Shoe Surgical Shoe Surgical Shoe -Debridement - Subq, 1st 20sq cm No No No -Apply Skin Sub - 1st 25 sq cm - Feet 1 1 1 -Epifix (per sq cm) 4 -Epifix 18mm Disc 3 3 Pain Scale: 0-10 Numeric Is Patient Pain Free? Yes Yes Yes 03/17/22 13:54 Wound Center Nurse 2 #1- R LAT FOOT POST OP -Time -Correct Patient No -Correct Side, Site, Position No -Correct Procedure No -Procedure Performed No -Type of Procedure -Clinical Debridement -Tissue Removed -Post Debridement (cm) - Length 0 -Post Debridement (cm) - Width 0 -Post Debridement (cm) - Depth 0 -Total Square (Post) (cm) 0 -Area of Debridement (cm) - Length 0 -Area of Debridement (cm) - Width 0 -Total Square (Area) (cm) 0 -Tunneling -Undermining/Tunneling -Circular Undermining -Wound/Ulcer Outcome Healed- Epithelialized -Ulcer Cleansing -Foul Odor after Cleansing -Bioengineered Tissue -Type of Bioengineered Tissue -Expiration Date -Product Lot Number -Percent Used -Lot number of Saline Used -Bleeding Controlled with -Treatment Response -Offloading -Type of Offloading -Debridement - Subq, 1st 20sq cm -Apply Skin Sub - 1st 25 sq cm - Feet -Epifix (per sq cm) -Epifix 18mm Disc Pain Scale: 0-10 Numeric Is Patient Pain Free? Yes WC - Nurse 3 - General Ulcer D/C NN Start: 02/24/22 13:15 Freq: Status: Active Protocol: Activity Type Activity Date Activity User E-sign Co-sign Detail Recorded Client Recorded Date Recorded By Document 02/24/22 13:51 [facility] [id number] 02/24/22 13:52 [facility] Document 03/03/22 14:52 KR [id number] 03/03/22 14:53 KR Document 03/10/22 14:01 KR [id number] 03/10/22 14:01 KR 02/24/22 03/03/22 03/10/22 13:51 14:52 14:01 Wound Care Nurse 3 #1- R LAT FOOT POST OP -Ulcer Cleansing Rinsed/ Irrigated with Saline -Other Dressing EPIFIX ABD pad -Primary Dressing Covered/Secured with Dry Gauze & Dry Gauze & Dry Gauze, Roll Gauze, Roll Gauze Secured with Secured with Tape Tape,Other -Other Covering ABD, DRSG PER [place] PROFESSOR OF RADIOLOGY Right -Tubular Bandage Double Layer -Size of Tubigrip Used Size E -Size E ($) 1 Treatment Response Procedure Tolerated Well Pain Scale: 0-10 Numeric Is Patient Pain Free? Yes Yes Yes WC - Visit Discharge Discharge Condition Stable Stable Stable Ambulatory Status Ambulatory, Walker Walker Walker Transportation Private Auto Private Auto Private Auto Facility Type Home Health Assessment/Plan Assessment/Plan (1) Other hereditary and idiopathic neuropathies: CODE(S): G60.8 - Other hereditary and idiopathic neuropathies (2) Osteomyelitis of right foot: CODE(S): M86.9 - Osteomyelitis, unspecified QUALIFIERS: Osteomyelitis type: unspecified type Qualified Code(s): M86.9 - Osteomyelitis, unspecified (3) Type 2 diabetes mellitus with diabetic polyneuropathy: CODE(S): E11.42 - Type 2 diabetes mellitus with diabetic polyneuropathy (4) Ulcer of right foot with necrosis of muscle: CODE(S): L97.513 - Non-pressure chronic ulcer of other part of right foot with necrosis of muscle PLAN: healed (5) Malnutrition: CODE(S): E46 - Unspecified protein-calorie malnutrition PLAN: Plan I reviewed and discussed his case today. Debridement was not performed today because the ulcer has healed. The following work up and care recommendations were made: We discussed the etiology of neuropathy and his current clinical complaints. To continue gabapentin. I also recommend he proceed forward with nerve food prescription supplements (Metanx); he was unable to obtain this due to cost. Anticipated benefits indications and use were discussed again today. Dressing: dry gauze for a week then discontinue due to healed status. Tissue growth optimization: He successfully completed a course of epi fix. Offloading: He has a surgical shoe and will heel touch for transfers only. Vascular: Recent noninvasive vascular studies were obtained he has good waveforms and ABIs. He does have a digital brachial index of 0.63 on the right which corresponds to small vessel disease however adequate perfusion to this site is possible. Edema: Tubigrip. Elevation. Reduce salt in diet Infection: resolved. previously under care of ID. Pain: Controlled due to neuropathic status Xerosis management: To continue Lac-Hydrin lotion application daily. I answered all the patient's questions. d/c from wound healing center at this time. [facility] extra depth diabetic shoes and insoles due to diabetic neuropathy and bilateral foot deformities (hammer toes). Note: [employer] speech recognition wire turning machine operator software was used to create portions of this document. Sound-alike and misspelled words, as well as other wire turning machine operator errors may be contained in the documentation. The medical decision making level is low.? There is noted low risk of morbidity after considering this treatment plan and diagnostic data. The problems addressed require a low medical decision making level which includes two or more minor problems, a stable chronic illness, or an acute uncomplicated illness or injury.
== END 2022-03-19 11:42 | disposition home or self-care (01) ==
LOC: WC 13:30
PROVIDERS: PCP Nurse Practitioner Adult Health; Visit Provider Podiatrist
DX: E11.621 Type 2 diabetes mellitus with foot ulcer (principal); L97.513 Non-pressure chronic ulcer of other part of right foot with necrosis of muscle; E46 Unspecified protein-calorie malnutrition; M86.9 Osteomyelitis, unspecified; E11.42 Type 2 diabetes mellitus with diabetic polyneuropathy; G60.8 Other hereditary and idiopathic neuropathies; L03.115 Cellulitis of right lower limb
CPT/HCPCS: 15275; 99213; Q4186; G0463

== ENCOUNTER 2022-04-08 10:21 | Outpatient (RCR) | payer MEDICAID, SELFPAY | END 2022-04-25 23:59 | LOC: DC 10:21 | PROVIDERS: PCP Nurse Practitioner Adult Health; Referring Provider Podiatrist; Visit Provider Podiatrist | DX: E11.9 Type 2 diabetes mellitus without complications (principal) | CPT/HCPCS: G0109 ==

== ENCOUNTER 2022-04-09 17:20 | Emergency (ER) | payer MEDICAID, SELFPAY ==
[2022-04-09 17:21] VITALS: BP 111/81; PULSE 119; RESP 18; TEMP 36.8; O2SAT 99; BMI 22.4
--- NOTE | 2022-04-09 18:00 | RAD_ITS ---
STUDY: X-RAY - RIGHT FOOT CLINICAL: Male, 41 years old. Injury/Pain TECHNIQUE: 3 view(s) of the foot. COMPARISON: October FINDINGS: Normal talus, calcaneus, and tarsal bones. New ossification Achilles insertion. Side plate and screws distal fibula. Bony ankylosis distal tibiofibular syndesmosis. Normal visualized subtalar, talonavicular, calcaneocuboid, tarsal and tarsometatarsal articulations. Amputation base of fifth metatarsal unchanged. Normal metatarsophalangeal joint of the great toe. Normal tibial and fibular sesamoid bones. Normal interphalangeal joint of the great toe. Normal phalanges of the great toe. Normal second through fifth metatarsophalangeal joints. Normal interphalangeal joints and phalanges of the lesser toes. The soft tissue structures are unremarkable. RAD/Foot min 3 Views IMPRESSION: New Enthesopathy at Achilles tendon. The patient is metatarsal unchanged. Electronically Signed: Alex Crews MD at 19:40 EDT ,
--- NOTE | 2022-04-09 18:08 | EDS_ITS ---
HPI <COY Chino - Last Filed: 04/09/22 19:46> History of Present Illness Chief Complaint: Lower Extremity Injury Narrative Narrative: Patient presents with right ankle injury. In October 2021 he had his right 5th metacarpal and toe amputated due to diabetic foot infection. He had PICC line antibiotics for 2 months and he states the infection has resolved. He had to learn to walk again and started physical therapy 2 weeks ago. Yesterday he was trying to walk and when planting his right foot on the ground heard a pop. Then today he woke up and there is increased ankle swelling and bruising around the heel. He denies pain but states he has neuropathy with very limited sensation in his feet. He is still able to ambulate. He also has history of right ankle fracture as a teenager requiring appointment and muscle reattachment. [facility] <COY Chino - Last Filed: 04/09/22 19:46> [facility] Medical History Diabetes Diabetes mellitus, type 2 Home Medications empagliflozin 10 mg tablet (Jardiance) 10 mg PO DAILY 10/29/21 [History Last Taken Unknown] ceftriaxone 2 gram intravenous solution 2 g IV DAILY #38 ea 11/02/21 [Rx Last Taken Unknown] metronidazole 500 mg tablet 500 mg PO TID #40 tabs 11/02/21 [Rx Last Taken Unknown] arginine 7 gram-glutam 7 gram-CaHMB 1.5 [id number] oral pwd pkt (Soren (with collagen)) 1 packet PO BIDCM #0 ea 11/03/21 [Rx Last Taken Unknown] insulin glargine 100 unit/mL (3 mL) subcutaneous pen (Lantus Solostar U-100 Insulin) 36 units (0.36 mL) subcut QHS #3 mL 11/03/21 [Rx Last Taken Unknown] insulin lispro 100 unit/mL subcutaneous pen (Humalog KwikPen (U-100) Insulin) 10 unit (0.1 mL) subcut BREAKFAST #3 mL 11/03/21 [Rx Last Taken Unknown] insulin lispro 100 unit/mL subcutaneous pen (Humalog KwikPen (U-100) Insulin) 15 unit (0.15 mL) subcut DINNER #0 mL 11/03/21 [Rx Last Taken Unknown] insulin lispro 100 unit/mL subcutaneous pen (Humalog KwikPen (U-100) Insulin) 15 unit (0.15 mL) subcut LUNCH #0 mL 11/03/21 [Rx Last Taken Unknown] insulin lispro 100 unit/mL subcutaneous pen (Humalog KwikPen (U-100) Insulin) See Protocol subcut 4X/DAYCM #0 mL 11/03/21 [Rx Last Taken Unknown] gabapentin 300 mg TID 01/08/22 [History Last Taken Unknown] ammonium lactate 12 % topical cream 1 applic topical DAILY #385 grams 01/20/22 [Rx Last Taken Unknown] Allergy/AdvReac Type Severity Reaction Status Date / Time Penicillins [PCN] Allergy Mild Other Verified 04/09/22 17:23 Surgical History History of ankle surgery Social History (Updated 10/29/21 @ 11:[address] Willard Abel, DO) Smoking Status: Never smoker substance use type: marijuana ROS <COY Chino - Last Filed: 04/09/22 19:46> ROS ED ROS Narrative Constitutional: Negative for fever, chills, malaise. Eyes: Negative for visual change. ENT: Negative for sore throat, rhinorrhea. CVS: Negative for palpitations, chest pain, syncope. Respiratory: Negative for shortness of breath, cough, orthopnea. GI: Negative for abdominal pain, nausea, vomiting. : Negative for dysuria, hematuria or frequency. Neuro: Negative for headache, motor/sensory dysfunction. Skin: Negative for rash, abscess, or wound. Musc: Right ankle swelling, trauma. Heme: Negative for easy bruising, bleeding, lymphadenopathy. EXAM <COY Chino - Last Filed: 04/09/22 19:46> Physical Exam Narrative Exam Narrative: CONST: Patient sitting in no acute distress. EYES: Normal inspection. NECK: Normal inspection. RESP: No respiratory distress, CTAB. CVS: Regular rate and rhythm, no murmur, no gallop. SKIN: Color normal, no rash, warm, dry, intact. EXTREMITIES: Soft tissue swelling of right ankle and ecchymosis around the heel, no bony tenderness of the lower extremity but he has decreased sensation from neuropathy. Full ROM in DF/PF. He has a positive Wells test but there is no clear palpable defect of the Achilles tendon on palpation although this may be due to the edema. Chronic scarring over right lateral foot with right fifth metatarsal and toe amputation, no erythema or warmth as compared to the other extremity. 2+ DP pulse. NEURO: Oriented x4. PSYCH: Normal affect. Const Vital Signs: 04/09/22 17:21 04/09/22 20:23 Temperature 98.2 F Temperature Source Temporal Pulse Rate 119 H 82 Respiratory Rate 18 18 Blood Pressure 111/81 H 108/80 Blood Pressure Mean 91 89 Pulse Ox 99 98 Oxygen Delivery Method Room Air Room Air <Alessio Starr MD - Last Filed: 04/10/22 00:30> Physical Exam Const Vital Signs: 04/09/22 17:21 04/09/22 20:23 Temperature 98.2 F Temperature Source Temporal Pulse Rate 119 H 82 Respiratory Rate 18 18 Blood Pressure 111/81 H 108/80 Blood Pressure Mean 91 89 Pulse Ox 99 98 Oxygen Delivery Method Room Air Room Air MDM <COY Chino - Last Filed: 04/09/22 19:46> [facility] Narrative Medical decision making narrative: Patient has history of right fifth metatarsal and toe amputation and diabetic neuropathy. In physical therapy yesterday he felt a pop and on examination there is soft tissue swelling of the ankle and significant bruising around the heel. Positive Wells test concerning for ruptured Achilles. There is too much edema to feel a clear defect. He has no bony tenderness but has no sensation due to neuropathy. 2+ DP pulse. X-rays of the ankle and foot on ED attending review show hardware intact and no acute fracture or dislocation. Since patient has such good range of motion with DF/PF I am not sure that he has a full Achilles tendon rupture. He may have a partial tear or underlying ligamentous injury. Case was discussed with on-call podiatry who said based on the exam he can be in any walking boot continue to use his walker and elevate the leg. He should call for follow-up appointment and was discharged in stable condition. 1. Right ankle edema, suspected partial Achilles tendon rupture Radiography Diagnostic Testing: Clinical Impression(s) from Imaging Studies Foot X-Ray 04/09/22 18:00 IMPRESSION: New Enthesopathy at Achilles tendon. The patient is metatarsal unchanged. Electronically Signed: Alex Crews MD at 19:40 EDT , Ankle X-Ray 04/09/22 18:11 IMPRESSION: No acute fracture. Achilles enthesopathy. Electronically Signed: Alex Crews MD at 19:43 EDT , <Alessio Starr MD - Last Filed: 04/10/22 00:30> [facility] MDM Narrative Medical decision making narrative: Patient has history of right fifth metatarsal and toe amputation and diabetic neuropathy. In physical therapy yesterday he felt a pop and on examination there is soft tissue swelling of the ankle and significant bruising around the heel. Positive Wells test concerning for ruptured Achilles. There is too much edema to feel a clear defect. He has no bony tenderness but has no sensation due to neuropathy. 2+ DP pulse. X-rays of the ankle and foot on ED attending review show hardware intact and no acute fracture or dislocation. Sin ce patient has such good range of motion with DF/PF I am not sure that he has a full Achilles tendon rupture. He may have a partial tear or underlying ligamentous injury. Case was discussed with on-call podiatry who said based on the exam he can be in any walking boot continue to use his walker and elevate the leg. He should call for follow-up appointment and was discharged in stable condition. 1. Right ankle edema, suspected partial Achilles tendon rupture 2. Right ankle ecchymosis I have personally performed a face to face assessment of the patient and have reviewed the BHARATI Note. I performed a substantive portion of the visit including all aspects of the following. My roberts findings include: History is at physical therapy, swelling of posterior right ankle, bruising Exam is afebrile. Vital signs noted. Positive ecchymosis with questionable deficit of Achilles tendon. Indeterminant Wells test. Medical Decision Making check x-rays. X-rays interpreted by myself shows no evidence of fracture. Discussed with podiatry. Orthotic boot. Follow-up podiatry. Discharge. Other additions or changes: [None] Radiography Diagnostic Testing: Clinical Impression(s) from Imaging Studies Foot X-Ray 04/09/22 18:00 IMPRESSION: New Enthesopathy at Achilles tendon. The patient is metatarsal unchanged. Electronically Signed: Alex Crews MD at 19:40 EDT Reading Location ID and State: [facility] / [place] , Service support , Ankle X-Ray 04/09/22 18:11 IMPRESSION: No acute fracture. Achilles enthesopathy. Electronically Signed: Alex Crews MD at 19:43 EDT Reading Location ID and State: [id number] / [place] , Service support , Discharge Plan Triage Chief Complaint: Lower Extremity Injury ED Midlevel Provider: Deb Nix ED Provider: Alessio Starr Dx/Rx/DC Orders Clinical Impression: Achilles rupture, right Instructions: Achilles Tendon Rupture Prescriptions: No Action Jardiance 10 mg Tablet 10 mg PO DAILY ceftriaxone 2 gram recon soln 2 g IV DAILY Qty: 38 0RF Rx Instructions: stop date 12/11/21 dx: R foot osteo weekly bmp, cbc, and esr. Fax to [phone] routine picc care with heparin/saline flush per protocol metronidazole 500 mg tablet 500 mg PO TID Qty: 40 0RF Rx Instructions: no alcohol while on this antibiotic insulin lispro [Humalog KwikPen Insulin] 100 unit/mL Insulin Pen See Protocol subcut 4X/DAYCM Qty: 0 0RF Protocol: 3. Sliding Scale Insulin Med Dosing Condition: 150-189 mg/dl = 1 unit Condition: 190-229 mg/dl = 2 units Condition: 230-269 mg/dl = 3 units Condition: 270-309 mg/dl = 4 units Condition: 310-349 mg/dl = 5 units Condition: 350-399 mg/dl = 6 units Condition: 400-449 mg/dl = 7 units Condition: Greater than 449 call physician Protocol Text: - Use for Total Daily Dose of Insulin 37-55 units - Obsese, infected, or steroid patients MEDIUM DOSING ALGORITHIM insulin lispro [Humalog KwikPen Insulin] 100 unit/mL Insulin Pen 10 unit subcut BREAKFAST Qty: 3 0RF insulin lispro [Humalog KwikPen Insulin] 100 unit/mL Insulin Pen 15 unit subcut DINNER Qty: 0 0RF insulin lispro [Humalog KwikPen Insulin] 100 unit/mL Insulin Pen 15 unit subcut LUNCH Qty: 0 0RF Lantus Solostar U-100 Insulin 100 unit/mL (3 mL) Insulin Pen 36 units subcut QHS Qty: 3 0RF Soren (with collagen) 7-7-1.5 gram Powder In Packet 1 packet PO BIDCM Qty: 0 0RF gabapentin 300 mg TID ammonium lactate 12 % cream 1 applic topical DAILY Qty: 385 0RF Primary Care Provider: Kylie Kumar NP Referrals: Mary Tyson DPM [STAFF PHYSICIAN] - Kylie Kumar NP, [facility] [Primary Care Provider] - Activity Restrictions/Additional Instructions: Do not put any weight on your right leg and keep the splint clean and dry. Call your pellet preparation operator tomorrow to make a follow up appointment. Disposition Disposition: Home, Self Care Discharge Date/Time: 04/09/22 20:36
--- NOTE | 2022-04-09 18:11 | RAD_ITS ---
STUDY: X-RAY - RIGHT ANKLE REASON FOR EXAM: Male, 41 years old. Injury/Pain TECHNIQUE: 3 view(s) of the ankle. COMPARISON: None. FINDINGS: Sideplate and screws distal fibula. Bony ankylosis to the jugular syndesmosis. Calcifications metatarsal. Enthesopathy/large spur posterior calcaneus. Normal medial and lateral malleoli. Normal tibiotalar articulation and ankle mortise. Normal visualized talus and calcaneus. The visualized subtalar, talonavicular, calcaneocuboid and tarsal articulations are normal. The soft tissue structures are unremarkable. RAD/Ankle min 3 Views IMPRESSION: No acute fracture. Achilles enthesopathy. Electronically Signed: Alex Crews MD at 19:43 EDT ,
[2022-04-09 20:23] VITALS: BP 108/80; PULSE 82; RESP 18; O2SAT 98
== END 2022-04-09 20:36 | disposition home or self-care (01) ==
PROVIDERS: Emergency Provider Emergency Medicine; PCP Nurse Practitioner Adult Health; Visit Provider Emergency Medicine
DX: S86.011A Strain of right Achilles tendon, initial encounter (principal); E11.40 Type 2 diabetes mellitus with diabetic neuropathy, unspecified; S90.30XA Contusion of unspecified foot, initial encounter; S90.00XA Contusion of unspecified ankle, initial encounter; F12.90 Cannabis use, unspecified, uncomplicated; R60.0 Localized edema; X58.XXXA Exposure to other specified factors, initial encounter; Y93.01 Activity, walking, marching and hiking
CPT/HCPCS: 29515; 73610; 73630; 99283

== ENCOUNTER 2022-04-29 13:30 | Outpatient (RCR) | payer MEDICAID, SELFPAY | END 2022-05-26 23:59 | LOC: DC 13:30 | PROVIDERS: PCP Nurse Practitioner Adult Health; Referring Provider Podiatrist; Visit Provider Podiatrist | DX: E11.9 Type 2 diabetes mellitus without complications (principal) | CPT/HCPCS: 97803; G0109 ==

== ENCOUNTER 2022-05-27 16:34 | Outpatient (RCR) | payer MEDICAID, SELFPAY | END 2022-06-25 23:59 | LOC: DC 16:34 | PROVIDERS: PCP Nurse Practitioner Adult Health; Referring Provider Podiatrist; Visit Provider Podiatrist | DX: E11.9 Type 2 diabetes mellitus without complications (principal) | CPT/HCPCS: G0109 ==

== ENCOUNTER 2022-08-11 16:13 | Outpatient (RCR) | payer MEDICAID, SELFPAY | END 2022-08-25 23:59 | LOC: DC 16:13 | PROVIDERS: PCP Nurse Practitioner Adult Health; Referring Provider Podiatrist; Visit Provider Podiatrist | DX: E11.9 Type 2 diabetes mellitus without complications (principal) | CPT/HCPCS: 97803 ==

== ENCOUNTER → 2022-08-27 | Outpatient (CLI) | payer MEDICAID, SELFPAY ==
[2022-08-27 15:43] LABS: Absolute Lymphocyte Count 1.57 X10^3/uL (0.83-4.51); Absolute Neutrophil Count 2.6 X10^3/uL (2.0-7.7); Basophil# 0.05 X10^3/uL; Eosinophil# 0.33 X10^3/uL; Eosinophils% 6.7 % (0-5); Hematocrit 41.5 % (40-54); Hemoglobin 13.8 g/dL (13.0-16.5); Lymphocyte # 1.57 X10^3/ul (0.83-4.51); Lymphocyte % 31.7 % (19-41); Mean Corp Hgb Conc 33.3 g/dL (32-36); Mean Corpuscular Hgb 30.3 pg (27.0-32.0); Mean Platelet Vol. 9.9 fl (6.2-12.0); Monocyte# 0.43 X10^3/uL; Monocyte% 8.7 % (0-10); NRBC Flagged by Analyzer 0 % (0-5); Neutrophil # 2.57 X10^3/uL (2.7-7.7); Neutrophil % 51.7 % (47-70); Platelet Count 212 K/mm3 (150-450); RBC Distribution Width CV 12.7 % (11.6-14.6); RBC Distribution Width SD 42.2 fl (35.1-43.9); Red Blood Count 4.56 M/mm3 (4.6-6.2)
[2022-08-27 16:10] LABS: Microalbumin,Random Urine 7.4 mg/L (NO RANGE EST.)
[2022-08-27 16:31] LABS: Vitamin B12 360 pg/mL (211-911); Vitamin D,25 Hydroxy 11.3 ng/mL
[2022-08-27 16:37] LABS: ALB/GLOB Ratio 1.3 RATIO (0.9-2.4); AST(SGOT) 13 U/L (15-37); Alanine Aminotransfer ALT/SGPT 23 U/L (16-61); Alkaline Phosphatase 53 U/L (45-117); Anion Gap 6 (5-15); BUN 17 mg/dL (7-18); BUN/Creat Ratio 25.6 RATIO (10-20); Calcium,Total 9.1 mg/dL (8.5-10.1); Chloride 105 mmol/L (98-107); Cholesterol 184 mg/dL (200); Creatinine, Serum 0.66 mg/dL (0.70-1.30); EST Glomerular Filtration Rate 138 mL/min (>60); Est Glom Filt Rate - Afr Amer 167 mL/min (>60); Glucose 194 mg/dL (74-106); High Density Lipoprotein 90 mg/dL; Potassium 4.2 mmol/L (3.5-5.1); Sodium Level 139 mmol/L (136-145); Triglycerides 83 mg/dL; Very Low Density Lipoprotein 17 mg/dL (5-40)
[2022-08-27 16:53] LABS: Homocysteine 9.8 umol/L (3.2-10.7)
[2022-09-01 15:08] LABS: Anti-Centromere B Ab <0.2 AI (0.0-0.9); Anti-Chromatin <0.2 AI (0.0-0.9); Anti-Jo <0.2 AI (0.0-0.9); Anti-Scleroderma-70 AB <0.2 AI (0.0-0.9); RNP Ab <0.2 AI (0.0-0.9); SJOGREN'S Anti-SS-A test 0.3 AI (0.0-0.9); SJOGREN'S Anti-SS-B test < 0.2 AI (0.0-0.9); Smith Ab <0.2 AI (0.0-0.9)
[2022-09-01 20:07] LABS: Endomysial Antibody IgA Negative (Negative); Immunoglobulin A 158 mg/dL (90-386)
[2022-09-01 20:34] LABS: Vitamin B1, Thiamine 115.5 nmol/L (66.5-200.0); t-Transglutaminase IgA <2 U/mL (0-3)
[2022-09-03 13:23] LABS: Anti-dsDNA Ab <1 IU/mL (0-9); Methylmalonic Acid Bld 212 nmol/L (0-378)
== END | disposition home or self-care (01) ==
LOC: BIMLAB 14:22
PROVIDERS: PCP Internal Medicine; Referring Provider Internal Medicine; Visit Provider Internal Medicine
DX: G62.9 Polyneuropathy, unspecified (principal); E11.42 Type 2 diabetes mellitus with diabetic polyneuropathy; Z79.4 Long term (current) use of insulin; K52.9 Noninfective gastroenteritis and colitis, unspecified; E56.9 Vitamin deficiency, unspecified
CPT/HCPCS: 36415; 80053; 80061; 82043; 82306; 82570; 82607; 82784; 83090; 83516; 83630; 83921; 84425; 85025; 86225; 86235; 86255; 87506

== ENCOUNTER → 2022-09-01 | Outpatient (CLI) | payer MEDICAID, SELFPAY ==
[2022-09-01 13:48] LABS: Glucose 197 mg/dL (74-106)
[2022-09-02 17:05] LABS: C-Peptide 1.4 ng/mL (1.1-4.4)
== END | disposition home or self-care (01) ==
LOC: LAB 12:27
PROVIDERS: PCP Internal Medicine; Visit Provider Nurse Practitioner Family
DX: E11.42 Type 2 diabetes mellitus with diabetic polyneuropathy (principal)
CPT/HCPCS: 36415; 82947; 84681

== ENCOUNTER → 2022-11-09 | Outpatient (CLI) | payer MEDICAID, SELFPAY ==
--- NOTE | 2022-11-09 14:00 | ART_ITS ---
Reason For Study: Diabetes Procedure A bilateral lower extremity continuous wave Doppler with analog waveform analysis and ankle brachial indexes. Left Segmental Pressures Left brachial= 113mmHg. Left posterior tibial artery = 133mmHg. Left dorsalis pedis artery = 133mmHg. Left digit = 117 mmHg. The left posterior tibial artery waveforms are triphasic. The left dorsalis pedis waveforms are triphasic. Right Segmental Pressures Right brachial= Unable to acquire. Diabetic testing device implanted.mmHg. Right posterior tibial artery = 127mmHg. Right dorsalis pedis artery = 105mmHg. Right digit = 112 mmHg. The right posterior tibial artery waveforms are triphasic. The right dorsalis pedis waveforms are triphasic. Indices The right ankle brachial index by the posterior tibial artery is 1.12. The right ankle brachial index by the dorsalis pedis is 0.93. The right digital-brachial index is 0.99. The left ankle brachial index by the posterior tibial artery is 1.18. The left ankle brachial index by the dorsalis pedis is 1.18. The left digital-brachial index is 1.04. VL/Ankle Brachial Index Interpretation Summary Right MARKO 1.12, normal. TBI and Doppler/PVR waveforms of the right leg normal a t rest. Left MARKO 1.18, normal. TBI and Doppler/PVR waveforms of the left leg normal at rest. Ordering Physician: Stephanie Russo Referring Physician: STEPHANIE RUSSO MD Performed By: Obi Caraballo, RVT
== END | disposition home or self-care (01) ==
LOC: CVS 13:58
PROVIDERS: PCP Internal Medicine; Referring Provider Internal Medicine; Visit Provider Internal Medicine
DX: E11.42 Type 2 diabetes mellitus with diabetic polyneuropathy (principal); Z79.4 Long term (current) use of insulin
CPT/HCPCS: 93922

== ENCOUNTER 2022-11-16 13:36 | Outpatient (RCR) | payer MEDICAID, SELFPAY | END 2022-11-23 23:59 | LOC: DC 13:36 | PROVIDERS: PCP Internal Medicine; Referring Provider Podiatrist; Visit Provider Podiatrist | DX: E11.9 Type 2 diabetes mellitus without complications (principal) | CPT/HCPCS: 97803 ==

== ENCOUNTER 2023-02-16 14:15 | Outpatient (RCR) | payer MEDICAID, SELFPAY | END 2023-02-23 23:59 | LOC: DC 14:15 | PROVIDERS: PCP Internal Medicine; Referring Provider Podiatrist; Visit Provider Podiatrist | DX: E11.9 Type 2 diabetes mellitus without complications (principal) | CPT/HCPCS: 97803 ==

== ENCOUNTER 2023-04-13 14:05 | Outpatient (RCR) | payer MEDICAID, SELFPAY | END 2023-04-25 23:59 | LOC: DC 14:05 | PROVIDERS: PCP Internal Medicine; Referring Provider Podiatrist; Visit Provider Podiatrist | DX: E11.9 Type 2 diabetes mellitus without complications (principal) | CPT/HCPCS: 97803 ==

== ENCOUNTER 2023-05-11 14:36 | Outpatient (RCR) | payer MEDICAID, SELFPAY | END 2023-05-26 23:59 | LOC: DC 14:36 | PROVIDERS: PCP Internal Medicine; Referring Provider Podiatrist; Visit Provider Podiatrist | DX: E11.9 Type 2 diabetes mellitus without complications (principal) | CPT/HCPCS: 97803 ==

== ENCOUNTER 2023-06-15 13:17 | Outpatient (RCR) | payer MEDICAID, SELFPAY | END 2023-06-25 23:59 | LOC: DC 13:17 | PROVIDERS: PCP Internal Medicine; Referring Provider Podiatrist; Visit Provider Podiatrist | DX: E11.9 Type 2 diabetes mellitus without complications (principal) | CPT/HCPCS: 97803 ==

== ENCOUNTER 2023-07-20 14:22 | Outpatient (RCR) | payer MEDICAID, SELFPAY | END 2023-07-26 23:59 | LOC: DC 14:22 | PROVIDERS: PCP Internal Medicine; Referring Provider Podiatrist; Visit Provider Podiatrist | DX: E11.9 Type 2 diabetes mellitus without complications (principal) | CPT/HCPCS: 97803 ==

== ENCOUNTER 2023-08-24 13:06 | Outpatient (RCR) | payer MEDICAID, SELFPAY | END 2023-08-25 23:59 | LOC: DC 13:06 | PROVIDERS: PCP Internal Medicine; Referring Provider Podiatrist; Visit Provider Podiatrist | DX: E11.9 Type 2 diabetes mellitus without complications (principal) | CPT/HCPCS: 97803 ==

== ENCOUNTER 2023-09-28 13:10 | Outpatient (RCR) | payer MEDICAID, SELFPAY | END 2023-10-26 23:59 | LOC: DC 13:10 | PROVIDERS: PCP Internal Medicine; Referring Provider Podiatrist; Visit Provider Podiatrist | DX: E11.9 Type 2 diabetes mellitus without complications (principal) | CPT/HCPCS: 97803 ==

== ENCOUNTER → 2023-09-29 | Outpatient (CLI) | payer MEDICAID, SELFPAY ==
[2023-09-29 15:15] LABS: Absolute Lymphocyte Count 1.69 X10^3/uL (0.83-4.51); Absolute Neutrophil Count 3.9 X10^3/uL (2.0-7.7); Basophil# 0.08 X10^3/uL; Basophil% 1.1 % (0-1); Eosinophil# 0.43 X10^3/uL; Eosinophils% 6.1 % (0-5); Hematocrit 47.6 % (40-54); Hemoglobin 15.3 g/dL (13.0-16.5); Lymphocyte # 1.69 X10^3/ul (0.83-4.51); Lymphocyte % 24.1 % (19-41); Mean Corp Hgb Conc 32.1 g/dL (32-36); Mean Corpuscular Hgb 29.9 pg (27.0-32.0); Mean Corpuscular Volume 93.2 fL (80-94); Mean Platelet Vol. 10.2 fl (6.2-12.0); Monocyte# 0.91 X10^3/uL; NRBC Flagged by Analyzer 0 % (0-5); Neutrophil # 3.89 X10^3/uL (2.7-7.7); Neutrophil % 55.6 % (47-70); Platelet Count 237 K/mm3 (150-450); RBC Distribution Width CV 13.2 % (11.6-14.6); RBC Distribution Width SD 45.1 fl (35.1-43.9); Red Blood Count 5.11 M/mm3 (4.6-6.2)
[2023-09-29 15:31] LABS: ALB/GLOB Ratio 1.1 RATIO (0.9-2.4); AST(SGOT) 19 U/L (15-37); Alanine Aminotransfer ALT/SGPT 22 U/L (16-61); Albumin, Serum 3.8 g/dL (3.2-5.0); Alkaline Phosphatase 68 U/L (45-117); Anion Gap 7 (5-15); BUN 25 mg/dL (7-18); BUN/Creat Ratio 24.8 RATIO (10-20); Calcium,Total 9.1 mg/dL (8.5-10.1); Chloride 103 mmol/L (98-107); Cholesterol 215 mg/dL (200); Creatinine, Serum 1.01 mg/dL (0.70-1.30); EST Glomerular Filtration Rate 85 mL/min (>60); Est Glom Filt Rate - Afr Amer 103 mL/min (>60); Globulin 3.6 g/dL (2.2-4.2); Glucose 206 mg/dL (74-106); High Density Lipoprotein 86 mg/dL; Protein, Total 7.4 g/dL (6.4-8.2); Sodium Level 137 mmol/L (136-145); Triglycerides 64 mg/dL; Very Low Density Lipoprotein 13 mg/dL (5-40)
[2023-09-29 15:44] LABS: Vitamin D,25 Hydroxy 14.4 ng/mL
== END | disposition home or self-care (01) ==
LOC: BIMLAB 13:46
PROVIDERS: PCP Internal Medicine; Referring Provider Internal Medicine; Visit Provider Internal Medicine
DX: E11.42 Type 2 diabetes mellitus with diabetic polyneuropathy (principal); E55.9 Vitamin D deficiency, unspecified
CPT/HCPCS: 36415; 80053; 80061; 82306; 85025

== ENCOUNTER → 2023-10-07 | Outpatient (CLI) | payer MEDICAID, SELFPAY ==
--- NOTE | 2023-10-07 12:06 | NM_ITS ---
CLINICAL: 42-year-old diabetic male with chronic nausea. SEMI-SOLID PHASE 99m Tc SULFUR COLLOID GASTRIC EMPTYING STUDY COMPARISON: None available FINDINGS: The patient was administered 1.0 mCi of 99m Tc sulfur colloid mixed with oatmeal and consumed per os. Image acquisitions in the anterior-posterior projections were obtained for 60 minutes. There is prompt visualization of the stomach. There is no gastroesophageal reflux identified. First order kinetics are maintained throughout the duration of the acquisitions. The T ? linear fit was extrapolated to be 95.28 minutes, (Normal: 12-56 minutes). NM/Gastric Emptying Study IMPRESSION: 1. ABNORMAL 99m Tc sulfur colloid semi-solid phase (oatmeal) gastric emptying imaging examination. A. There is delayed semi-solid phase gastric emptying compared to normal controls with maintained first order kinetics throughout all components of the examination. (Justin et al, J Nucl Med Tech 38: 186, 2010). Electronically Signed: Nathan Guzmán DO at 19:35 EST ,
--- OUTSIDE RECORDS SUMMARY | 2023-10-07 12:22 | XMS RPT_ITS | CCD ---
Author Name Unknown Address [address] [place] [address] Organization [facility] Care Team Providers Care Retouching Operator Name Role Phone PHYSICIAN, PATIENT UNSURE Unavailable Unavai labrodo FORD, GENEISO Unavailable Unavailable PAPACOSTASMIGUEL P Unavailable Unavailable Sommers FUR TINTER, Jeni K Primary Care Provider Sommers FUR TINTER, Jeni K Primary Care Provider Sommers ABHI, Jeni K Primary Care Provider KATERINA MARCOS Attending Unavailable KATERINA MARCOS Referring Unavailable STEPHANIE OMER Primary Care Unavailable KATERINA MARCOS Attending Unavailable BERE GREENE Referring Unavailable HERLINDA SOMMERSI Ran Primary Care Unavailable BERE GREENE Attending Unavailable SOMMERS, JENI K Primary Care Unavailable Allergies Allergy Classification Reported Allergen(s) Allergy Type Date of Onset Reaction(s) Facility (2 sources) Penicillins; Translations: [PENICILLINS] Propensity to adverse reactions to drug 2 Other: See Comments [facility] (2 sources) Penicillins Propensity to adverse reactions to drug 2 Other: See Comments [facility] Medications Current Medications Medication Drug Class(es) Dates Sig (Normalized) Sig (Original) benoxinate hydrochloride 4 mg/ml / fluorescein sodium 2.5 mg/ml ophthalmic solution (1 source) Diagnostic Dye Start: 12-21-2021 End: 12-22-2021 fluorescein-benoxi eliecer 0.25-0.4 % 1 Drop (FLURESS) Completed/Discontinued Medications Medication Drug Class(es) Dates Sig (Normalized) Sig (Original) busPIRone hydrochloride 10 mg oral tablet (2 sources) Start: 12-13-2021 take 0.5 tablet by mouth twice daily busPIRone (BUSPAR) 10 mg tablet TAKE 1/2 (ONE-HALF) TABLET BY MOUTH TWICE DAILY 0 12/13/2021 Active Problems Problem Classification Problem Date Documented Da te Episodic/Chronic Blindness and vision defects (3 sources) Bilateral myopia of eyes; Translations: [Myopia, bilateral] Episodic Diabetes mellitus with complications (3 sources) Type 2 diabetes mellitus with mild nonproliferative diabetic retinopathy without macular edema, bilateral; Translations: [Diabetes with ophthalmic manifestations, type II or unspecified type, not stated as uncontrolled] Chronic Glaucoma (1 source) Ocular hypertension; Translations: [Ocular hypertension, bilateral] Chronic Results Test Name Value Interpretation Reference Range Facil ity Encounters Encounter Date Encounter Type Care Provider Facility Start: 08-11-2023 End: 08-11-2023 ambulatory KATERINA MARCOS Facility:[facility] Start: 03-31-2023 End: 03-31-2023 ambulatory KATERINA MARCOS Facility:[facility] Start: 03-31-2023 End: 03-31-2023 Patient encounter procedure Katerina Marcos MD, PhD Work Phone: Ophthalmology Procedures Date Procedure Procedure Detail Performing Clinician Start: 03-31-2023 Computerized ophthal jaja imaging retina Katerina Marcos MD, PhD Work Phone: Plan of Treatment Date Care Activity Detail Author Start: 04-14-2024 End: 09-21-2024 OCT MACULA CIRRUS OU (BOTH EYES) OCT MACULA CIRRUS OU (BOTH EYES) OPHT Imaging Routine Type 2 diabetes mellitus with left 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, with long-term current use of insulin (HCC) 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, with long-term current use of insulin (HCC) Ocular hypertension, bilateral Expected: 04/14/2024, Expires: 09/21/2024 [facility] Work Phone: Payers Date Payer Category Payer Medicaid [id number] 2021 Medicaid [employer] [place] [id number] 2021-Present [phone] [address] [address] [place] [address] Medicaid [id number] 2021 Medicaid [id number] 2018 Self-pay 1978 Unknown [id number] Social History Date Type Detail Facility Start: 12-21-2021 End: 01-21-2023 Tobacco smoking status NHIS Ex-smoker [facility] Start: 12-21-2021 End: 01-21-2023 Tobacco use and exposure Former smokeless tobacco user [facility] Start: 12-21-2021 End: 03-31-2023 Alcohol intake Ex-drinker (finding) [facility] Start: 1980 Sex Assigned At Not on file C [facility] Start: 12-06-2021 End: 12-16-2021 Exposure to SARS-CoV-2 (event) Not sure [facility] History of tobacco use Current smoker [facility] Procedure Code Equipment Code Equipment Origin al Text Equipment Identifier Dates USE 4 TIMES DAILY Start: 12-21-2022 Progress note 08-11-2023 Note Date & Type Note Facility 08-11-2023 Note HNO ID: [id number] Author: Katerina Marcos MD, PhD Service: ? Author Type: Physician Type: Progress Notes Filed: 08/11/2023 4:21 PM Note Text: Referred by Dr. Greene for diabetic retinopathy eval 1. Type 2 diabetes with mcc use of insulin -Recommend good blood pressure/sugar control -Patients last A1C was 6.8 or 6.3 (under 7 for a year) -on dialysis: no RIGHT EYE: mod nonproliferative diabetic retinopathy, with macular edema -discussed starting addie vs observing -patient elects to observe for now LEFT EYE: mod/sev nonproliferative diabetic retinopathy, with macular edema -discussed starting addie vs observing -patient elects to observe for now 2. Ocular hypertension -monitor with Dr. Greene Plan: Improved Diabetic macular edema since last seen with Dr. Greene Patient elects to observe for now LTFU since March of 2023 Return in 4-5 mo I have confirmed and edited as necessary the relevant ophthalmic history, ROS, and the neuro exam findings as obtained by others. I have seen and examined this patient. I have discussed the case and the management of this patient's care with the Resident/Fellow, if applicable. I also have reviewed and agree with the assessment and plan as stated above and agree with all of its relevant components. Katerina Marcos MD [facility] Progress note 03-31-2023 Note Date & Type Note Facility 03-31-2023 Note HNO ID: [id number] Author: Katerina Marcos MD, PhD Service: ? Author Type: Physician Type: Progress Notes Filed: 03/31/2023 3:29 PM Note Text: Referred by Dr. Greene for diabetic retinopathy eval 1. Type 2 diabetes with mcc use of insulin -Recommend good blood pressure/sugar control -Patients last A1C was 6.8 or 6.3 (under 7 for a year) -on dialysis: no RIGHT EYE: mod nonproliferative diabetic retinopathy, with macular edema -discussed starting addie vs observing -patient elects to observe for now LEFT EYE: mod/sev nonproliferative diabetic retinopathy, with macular edema -discussed starting addie vs observing -patient elects to observe for now 2. Ocular hypertension -monitor with Dr. Greene Plan: Improved Diabetic macular edema since last seen with Dr. Greene Patient elects to observe for now Return in 9 weeks for full exam I have confirmed and edited as necessary the relevant ophthalmic history, ROS, and the neuro exam findings as obtained by others. I have seen and examined this patient. I have discussed the case and the management of this patient's care with the Resident/Fellow, if applicable. I also have reviewed and agree with the assessment and plan as stated above and agree with all of its relevant components. Katerina Marcos MD [facility] History of Present illness Narrative 03-31-2023 Katerina Marcos MD, PhD - 03/31/2023 1:30 PM EDT Note Date & Type Note Facility 03-31-2023 History of Presen t illness Narrative Referred by Dr. Greene for diabetic retinopathy eval 1. Type 2 diabetes with mcc use of insulin -Recommend good blood pressure/sugar control -Patients last A1C was 6.8 or 6.3 (under 7 for a year) -on dialysis: no RIGHT EYE: mod nonproliferative diabetic retinopathy, with macular edema -discussed starting addie vs observing -patient elects to observe for now LEFT EYE: mod/sev nonproliferative diabetic retinopathy, with macular edema -discussed starting addie vs observing -patient elects to observe for now 2. Ocular hypertension -monitor with Dr. Greene Plan: Improved Diabetic macular edema since last seen with Dr. Greene Patient elects to observe for now Return in 9 weeks for full exam I have confirmed and edited as necessary the relevant ophthalmic history, ROS, and the neuro exam findings as obtained by others. I have seen and examined this patient. I have discussed the case and the management of this patient's care with the Resident/Fellow, if applicable. I also have reviewed and agree with the assessment and plan as stated above and agree with all of its relevant components. Katerina Marcos MD documented in this encounter [facility] Progress note 01-21-2023 Note Date & Type Note Facility 01-21-2023 Note HNO ID: [id number] Author: Bere Greene, OD Service: ? Author Type: CORRESPONDENCE COORDINATOR Type: Progress Notes Filed: 01/21/2023 4:43 PM Note Text: 1. Type 2 diabetes mellitus with both eyes affected by severe nonproliferative retinopathy and macular edema, with long-term current use of insulin (HCC) +worsening retinopathy with mac edema both eyes Educated pt on condition and need for better blood sugar control Educated patient to continue care with primary care doctor and/or supervisor fertilizer to maintain optimum levels as they are important to avoid ocular complications. Encouraged patient to call the office immediately with any changes to vision or visual concerns before scheduled appointment with retinal specialist. Advised to not wait until the next scheduled exam. 2. Myopia, bilateral 3. Regular astigmatism of both eyes 4. Presbyopia Continue with current glasses for now Refer to Dr. Marcos for worsening retinopathy and DME eval Bere Greene, OD January 21, 2023 4:38 PM [facility] 05-13-2022 Telephone Encounter - Bere Greene, OD - 05/13/2022 9:20 AM EDTTelephone Encounter - Bozena Brirish - 05/12/2022 4:55 PM EDT Note Date & Type Note Facility 05-13-2022 Miscellaneous Notes Formattin g of this note might be different from the original. Called patient and advised to schedule follow-up with me within 2 weeks Summary: Problem Patient called in concerned about his eyesight, light sensitivity, blurriness, and was curious on what he should do, he is a diabetic. Please advise and call patient documented in this encounter [facility] History of Present illness Narrative 12-21-2021 Bere Greene, OD - 12/21/2021 3:28 PM EDT Note Date & Type Note Facility 12-21-2021 History of Presen t illness Narrative 1. Mild nonproliferative diabetic retinopathy of both eyes without macular edema associated with type 2 diabetes mellitus (HCC) Risk of diabetic changes and vision loss can be minimized by tight control of blood sugar, blood pressure, and cholesterol levels. Educated patient to continue care with primary care doctor and/or supervisor fertilizer to maintain optimum levels as they are important to avoid ocular complications. Encouraged patient to call the office immediately with any changes to vision or visual concerns. Advised to not wait until the next scheduled exam. Given nature of current management, I recommended follow-up in 6 months for repeat dilation 2. Myopia, bilateral 3. Regular astigmatism of both eyes 4. Presbyopia Continue with current glasses Monitor 6 months Bere Greene, OD December 21, 2021 3:28 PM documented in this encounter [facility] Evaluation note Note Date & Type Note Facility documented in this encounter [facility] Evaluation note Note Date & Type Note Facility documented in this encounter [facility] Summary Purpose Family History No Family History Records FoundNo Family History Records FoundNo Family History Records Found Advance Directives No Advanced Directives Records FoundNo Advanced Directives Records FoundNo Advanced Directives Records Found Medications Administered Section Active Administered Medications - up to 3 most recent administrations Medication Order MAR Action Action Date Dose Rate Site fluorescein-benoxinate 0.25-0.4 % 1 Drop (FLURESS) 1 Drop, BOTH EYES, DIRECTED, Starting on 12/21/21 at 1500, Until Tue12/22/21 at 0259, Administer for applanation tonometry. In the event of a Fluress shortage, administer Weed-Fluor 1 drop into both eyes as directed for applanation tonometry Given 12/21/2021 3:00 PM EDT 1 Drop PHENYLephrine 2.5 % 1 Drop (AK-DILATE, LURDES-SYNEPHRINE) 1 Drop, BOTH EYES, DIRECTED, Starting on Tue12/21/21 at 1500, Until Tue12/22/21 at 0259, Administer for dilation PROTECT FROM LIGHT Given 12/21/2021 3:00 PM EDT 1 Drop tropicamide 1 % 1 Drop (MYDRIACYL) 1 Drop, BOTH EYES, DIRECTED, Starting on Tue12/21/21 at 1500, Until Tue12/22/21 at 0259, Administer for dilation Given 12/21/2021 3:00 PM EDT 1 Drop Additional Source Comments (unrecognized sect ion and content) No Status Records FoundNo Status Records FoundNo Status Records Found INFORMATION SOURCE (unrecogn ized section and content) DATE CREATED AUTHOR AUTHOR'S ORGANIZ ATION 08/28/2020 [facility] pablito Villavicencio DATE CREATED AUTHOR AUTHOR'S ORGANIZ ATION 08/14/2023 [facility] Source Comments (unrecognize d section and content) In the event this informatio n is protected by the Federal Confidentiality of Alcohol and Drug Abuse Patient Records regulations: The Federal rules restrict any use of the information to criminally investigate or prosecute any alcohol or drug abuse patient.[facility] [place] the event this information is protected by the Federal Confidentiality of Alcohol and Drug Abuse Patient Records regulations: The Federal rules restrict any use of the information to criminally investigate or prosecute any alcohol or drug abuse patient.[facility] [place] the event this information is protected by the Federal Confidentiality of Alcohol and Drug Abuse Patient Records regulations: The Federal rules restrict any use of the information to criminally investigate or prosecute any alcohol or drug abuse patient.[facility] Reason for Visit (unrecogniz ed section and content) Reason Comments Patient Question Called patient and a dvised to schedule follow-up in the next week or two Reason Comments Insulin Dependent Diabetes Mellitus Kylah ent states blood sugar is currently 200. HbA1c: 6.8 Care Teams (unrecognized sec tion and content) Retouching Operator Relationship Specialty Start Date End Date Jeni Sommers CNP [address] [place] [address] PCP - General Internal Medicine 12/08/21 Retouching Operator Relationship Specialty Start Date End Date Jeni Sommers CNP [address] [place] [address] PCP - General Internal Medicine 12/08/21 FOR RECORDS PERTAINING TO PATIENTS WHO ARE OR HAVE BEEN ENROLLED IN A CHEMICAL DEPENDENCY/SUBSTANCEABUSE PROGRAM, SOME INFORMATION MAY BE OMITTED. This clinical summary was aggregated from multiple sources. Caution should be exercised in using it in the provision of clinical care. This summary normalizes information from multiple sources, and as a consequence, information in this document may materially change the coding, format and clinical context of patient data. In addition, data may be omitted in some cases. CLINICAL DECISIONS SHOULD BE BASED ON THE PRIMARY CLINICAL RECORDS. [employer] [facility]. provides no warranty or guarantee of the accuracy or completeness of information in this document.
== END | disposition home or self-care (01) ==
LOC: NM 12:02
PROVIDERS: PCP Internal Medicine; Referring Provider Internal Medicine; Visit Provider Internal Medicine
DX: R14.0 Abdominal distension (gaseous) (principal)
CPT/HCPCS: 78264; A9541

== ENCOUNTER 2023-11-01 13:31 | Outpatient (RCR) | payer MEDICAID, SELFPAY | END 2023-11-24 23:59 | LOC: DC 13:31 | PROVIDERS: PCP Internal Medicine; Referring Provider Podiatrist; Visit Provider Podiatrist | DX: E11.9 Type 2 diabetes mellitus without complications (principal) | CPT/HCPCS: 97803 ==

== ENCOUNTER 2023-11-28 13:07 | Outpatient (RCR) | payer MEDICAID, SELFPAY | END 2023-12-25 23:59 | LOC: DC 13:07 | PROVIDERS: PCP Internal Medicine; Referring Provider Podiatrist; Visit Provider Podiatrist | DX: E11.9 Type 2 diabetes mellitus without complications (principal) | CPT/HCPCS: 97803 ==

== ENCOUNTER 2023-12-28 13:04 | Outpatient (RCR) | payer MEDICAID, SELFPAY | END 2024-01-24 23:59 | LOC: DC 13:04 | PROVIDERS: PCP Internal Medicine; Referring Provider Podiatrist; Visit Provider Podiatrist | DX: E11.9 Type 2 diabetes mellitus without complications (principal) | CPT/HCPCS: 97803 ==

== ENCOUNTER 2024-01-18 12:00 | Outpatient (RCR) | payer MEDICAID, SELFPAY ==
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
== END 2024-01-18 19:00 | disposition home or self-care (01) ==
LOC: OT 12:00
PROVIDERS: PCP Internal Medicine; Referring Provider Internal Medicine; Visit Provider Internal Medicine
DX: R53.81 Other malaise (principal)
CPT/HCPCS: 97750

== ENCOUNTER 2024-02-19 12:11 | Emergency (ER) | payer MEDICAID, SELFPAY ==
[2024-02-19 12:12] VITALS: BP 141/81; PULSE 73; RESP 6; TEMP 35.7; O2SAT 97; BMI 37.7
--- NOTE | 2024-02-19 12:24 | EDS_ITS ---
HPI HPI - URI History of Present Illness Chief Complaint: Cold Sx Narrative Narrative: 43-year-old male presenting with recent history of sore throat, sinus pressure, rhinorrhea, nasal congestion. He states it started Tuesday. He states he has not had any fevers. He states his nephew was the one that was sick first and he thinks this is how he caught it. His nephew recovered without any problems. Patient does not have any chest pain. He does have a cough which is minimally productive of sputum. He has been using cough suppressants. Patient states he is not short of breath. He has not had any nausea or vomiting. He is eating and drinking normally and making urine and stool normally ROS ROS ED Constitutional Constitutional ED: Denies chills, fever(s) or sweats Eyes Eyes: Denies blurry vision or change in vision ENT ENT ED: Reports rhinorrhea and sore throat; Denies ear pain Cardiovascular Cardiovascular: Denies chest pain, palpitations or racing heartbeat Respiratory/Chest Respiratory/Chest: Reports cough; Denies dyspnea or sputum Gastrointestinal Gastrointestinal: Denies abdominal pain, constipation, diarrhea, nausea or vomiting Genitourinary Genitourinary ED: Denies dysuria, hematuria or urinary frequency Musculoskeletal Musculoskeletal: Denies arthralgias, myalgias or neck pain Integumentary Denies abscess, Abrasions or rash Neurologic Neurologic: Denies headache(s), paresthesias or weakness Psychiatric Psychiatric: Denies anxiety, depression, suicidal ideation or suicidal thoughts Endocrine Endocrinology: Denies polydipsia or polyuria [facility] Medical History Polyneuropathy in diabetes Secondary diabetes History of asthma C. difficile diarrhea Contact with and (suspected) exposure to other viral communicable diseases Acute bronchitis, unspecified URI (upper respiratory infection) Amputation of toe Osteomyelitis of right foot Diabetes mellitus, type 2 Home Medications ?Medication ?Instructions ?Recorded ?Last Taken ?Type loratadine 10 mg tablet (Allergy 10 mg PO DAILY 07/09/22 Unknown History Relief (loratadine)) meclizine 12.5 mg tablet 12.5 mg PO TID PRN dizziness #15 11/01/22 Unknown Rx tabs pen needle, diabetic 31 gauge x #360 ea 02/01/23 Unknown Rx 02/08 (1st Tier Unifine Pentips) ammonium lactate 12 % topical cream 1 applic topical DAILY PRN dry skin 09/22/23 Unknown History FreeStyle Alma Delia 3 Sensor #6 ea 10/28/23 Unknown Rx (blood-glucose sensor) insulin lispro 100 unit/mL 20 unit (0.2 mL) subcut TID #60 mL 10/28/23 Unknown Rx subcutaneous pen (Humalog KwikPen (U-100) Insulin) gabapentin 400 mg capsule See Rx Instructions .Route 11/28/23 Unknown Rx .COMPLEX #90 caps omeprazole 20 mg capsule,delayed 20 mg PO DAILY #30 caps 12/09/23 Unknown Rx release sertraline 100 mg tablet 100 mg PO DAILY #30 tabs 12/13/23 Unknown Rx Jardiance 25 mg tablet 25 mg PO DAILY #90 tabs 12/27/23 Unknown Rx (empagliflozin) cholecalciferol (vitamin D3) 1,250 1,250 mcg PO .every other Tuesday12/27/23 Unknown Rx mcg (50,000 unit) capsule #6 caps insulin degludec 100 unit/mL (3 15 unit (0.15 mL) subcut DAILY #15 01/06/24 Unknown Rx mL) subcutaneous pen (Tresiba mL FlexTouch U-100 insulin) Allergy/AdvReac Type Severity Reaction Status Date / Time Penicillins (PCN) Allergy Mild Other Verified 12/27/23 14:14 Family History Mother Diabetes Heart disease Grandmother Diabetes Heart disease Father Basal cell carcinoma Pancreatic cancer ALS (amyotrophic lateral sclerosis) Surgical History Dud[place] teeth extracted H/O foot surgery History of amputation of toe History of ankle surgery Social History household members: family current occupational status: unemployed Smoking Status: Former smoker quit date: 09/26/10 pack-years: 15 Smokeless tobacco user: dissolvable tobacco Electronic Cigarette Use: not used alcohol intake: current alcohol intake frequency: holidays/special occasions only substance use type: marijuana what type of physical activity do you participate in: none do you feel safe at home: Yes additional social history: nicotine patches EXAM Physical Exam Const Vital Signs: 02/19/24 12:12 Temperature 96.2 F L Temperature Source Temporal Pulse Rate 73 Respiratory Rate 6 L Blood Pressure 141/81 H Blood Pressure Mean 101 Pulse Ox 97 Oxygen Delivery Method Room Air General Appearance ED: NAD and pallor HEENT Reports moist mucous membranes normocephalic and atraumatic Eyes PERRL and EOMs intact bilaterally Resp normal respiratory effort and clear to auscultation bilaterally Cardio Rate: regular rate Rhythm: regular rhythm Neuro oriented x3 and CN's II-XII intact bilaterally Sensorium / Orientation: alert Sensory Exam: sensory level loss detected Motor Exam: strength 5/5 throughout Psych mental status grossly normal Skin General Skin Exam: jaundice and pallor MDM MDM MDM Narrative Medical decision making narrative: 43-year-old male presenting with viral symptoms. He is outside the window for treatment for COVID or flu. His vital signs are stable he I counseled him that testing would not change treatment and since he has minimal symptoms and his lungs are clear to auscultation and his vital signs are normal and are otherwise his physical exam positive for rhinorrhea I do believe he needed further workup but I did offer chest x-ray and he declines. He states he is only here because his mom is sick with the same thing and he wanted to get checked out. Recommended continue conservative care at home. Precautions discussed. Impression 1. Viral syndrome Discharge Plan Triage Chief Complaint: Cold Sx ED Provider: Deven Richardson Dx/Rx/DC Orders Instructions: ED Viral Syndrome (Adult) Prescriptions: No Action loratadine [Allergy Relief (loratadine)] 10 mg tablet 10 mg PO DAILY meclizine 12.5 mg tablet 12.5 mg PO TID PRN (Reason: dizziness) Qty: 15 0RF ammonium lactate 12 % cream 1 applic topical DAILY PRN cholecalciferol (vitamin D3) 1,250 mcg (50,000 unit) capsule 1,250 mcg PO .every other Tuesday Qty: 6 3RF Jardiance 25 mg tablet 25 mg PO DAILY Qty: 90 3RF sertraline 100 mg tablet 100 mg PO DAILY Qty: 30 2RF (DME) pen needle, diabetic [1st Tier Unifine Pentips] 31 gauge x 5/16 needle See Rx Instructions .Route Qty: 360 3RF Rx Instructions: 4 times daily insulin lispro [Humalog KwikPen Insulin] 100 unit/mL insulin pen 20 unit subcut TID MDD 70 Qty: 60 3RF Rx Instructions: plus coverage as directed (DME) FreeStyle Alma Delia 3 Sensor Device See Rx Instructions .Route Qty: 6 3RF Rx Instructions: As directed gabapentin 400 mg capsule See Rx Instructions .ROUTE .COMPLEX Qty: 90 0RF Dose Instruction: TAKE 1 CAPSULE BY MOUTH THREE TIMES DAILY Rx Instructions: TAKE 1 CAPSULE BY MOUTH THREE TIMES DAILY omeprazole 20 mg capsule,delayed release(DR/EC) 20 mg PO DAILY Qty: 30 0RF insulin degludec [Tresiba FlexTouch U-100] 100 unit/mL (3 mL) insulin pen 15 unit subcut DAILY Qty: 15 1RF Primary Care Provider: Leonor Russo Referrals: Leonor Russo MD [Primary Care Provider] - Print Language: Hebrew Disposition Disposition: Home, Self Care
[2024-02-19 13:08] VITALS: BP 129/70; PULSE 83; RESP 17; TEMP 36.4; O2SAT 95
== END 2024-02-19 13:23 | disposition home or self-care (01) ==
PROVIDERS: Emergency Provider Student in an Organized Health Care Education/Training Program; PCP Internal Medicine; Visit Provider Student in an Organized Health Care Education/Training Program
DX: B34.9 Viral infection, unspecified (principal); E11.9 Type 2 diabetes mellitus without complications; Z79.4 Long term (current) use of insulin; Z87.891 Personal history of nicotine dependence
CPT/HCPCS: 99282

== ENCOUNTER 2024-07-12 07:53 | Day surgery (SDC) | payer MEDICAID, SELFPAY ==
[2024-07-12] VITALS (10 sets, daily range): BP systolic 75–121; BP diastolic 49–60; PULSE 64–77; RESP 16–18; TEMP 36.1–36.9; O2SAT 94–100; BMI 39.2
--- NOTE | 2024-07-12 08:13 | PCM.HP.BLA ---
History and Physical Date of Admission: 07/12/24 BETI LONG, is a 43 M who presents to the office today for initial consult. GET 1..24 abnormal 95.28 minutes *BGI established 9.26.24 pt reports a long history of daily nausea and bloating. Pt states that his bloating is the worst in the morning. Pt reports anywhere from 1-4 soft bm per day; denies blood in the stool. ROS Const Constitutional: Positive for fatigue and weight change (weight gain); No fever(s) ENT ENT: No difficulty swallowing Cardio Cardiology: Positive for leg pain with exertion Gastro GI: Positive for bloating, diarrhea, excessive flatus and nausea/dyspepsia; No abdominal pain, belching, change in bowel habits, change in stool character, coffee ground emesis, constipation, cramping, heartburn, difficulty swallowing, feeling full early, incontinent of stools, Vomiting blood/hematemesis, Blood in stool, loose stools, Black,tarry stools, pain with swallowing, vomiting or other Musc Musculoskeletal: Positive for abnormal gait, joint pain, back pain, joint swelling, numbness, stiffness, tingling, Arthritis and leg pain with exertion Skin Skin: Positive for dry skin; No yellowing of the eye or itchy eyes Neuro Neurology: Positive for abnormal gait, numbness and tingling Psych Psychiatric: Positive for anxiety and Positive for depression Endo Endocrine: Positive for fatigue and weight change (weight gain) Aller/Imm Allergy/Immunologic: No itchy eyes Leonel/Lymp Hematologic/Lymphatic: No easy bleeding or easy bruising Exam Const General: cooperative, healthy appearing, comfortable, no acute distress, well developed and not cushingoid Nutritional Appearance: well nourished and obese Orientation: alert, awake and oriented x3 [facility] Head: normal to inspection Ears: hearing grossly normal bilaterally Nose: external nose normal Mouth: oral mucosae normal Eyes General: appearance normal, both eyes and all related structures Alignment and Position: alignment normal Periorbital: periorbital findings normal Eyelids: eyelids normal Conjunctivae: conjunctivae normal Neck Neck: normal visual inspection Chest Chest palpation & inspection: normal inspection of the chest Resp Effort & Inspection: normal respiratory effort, able to speak in complete sentences, symmetric chest movement, no audible wheezes and no cough Auscultation: Bilateral: Clear to Auscultation Cardio Rate: regular rate Rhythm: regular rhythm GI Inspection: normal to inspection Skin General: no rashes or lesions noted Neuro General: patient alert, patient awake and patient oriented x3 Cranial Nerves: CN's II-XI intact bilaterally Cognition: normal cognition Speech: speech normal Gait: normal gait Motor: muscle tone normal throughout Extrem General: edema Psych Appearance: grossly normal Mental Status: mental status grossly normal Mood: congruent mood Affect: normal affect Speech and Movement: speech and movement normal Attitude: cooperative Thought Process: normal Thought Content: normal Judgment: judgment good Assessment and Plan Assessment and Plan (1) Diarrhea: Status: Acute (2) Gastroparesis: Status: Acute Plan: Pleasant 43-year-old gentleman with a past medical history of type 2 diabetes complicated by neuropathy, osteomyelitis and gastroparesis. He presents for evaluation of worsening nausea, bloating and alternating constipation and diarrhea. He has not been diagnosed with IBS in the past. He had a gastric emptying study approximately 8 months ago that had shown prolonged gastric emptying time is 67 minutes. He has not had any imaging of his abdomen and pelvis. He has not had any abdominal surgeries. His hemoglobin A1c was 11 but it was down to 7.2. He was recently started on Trulicity as he was told this less likely have side effects of nausea and vomiting. Appetite has been fine. Reports a weight loss from 450 pounds down to 225 and then had surgery on his foot in November 2021 then went down to 170 but then has gone back up to 280. He struggles at times with concentration and focus. Will hyper-focus on certain things but at other times struggle greatly with focus. He can be easily distracted. Differential diagnosis for him is worsening gastroparesis, small bacterial overgrowth, exocrine pancreatic insufficiency in the setting of uncontrolled type 2 diabetes and IBS. He should undergo gastric emptying study. He would likely also need to undergo an upper endoscopy evaluate his upper GI tract and pyloric stenosis, H. pylori or any other organic abnormalities such as peptic ulcer disease and any structural disease. He will get a gastric emptying study and undergo stool test and blood test. Orders: Orders CRP Today R19.7 - Diarrhea, unspecified Erythrocyte Sed Rate Today R19.7 - Diarrhea, unspecified LDH Today R19.7 - Diarrhea, unspecified CBC W/Diff, Automated Today R19.7 - Diarrhea, unspecified Comprehensive Metabolic Profil Today R19.7 - Diarrhea, unspecified ENTERIC PATHOGEN PANEL STOOL Today K58.9 - Irritable bowel syndrome without diarrhea, R19.7 - Diarrhea, unspecified Stool Lactoferrin/WBC Today K58.9 - Irritable bowel syndrome without diarrhea, R19.7 - Diarrhea, unspecified CDIFF (PCR) Today R19.7 - Diarrhea, unspecified Calprotectin, Stool Today R19.7 - Diarrhea, unspecified Pancreatic Elastase, Fecal Today R19.7 - Diarrhea, unspecified OVA+PARA w/Giardia EIA [id number] Today R19.7 - Diarrhea, unspecified Stool Occult Blood iFOB Today R19.7 - Diarrhea, unspecified Fecal Fat, Qualitative Today R19.7 - Diarrhea, unspecified CPK Total, Creatine Kinase Today R19.7 - Diarrhea, unspecified Aldolase Today R19.7 - Diarrhea, unspecified Gastrin, Serum Today R19.7 - Diarrhea, unspecified Chromogranin A Today R19.7 - Diarrhea, unspecified ANCA Today R19.7 - Diarrhea, unspecified JOVANNA Comprehensive Panel Today R19.7 - Diarrhea, unspecified Allergen, Food Profile 14 Today R19.7 - Diarrhea, unspecified Quantiferon TB-Gold+ Today R19.7 - Diarrhea, unspecified Gastric Emptying Study Today R14.0 - Abdominal distension (gaseous), R19.7 - Diarrhea, unspecified I have examined the patient and the H&P has been reviewed. There are no clinical changes since date of exam.
--- NOTE | 2024-07-12 08:24 | PRE.ANES_ITS ---
ASA Classification* ASA Classification ASA Classification: 3 Assessment & Plan Anesthesia* Anesthesia Assessment Anesthesia Assessment: Discussed sedation and/or anesthesia options, risks, benefits, and alternatives with patient/parents/legal guardian/POA. Questions invited. The patient/parents/legal guardian/POA seems to understand and agrees to proceed with anesthesia plan. Reviewed the physical assessment, medical history, allergy history and patient home medications list prior to surgery/procedure/anesthetic and documented any changes. Performed airway and anesthesia risk assessments. Anesthesia Type Anesthesia Type: MAC (see written pre anesthesia record for full assessment) Anesthesia Focused Assessment* Temperature: 98.4 F Pulse Rate: 77 Blood Pressure: 121/58 Respiratory Rate: 18 Pulse Ox: 100 Airway Assessment Mouth opens: >3 cm Mallampati Score: III Focused Labs Anesthesia Preop lab: CBC WBC 7.0 K/mm3 (4.4-11.0) 09/29/23 13:47 RBC 5.11 M/mm3 (4.6-6.2) 09/29/23 13:47 Hgb 15.3 g/dL (13.0-16.5) 09/29/23 13:47 Hct 47.6 % (40-54) 09/29/23 13:47 Plt Count 237 K/mm3 (150-450) 09/29/23 13:47 CHEMISTRY Potassium 5.0 mmol/L (3.5-5.1) 09/29/23 13:47 Sodium 137 mmol/L (136-145) 09/29/23 13:47 Magnesium 2.6 mg/dL (1.6-2.6) 10/29/21 09:55 Phosphorus 5.2 mg/dL (2.5-4.9) H 10/29/21 09:55 BUN 25 mg/dL (7-18) H 09/29/23 13:47 Creatinine 1.01 mg/dL (0.70-1.30) 09/29/23 13:47 Glucose 206 mg/dL (74-106) H 09/29/23 13:47 POC Glucose 162 mg/dL (70-110) H 11/04/21 07:35 TSH 2.40 uIU/mL (0.358-3.74) 12/11/21 10:30 COAG Pre-Assessment Diagnosis/Proposed Procedure Planned Operative Procedure(s): EGD Anesthesia History Anesthesia History - pallet stone positioner: Anesthesia History - pallet stone positioner Hx Hospitalization No 07/11/24 08:42 Any Problems With Anesthesia No 07/11/24 08:42 Cholinesterase deficiency No 07/11/24 08:42 You/Your Family Experience No 07/11/24 08:42 fever (hyperthermia) with Relationship Recent Exposure to Contagious No 07/12/24 08:14 Disease Does patient have nerve No 07/11/24 08:42 stimulator Patient instructed to have device shut off --Does patient have Pacemaker or ICD? When Was Last Pacemaker Check QUESTION #4 FULL TEXT: You/Your Family Experience fever (hyperthermia) with Anesthesia Last Oral Intake Last Oral intake: Last Oral Intake NPO since 23:30 07/12/24 08:14 Meds taken in AM with sips of No 07/12/24 08:14 water? Meds patient instructed to take am of surgery PONV PONV - pallet stone positioner: PONV - pallet stone positioner Female No 07/11/24 08:42 HX of Motion Sickness No 07/11/24 08:42 HX of N/V After Surgery No 07/11/24 08:42 Non-Smoker Yes 07/11/24 08:42 Duration of Surgery greater No 07/11/24 08:42 than 60 minutes Number of Risk Factors 1 07/11/24 08:42 PONV Score Low Risk 07/11/24 08:42 Height & Weight Height & Weight: Anesthesia: Height & Weight Height 6 ft 07/12/24 08:14 Weight: 131 kg 07/12/24 08:14 Body Mass Index (BMI) 39.2 07/12/24 08:14 Respiratory Assessment Respiratory Assessment - pallet stone positioner: Respiratory Tract Infection Hx - pallet stone positioner Hx Respiratory Tract Infection No 07/11/24 08:42 STOP Sleep Apnea STOP Sleep Apnea - pallet stone positioner: STOP Sleep Apnea - pallet stone positioner Hx Hypertension No 07/11/24 08:42 Hx Sleep Apnea Yes 07/11/24 08:42 CPAP Yes: NONCOMPLIANT 07/11/24 08:42 BIPAP No 07/11/24 08:42 Do you snore loudly (louder than talking or can be heard Do you often feel tired/ fatigued/ sleepy during daytime? Has anyone observed you stop breathing during sleep? STOP Results Positive 07/11/24 08:42 QUESTION #5 FULL TEXT : Do you snore loudly (louder than talking or can be heard through closed doors)? 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 confused, unrespo /Reproduction History /Reproductive History - pallet stone positioner: /Reproductive Hx- pallet stone positioner Hx Now No 07/11/24 08:42 Gestational Age (in weeks): EDC: Hx Hx Para Hx Section [facility] No 07/11/24 08:[facility] Wears glasses History of Clostridium difficile infection PTSD (post-traumatic stress disorder) Depression Anxiety Marijuana use Alcohol use Insulin dependent diabetes mellitus Arthritis Back pain Migraine headache Dietary restriction Heartburn Former smoker CPAP (continuous positive airway pressure) dependence Asthma Shortness of breath on exertion History of pain when walking History of edema Polyneuropathy in diabetes Secondary diabetes Contact with and (suspected) exposure to other viral communicable diseases Acute bronchitis, unspecified URI (upper respiratory infection) Osteomyelitis of right foot Diabetes mellitus, type 2 Home Medications ?Medication ?Instructions ?Recorded ?Last Taken ?Type loratadine 10 mg tablet (Allergy 10 mg PO DAILY 07/09/22 Unknown History Relief (loratadine)) pen needle, diabetic 31 gauge x #360 ea 02/01/23 Unknown Rx 02/08 (1st Tier Unifine Pentips) FreeStyle Alma Delia 3 Sensor #6 ea 10/28/23 Unknown Rx (blood-glucose sensor) insulin lispro 100 unit/mL 20 unit (0.2 mL) subcut TID #60 mL 10/28/23 Unknown Rx subcutaneous pen (Humalog KwikPen (U-100) Insulin) Jardiance 25 mg tablet 25 mg PO DAILY #90 tabs 12/27/23 Unknown Rx (empagliflozin) cholecalciferol (vitamin D3) 1,250 1,250 mcg PO .every other Tuesday12/27/23 Unknown Rx mcg (50,000 unit) capsule #6 caps omeprazole 20 mg capsule,delayed 20 mg PO DAILY #90 caps 04/24/24 Unknown Rx release sertraline 100 mg tablet 150 mg PO DAILY 04/24/24 Unknown History Trulicity 0.75 mg/0.5 mL 0.75 mg (0.5 mL) subcut QWEEK #2 mL 04/26/24 Unknown Rx subcutaneous pen injector (dulaglutide) buspirone 10 mg tablet 10 mg PO DAILY 07/11/24 Unknown History gabapentin 400 mg capsule 400 mg PO TID 07/11/24 Unknown History insulin degludec 100 unit/mL (3 15 unit subcut 1500 07/11/24 Unknown History mL) subcutaneous pen (Tresiba FlexTouch U-100 insulin) Allergy/AdvReac Type Severity Reaction Status Date / Time Penicillins (PCN) Allergy Mild Other Verified 07/12/24 08:13 Family History Mother Diabetes Heart disease Grandmother Diabetes Heart disease Father Basal cell carcinoma Pancreatic cancer ALS (amyotrophic lateral sclerosis) Surgical History History of wisdom tooth extraction H/O foot surgery History of amputation of toe History of ankle surgery Social History household members: family current occupational status: unemployed Smoking Status: Former smoker quit date: 09/26/10 pack-years: 15 Smokeless tobacco user: dissolvable tobacco Electronic Cigarette Use: not used alcohol intake: current alcohol intake frequency: holidays/special occasions only substance use type: marijuana what type of physical activity do you participate in: none do you feel safe at home: Yes additional social history: nicotine patches Review of Systems (Anesthesia) ROS Narrative System reviewed and no additional complaints, except as documented.
--- NOTE | 2024-07-12 08:30 | EGD_PTH ---
PATIENT: BETI LONG LOC: EN U#:[id number] AGE/SX: 43/M ROOM: RE07/12/[address]: Dr. Tex Shane DO : 1980 BED: DIS: 07/12/2024 SPEC #: [id number] RECD: 07/12/24 13:25 STATUS: FUNMI CARMELLA #: [id number] MARIAJOSE: 07/12/24 08:[address]: Tex Shane DEPT: SURGICAL PATHOLOGY RECD BY: Judi Edge ENTERED: 07/12/24 13:53 SP TYPE: EGD BIOPSY OT DR: Jannet Primary Care Phys Tissues: Esophagus, NOS Procedures: Surgery Specimen Level IV HEADER OPERATION: EGD with biopsy PRE-OP DIAGNOSIS: Diarrhea, gastroparesis TISSUE SUBMITTED: Distal esophagus biopsy MICROSCOPIC DIAGNOSIS Distal esophagus, biopsy: Gastroesophageal junction mucosa with mild chronic inflammation. No evidence of goblet cell metaplasia. See comment. AM. 07/13/2024 COMMENT Alcian blue/PAS stain with matched control supports the above diagnosis. MICROSCOPIC DESCRIPTION Slides are reviewed. GROSS DESCRIPTION Received in fixative is one container labeled with the patient's name and designated Distal esophagus biopsy. The specimen consists of two irregular fragments of light valverde soft tissue that in aggregate measure 0.6 x 0.3 x 0.1 cm. The specimen is totally submitted in one cassette. 07/12/2024 TC:3 CPT:98610 ,[id number]
--- NOTE | 2024-07-12 09:02 | PCM.POST.ANE ---
Anesthesia: Postop Eval I Current Vital Signs Temperature: 97 F Pulse Rate: 67 Blood Pressure: 75/56 Respiratory Rate: 16 Pulse Ox: 97 Oxygen Delivery Method: Room Air Assessment Airway patent: Yes Spontaneous unlabored respirations: Yes Mental status: Asleep nausea: No Vomiting: No Anesthesia Complication: No Fluid Hydration Crystalloid volume administer (ml): 20 Total IV fluid infused: 20 Progress Note Anesthesia document: Postop Eval 1 completed: Yes
--- NOTE | 2024-07-12 09:08 | PCM.POSTANE2 ---
Anesthesia Postop Eval I Sum Postop Eval Completion status Anesthesia document: Postop Eval 1 completed: Yes Anesthesia Postop Eval I Summary Anesthesia Postop Eval I Summary: Anesthesia Postop Eval I: Assessment Summary Airway patent Yes 07/12/24 09:03 [email or web address] Spontaneous unlabored Yes 07/12/24 09:03 [email or web address] respirations Mental status Asleep 07/12/24 09:03 [email or web address] nausea No 07/12/24 09:03 [email or web address] Vomiting No 07/12/24 09:03 [email or web address] Anesthesia Postop Eval I: Fluid Summary Crystalloid volume administer 20 07/12/24 09:03 [email or web address] (ml) Colloids volume administered ( ml) Blood Product volume administered (ml) Total IV fluid infused 20 07/12/24 09:03 [email or web address] Anesthesia Postop Eval I: Summary Notes Anesthesia Complication No 07/12/24 09:03 [email or web address] Anesthesia Complication Comment: Post-operative progress note Anesthesia: Postop Eval II Evaluation Mental status: Awake Pain Level: 0 nausea: No Vomiting: No
--- NOTE | 2024-07-16 15:26 | OP.CCLET_ITS ---
07/12/2024 No Primary Care Physician Re : Upper GI endoscopy procedure for Luis Fernando Murphy Dear Care Physician This procedure was performed on June. My impressions and recommendations are as follows: Impressions : - Esophageal mucosal changes suggestive of short-segment Cleary's esophagus. Biopsied. - A large amount of food (residue) in the stomach. - Normal first portion of the duodenum. Recommendations : - Discharge patient to home. - Full liquid diet. - Continue present medications. - Use Protonix (pantoprazole) 40 mg PO BID. - Use Creon 3 tablets PO TID with meals for 6 months. - Papain digestive enzymes 3 times a day with 20 ounces of Diet Coke or diet Pepsi 2-3 times a day - Metoclopramide 5 mg 3 times a day2 My findings are described in the full procedure note, which is enclosed. If I can be of further assistance, please feel free to contact me at . Sincerely, Tex Shane, 07/12/2024 9:00:30 AM This report has been signed electronically.
--- NOTE | 2024-07-16 15:26 | OP.EGD_ITS ---
Patient Name: Luis Fernando Murphy Procedure Date: 07/12/2024 8:40 AM Date of : 1980 Age: 43 Procedure: Upper GI endoscopy Indications: Epigastric abdominal pain, Heartburn Providers: Tex Shane DO Referring MD: Tex Shane DO Medicines: Monitored Anesthesia Care Patient Profile: This is a 43 year old male. Refer to note in patient chart for documentation of history and physical. Patient has symptoms. Complications: No immediate complications. Procedure: Pre-Anesthesia Assessment: - Prior to the procedure, a History and Physical was performed, and patient medications and allergies were reviewed. The patient is competent. The risks and benefits of the procedure and the sedation options and risks were discussed with the patient. All questions were answered and informed consent was obtained. Patient identification and proposed procedure were verified by the physician in the pre-procedure area. Mental Status Examination: alert and oriented. Airway Examination: normal oropharyngeal airway and neck mobility. Respiratory Examination: clear to auscultation. CV Examination: normal. Prophylactic Antibiotics: The patient does not require prophylactic antibiotics. Prior Anticoagulants: The patient has taken no anticoagulant or antiplatelet agents except for NSAID medication. ASA Grade Assessment: II - A patient with mild systemic disease. After reviewing the risks and benefits, the patient was deemed in satisfactory condition to undergo the procedure. The anesthesia plan was to use monitored anesthesia care (MAC). Immediately prior to administration of medications, the patient was re-assessed for adequacy to receive sedatives. The heart rate, respiratory rate, oxygen saturations, blood pressure, adequacy of pulmonary ventilation, and response to care were monitored throughout the procedure. The physical status of the patient was re-assessed after the procedure. After obtaining informed consent, the endoscope was passed under direct vision. Throughout the procedure, the patient's blood pressure, pulse, and oxygen saturations were monitored continuously. The Endoscope was introduced through the mouth, and advanced to the third part of duodenum. The upper GI endoscopy was accomplished without difficulty. The patient tolerated the procedure well. Scope In: Scope Out: 8:51:48 AM Findings: There were esophageal mucosal changes suggestive of short-segment Cleary's esophagus present in the lower third of the esophagus. The maximum longitudinal extent of these mucosal changes was 3 cm in length. Mucosa was biopsied with a cold forceps for histology in a targeted manner at intervals of 1 cm in the lower third of the esophagus. A total of 3 specimen bottles were sent to pathology. Verification of patient identification for the specimen was done. Estimated blood loss was minimal. A large amount of food (residue) was found in the entire examined stomach. The first portion of the duodenum was normal. Impression: - Esophageal mucosal changes suggestive of short-segment Cleary's esophagus. Biopsied. - A large amount of food (residue) in the stomach. - Normal first portion of the duodenum. Recommendation: - Discharge patient to home. - Full liquid diet. - Continue present medications. - Use Protonix (pantoprazole) 40 mg PO BID. - Use Creon 3 tablets PO TID with meals for 6 months. - Papain digestive enzymes 3 times a day with 20 ounces of Diet Coke or diet Pepsi 2-3 times a day - Metoclopramide 5 mg 3 times a day2 Procedure Code(s): --- Professional --- 78262, Esophagogastroduodenoscopy, flexible, transoral; with biopsy, single or multiple CPT copyright 2021 [employer]. All rights reserved. The codes documented in this report are preliminary and upon aviation electronics technician review may be revised to meet current compliance requirements. Tex Shane DO 07/12/2024 9:00:30 AM This report has been signed electronically. Number of Addenda: 0 Note Initiated On: 07/12/2024 8:40 AM
== END 2024-07-12 10:22 | disposition home or self-care (01) ==
LOC: EN 07:57 → AC 07:57
PROVIDERS: Referring Provider Internal Medicine Gastroenterology; Visit Provider Internal Medicine Gastroenterology
PROC: 0DJ08ZZ Inspection of Upper Intestinal Tract, Via Natural or Artificial Opening Endoscopic (ICD-10-PCS; CPT 43235; principal; 2024-07-12 08:25)
DX: K52.9 Noninfective gastroenteritis and colitis, unspecified (principal); E11.9 Type 2 diabetes mellitus without complications; K31.84 Gastroparesis
CPT/HCPCS: 43239; 88305; A4216; J2405

== ENCOUNTER → 2024-07-20 | Outpatient (CLI) | payer MEDICAID, SELFPAY ==
--- OUTSIDE RECORDS SUMMARY | 2024-07-20 09:40 | XMS RPT_ITS | CCD ---
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 retinopathy eval Previously poor follow up 1. Type 2 diabetes with care home use of insulin -Recommend good blood pressure/sugar [...] Ocular hypertension -monitor with Dr. Greene Plan: Stable exam Patient elects to observe for now Return in 4-5 mo I have confirmed [...] with all of its relevant components. Katerina Franklin MD documented in this encounter [facility] 12-21-2023 Hospital Discharg e instructions Jarad Georges DPM - 12/21/2023 12:48 PM EDT Follow up with Dr. Georges x 1 week Keep dressing clean dry and intact. Weightbearing in surgical shoe. documented in this encounter [facility] Work Phone: 12-21-2023 Note Formatting of this n ote is different from the original. Excision Bone Cyst Foot exostectomy left great toe (L) Operative Note Date: 12/21/2023 OR Location: [facility] OR Name: Luis Fernando Long, : 1980, Age: 42 y.o., , Sex: male Diagnosis Pre-op Diagnosis * Ulcer of toe of left foot, with fat layer exposed (CMS/HCC) [L97.522] Post-op Diagnosis * Ulcer of toe of left foot, with fat layer exposed (CMS/HCC) [L97.522] Procedures Excision Bone Cyst Foot exostectomy left great toe 07311 - [place] EXC/[facility]TG [employer] INST[employer]ER/B9 [facility] * Jarad Georges - Primary Resident/Fellow/Other Automotive Buyer: Surgeon(s) and Role: Procedure Summary Anesthesia: Local ASA: ASA status not filed in the log. Anesthesia Staff: No anesthesia staff entered. Estimated Blood Loss: 3mL Intra-op Medications: Administrations occurring from 1200 to 1250 on 12/21/23: Medication Name Total Dose lidocaine (Xylocaine) 10 mg/mL (1 %) injection 5 mL BUPivacaine HCl (Marcaine) 0.5 % (5 mg/mL) injection 5 mL Intraprocedure I/O Totals None Specimen: No specimens collected Staff: Skiver Sock Linings: Alise Chase RN Scrub Person: Aditya Bourgeois RN Drains and/or Catheters: * None in log * Indications: Luis Fernando Long is an 42 y.o. male who is having surgery for Ulcer of toe of left foot, with fat layer exposed (CMS/HCC) [L97.522]. The patient was seen in the preoperative area. The risks, benefits, complications, treatment options, non-operative alternatives, expected recovery and outcomes were discussed with the patient. The possibilities of reaction to medication, pulmonary aspiration, injury to surrounding structures, bleeding, recurrent infection, the need for additional procedures, failure to diagnose a condition, and creating a complication requiring transfusion or operation were discussed with the patient. The patient concurred with the proposed plan, giving informed consent. The site of surgery was properly noted/marked if necessary per policy. The patient has been actively warmed in preoperative area. Preoperative antibiotics are not indicated. Venous thrombosis prophylaxis are not indicated. Procedure Details: Male patient is brought in the operating room today placed on the operating table in supine position. Local anesthesia was obtained about the left hallux with 5 cc 1% lidocaine plain 5 cc half percent Marcaine plain. Using a 15 blade any excessive callus and keratotic tissue was first debrided from the operative site to facilitate incision planning. The foot was then scrubbed prepped and draped in the usual aseptic fashion. A Tiarra drain was loosely placed about the base of the hallux to serve as a tourniquet throughout the procedure. Attention was then directed to the medial aspect of the hallux where a dorsal medial incision was created over the interphalangeal joint. The incision was deepened through the subcutaneous tissues down to the level of the bone. Sharp subperiosteal dissection was then carried around the medial aspect of the DIP joint and along the plantar aspect of the DIP joint where an exostosis could be identified which correlated to the site of prior ulceration. Using a sagittal saw the bone was resected from the medial condyle of the DIPJ both the distal phalangeal base and the proximal phalangeal head. Next the plantar exostosis was resected from the proximal condyle of the distal phalanx. It was passed from the field. The remaining plantar bone was then inspected and there was noted to be none. The wound was then flushed with copious amounts of sterile normal saline. The skin was reapproximated coapted with 3-0 Prolene. Upon releasing the Newcomb drain tourniquet there was a prompt hyperemic response noted to the hallux. A sterile postop dressing was then applied consisting of Betadine ointment 4 x 4's Kerlix and Luis wrap. Patient was transferred back to [facility] in stable condition. Complications: None; patient tolerated the procedure well. Disposition: PACU - hemodynamically stable. Condition: stable Attending Attestation: I was present and scrubbed for the entire procedure. Jarad Georges [facility] Work Phone: 12-21-2023 Note Formatting of this n ote is different from the original. Date: 12/21/2023 OR Location: [facility] OR Name: Luis Fernando Long, : 1980, Age: 42 y.o., , Sex: male Diagnosis Pre-op Diagnosis * Ulcer of toe of left foot, with fat layer exposed (CMS/HCC) [L97.522] Post-op Diagnosis * Ulcer of toe of left foot, with fat layer exposed (CMS/HCC) [L97.522] Procedures Excision Bone Cyst Foot exostectomy left great toe 03358 - [place] EXC/[facility] [employer]ST[employer]/B9 [facility] * Jarad Georges - Primary Resident/Fellow/Other Automotive Buyer: Surgeon(s) and Role: Procedure Summary Anesthesia: Local ASA: ASA status not filed in the log. Anesthesia Staff: No anesthesia staff entered. Estimated Blood Loss: 3mL Intra-op Medications: Administrations occurring from 1200 to 1250 on 12/21/23: Medication Name Total Dose lidocaine (Xylocaine) 10 mg/mL (1 %) injection 5 mL BUPivacaine HCl (Marcaine) 0.5 % (5 mg/mL) injection 5 mL Intraprocedure I/O Totals None Specimen: No specimens collected Staff: Skiver Sock Linings: Alise Chase RN Scrub Person: Aditya Bourgeois RN Findings: see op note Complications: None; patient tolerated the procedure well. Disposition: PACU - hemodynamically stable. Condition: stable Specimens Collected: No specimens collected Attending Attestation: I was present and scrubbed for the entire procedure. Jarad Georges T [facility] Work Phone: 12-21-2023 Miscellaneous Notes Excision Bone Cyst Foot exostectomy left great toe (L) Operative Note Date: 12/21/2023 OR Location: [facility] OR Name: Luis Fernando Long, : 1980, Age: 42 y.o., , Sex: male Diagnosis Pre-op Diagnosis * Ulcer of toe of left foot, with fat layer exposed (CMS/HCC) [L97.522] Post-op Diagnosis * Ulcer of toe of left foot, with fat layer exposed (CMS/HCC) [L97.522] Procedures Excision Bone Cyst Foot exostectomy left great toe 90071 - [place] EXC/[facility] [employer] INST[employer]/B9 [facility] * Jarad Georges - Primary Resident/Fellow/Other Automotive Buyer: Surgeon(s) and Role: Procedure Summary Anesthesia: Local ASA: ASA status not filed in the log. Anesthesia Staff: No anesthesia staff entered. Estimated Blood Loss: 3mL Intra-op Medications: Administrations occurring from 1200 to 1250 on 12/21/23: Medication Name Total Dose lidocaine (Xylocaine) 10 mg/mL (1 %) injection 5 mL BUPivacaine HCl (Marcaine) 0.5 % (5 mg/mL) injection 5 mL Intraprocedure I/O Totals None Specimen: No specimens collected Staff: Skiver Sock Linings: Alise Chase RN Scrub Person: Aditya Bourgeois RN Drains and/or Catheters: * None in log * Indications: Luis Fernando Long is an 42 y.o. male who is having surgery for Ulcer of toe of left foot, with fat layer exposed (CMS/HCC) [L97.522]. The patient was seen in the preoperative area. The risks, benefits, complications, treatment options, non-operative alternatives, expected recovery and outcomes were discussed with the patient. The possibilities of reaction to medication, pulmonary aspiration, injury to surrounding structures, bleeding, recurrent infection, the need for additional procedures, failure to diagnose a condition, and creating a complication requiring transfusion or operation were discussed with the patient. The patient concurred with the proposed plan, giving informed consent. The site of surgery was properly noted/marked if necessary per policy. The patient has been actively warmed in preoperative area. Preoperative antibiotics are not indicated. Venous thrombosis prophylaxis are not indicated. Procedure Details: Male patient is brought in the operating room today placed on the operating table in supine position. Local anesthesia was obtained about the left hallux with 5 cc 1% lidocaine plain 5 cc half percent Marcaine plain. Using a 15 blade any excessive callus and keratotic tissue was first debrided from the operative site to facilitate incision planning. The foot was then scrubbed prepped and draped in the usual aseptic fashion. A Tiarra drain was loosely placed about the base of the hallux to serve as a tourniquet throughout the procedure. Attention was then directed to the medial aspect of the hallux where a dorsal medial incision was created over the interphalangeal joint. The incision was deepened through the subcutaneous tissues down to the level of the bone. Sharp subperiosteal dissection was then carried around the medial aspect of the DIP joint and along the plantar aspect of the DIP joint where an exostosis could be identified which correlated to the site of prior ulceration. Using a sagittal saw the bone was resected from the medial condyle of the DIPJ both the distal phalangeal base and the proximal phalangeal head. Next the plantar exostosis was resected from the proximal condyle of the distal phalanx. It was passed from the field. The remaining plantar bone was then inspected and there was noted to be none. The wound was then flushed with copious amounts of sterile normal saline. The skin was reapproximated coapted with 3-0 Prolene. Upon releasing the Tiarra drain tourniquet there was a prompt hyperemic response noted to the hallux. A sterile postop dressing was then applied consisting of Betadine ointment 4 x 4's Kerlix and Luis wrap. Patient was transferred back to [facility] in stable condition. Complications: None; patient tolerated the procedure well. Disposition: PACU - hemodynamically stable. Condition: stable Attending Attestation: I was present and scrubbed for the entire procedure. Jarad Georges Date: 12/21/2023 OR Location: [facility] OR Name: Luis Fernando Long, : 1980, Age: 42 y.o., , Sex: male Diagnosis Pre-op Diagnosis * Ulcer of toe of left foot, with fat layer exposed (CMS/HCC) [L97.522] Post-op Diagnosis * Ulcer of toe of left foot, with fat layer exposed (CMS/HCC) [L97.522] Procedures Excision Bone Cyst Foot exostectomy left great toe 99457 - [place] EXC/[facility] [employer] INSTALLER/B9 [facility] * Jarad Georges - Primary Resident/Fellow/Other Automotive Buyer: Surgeon(s) and Role: Procedure Summary Anesthesia: Local ASA: ASA status not filed in the log. Anesthesia Staff: No anesthesia staff entered. Estimated Blood Loss: 3mL Intra-op Medications: Administrations occurring from 1200 to 1250 on 12/21/23: Medication Name Total Dose lidocaine (Xylocaine) 10 mg/mL (1 %) injection 5 mL BUPivacaine HCl (Marcaine) 0.5 % (5 mg/mL) injection 5 mL Intraprocedure I/O Totals None Specimen: No specimens collected Staff: Skiver Sock Linings: Alise Chase RN Scrub Person: Aditya Bourgeois RN Findings: see op note Complications: None; patient tolerated the procedure well. Disposition: PACU - hemodynamically stable. Condition: stable Specimens Collected: No specimens collected Attending Attestation: I was present and scrubbed for the entire procedure. Jarad Georges documented in this encounter [facility] Work Phone: 12-21-2023 History and physical note H&P update Luis Fernando Long is a 42 y.o. male presenting with exostosis left hallux underlying chronic DM foot ulcer. H&P dated 12/07/2023 by myself has no updates or changes as of 12/21/2023. Past Medical History He has a past medical history of Anxiety, Depression, Diabetes mellitus (CMS/HCC), and Sleep apnea. Surgical History He has a past surgical history that includes Toe amputation; Foot surgery; and [place] tooth extraction. Social History He reports that he has quit smoking. His smoking use included cigarettes. He has never used smokeless tobacco. He reports current drug use. Frequency: 7.00 times per week. Drug: Marijuana. He reports that he does not drink alcohol. Family History No family history on file. Allergies Penicillins Jarad Georges DPM [facility] Work Phone: 12-21-2023 History and physical note H&P update Luis Fernando Long is a 42 y.o. male presenting with exostosis left hallux underlying chronic DM foot ulcer. H&P dated 12/07/2023 by myself has no updates or changes as of 12/21/2023. Past Medical History He has a past medical history of Anxiety, Depression, Diabetes mellitus (CMS/HCC), and Sleep apnea. Surgical History He has a past surgical history that includes Toe amputation; Foot surgery; and [place] tooth extraction. Social History He reports that he has quit smoking. His smoking use included cigarettes. He has never used smokeless tobacco. He reports current drug use. Frequency: 7.00 times per week. Drug: Marijuana. He reports that he does not drink alcohol. Family History No family history on file. Allergies Penicillins Jarad Georges DPM documented in this encounter [facility] Work Phone: 08-11-2023 Note HNO ID: [id number] Author: Katerina Franklin MD, PhD Service: ? Author Type: Physician Type: Progress Notes Filed: 08/11/2023 4:21 PM Note Text: Referred by Dr. Greene for diabetic retinopathy eval 1. Type 2 diabetes with care home use of insulin -Recommend good blood pressure/sugar [...] with all of its relevant components. Katerina Franklin MD [facility] 03-31-2023 History of Presen t illness Narrative Referred by Dr. Greene for diabetic retinopathy eval 1. Type 2 diabetes with care home use of insulin -Recommend good blood pressure/sugar [...] now 2. Ocular hypertension -monitor with Dr. Jc Plan: Improved Diabetic macular edema since last [...] with all of its relevant components. Katerina Franklin MD documented in this encounter [facility] 05-13-2022 Miscellaneous Notes Called patient and advised to schedule follow-up with me within 2 weeks Summary: Problem Patient called in concerned about his eyesight, light sensitivity, blurriness, and was curious on what he should do, he is a diabetic. Please advise and call patient documented in this encounter [facility] 12-21-2021 History of Presen t illness Narrative 1. Mild nonproliferative diabetic retinopathy of both eyes without macular edema associated with type 2 diabetes mellitus (HCC) Risk of diabetic changes and vision loss can be minimized by tight control of blood sugar, blood pressure, and cholesterol levels. 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 2 diabetes mellitus (HCC)- Primary Myopia, bilateral Myopia Regular astigmatism of both eyes Regular astigmatism Presbyopia [facility] [place] [facility] Diagnosis Type 2 diabetes mellitus with left 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, with long-term current use of insulin (HCC)- Primary 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, with long-term current use of insulin (HCC) Ocular hypertension, bilateral Borderline glaucoma with ocular hypertension [facility] [place] [facility] Diagnosis Ulcer of toe of left foot, with fat layer exposed (CMS/HCC)- Primary documented in this encounter [facility] Work Phone: Evaluation note* Diagnosis Type 2 diabetes mellitus with left 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, with long-term current use of insulin (HCC) 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, with long-term current use of insulin (HCC) Ocular hypertension, bilateral Borderline glaucoma with ocular hypertension [facility] [place] [facility] Diagnosis Puncture wound with foreign body, right foot, initial encounter documented in this encounter [facility] Work Phone: Evaluation note* Diagnosis Refractive error- Primary Unspecified disorder of refraction and accommodation 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, with long-term current use of insulin (HCC) Type 2 diabetes mellitus with left 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, with long-term current use of insulin (HCC) Ocular hypertension, bilateral Borderline glaucoma with ocular hypertension [facility] [place] [facility] Diagnosis Type 2 diabetes mellitus with left 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, with long-term current use of insulin (HCC) 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, with long-term current use of insulin (HCC) Ocular hypertension, bilateral Borderline glaucoma with ocular hypertension documented in this encounter [facility] Summary Purpose Family History No Family History [...] the event of a Fluress shortage, administer Jane Lew-Fluor 1 drop into both eyes as directed [...] on Tue12/21/21 at 1500, Until Tue12/22/21 at 025, Administer for dilation Given 12/21/2021 3:00 PM EDT 1 Drop Reason for Referral Specialty Diagnoses / Procedures Referred By Contkevin t Referred To Contact Radiology Diagnoses Puncture wound with foreign body, right foot, initial encounter Procedures XR foot right 3+ views Mary Arvizu, DPM [address] [place] [address] Referral ID Status Reason Start Date Expiration Date Visits Requested Visits Authorized [id number] Authorized Perform Procedure 03/02/2024 03/02/2025 1 1 Additional Source Comments (unrecognized sect ion and content) No Status Records FoundNo Status Records FoundNo Status Records FoundNo Status Records Found INFORMATION SOURCE (unrecogn ized section and content) DATE CREATED AUTHOR 09/03/2018 [facility] DATE CREATED AUTHOR AUTHOR'S ORGANIZ ATION 08/28/2020 [facility] pablito Jamison DATE CREATED AUTHOR AUTHOR'S ORGANIZ ATION 04/13/2024 [facility] DATE CREATED AUTHOR AUTHOR'S ORGANIZ ATION 06/02/2024 [facility] Source Comments (unrecognize d section and content) In the event this informatio n is protected by the Federal Confidentiality of Alcohol and Drug Abuse Patient Records regulations: The Federal rules restrict any use of the information to criminally investigate or prosecute any alcohol or drug abuse patient.[facility] the event this information is protected by the Federal Confidentiality of Alcohol and Drug Abuse Patient Records regulations: The Federal rules restrict any use of the information to criminally investigate or prosecute any alcohol or drug abuse patient.[facility] the event this information is protected by the Federal Confidentiality of Alcohol and Drug Abuse Patient Records regulations: The Federal rules restrict any use of the information to criminally investigate or prosecute any alcohol or drug abuse patient.[facility] the event this information is protected by the Federal Confidentiality of Alcohol and Drug Abuse Patient Records regulations: The Federal rules restrict any use of the information to criminally investigate or prosecute any alcohol or drug abuse patient.[facility] the event this information is protected by the Federal Confidentiality of Alcohol and Drug Abuse Patient Records regulations: The Federal rules restrict any use of the information to criminally investigate or prosecute any alcohol or drug abuse patient.[facility] the event this information is protected by the Federal Confidentiality of Alcohol and Drug Abuse Patient Records regulations: The Federal rules restrict any use of the information to criminally investigate or prosecute any alcohol or drug abuse patient.[facility] Reason for Visit (unrecogniz ed section and content) Reason Comments Diabetes Reason Comments Patient Question Called patient and a dvised to schedule follow-up in the next week or two Reason Comments Insulin Dependent Diabetes Mellitus Kylah ent states blood sugar is currently 200. HbA1c: 6.8 Specialty Diagnoses / Procedures Referred By Moraima t Referred To Contact Diagnoses Ulcer of toe of left foot, with fat layer exposed (CMS/HCC) Ulcer of toe of left foot, with fat layer exposed (CMS/HCC) [L97.522] Procedures NC EXC/CURTG WINDSHIELD INSTALLER/B9 KERRIE PHALANGES FOOT Excision Bone Cyst Foot exostectomy left great toe Jarad Georges DPM [address] [place] [address] [id number] Referral ID Status Reason Start Date Expiration Date Visits Re quested Visits Authorized [id number] 1 1 Reason Comments Non-insulin Dependent Diabetes Mellitus Blood sugar 235 currently Specialty Diagnoses / Procedures Referred By Moraima t Referred To Contact Radiology Diagnoses Puncture wound with foreign body, right foot, initial encounter Procedures XR foot right 3+ views Mary Arvizu, DPM [address] [facility] [address] [place] [address] Referral ID Status Reason Start Date Expiration Date Visits Requested Visits Authorized [id number] Authorized Perform Procedure 03/02/2024 03/02/2025 1 1 Reason Comments Refraction Reason Comments Nonproliferative Diabetic Retinopathy Fo llow Up Care Teams (unrecognized sec tion and content) Fast Food Crew Member Relationship Specialty Start Date End Date Carolyn Sommers CNP [address] [place] [address] PCP - General Internal Medicine 12/08/21 Fast Food Crew Member Relationship Specialty Start Date End Date Carolyn Sommers CNP [address] [place] [address] PCP - General Internal Medicine 12/08/21 Fast Food Crew Member Relationship Specialty Start Date End Date Carolyn Sommers CNP [address] [place] [address] PCP - General Internal Medicine 12/08/21 Fast Food Crew Member Relationship Specialty Start Date End Date Stephanie Russo MD [address] [place] [address] PCP - General Internal Medicine 08/11/23 Bere Greene OD [address] [place] [address] Referring Optometry 08/11/23 Fast Food Crew Member Relationship Specialty Start Date End Date Stephanie Russo MD [address] [address] PCP - General Internal Medicine 08/11/23 Bere Greene OD [address] [place], [place] [address] Referring Optometry 08/11/23 Fast Food Crew Member Relationship Specialty Start Date End Date Stephanie Russo MD [address] [place], [place] [address] PCP - General Internal Medicine 08/11/23 Bere Greene OD [address] [place] [place], [place] [address] Referring Optometry 08/11/23 PRN Active and Recently Administ ered Medications (unrecognized section and content) Medication Order 12/19/2023 12/20/2023 12/21/2023 BUPivacaine HCl (Marcaine) 0.5 % (5 mg/mL) injection (CANCELED) As needed, Starting on Tue12/21/23 at 1217, Intraprocedure 1217 (Given - Provid er: Jarad Georges DPM - Comment: L BIG TOE) lidocaine (Xylocaine) 10 mg/mL (1 %) injection (CANCELED) As needed, Starting on Tue12/21/23 at 1217, Intraprocedure 1217 (Given - Provid er: Jarad Georges DPM - Comment: L BIG TOE) Inactive Administered Medications - up to 3 most recent administrations Administered Medications (un recognized section and content) Medication Order MAR Action Action Date Dose Rate Site fluorescein-benoxinate 0.3-0.4 % 1 Drop (FLURESS) 1 Drop, BOTH EYES, DIRECTED, Starting on Tue01/12/24 at 1400, Until Tue01/13/24 at 0159, Administer for applanation tonometry. In the event of a Fluress shortage, administer 1 drop of Delores-Fluor into both eyes as directed for applanation tonometry., OPHT CLINIC MED ORDERS Given 01/12/2024 2:00 PM EDT 1 Drop PHENYLephrine 2.5 % 1 Drop (AK-DILATE, LURDES-SYNEPHRINE) 1 Drop, BOTH EYES, DIRECTED, Starting on Tue01/12/24 at 1400, Until Tue01/13/24 at 0159, Administer for dilation PROTECT FROM LIGHT, OPHT CLINIC MED ORDERS Given 01/12/2024 2:00 PM EDT 1 Drop proparacaine 0.5 % 1 Drop (ALCAINE) 1 Drop, BOTH EYES, DIRECTED, Starting on Samreen 01/12/24 at 1400, Until Tue01/13/24 at 0159, Administer for pneumo tonometry, tonopen tonometry, or pachymetry. In the event of a proparacaine shortage, administer 1 drop of tetracaine 0.5% ophthalmic drops into both eyes as directed for pneumo tonometry, tonopen tonometry, or pachymetry, OPHT CLINIC MED ORDERS Given 01/12/2024 2:00 PM EDT 1 Drop tropicamide 1 % 1 Drop (MYDRIACYL) 1 Drop, BOTH EYES, DIRECTED, Starting on Tue01/12/24 at 1400, Until Tue01/13/24 at 0159, Administer for dilation, OPHT CLINIC MED ORDERS Given 01/12/2024 2:00 PM EDT 1 Drop FOR RECORDS PERTAINING TO PATIENTS WHO ARE [...] BE BASED ON THE PRIMARY CLINICAL RECORDS. [employer] [facility]. provides no warranty or guarantee of the accuracy or completeness of information in this document.
[2024-07-20 10:32] LABS: Absolute Lymphocyte Count 1.52 X10^3/uL (0.83-4.51); Absolute Neutrophil Count 3.1 X10^3/uL (2.0-7.7); Basophil# 0.05 X10^3/uL; Basophil% 0.9 % (0-1); Hemoglobin 14.2 g/dL (13.0-16.5); Lymphocyte # 1.52 X10^3/ul (0.83-4.51); Lymphocyte % 26.7 % (19-41); Mean Corpuscular Volume 90.9 fL (80-94); Mean Platelet Vol. 10.7 fl (6.2-12.0); Monocyte# 0.64 X10^3/uL; Monocyte% 11.2 % (0-10); NRBC Flagged by Analyzer 0 % (0-5); Neutrophil # 3.07 X10^3/uL (2.7-7.7); Platelet Count 187 K/mm3 (150-450); RBC Distribution Width CV 13.2 % (11.6-14.6); RBC Distribution Width SD 43.9 fl (35.1-43.9); Red Blood Count 4.73 M/mm3 (4.6-6.2); White Blood Count 5.7 K/mm3 (4.4-11.0)
[2024-07-20 10:34] LABS: Erythrocyte Sedimentation Rate 13 mm/hr (0-20)
[2024-07-20 11:20] LABS: ALB/GLOB Ratio 1.1 RATIO (0.9-2.4); AST(SGOT) 14 U/L (15-37); Alanine Aminotransfer ALT/SGPT 16 U/L (16-61); Albumin, Serum 3.6 g/dL (3.2-5.0); Alkaline Phosphatase 72 U/L (45-117); Anion Gap 7 (5-15); BUN 15 mg/dL (7-18); BUN/Creat Ratio 16.6 RATIO (10-20); CPK Total, Creatine Kinase 76 U/L (39-308); CRP 9.02 mg/L (0.0-3.0); Calcium,Total 8.9 mg/dL (8.5-10.1); Chloride 104 mmol/L (98-107); EST Glomerular Filtration Rate 96 mL/min (>60); Est Glom Filt Rate - Afr Amer 116 mL/min (>60); Globulin 3.3 g/dL (2.2-4.2); Glucose 241 mg/dL (74-106); LDH 179 U/L (87-241); Potassium 4.1 mmol/L (3.5-5.1); Protein, Total 6.9 g/dL (6.4-8.2); Sodium Level 138 mmol/L (136-145)
[2024-07-24 02:08] LABS: Pancreatic Elastase, Fecal 130 (>200)
[2024-07-24 18:08] LABS: Aldolase 6.2 U/L (3.3-10.3); Chromogranin A 242.5 ng/mL (0.0-101.8); Cytoplasmic Ab (C-ANCA) <1:20 titer (Neg:<1:20); Gastrin, Serum 207 pg/mL (0-115); Perinuclear Ab (P-ANCA) <1:20 titer (Neg:<1:20); QNTFERON TB Mitogen Value > 10.00 IU/mL (.); QNTFERON TB Nil Value 0.01 IU/mL (.); QNTFERON TB1+ Ag Value 0 IU/mL (.); QNTFERON TB2+ Ag Value 0 IU/mL (.); QNTIFERON TB Positive Criteria Negative (Negative)
[2024-07-25 08:13] LABS: Calprotectin, Stool 57 ug/g (0-120); Fats, Neutral Normal (.); Fats, Total Normal (.)
[2024-07-25 13:08] LABS: Anti-Centromere B Ab <0.2 AI (0.0-0.9); Anti-Chromatin <0.2 AI (0.0-0.9); Anti-Jo <0.2 AI (0.0-0.9); Anti-Scleroderma-70 AB <0.2 AI (0.0-0.9); Anti-dsDNA Ab <1 IU/mL (0-9); Beef <0.10 kU/L (Class 0); Chocolate <0.10 kU/L (Class 0); Codfish <0.10 kU/L (Class 0); Corn <0.10 kU/L (Class 0); Egg, Whole <0.10 kU/L (Class 0); Milk (Cow) <0.10 kU/L (Class 0); Mussels <0.10 kU/L (Class 0); Peanut <0.10 kU/L (Class 0); Pork <0.10 kU/L (Class 0); RNP Ab 0.2 AI (0.0-0.9); SJOGREN'S Anti-SS-A test 0.3 AI (0.0-0.9); SJOGREN'S Anti-SS-B test < 0.2 AI (0.0-0.9); Salmon <0.10 kU/L (Class 0); Shrimp <0.10 kU/L (Class 0); Smith Ab <0.2 AI (0.0-0.9); Soybean <0.10 kU/L (Class 0); Tuna <0.10 kU/L (Class 0); Wheat <0.10 kU/L (Class 0)
== END | disposition home or self-care (01) ==
PROVIDERS: Referring Provider Internal Medicine Gastroenterology; Visit Provider Internal Medicine Gastroenterology
DX: K58.9 Irritable bowel syndrome, unspecified (principal); R19.7 Diarrhea, unspecified
CPT/HCPCS: 36415; 80053; 82085; 82274; 82550; 82653; 82705; 82941; 83615; 83630; 83993; 85025; 85652; 86003; 86005; 86037; 86140; 86225; 86235; 86316; 86480; 87177; 87209; 87329; 87493; 87506

== ENCOUNTER → 2024-08-09 | Outpatient (CLI) | payer MEDICAID, SELFPAY ==
--- NOTE | 2024-08-09 12:11 | NM_ITS ---
CLINICAL: 43-year-old male with history of abdominal bloating and previous abnormal semisolid phase gastric emptying study. SEMI-SOLID PHASE 99m Tc SULFUR COLLOID GASTRIC EMPTYING STUDY COMPARISON: Semisolid phase gastric emptying study dated 10/07/2023 FINDINGS: The patient was administered 1.0 mCi of 99m Tc sulfur colloid mixed with oatmeal and consumed per os. Image acquisitions in the anterior-posterior projections were obtained for 60 minutes. There is prompt visualization of the stomach. There is no gastroesophageal reflux identified. First order kinetics are maintained throughout the duration of the acquisitions. The T ? linear fit was calculated to be 74.14 minutes compared to 95.28 minutes defined on the examination dated 10/07/2023, (Normal: 12-56 minutes). NM/Gastric Emptying Study IMPRESSION: 1. ABNORMAL 99m Tc sulfur colloid semi-solid phase (oatmeal) gastric emptying imaging examination. A. There is delayed semi-solid phase gastric emptying compared to normal controls with maintained first order kinetics throughout all components of the examination. (Justin et al, J Nucl Med Tech 38: 186, 2010). B. Overall compared to the examination dated 10/07/2023, there is minimal interval improvement in these semisolid phase emptying as defined above. Electronically Signed: Nathan Guzmán DO at 9:28 EST ,
== END | disposition home or self-care (01) ==
PROVIDERS: Referring Provider Internal Medicine Gastroenterology; Visit Provider Internal Medicine Gastroenterology
DX: R19.7 Diarrhea, unspecified (principal); R14.0 Abdominal distension (gaseous)
CPT/HCPCS: 78264; A9541

== ENCOUNTER 2025-02-26 12:29 | Day surgery (SDC) | payer MEDICAID, SELFPAY ==
--- NOTE | 2025-02-22 14:52 | PAT.ANE_ITS ---
Pre-Assessment Diagnosis/Proposed Procedure Planned Operative Procedure(s): COLONSCOPY Anesthesia History Anesthesia History - licensed investment sales assistant: Anesthesia History - licensed investment sales assistant Hx Hospitalization No 02/22/25 09:21 Any Problems With Anesthesia No 02/22/25 09:21 Cholinesterase deficiency No 02/22/25 09:21 You/Your Family Experience No 02/22/25 09:21 fever (hyperthermia) with Relationship Recent Exposure to Contagious No 07/12/24 08:14 Disease Does patient have nerve No 02/22/25 09:21 stimulator Patient instructed to have device shut off --Does patient have Pacemaker or ICD? When Was Last Pacemaker Check QUESTION #4 FULL TEXT: You/Your Family Experience fever (hyperthermia) with Anesthesia Last Oral Intake Last Oral intake: Last Oral Intake NPO since Meds taken in AM with sips of water? Meds patient instructed to take am of surgery PONV PONV - licensed investment sales assistant: PONV - licensed investment sales assistant Female No 02/22/25 09:21 HX of Motion Sickness No 02/22/25 09:21 HX of N/V After Surgery No 02/22/25 09:21 Non-Smoker Yes 02/22/25 09:21 Duration of Surgery greater No 02/22/25 09:21 than 60 minutes Number of Risk Factors 1 02/22/25 09:21 PONV Score Low Risk 02/22/25 09:21 Height & Weight Height & Weight: Anesthesia: Height & Weight Height 6 ft 12/25/24 16:40 Respiratory Assessment Respiratory Assessment - licensed investment sales assistant: Respiratory Tract Infection Hx - licensed investment sales assistant Hx Respiratory Tract Infection No 02/22/25 09:21 STOP Sleep Apnea STOP Sleep Apnea - licensed investment sales assistant: STOP Sleep Apnea - licensed investment sales assistant Hx Hypertension No 02/22/25 09:21 Hx Sleep Apnea Yes 02/22/25 09:21 CPAP No 02/22/25 09:21 BIPAP No 02/22/25 09:21 Do you snore loudly (louder than talking or can be heard Do you often feel tired/ fatigued/ sleepy during daytime? Has anyone observed you stop breathing during sleep? STOP Results Positive 02/22/25 09:21 QUESTION #5 FULL TEXT : Do you snore loudly (louder than talking or can be heard through closed doors)? 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 Specify any problems Hx of Preganancy in last 3 No 02/22/25 09:21 Months Nurse Filling Out Transfusion JZOLLINGE 02/22/25 09:21 & Questions: Date: 02/22/25 02/22/25 09:21 Time: 02/22/25 09:21 Patient unable to answer at this time (ie. confused, unrespo /Reproduction History /Reproductive History - licensed investment sales assistant: /Reproductive Hx- licensed investment sales assistant Hx Now No 02/22/25 09:21 Gestational Age (in weeks): EDC: Hx Hx Para Hx Section SAB No 02/22/25 09:21 [facility] Medical History (Updated 02/22/25 @ 09:20 by Indira Trevino) Sleep apnea Wears glasses History of Clostridium difficile infection PTSD (post-traumatic stress disorder) Depression Anxiety Marijuana use Alcohol use Insulin dependent diabetes mellitus Arthritis Back pain Migraine headache Dietary restriction Heartburn Former smoker CPAP (continuous positive airway pressure) dependence Asthma Shortness of breath on exertion History of pain when walking History of edema Polyneuropathy in diabetes Secondary diabetes Contact with and (suspected) exposure to other viral communicable diseases Acute bronchitis, unspecified URI (upper respiratory infection) Osteomyelitis of right foot Diabetes mellitus, type 2 Home Medications ?Medication ?Instructions ?Recorded ?Last Taken ?Type loratadine 10 mg tablet (Allergy 10 mg PO DAILY Unknown History Relief (loratadine)) FreeStyle Alma Delia 3 Sensor #6 ea 10/28/23 Unknown Rx (blood-glucose sensor) sertraline 100 mg tablet 150 mg PO DAILY 04/24/24 Unk nown History buspirone 10 mg tablet 10 mg PO DAILY 07/11/24 Unkn own History gabapentin 400 mg capsule 400 mg PO TID 07/11/24 Unkno wn History pantoprazole 40 mg tablet,delayed 40 mg PO QDAY #60 ta bs 07/12/24 Unknown Rx release blood-glucose sensor (FreeStyle #6 ea 07/24/24 Unknown Rx Alma Delia 3 Plus Sensor device) Jardiance 25 mg tablet 25 mg PO DAILY #90 tabs 10/28 Unknown Rx (empagliflozin) insulin degludec 100 unit/mL (3 12 unit subcut QDAY Unknown History mL) subcutaneous pen (Tresiba FlexTouch U-100 insulin) insulin lispro 100 unit/mL 1 sliding scale dose subcut 12/25/24 Unknown History subcutaneous half-unit pen USEASDIRECTD olchlm-[id number] 2 cap PO .COMPLEX #300 caps 12/25/24 Unknown Rx 36,000-114,000-180,000 unit capsule,delay rel (Creon) peg 3350-electrolytes 236 240 ml PO Q10M #4,000 mL 10/20 Unknown Rx gram-22.74 gram-6.74 gram-5.86 gram solution (Golytely) pen needle, diabetic 31 gauge x #360 ea 12/25/24 Unkno wn Rx 16 (1st Tier Unifine Pentips) metoclopramide HCl 5 mg tablet 5 mg PO Q6H PRN nausea and 01/17/25 Unknown Rx vomiting #120 TABLETS Allergy/AdvReac Type Severity Reaction Status Date / Time Penicillins (PCN) Allergy Mild Other Verified 02/22/25 09:06 Family History Mother Diabetes Heart disease Grandmother Diabetes Heart disease Father Basal cell carcinoma Pancreatic cancer ALS (amyotrophic lateral sclerosis) Surgical History History of wisdom tooth extraction H/O foot surgery History of amputation of toe History of ankle surgery Social History household members: family current occupational status: unemployed Smoking Status: Former smoker quit date: 09/26/10 pack-years: 15 Smokeless tobacco user: dissolvable tobacco Electronic Cigarette Use: not used alcohol intake: current alcohol intake frequency: holidays/special occasions only substance use type: marijuana what type of physical activity do you participate in: none do you feel safe at home: Yes additional social history: nicotine patches Audit: Pertinent Findings Pertinent Findings EKG Perinent findings: October 29, 2021. Sinus tachycardia at [address] and T wave abnormalities. Recommendation Anesthesia Recommendation Anesthesia recommendation: OPTIMIZED for anesthesia
[2025-02-26] VITALS (8 sets, daily range): BP systolic 97–125; BP diastolic 50–85; PULSE 72–87; RESP 16–18; TEMP 36.5–36.8; O2SAT 96–99; BMI 40.9
--- NOTE | 2025-02-26 12:47 | PCM.PRE.AN2 ---
ASA Classification* ASA Classification ASA Classification: 3 Assessment & Plan Anesthesia* Anesthesia Assessment Anesthesia Assessment: Discussed sedation and/or anesthesia options, risks, benefits, and alternatives with patient/parents/legal guardian/POA. Questions invited. The patient/parents/legal guardian/POA seems to understand and agrees to proceed with anesthesia plan. Reviewed the physical assessment, medical history, allergy history and patient home medications list prior to surgery/procedure/anesthetic and documented any changes. Performed airway and anesthesia risk assessments. Anesthesia Type Anesthesia Type: MAC History Source History Obtained from:: Patient and Chart Anesthesia Focused Assessment* Temperature: 98.1 F Pulse Rate: 87 Blood Pressure: 125/70 Respiratory Rate: 16 Pulse Ox: 96 Oxygen Delivery Method: Room Air Airway Assessment Mouth opens: >3 cm Mallampati Score: IV Teeth Condition: Intact Neck Range of motion (ROM): Limited ROM (Slight decrease in extension) Focused Labs Anesthesia Preop lab: CBC WBC 5.7 K/mm3 (4.4-11.0) 07/20/24 09:17 07/20/24 RBC 4.73 M/mm3 (4.6-6.2) 07/20/24 09:17 07/20/24 Hgb 14.2 g/dL (13.0-16.5) 07/20/24 09:17 07/20/24 Hct 43.0 % (40-54) 07/20/24 09:17 07/20/24 Plt Count 187 K/mm3 (150-450) 07/20/24 09:17 07/20/24 CHEMISTRY Potassium 4.1 mmol/L (3.5-5.1) 07/20/24 09:17 07/20/24 Sodium 138 mmol/L (136-145) 07/20/24 09:17 07/20/24 Magnesium 2.6 mg/dL (1.6-2.6) 10/29/21 09:55 10/29/21 Phosphorus 5.2 mg/dL (2.5-4.9) H 10/29/21 09:55 10/29/21 BUN 15 mg/dL (7-18) 07/20/24 09:17 07/20/24 Creatinine 0.90 mg/dL (0.70-1.30) 07/20/24 09:17 07/20/24 Glucose 241 mg/dL (74-106) H 07/20/24 09:17 07/20/24 POC Glucose 162 mg/dL (70-110) H 11/04/21 07:35 11/04/21 TSH 2.40 uIU/mL (0.358-3.74) 12/11/21 10:30 12/11/21 COAG Pre-Assessment Diagnosis/Proposed Procedure Planned Operative Procedure(s): COLONSCOPY Anesthesia History Anesthesia History - certified massage therapist: Anesthesia History - certified massage therapist Hx Hospitalization No 02/22/25 09:21 Any Problems With Anesthesia No 02/22/25 09:21 Cholinesterase deficiency No 02/22/25 09:21 You/Your Family Experience No 02/22/25 09:21 fever (hyperthermia) with Relationship Recent Exposure to Contagious No 07/12/24 08:14 Disease Does patient have nerve No 02/22/25 09:21 stimulator Patient instructed to have device shut off --Does patient have Pacemaker or ICD? When Was Last Pacemaker Check QUESTION #4 FULL TEXT: You/Your Family Experience fever (hyperthermia) with Anesthesia Last Oral Intake Last Oral intake: Last Oral Intake NPO since Meds taken in AM with sips of water? Meds patient instructed to take am of surgery Any additional information?: Yes NPO since: 10:30 (Patient finished prep at 10:30 AM.) Meds taken in AM with sips of water?: Yes Meds patient instructed to take am of surgery: Ondansetron PONV PONV - certified massage therapist: PONV - certified massage therapist Female No 02/22/25 09:21 HX of Motion Sickness No 02/22/25 09:21 HX of N/V After Surgery No 02/22/25 09:21 Non-Smoker Yes 02/22/25 09:21 Duration of Surgery greater No 02/22/25 09:21 than 60 minutes Number of Risk Factors 1 02/22/25 09:21 PONV Score Low Risk 02/22/25 09:21 Height & Weight Height & Weight: Anesthesia: Height & Weight Height 6 ft 12/25/24 16:40 Respiratory Assessment Respiratory Assessment - certified massage therapist: Respiratory Tract Infection Hx - certified massage therapist Hx Respiratory Tract Infection No 02/22/25 09:21 STOP Sleep Apnea STOP Sleep Apnea - certified massage therapist: STOP Sleep Apnea - certified massage therapist Hx Hypertension No 02/22/25 09:21 Hx Sleep Apnea Yes 02/22/25 09:21 CPAP No 02/22/25 09:21 BIPAP No 02/22/25 09:21 Do you snore loudly (louder than talking or can be heard Do you often feel tired/ fatigued/ sleepy during daytime? Has anyone observed you stop breathing during sleep? STOP Results Positive 02/22/25 09:21 QUESTION #5 FULL TEXT : Do you snore loudly (louder than talking or can be heard through closed doors)? 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 Specify any problems Hx of Preganancy in last 3 No 02/22/25 09:21 Months Nurse Filling Out Transfusion JZOLLINGE 02/22/25 09:21 & Questions: Date: 02/22/25 02/22/25 09:21 Time: 09:24 02/22/25 09:21 Patient unable to answer at this time (ie. confused, unrespo /Reproduction History /Reproductive History - certified massage therapist: /Reproductive Hx- certified massage therapist Hx Now No 02/22/25 09:21 Gestational Age (in weeks): EDC: Hx Hx Para Hx Section SAB No 02/22/25 09:21 Active Medications Active Medications: Current Medications Generic Name Dose Route Start Last Admin Trade Name Freq PRN Reason Stop Dose Admin Lactated Ringer's 1,000 mls @ 15 mls/hr 02/26/25 12:45 [facility] History (Updated 02/22/25 @ 09:20 by Indira Trevino) Sleep apnea Wears glasses History of Clostridium difficile infection PTSD (post-traumatic stress disorder) Depression Anxiety Marijuana use Alcohol use Insulin dependent diabetes mellitus Arthritis Back pain Migraine headache Dietary restriction Heartburn Former smoker CPAP (continuous positive airway pressure) dependence Asthma Shortness of breath on exertion History of pain when walking History of edema Polyneuropathy in diabetes Secondary diabetes Contact with and (suspected) exposure to other viral communicable diseases Acute bronchitis, unspecified URI (upper respiratory infection) Osteomyelitis of right foot Diabetes mellitus, type 2 Home Medications ?Medication ?Instructions ?Recorded ?Last Taken ?Type loratadine 10 mg tablet (Allergy 10 mg PO DAILY 07/09/22 Unknown History Relief (loratadine)) FreeStyle Alma Delia 3 Sensor #6 ea 10/28/23 Unknown Rx (blood-glucose sensor) sertraline 100 mg tablet 150 mg PO DAILY 04/24/24 Unknown History buspirone 10 mg tablet 10 mg PO DAILY 07/11/24 Unknown History gabapentin 400 mg capsule 400 mg PO TID 07/11/24 Unknown History pantoprazole 40 mg tablet,delayed 40 mg PO QDAY #60 tabs 07/12/24 Unknown Rx release blood-glucose sensor (FreeStyle #6 ea 07/24/24 Unknown Rx Alma Delia 3 Plus Sensor device) Jardiance 25 mg tablet 25 mg PO DAILY #90 tabs 11/15/24 Unknown Rx (empagliflozin) insulin degludec 100 unit/mL (3 12 unit subcut QDAY 12/25/24 Unknown History mL) subcutaneous pen (Tresiba FlexTouch U-100 insulin) insulin lispro 100 unit/mL 1 sliding scale dose subcut 12/25/24 Unknown History subcutaneous half-unit pen USEASDIRECTD uylopw-betwyviw-boxyqbr 2 cap PO .COMPLEX #300 caps 12/25/24 Unknown Rx 36,000-114,000-180,000 unit capsule,delay rel (Creon) peg 3350-electrolytes 236 240 ml PO Q10M #4,000 mL 12/25/24 Unknown Rx gram-22.74 gram-6.74 gram-5.86 gram solution (Golytely) pen needle, diabetic 31 gauge x #360 ea 12/25/24 Unknown Rx 5/16 (1st Tier Unifine Pentips) metoclopramide HCl 5 mg tablet 5 mg PO Q6H PRN nausea and 01/17/25 Unknown Rx vomiting #120 TABLETS Allergy/AdvReac Type Severity Reaction Status Date / Time Penicillins (PCN) Allergy Mild Other Verified 02/26/25 12:51 Family History Mother Diabetes Heart disease Grandmother Diabetes Heart disease Father Basal cell carcinoma Pancreatic cancer ALS (amyotrophic lateral sclerosis) Surgical History History of wisdom tooth extraction H/O foot surgery History of amputation of toe History of ankle surgery Social History household members: family current occupational status: unemployed Smoking Status: Former smoker quit date: 09/26/10 pack-years: 15 Smokeless tobacco user: dissolvable tobacco Electronic Cigarette Use: not used alcohol intake: current alcohol intake frequency: holidays/special occasions only substance use type: marijuana what type of physical activity do you participate in: none do you feel safe at home: Yes additional social history: nicotine patches Review of Systems (Anesthesia) ROS Narrative System reviewed and no additional complaints, except as documented.
--- NOTE | 2025-02-26 13:00 | COLBX_PTH ---
PATIENT: BETI LONG LOC: EN U#:[id number] AGE/SX: 44/M ROOM: RE02/26/[address]: Dr. Tex Shane DO : 1980 BED: DIS: 02/26/2025 SPEC #: [id number] RECD: 02/26/25 14:46 STATUS: FUNMI REAnkur #: [id number] MARIAJOSE: 02/26/25 13:[address]: Tex Shane DEPT: SURGICAL PATHOLOGY RECD BY: Jose G Moe ENTERED: 02/26/25 15:09 SP TYPE: COLON BX OT DR: COY Bower Tissues: A - COLON BIOPSY Procedures: Surgery Specimen Level IV HEADER OPERATION: Colonoscopy with biopsies PRE-OP DIAGNOSIS: Fecal incontinence, nausea, bloating, diarrhea, constipation TISSUE SUBMITTED: A- Random colon biopsy MICROSCOPIC DIAGNOSIS A. Colon, random, biopsy: No specific pathologic change. The histologic features of microscopic colitis are not demonstrated. MICROSCOPIC DESCRIPTION Slides are reviewed. GROSS DESCRIPTION A. Received in formalin in a container labeled with the patient's name, date of , and random colon biopsy are multiple valverde-pink fragments of mucosal tissue measuring 1.3 x 0.7 x 0.3 cm in aggregate. Submitted in toto in A1. B 02-26-2025 CPT:23384
--- NOTE | 2025-02-26 13:03 | PCM.HP.STD ---
HPI - General General Date of Admission: 02/26/25 Date of Service: 02/26/25 Chief Complaint: Abdominal pain and bloating HPI Narrative BETI LONG, is a 44 M who presents for the evaluation of abdominal pain and bloating. GES 08/09/2024 linear fit was calculated to be 74.14 minutes compared to 95.28 minutes defined on the examination dated 10/07/2023 EGD 06/2024 - Chronic inflammation in the distal esophagus without Cleary's esophagus that was seen on the biopsies. - Esophageal mucosal changes suggestive of short-segment Cleary's esophagus. Biopsied. - A large amount of food (residue) in the stomach. - Normal first portion of the duodenum. Recommendation: - Discharge patient to home. - Full liquid diet. - Continue present medications. - Use Protonix (pantoprazole) 40 mg PO BID. - Use Creon 3 tablets PO TID with meals for 6 months. - Papain digestive enzymes 3 times a day with 20 ounces of Diet Coke or diet Pepsi 2-3 times a day - Metoclopramide 5 mg 3 times a day2 reports he is only taking pantoprazole 40mg QD Reglan 5mg Q6H - Creon 1 capsule before meals - drinking 20 ounces with each dose of Creon - he is not certain the Creon has shown any symptom improvement - Reglan - he does not feel the diarrhea is any worse - he is not sure if the pantoprazole is helping at all, states he has never had HB - reports he is unable to belch - does experience nausea with bloating - denies any emesis - some days he has formed stools - not certain he is fully eliminating - then can have a couple days of watery diarrhea - bloating - can have accidents at HS - can have wake in at HS 4x -although this is infrequent - usually has a couple BM daily - b/o quite a bit of issues with eating before laying down - Alcohol on occasion - has not tried a FODMAP diet B: hard boiled eggs, overnight oats L: pizza or frozen meal D: same as lunch - reports not much fruit or vegetables - water intake is not as good - Father with pancreatic CA - denies any family h/o colon CA - denies any heart or lung disease - denies any kidney disease Fecal calprotectin June 2024 normal Fecal elastase June 2024 mildly low 130 [facility] Medical History Sleep apnea Wears glasses History of Clostridium difficile infection PTSD (post-traumatic stress disorder) Depression Anxiety Marijuana use Alcohol use Insulin dependent diabetes mellitus Arthritis Back pain Migraine headache Dietary restriction Heartburn Former smoker CPAP (continuous positive airway pressure) dependence Asthma Shortness of breath on exertion History of pain when walking History of edema Polyneuropathy in diabetes Secondary diabetes Contact with and (suspected) exposure to other viral communicable diseases Acute bronchitis, unspecified URI (upper respiratory infection) Osteomyelitis of right foot Diabetes mellitus, type 2 Home Medications ?Medication ?Instructions ?Recorded ?Last Taken ?Type loratadine 10 mg tablet (Allergy 10 mg PO DAILY 07/09/22 Unknown History Relief (loratadine)) FreeStyle Alma Delia 3 Sensor #6 ea 10/28/23 Unknown Rx (blood-glucose sensor) sertraline 100 mg tablet 150 mg PO DAILY 04/24/24 Unknown History buspirone 10 mg tablet 10 mg PO DAILY 07/11/24 Unknown History gabapentin 400 mg capsule 400 mg PO TID 07/11/24 Unknown History pantoprazole 40 mg tablet,delayed 40 mg PO QDAY #60 tabs 07/12/24 Unknown Rx release blood-glucose sensor (FreeStyle #6 ea 07/24/24 Unknown Rx Alma Edlia 3 Plus Sensor device) Jardiance 25 mg tablet 25 mg PO DAILY #90 tabs 11/15/24 Unknown Rx (empagliflozin) insulin degludec 100 unit/mL (3 12 unit subcut QDAY 12/25/24 Unknown History mL) subcutaneous pen (Tresiba FlexTouch U-100 insulin) insulin lispro 100 unit/mL 1 sliding scale dose subcut 12/25/24 Unknown History subcutaneous half-unit pen USEASDIRECTD gujjdd-bbawylcy-iwkqzgz 2 cap PO .COMPLEX #300 caps 12/25/24 Unknown Rx 36,000-114,000-180,000 unit capsule,delay rel (Creon) peg 3350-electrolytes 236 240 ml PO Q10M #4,000 mL 12/25/24 Unknown Rx gram-22.74 gram-6.74 gram-5.86 gram solution (Golytely) pen needle, diabetic 31 gauge x #360 ea 12/25/24 Unknown Rx 5/16 (1st Tier Unifine Pentips) metoclopramide HCl 5 mg tablet 5 mg PO Q6H PRN nausea and 01/17/25 Unknown Rx vomiting #120 TABLETS ondansetron HCl 4 mg tablet mg PO Q8H PRN nausea 02/26/25 02/26/25 10:00 History Allergy/AdvReac Type Severity Reaction Status Date / Time Penicillins (PCN) Allergy Mild Other Verified 02/26/25 12:51 Family History Mother Diabetes Heart disease Grandmother Diabetes Heart disease Father Basal cell carcinoma Pancreatic cancer ALS (amyotrophic lateral sclerosis) Surgical History History of wisdom tooth extraction H/O foot surgery History of amputation of toe History of ankle surgery Social History household members: family current occupational status: unemployed Smoking Status: Former smoker quit date: 09/26/10 pack-years: 15 Smokeless tobacco user: dissolvable tobacco Electronic Cigarette Use: not used alcohol intake: current alcohol intake frequency: holidays/special occasions only substance use type: marijuana what type of physical activity do you participate in: none do you feel safe at home: Yes additional social history: nicotine patches ROS Constitutional Constitutional: Denies fatigue, fever(s), poor appetite, weight gain or weight loss Gastrointestinal Gastrointestinal: Denies belching, bloating, change in bowel habits, change in stool character, chewing difficulty, coffee ground emesis, constipation, cramping, diarrhea, dyspepsia, dysphagia, early satiety, excessive flatus, fecal incontinence, heartburn, hematemesis, hematochezia, hemorrhoids, loose stools, melena, nausea, odynophagia, rectal bleeding, tenesmus, vomiting or weight changes Vital Signs Vital Signs Vital Signs: 02/26/25 12:58 Temperature 98.1 F Pulse Rate 87 Respiratory Rate 16 Blood Pressure 125/70 H Pulse Ox 96 Oxygen Delivery Method Room Air Physical Exam Const alert, oriented x3, no apparent distress and healthy appearing General Appearance: cooperative GI normal to inspection, nondistended, normoactive bowel sounds, soft to palpation, non-tender and non-distended Percussion: normal to percussion Rectal Exam: deferred Assessment & Plan Assessment/Plan (1) Fecal incontinence: (2) Nausea: (3) Bloating: (4) Diarrhea: (5) Constipation: PLAN: Assessment and Plan Assessment and Plan (1) Obesity: Status: Chronic Qualifiers: Body mass index: BMI 37.0-37.9 Obesity classification: adult class 2 (BMI 35 - 39.9) Obesity type: due to excess calories Serious obesity comorbidity presence: with serious comorbidity Qualified Code(s): E66.01 - Morbid (severe) obesity due to excess calories; Z68.37 - Body mass index [BMI] 37.0-37.9, adult (2) Diarrhea: Status: Acute (3) Constipation: Status: Acute (4) Bloating: Status: Acute (5) Gastroparesis: Status: Acute (6) Nausea: Status: Acute (7) Fecal incontinence: Status: Acute Orders: Orders Abdomen Single View Today E66.01 - Morbid (severe) obesity due to excess calories, K31.84 - Gastroparesis, K59.00 - Constipation, unspecified, R11.0 - Nausea, R14.0 - Abdominal distension (gaseous), R15.9 - Full incontinence of feces, R19.7 - Diarrhea, unspecified, Z68.37 - Body mass index [BMI] 37.0-37.9, adult Abdomen Limited Today E66.01 - Morbid (severe) obesity due to excess calories, K31.84 - Gastroparesis, K59.00 - Constipation, unspecified, R11.0 - Nausea, R14.0 - Abdominal distension (gaseous), R15.9 - Full incontinence of feces, R19.7 - Diarrhea, unspecified, Z68.37 - Body mass index [BMI] 37.0-37.9, adult Medications: New peg 3350-electrolytes 236-22.74-6.74 -5.86 gram (Golytely) take as directed for split dose bowel prep 240 mL PO Q10M 4,000 mL 0RF ondansetron HCl take two tablets PO two hours prior to start of bowel prep and one every 4 hours as needed for N/V 4 mg PO Q8H 8 tabs 0RF Changed From hqphwe-opbobqzf-dyhuofq 36,000-114,000- 180,000 unit (Creon) administer with meals and/or snacks 1 cap PO TID 90 caps 5RF To uwyypb-sotjlehr-iudeepb 36,000-114,000- 180,000 unit (Creon) 2 caps orally; take 2 with meals and 1 with snacks 300 caps 1RF Discontinued insulin degludec (Tresiba FlexTouch U-100 insulin) Discontinued Reason: Order Changed 15 units (0.15 mL) subcut QDAY 15 mL 6RF Plan 43-year-old male presents for follow-up with continued complaints of nausea, bloating, constipation and diarrhea with a known history of gastroparesis. He was last seen for EGD June 2024 which revealed a large amount of retained food within the stomach. He was started on metoclopramide 5 mg every 6 hours postprocedure and is uncertain this has made any improvement in his symptoms. He remains on pantoprazole 40 mg daily. Previous fecal elastase was mildly low at 130 and he was started on Creon and reports taking 1 with meals. We have discussed appropriate Creon dosing and I have provided him literature. I have also reviewed a gastroparesis diet with him and encouraged smaller meals. I have ordered an abdominal ultrasound. He is continuing to experience alternating constipation and diarrhea with episodes of fecal incontinence. He denies any bleeding or unexplained weight loss. I have scheduled him for colonoscopy and he will follow-up with me in the office postprocedure. Patient Instructions: JOSE FRANCISCO today ABD US - May complete in [place] or here at [place] Colonoscopy 1/2d Miralax and 1d GoLyte Creon literature provided - discussed dosing adjustment, 2 with meals and 1 with snacks Continue pantoprazole 40mg QD Continue Metoclopramide 5mg QID (he is taking Q6h)
[2025-02-26] MEDS: Lactated Ringers 1,000 ML 15 ML IV (13:05)
[2025-02-26 13:26] LABS: Bedside Glucose 313 mg/dL (74-106)
--- NOTE | 2025-02-26 13:52 | OP.CCLET_ITS ---
02/26/2025 Lino Garcia Re : Colonoscopy procedure for Luis Fernando Murphy Dear Andry This procedure was performed on Wednesday, February 26, 2025. My impressions and recommendations are as follows: Impressions : - Internal hemorrhoids. - Diverticulosis in the recto-sigmoid colon, in the sigmoid colon and in the descending colon. - Congested mucosa in the recto-sigmoid colon, in the sigmoid colon, in the descending colon, in the transverse colon and in the ascending colon. Biopsied. Recommendations : - Discharge patient to home. - Resume previous diet. - Continue present medications. - Await pathology results. - Repeat colonoscopy is recommended for surveillance. The colonoscopy date will be determined after pathology results from today's exam become available for review. My findings are described in the full procedure note, which is enclosed. If I can be of further assistance, please feel free to contact me at . Sincerely, Tex Shane, 02/26/2025 1:51:55 PM This report has been signed electronically.
--- NOTE | 2025-02-26 13:52 | OP.COLON_ITS ---
Patient Name: Luis Fernando Murphy Procedure Date: 02/26/2025 1:14 PM Date of : 1980 Age: 44 Procedure: Colonoscopy Indications: Generalized abdominal pain, Chronic diarrhea Providers: Tex Shane DO Referring MD: Lino Garcia Medicines: Monitored Anesthesia Care Patient Profile: This is a 44 year old male. Refer to note in patient chart for documentation of history and physical. Last Colonoscopy: none. The patient's first colonoscopy is today. Complications: No immediate complications. Procedure: Pre-Anesthesia Assessment: - Prior to the procedure, a History and Physical was performed, and patient medications and allergies were reviewed. The patient is competent. The risks and benefits of the procedure and the sedation options and risks were discussed with the patient. All questions were answered and informed consent was obtained. Patient identification and proposed procedure were verified by the physician in the pre-procedure area. Mental Status Examination: alert and oriented. Airway Examination: normal oropharyngeal airway and neck mobility. Respiratory Examination: clear to auscultation. CV Examination: normal. Prophylactic Antibiotics: The patient does not require prophylactic antibiotics. Prior Anticoagulants: The patient has taken no anticoagulant or antiplatelet agents. ASA Grade Assessment: II - A patient with mild systemic disease. After reviewing the risks and benefits, the patient was deemed in satisfactory condition to undergo the procedure. The anesthesia plan was to use monitored anesthesia care (MAC). Immediately prior to administration of medications, the patient was re-assessed for adequacy to receive sedatives. The heart rate, respiratory rate, oxygen saturations, blood pressure, adequacy of pulmonary ventilation, and response to care were monitored throughout the procedure. The physical status of the patient was re-assessed after the procedure. After I obtained informed consent, the scope was passed under direct vision. Throughout the procedure, the patient's blood pressure, pulse, and oxygen saturations were monitored continuously. The Colonoscope was introduced through the anus and advanced to the cecum, identified by appendiceal orifice and ileocecal valve. The colonoscopy was performed without difficulty. The patient tolerated the procedure well. The quality of the bowel preparation was adequate. Scope In: 1:22:58 PM Scope Withdrawal Time 0 hours 11 minutes 18 seconds Scope Out: 1:41:20 PM Total Procedure Duration Time 0 hours 18 minutes 22 seconds Findings: The perianal and digital rectal examinations were normal. Internal hemorrhoids were found during retroflexion. The hemorrhoids were Grade I (internal hemorrhoids that do not prolapse). A few small-mouthed diverticula were found in the recto-sigmoid colon, sigmoid colon and descending colon. An area of mildly congested mucosa was found in the recto-sigmoid colon, in the sigmoid colon, in the descending colon, in the transverse colon and in the ascending colon. Biopsies were taken with a cold forceps for histology. Verification of patient identification for the specimen was done. Estimated blood loss was minimal. Impression: - Internal hemorrhoids. - Diverticulosis in the recto-sigmoid colon, in the sigmoid colon and in the descending colon. - Congested mucosa in the recto-sigmoid colon, in the sigmoid colon, in the descending colon, in the transverse colon and in the ascending colon. Biopsied. Recommendation: - Discharge patient to home. - Resume previous diet. - Continue present medications. - Await pathology results. - Repeat colonoscopy is recommended for surveillance. The colonoscopy date will be determined after pathology results from today's exam become available for review. Procedure Code(s): --- Professional --- 52684, Colonoscopy, flexible; with biopsy, single or multiple CPT copyright 2021 [employer]. All rights reserved. The codes documented in this report are preliminary and upon customer retention representative review may be revised to meet current compliance requirements. Tex Shane DO 02/26/2025 1:51:55 PM This report has been signed electronically. Number of Addenda: 0 Note Initiated On: 02/26/2025 1:14 PM
--- NOTE | 2025-02-26 13:52 | PCM.POST.ANE ---
Anesthesia: Postop Eval I Current Vital Signs Temperature: 97.7 F Pulse Rate: 72 Blood Pressure: 113/85 Respiratory Rate: 16 Pulse Ox: 99 Oxygen Delivery Method: Room Air Assessment Airway patent: Yes Spontaneous unlabored respirations: Yes Mental status: Awake and Calm nausea: No Vomiting: No Anesthesia Complication: No Fluid Hydration Crystalloid volume administer (ml): 800 Total IV fluid infused: 800 Progress Note Anesthesia document: Postop Eval 1 completed: Yes
--- NOTE | 2025-02-26 18:19 | PCM.POSTANE2 ---
Anesthesia Postop Eval I Sum Postop Eval Completion status Anesthesia document: Postop Eval 1 completed: Yes Anesthesia Postop Eval I Summary Anesthesia Postop Eval I Summary: Anesthesia Postop Eval I: Assessment Summary Airway patent Yes 02/26/25 13:53 [email or web address] Spontaneous unlabored Yes 02/26/25 13:53 [email or web address] respirations Mental status Awake,Calm 02/26/25 13:53 [email or web address] nausea No 02/26/25 13:53 [email or web address] Vomiting No 02/26/25 13:53 [email or web address] Anesthesia Postop Eval I: Fluid Summary Crystalloid volume administer 800 02/26/25 13:53 [email or web address] (ml) Colloids volume administered ( ml) Blood Product volume administered (ml) Total IV fluid infused 800 02/26/25 13:53 [email or web address] Anesthesia Postop Eval I: Summary Notes Anesthesia Complication No 02/26/25 13:53 [email or web address] Anesthesia Complication Comment: Post-operative progress note Anesthesia: Postop Eval II Evaluation Mental status: Awake and Calm Pain Level: 0 nausea: No Vomiting: No Complications Anesthesia Complication: No
== END 2025-02-26 15:05 | disposition home or self-care (01) ==
LOC: EN 12:30 → AC 12:36
PROVIDERS: PCP Physician Assistant; Referring Provider Physician Assistant; Visit Provider Internal Medicine Gastroenterology
PROC: 0DJD8ZZ Inspection of Lower Intestinal Tract, Via Natural or Artificial Opening Endoscopic (ICD-10-PCS; CPT 45378; principal; 2025-02-26 12:55)
DX: K57.30 Diverticulosis of large intestine without perforation or abscess without bleeding (principal); E66.01 Morbid (severe) obesity due to excess calories; E13.43 Other specified diabetes mellitus with diabetic autonomic (poly)neuropathy; Z79.4 Long term (current) use of insulin; R15.9 Full incontinence of feces; K31.84 Gastroparesis; R10.84 Generalized abdominal pain; Z79.84 Long term (current) use of oral hypoglycemic drugs; Z83.3 Family history of diabetes mellitus; Z87.891 Personal history of nicotine dependence; K64.0 First degree hemorrhoids; R14.0 Abdominal distension (gaseous); F43.10 Post-traumatic stress disorder, unspecified; R19.7 Diarrhea, unspecified; Z99.89 Dependence on other enabling machines and devices
CPT/HCPCS: 45380; 82962; 88305; J2405